=== PATIENT | male | born 1985 | race American Indian/Alaskan Native ===

== ENCOUNTER 2019-12-26 14:40 | Inpatient (IN) | payer BC ==
[~2019-12-26 14:40] MED LIST: EPINEPHrine 1 MG/10 ML SYRINGE ONE; EPINEPHrine/PF 1 MG/1 ML INJ IV ONE; SODIUM BICARB 8.4% 50 MEQ/50 ML SYRINGE IV ONE
[2019-12-26] MEDS ORDERED: EPINEPHrine/PF 1 MG/1 ML INJ IV ONE (14:45)
[2019-12-26] MEDS ORDERED: SUCCINYLCHOLINE CHLORIDE 200 MG/10 ML INJ MDV IV ONE (14:55)
--- NOTE | 2019-12-26 15:19 | Emergency Department Report ---
ED CPR HPI - General Stated Complaint: CARDIC ARREST Time Seen by Provider: 12/26/19 15:19 Source: old records reviewed (no previous medical record) Mode of arrival: Stretcher Limitations: Altered Mental Status - History of Present Illness Initial Comments: 34-year male with a past medical history of morbid obesity presents to the hospital with initial respiratory distress followed by cardiopulmonary arrest. EMS reports history of previous intubations. Patient was found at the scene in his vehicle hunched over at the parking lot of a motel with complaints of shortness of breath. Initially he was alert and oriented x4. Patient initial room air saturation was 70% with reported wheezing by EMS. They initiated Solu- Medrol 125, albuterol 5 mg, and magnesium 2 g. Shortly after being placed in the ambulance patient's heart rate began to drop in the 60s with decrease in oxygen saturation into the 20s to 40s along with patient lethargy. A Idris airway was placed and O2 sat increased to the 60s with bagging the heart rate continued to decrease to 30s. They attempted to pace patient. 22 minutes out from the hospital patient became pulseless and chest compressions were initiated. No ACLS medications provided prior to arrival. Patient presents in cardiopulmonary arrest with a GCS 3 with CPR/chest compressions in progress There was a female at the scene of unknown relation Jeison Zaina [phone] I spoke to mother at 4:14 PM Meredith Balderrama [phone] who states that the previous contact is that his significant other or girlfriend but some when he was with at the scene mother states diabetes, maybe heart problems, sleep apnea, but is noncompliant with all his medications Patient drove back here from [place] today and has had a cough productive of sputum since arrival 1 month ago patient was admitted to the hospital and had surgical drainage of a "cyst near his private parts" and had a negative Covid test at that time. He has not been tested for Covid since. - Related Data Allergies Allergy/AdvReac Type Severity Reaction Status Date / Time No Known Allergies Allergy Unverified 12/26/19 15:29 ED Review of Systems ROS: Stated complaint: CARDIC ARREST Other details as noted in HPI Comment: All other systems reviewed and negative ED Physical Exam - Other Other exam information: General: Unresponsive Head: Atraumatic Eyes: Pupils fixed unresponsive ENT: Idris airway Neck: Normal appearance, no midline tenderness Chest: Clear with auscultation with bagging, CO2 detector color change with bagging, apneic CV: Pulseless Abdomen: Soft, nondistended Back: Normal inspection Extremity: Bilateral lower extremity edema, no spontaneous movement Neuro: GCS equals 3 Psych: Unresponsive Skin: No rash ED Course Vital Signs 12/26/19 12/26/19 12/26/19 15:07 15:15 15:30 Temperature Pulse Rate 136 H 140 H 141 H Pulse Rate [ Anterior Bilateral Throughout] Respiratory 16 9 L Rate Respiratory Rate [Anterior Bilateral Throughout] Blood Pressure 152/102 170/120 195/153 Blood Pressure [Left] O2 Sat by Pulse 98 100 94 Oximetry 12/26/19 12/26/19 12/26/19 15:45 16:00 16:03 Temperature 98.7 F Pulse Rate 129 H 124 H 120 H Pulse Rate [ Anterior Bilateral Throughout] Respiratory 11 L 20 18 Rate Respiratory Rate [Anterior Bilateral Throughout] Blood Pressure 178/128 175/122 Blood Pressure 172/100 [Left] O2 Sat by Pulse 100 96 98 Oximetry 12/26/19 12/26/19 12/26/19 16:30 16:45 17:01 Temperature Pulse Rate 118 H 119 H 119 H Pulse Rate [ Anterior Bilateral Throughout] Respiratory 15 24 28 H Rate Respiratory Rate [Anterior Bilateral Throughout] Blood Pressure 135/102 135/102 135/102 Blood Pressure [Left] O2 Sat by Pulse 83 L 82 L 84 Oximetry 12/26/19 12/26/19 12/26/19 17:15 17:31 17:45 Temperature Pulse Rate 121 H 126 H 124 H Pulse Rate [ Anterior Bilateral Throughout] Respiratory 32 H 30 H 29 H Rate Respiratory Rate [Anterior Bilateral Throughout] Blood Pressure 135/102 156/101 156/101 Blood Pressure [Left] O2 Sat by Pulse 82 L 83 L 92 Oximetry 12/26/19 12/26/19 12/26/19 18:01 18:15 18:31 Temperature Pulse Rate 125 H 126 H 132 H Pulse Rate [ Anterior Bilateral Throughout] Respiratory 27 H 22 26 H Rate Respiratory Rate [Anterior Bilateral Throughout] Blood Pressure 134/83 154/97 164/117 Blood Pressure [Left] O2 Sat by Pulse 86 85 75 L Oximetry 12/26/19 12/26/19 12/26/19 19:17 19:45 20:00 Temperature 99.1 F Pulse Rate 142 H 140 H 125 H Pulse Rate [ Anterior Bilateral Throughout] Respiratory 29 H Rate Respiratory Rate [Anterior Bilateral Throughout] Blood Pressure 172/110 172/110 156/100 Blood Pressure 159/100 [Left] O2 Sat by Pulse 85 86 90 Oximetry 12/26/19 12/26/19 12/26/19 20:30 21:00 21:31 Temperature Pulse Rate 122 H 115 H 111 H Pulse Rate [ Anterior Bilateral Throughout] Respiratory 31 H 27 H 41 H Rate Respiratory Rate [Anterior Bilateral Throughout] Blood Pressure 159/99 153/101 144/93 Blood Pressure [Left] O2 Sat by Pulse 91 93 95 Oximetry 12/26/19 12/26/19 12/26/19 22:01 22:05 22:30 Temperature Pulse Rate 99 H 91 H Pulse Rate [ 91 H Anterior Bilateral Throughout] Respiratory 21 30 H Rate Respiratory 30 H Rate [Anterior Bilateral Throughout] Blood Pressure 118/67 100/49 Blood Pressure [Left] O2 Sat by Pulse 94 95 Oximetry 12/26/19 12/26/19 12/26/19 23:00 23:13 23:30 Temperature Pulse Rate 84 83 81 Pulse Rate [ Anterior Bilateral Throughout] Respiratory 30 H 30 H Rate Respiratory Rate [Anterior Bilateral Throughout] Blood Pressure 99/55 99/55 105/59 Blood Pressure [Left] O2 Sat by Pulse 96 95 96 Oximetry 12/26/19 12/27/19 12/27/19 23:41 00:00 00:30 Temperature Pulse Rate 82 81 81 Pulse Rate [ Anterior Bilateral Throughout] Respiratory 31 H 21 30 H Rate Respiratory Rate [Anterior Bilateral Throughout] Blood Pressure 105/59 101/63 111/65 Blood Pressure [Left] O2 Sat by Pulse 95 96 96 Oximetry 12/27/19 12/27/19 12/27/19 01:00 01:30 02:00 Temperature Pulse Rate 81 83 84 Pulse Rate [ Anterior Bilateral Throughout] Respiratory 18 23 12 Rate Respiratory Rate [Anterior Bilateral Throughout] Blood Pressure 106/68 114/70 110/70 Blood Pressure [Left] O2 Sat by Pulse 96 96 97 Oximetry 12/27/19 12/27/19 12/27/19 02:19 02:30 03:00 Temperature Pulse Rate 85 89 Pulse Rate [ 86 Anterior Bilateral Throughout] Respiratory 27 H 22 Rate Respiratory 30 H Rate [Anterior Bilateral Throughout] Blood Pressure 111/71 112/76 Blood Pressure [Left] O2 Sat by Pulse 96 96 Oximetry 12/27/19 12/27/19 12/27/19 03:30 04:00 04:01 Temperature Pulse Rate 88 88 88 Pulse Rate [ Anterior Bilateral Throughout] Respiratory 20 32 H Rate Respiratory Rate [Anterior Bilateral Throughout] Blood Pressure 117/74 118/73 117/74 Blood Pressure [Left] O2 Sat by Pulse 96 96 96 Oximetry 12/27/19 12/27/19 12/27/19 04:30 05:00 05:30 Temperature Pulse Rate 88 91 H 94 H Pulse Rate [ Anterior Bilateral Throughout] Respiratory 26 H 18 20 Rate Respiratory Rate [Anterior Bilateral Throughout] Blood Pressure 119/71 119/73 119/76 Blood Pressure [Left] O2 Sat by Pulse 97 96 96 Oximetry 12/27/19 12/27/19 12/27/19 06:00 06:30 06:45 Temperature Pulse Rate 97 H 94 H 96 H Pulse Rate [ Anterior Bilateral Throughout] Respiratory 22 24 30 H Rate Respiratory Rate [Anterior Bilateral Throughout] Blood Pressure 119/78 123/76 121/70 Blood Pressure [Left] O2 Sat by Pulse 95 96 95 Oximetry 12/27/19 12/27/19 12/27/19 07:00 07:15 07:30 Temperature Pulse Rate 98 H 99 H 99 H Pulse Rate [ Anterior Bilateral Throughout] Respiratory 20 24 20 Rate Respiratory Rate [Anterior Bilateral Throughout] Blood Pressure 123/68 124/78 125/78 Blood Pressure [Left] O2 Sat by Pulse 96 96 96 Oximetry 12/27/19 12/27/19 12/27/19 07:45 08:00 08:15 Temperature Pulse Rate 96 H 100 H 100 H Pulse Rate [ 98 H Anterior Bilateral Throughout] Respiratory 19 23 13 Rate Respiratory 23 Rate [Anterior Bilateral Throughout] Blood Pressure 119/74 126/75 126/84 Blood Pressure [Left] O2 Sat by Pulse 98 98 97 Oximetry 12/27/19 08:50 Temperature 102.2 F H Pulse Rate 99 H Pulse Rate [ Anterior Bilateral Throughout] Respiratory Rate Respiratory Rate [Anterior Bilateral Throughout] Blood Pressure Blood Pressure [Left] O2 Sat by Pulse Oximetry - Reevaluation(s) Reevaluation #1: 12/26/19 15:36 Upon arrival patient received ACLS resuscitation. Initial rhythm PEA. Epinephrine x2 and bicarb x1 provided with return of spontaneous circulation. Patient was then bagged with Idris airway however prepped for intubation. After intubation patient has clear bilateral breath sounds without wheezing and good air movement and chest rise noted. Reevaluation #2: 12/26/19 16:16 I spoke to mother and gave her patient update obtain additional history of present illness. Since patient is in respiratory isolation pending Covid test visit does not about this time but she is provided ED number to call back to follow-up on patient 12/26/19 17:39 After patient rotation and cleaning patient was noted to be hypoxic at the bedside despite 100% FiO2. Saturation on monitor 80% correlates with repeat ABG saturation. PEEP increased to 10 as per respiratory therapist. Repeat chest x-ray ordered in case discussed with CCU MD Dr villalba Patient is noted to have elevated D-dimer however, he is not stable enough for transfer to CT at this time. CT head also initially ordered given the fact that his patient is exhibiting involuntary muscle movements/spasms suggestive of anoxic brain injury and does not have pupillary response to light. Both cts are put on hold at this time until pt stable. Patient was loaded with Keppra IV and is currently on a propofol drip. Dr Villalba will likely initiate anticoagulation 12/26/19 19:02 Repeat chest x-ray shows no change in the tube. No change in x-ray as well. Patient is biting down on the tube with unable to open his mouth is still exhibiting intermittent myoclonus jerks. Rocuronium 130 mg requested for paralyzation so that block bite can be placed in the airway to prevent patient from biting through tube 12/26/19 19:15 Patient did receive rocuronium 100 mg IV. Bite block was placed successfully. Heart rate increased to 140s. O2 saturation increased to 84 to 85% while paralyzed. Sedation changed to Versed drip by critical care attending. Patient also has a PEEP of 12 and FiO2 of 100% as ordered by critical care attending. 12/27/19 11:06 - Consultations Consultation #1: 12/26/19 17:[address] Morgan Cuellar who is at the bedside to evaluate patient. Will hold imaging at this time until patient is more stable since he is currently hypoxic despite FiO2 of 100% - Intubation Time Out Performed: Yes Paralytic: Succinylcholine Mg Given: 100 Laryngoscope: other (glidescope) Size: 4 ET Tube Size: 7.5 Tube Secured Depth (cm): 24 Tube Secured Location: lips Tube Placement Confirmation: visualized tube passing t, equal breath sounds b ilat, no breath sounds over epi, confirmation by capnometr Patient Tolerated Procedure: well Intubation Complications: difficult intubation Additional Comments: Able to visualize cords with the glidesope number difficulty directed tube anteriorly with traditional stylette. Patient was successfully intubated on second attempt with use of a rigid stylette however, ET cuff was blown and we were unable to inflate cuff balloon. I then exchange tube exchanged the 7.5 ET tube with another 7.5 ET tube using a bougie with repeat CO2 detector color change and sustain oxygenation of 100% ED Medical Decision Making - Lab Data Result diagrams: 12/26/19 18:31 12/26/19 16:50 Lab Results 12/26/19 12/26/19 12/26/19 Range/Units 15:57 16:13 16:13 WBC 23.7 H (4.5-11.0) K/mm3 RBC 4.49 (3.65-5.03) M/mm3 Hgb 15.1 (11.8-15.2) gm/dl Hct 45.7 H (35.5-45.6) % MCV 102 H (84-94) fl MCH 34 H (28-32) pg MCHC 33 (32-34) % RDW 14.5 (13.2-15.2) % Plt Count 268 (140-440) K/mm3 PT 14.6 (12.2-14.9) Sec. INR 1.13 (0.87-1.13) APTT 28.1 (24.2-36.6) Sec. D-Dimer 5221.01 H (0-234) ng/mlDDU ABG pH 7.109 L* (7.350-7.450) pH Units ABG pCO2 52.7 mm Hg ABG pO2 101.4 H (80.0-90.0) mm Hg ABG HCO3 16.3 L (20.0-26.0) mmol/L ABG O2 Saturation 95.7 (95.0-99.0) % ABG O2 Content 19.5 (0.0-44) ABG Base Excess -13.4 L (-2.0-3.0) mmol/L ABG Hemoglobin 14.8 (14.0-18.0) gm/dl ABG Carboxyhemoglobin 1.8 (0.0-5.0) % ABG Methemoglobin 0.6 (0.0-1.5) % Oxyhemoglobin 93.3 L (95.0-99.0) % FiO2 100 % Sodium (137-145) mmol/L Potassium (3.6-5.0) mmol/L Chloride (98-107) mmol/L Carbon Dioxide (22-30) mmol/L Anion Gap mmol/L BUN (9-20) mg/dL Creatinine (0.8-1.3) mg/dL Estimated GFR ml/min BUN/Creatinine Ratio % Glucose (75-100) mg/dL Lactic Acid (0.7-2.0) mmol/L Calcium (8.4-10.2) mg/dL Magnesium (1.7-2.3) mg/dL Ferritin (30.0-300.0) ng/mL Total Bilirubin (0.1-1.2) mg/dL AST (5-40) units/L ALT (7-56) units/L Alkaline Phosphatase (35-129) units/L Lactate Dehydrogenase (91-180) units/L Total Creatine Kinase (55-170) units/L Troponin T (0.00-0.029) ng/mL C-Reactive Protein (0.00-1.30) mg/dL NT-Pro-B Natriuret Pep (0-450) pg/mL Total Protein (6.3-8.2) g/dL Albumin (3.9-5) g/dL Albumin/Globulin Ratio % Urine Color (Yellow) Urine Turbidity (Clear) Urine pH (5.0-7.0) Ur Specific [place] (1.003-1.030) Urine Protein (Negative) mg/dL Urine Glucose (UA) (Negative) mg/dL Urine Ketones (Negative) mg/dL Urine Blood (Negative) Urine Nitrite (Negative) Urine Bilirubin (Negative) Urine Urobilinogen (<2.0) mg/dL Ur Leukocyte Esterase (Negative) Urine WBC (Auto) (0.0-6.0) /HPF Urine RBC (Auto) (0.0-6.0) /HPF U Epithel Cells (Auto) (0-13.0) /HPF Urine Bacteria (Auto) (Negative) /HPF Urine WBC Clumps /HPF Urine Mucus /HPF Urine Opiates Screen Urine Methadone Screen Ur Barbiturates Screen Ur Phencyclidine Scrn Ur Amphetamines Screen U Benzodiazepines Scrn Urine Cocaine Screen U Marijuana (THC) Screen Drugs of Abuse Note 12/26/19 12/26/19 12/26/19 Range/Units 16:13 16:13 16:13 WBC (4.5-11.0) K/mm3 RBC (3.65-5.03) M/mm3 Hgb (11.8-15.2) gm/dl Hct (35.5-45.6) % MCV (84-94) fl MCH (28-32) pg MCHC (32-34) % RDW (13.2-15.2) % Plt Count (140-440) K/mm3 PT (12.2-14.9) Sec. INR (0.87-1.13) APTT (24.2-36.6) Sec. D-Dimer (0-234) ng/mlDDU ABG pH (7.350-7.450) pH Units ABG pCO2 mm Hg ABG pO2 (80.0-90.0) mm Hg ABG HCO3 (20.0-26.0) mmol/L ABG O2 Saturation (95.0-99.0) % ABG O2 Content (0.0-44) ABG Base Excess (-2.0-3.0) mmol/L ABG Hemoglobin (14.0-18.0) gm/dl ABG Carboxyhemoglobin (0.0-5.0) % ABG Methemoglobin (0.0-1.5) % Oxyhemoglobin (95.0-99.0) % FiO2 % Sodium 140 (137-145) mmol/L Potassium 4.1 (3.6-5.0) mmol/L Chloride 103.5 (98-107) mmol/L Carbon Dioxide 15 L (22-30) mmol/L Anion Gap 26 mmol/L BUN 19 (9-20) mg/dL Creatinine 1.3 (0.8-1.3) mg/dL Estimated GFR > 60 ml/min BUN/Creatinine Ratio 15 % Glucose 268 H (75-100) mg/dL Lactic Acid (0.7-2.0) mmol/L Calcium 8.9 (8.4-10.2) mg/dL Magnesium 2.60 H (1.7-2.3) mg/dL Ferritin (30.0-300.0) ng/mL Total Bilirubin 0.40 (0.1-1.2) mg/dL AST 177 H (5-40) units/L ALT 108 H (7-56) units/L Alkaline Phosphatase 125 (35-129) units/L Lactate Dehydrogenase (91-180) units/L Total Creatine Kinase 191 H (55-170) units/L Troponin T < 0.010 (0.00-0.029) ng/mL C-Reactive Protein (0.00-1.30) mg/dL NT-Pro-B Natriuret Pep 1766 H (0-450) pg/mL Total Protein 7.1 (6.3-8.2) g/dL Albumin 4.1 (3.9-5) g/dL Albumin/Globulin Ratio 1.4 % Urine Color (Yellow) Urine Turbidity (Clear) Urine pH (5.0-7.0) Ur Specific [place] (1.003-1.030) Urine Protein (Negative) mg/dL Urine Glucose (UA) (Negative) mg/dL Urine Ketones (Negative) mg/dL Urine Blood (Negative) Urine Nitrite (Negative) Urine Bilirubin (Negative) Urine Urobilinogen (<2.0) mg/dL Ur Leukocyte Esterase (Negative) Urine WBC (Auto) (0.0-6.0) /HPF Urine RBC (Auto) (0.0-6.0) /HPF U Epithel Cells (Auto) (0-13.0) /HPF Urine Bacteria (Auto) (Negative) /HPF Urine WBC Clumps /HPF Urine Mucus /HPF Urine Opiates Screen Urine Methadone Screen Ur Barbiturates Screen Ur Phencyclidine Scrn Ur Amphetamines Screen U Benzodiazepines Scrn Urine Cocaine Screen U Marijuana (THC) Screen Drugs of Abuse Note 12/26/19 12/26/19 12/26/19 Range/Units 16:13 16:50 16:50 WBC (4.5-11.0) K/mm3 RBC (3.65-5.03) M/mm3 Hgb (11.8-15.2) gm/dl Hct (35.5-45.6) % MCV (84-94) fl MCH (28-32) pg MCHC (32-34) % RDW (13.2-15.2) % Plt Count (140-440) K/mm3 PT (12.2-14.9) Sec. INR (0.87-1.13) APTT (24.2-36.6) Sec. D-Dimer (0-234) ng/mlDDU ABG pH (7.350-7.450) pH Units ABG pCO2 mm Hg ABG pO2 (80.0-90.0) mm Hg ABG HCO3 (20.0-26.0) mmol/L ABG O2 Saturation (95.0-99.0) % ABG O2 Content (0.0-44) ABG Base Excess (-2.0-3.0) mmol/L ABG Hemoglobin (14.0-18.0) gm/dl ABG Carboxyhemoglobin (0.0-5.0) % ABG Methemoglobin (0.0-1.5) % Oxyhemoglobin (95.0-99.0) % FiO2 % Sodium (137-145) mmol/L Potassium (3.6-5.0) mmol/L Chloride (98-107) mmol/L Carbon Dioxide (22-30) mmol/L Anion Gap mmol/L BUN (9-20) mg/dL Creatinine (0.8-1.3) mg/dL Estimated GFR ml/min BUN/Creatinine Ratio % Glucose 273 H (75-100) mg/dL Lactic Acid 7.70 H* (0.7-2.0) mmol/L Calcium (8.4-10.2) mg/dL Magnesium (1.7-2.3) mg/dL Ferritin 1248.0 H (30.0-300.0) ng/mL Total Bilirubin (0.1-1.2) mg/dL AST (5-40) units/L ALT (7-56) units/L Alkaline Phosphatase (35-129) units/L Lactate Dehydrogenase 443 H (91-180) units/L Total Creatine Kinase (55-170) units/L Troponin T (0.00-0.029) ng/mL C-Reactive Protein 1.10 (0.00-1.30) mg/dL NT-Pro-B Natriuret Pep (0-450) pg/mL Total Protein (6.3-8.2) g/dL Albumin (3.9-5) g/dL Albumin/Globulin Ratio % Urine Color (Yellow) Urine Turbidity (Clear) Urine pH (5.0-7.0) Ur Specific [place] (1.003-1.030) Urine Protein (Negative) mg/dL Urine Glucose (UA) (Negative) mg/dL Urine Ketones (Negative) mg/dL Urine Blood (Negative) Urine Nitrite (Negative) Urine Bilirubin (Negative) Urine Urobilinogen (<2.0) mg/dL Ur Leukocyte Esterase (Negative) Urine WBC (Auto) (0.0-6.0) /HPF Urine RBC (Auto) (0.0-6.0) /HPF U Epithel Cells (Auto) (0-13.0) /HPF Urine Bacteria (Auto) (Negative) /HPF Urine WBC Clumps /HPF Urine Mucus /HPF Urine Opiates Screen Urine Methadone Screen Ur Barbiturates Screen Ur Phencyclidine Scrn Ur Amphetamines Screen U Benzodiazepines Scrn Urine Cocaine Screen U Marijuana (THC) Screen Drugs of Abuse Note 12/26/19 12/26/19 12/26/19 Range/Units 16:50 17:02 Unknown WBC (4.5-11.0) K/mm3 RBC (3.65-5.03) M/mm3 Hgb (11.8-15.2) gm/dl Hct (35.5-45.6) % MCV (84-94) fl MCH (28-32) pg MCHC (32-34) % RDW (13.2-15.2) % Plt Count (140-440) K/mm3 PT (12.2-14.9) Sec. INR (0.87-1.13) APTT (24.2-36.6) Sec. D-Dimer 6498.49 H (0-234) ng/mlDDU ABG pH 7.136 L* (7.350-7.450) pH Units ABG pCO2 61.4 mm Hg ABG pO2 63.9 L (80.0-90.0) mm Hg ABG HCO3 20.3 (20.0-26.0) mmol/L ABG O2 Saturation 81.8 L (95.0-99.0) % ABG O2 Content 16.4 (0.0-44) ABG Base Excess -9.6 L (-2.0-3.0) mmol/L ABG Hemoglobin 14.6 (14.0-18.0) gm/dl ABG Carboxyhemoglobin 1.7 (0.0-5.0) % ABG Methemoglobin 0.7 (0.0-1.5) % Oxyhemoglobin 79.8 L (95.0-99.0) % FiO2 100 % Sodium (137-145) mmol/L Potassium (3.6-5.0) mmol/L Chloride (98-107) mmol/L Carbon Dioxide (22-30) mmol/L Anion Gap mmol/L BUN (9-20) mg/dL Creatinine (0.8-1.3) mg/dL Estimated GFR ml/min BUN/Creatinine Ratio % Glucose (75-100) mg/dL Lactic Acid (0.7-2.0) mmol/L Calcium (8.4-10.2) mg/dL Magnesium (1.7-2.3) mg/dL Ferritin (30.0-300.0) ng/mL Total Bilirubin (0.1-1.2) mg/dL AST (5-40) units/L ALT (7-56) units/L Alkaline Phosphatase (35-129) units/L Lactate Dehydrogenase (91-180) units/L Total Creatine Kinase (55-170) units/L Troponin T (0.00-0.029) ng/mL C-Reactive Protein (0.00-1.30) mg/dL NT-Pro-B Natriuret Pep (0-450) pg/mL Total Protein (6.3-8.2) g/dL Albumin (3.9-5) g/dL Albumin/Globulin Ratio % Urine Color (Yellow) Urine Turbidity (Clear) Urine pH (5.0-7.0) Ur Specific [place] (1.003-1.030) Urine Protein (Negative) mg/dL Urine Glucose (UA) (Negative) mg/dL Urine Ketones (Negative) mg/dL Urine Blood (Negative) Urine Nitrite (Negative) Urine Bilirubin (Negative) Urine Urobilinogen (<2.0) mg/dL Ur Leukocyte Esterase (Negative) Urine WBC (Auto) (0.0-6.0) /HPF Urine RBC (Auto) (0.0-6.0) /HPF U Epithel Cells (Auto) (0-13.0) /HPF Urine Bacteria (Auto) (Negative) /HPF Urine WBC Clumps /HPF Urine Mucus /HPF Urine Opiates Screen Negative Urine Methadone Screen Negative Ur Barbiturates Screen Negative Ur Phencyclidine Scrn Negative Ur Amphetamines Screen Negative U Benzodiazepines Scrn Negative Urine Cocaine Screen Negative U Marijuana (THC) Screen Negative Drugs of Abuse Note Disclamer 12/26/19 Range/Units Unknown WBC (4.5-11.0) K/mm3 RBC (3.65-5.03) M/mm3 Hgb (11.8-15.2) gm/dl Hct (35.5-45.6) % MCV (84-94) fl MCH (28-32) pg MCHC (32-34) % RDW (13.2-15.2) % Plt Count (140-440) K/mm3 PT (12.2-14.9) Sec. INR (0.87-1.13) APTT (24.2-36.6) Sec. D-Dimer (0-234) ng/mlDDU ABG pH (7.350-7.450) pH Units ABG pCO2 mm Hg ABG pO2 (80.0-90.0) mm Hg ABG HCO3 (20.0-26.0) mmol/L ABG O2 Saturation (95.0-99.0) % ABG O2 Content (0.0-44) ABG Base Excess (-2.0-3.0) mmol/L ABG Hemoglobin (14.0-18.0) gm/dl ABG Carboxyhemoglobin (0.0-5.0) % ABG Methemoglobin (0.0-1.5) % Oxyhemoglobin (95.0-99.0) % FiO2 % Sodium (137-145) mmol/L Potassium (3.6-5.0) mmol/L Chloride (98-107) mmol/L Carbon Dioxide (22-30) mmol/L Anion Gap mmol/L BUN (9-20) mg/dL Creatinine (0.8-1.3) mg/dL Estimated GFR ml/min BUN/Creatinine Ratio % Glucose (75-100) mg/dL Lactic Acid (0.7-2.0) mmol/L Calcium (8.4-10.2) mg/dL Magnesium (1.7-2.3) mg/dL Ferritin (30.0-300.0) ng/mL Total Bilirubin (0.1-1.2) mg/dL AST (5-40) units/L ALT (7-56) units/L Alkaline Phosphatase (35-129) units/L Lactate Dehydrogenase (91-180) units/L Total Creatine Kinase (55-170) units/L Troponin T (0.00-0.029) ng/mL C-Reactive Protein (0.00-1.30) mg/dL NT-Pro-B Natriuret Pep (0-450) pg/mL Total Protein (6.3-8.2) g/dL Albumin (3.9-5) g/dL Albumin/Globulin Ratio % Urine Color [place] (Yellow) Urine Turbidity Cloudy (Clear) Urine pH 6.0 (5.0-7.0) Ur Specific [place] 1.025 (1.003-1.030) Urine Protein >500 (Negative) mg/dL Urine Glucose (UA) >=500 (Negative) mg/dL Urine Ketones Neg (Negative) mg/dL Urine Blood Neg (Negative) Urine Nitrite Neg (Negative) Urine Bilirubin Neg (Negative) Urine Urobilinogen < 2.0 (<2.0) mg/dL Ur Leukocyte Esterase Neg (Negative) Urine WBC (Auto) 146.0 H (0.0-6.0) /HPF Urine RBC (Auto) 92.0 (0.0-6.0) /HPF U Epithel Cells (Auto) 4.0 (0-13.0) /HPF Urine Bacteria (Auto) 1+ (Negative) /HPF Urine WBC Clumps 1+ /HPF Urine Mucus 1+ /HPF Urine Opiates Screen Urine Methadone Screen Ur Barbiturates Screen Ur Phencyclidine Scrn Ur Amphetamines Screen U Benzodiazepines Scrn Urine Cocaine Screen U Marijuana (THC) Screen Drugs of Abuse Note - EKG Data -: EKG Interpreted by Me EKG shows normal: sinus rhythm, ST-T waves (lat t wave inv) Rate: tachycardia (103) - EKG Data When compared to previous EKG there are: previous EKG unavailable - Radiology Data Radiology results: report reviewed XR chest 1V ap INDICATION / CLINICAL INFORMATION: ETT placement. COMPARISON: 09/20/2007 FINDINGS: Endotracheal tube terminates in the midtrachea. Enteric catheter extends below the diaphragm, out of the [id number]. The heart is enlarged with prominence of the pulmonary vasculature. Perihilar airspace disease, greater on the right noted. No pleural effusion or pneumothorax identified. Po rtions of the left costophrenic sulcus are excluded from view. IMPRESSION: Asymmetric perihilar airspace opacities, more pronounced on the right. Findings may reflect pneumonia or pulmonary edema. Satisfactory position of ETT. - Medical Decision Making 34-year-old male with unclear past medical history presents to the hospital in cardiopulmonary arrest after initial respiratory distress and hypoxia with subsequent bradycardia. Per mother patient has a history of medication noncompliance and is currently not compliant medications. Recent travel from [place] via car and body habitus puts patient at risk for pulmonary embolism. Elevated D-dimer noted. Patient also has bilateral infiltrates versus edema therefore was placed in respiratory isolation until Covid can be ruled out. Critical care and ID consult ordered. After successful cardiopulmonary r esuscitation aspirator epinephrine x2 and sodium bicarb x1 patient was noted to have intermittent involuntary myclonus jerks suggestive of possible anoxic brain injury. Pupils also are not reactive to light. Patient loaded with IV Keppra. Patient currently on propofol drip for sedation. Initial ABG after intubation shows both a metabolic respiratory acidosis with adequate oxygenation 100% FiO2 . Patient subsequently had a repeat ABG that confirmed worsening hypoxia, worsening increasing CO2 level with improved bicarb. Given that patient remained hypoxic despite 100% FiO2 and increasing PEEP patient is not stable to go to CT scan at this time. [facility] critical care consult ordered and Dr. Dann Josue ordered empiric anticoagulation. Patient received antibiotics for healthcare associated pneumonia given recent hospitalization. At time of disposition patient is not requiring pressors. Patient was also temporarily paralyzed to rocuronium for bite block placement in the ED. Improved oxygen saturation 84%. Critical Care Time: Yes Critical care time in (mins) excluding proc time.: 35 Critical care attestation.: If time is entered above; I have spent that time in minutes in the direct care of this critically ill patient, excluding procedure time. ED Disposition Clinical Impression: Cardiopulmonary arrest with successful resuscitation, Respiratory failure, Bilateral pulmonary infiltrates on chest x-ray, Lactic acidosis, Respiratory acidosis, UTI (urinary tract infection) Disposition: OP ADMIT IP TO THIS HOSP Is pt being admited?: Yes Condition: Stable Time of Disposition: 18:05 (Dr Carlton/hospitalist)
[2019-12-26] MEDS ORDERED: MINERAL OIL/PETROLATUM, WHITE OPHTH OINT 3.5 GM OU PRN (15:26)
[2019-12-26] MEDS ORDERED: LIP THERAPY VASELINE TP PRN (15:26)
--- NOTE | 2019-12-26 15:50 | XRay Report ---
XR chest 1V ap INDICATION / CLINICAL INFORMATION: ETT placement. COMPARISON: 09/20/2007 FINDINGS: Endotracheal tube terminates in the midtrachea. Enteric catheter extends below the diaphragm, out of the [id number]. The heart is enlarged with prominence of the pulmonary vasculature. Perihilar airspace disease, great er on the right noted. No pleural effusion or pneumothorax identified. Portions of the left costophre queta sulcus are excluded from view. IMPRESSION: Asymmetric perihilar airspace opacities, more pronounced on the right. Findings may reflect pneumonia or pulmonary edema. Satisfactory position of ETT. Signer Name: Ezra Weller MD Signed: 12/26/2019 3:46 PM Workstation Name: [id number]
[2019-12-26 16:04] LABS: ABG Base Excess -13.4 mmol/L (-2.0-3.0); ABG HCO3 16.3 mmol/L (20.0-26.0); ABG Methemoglobin 0.6 % (0.0-1.5); ABG Oxygen Saturation 95.7 % (95.0-99.0); ABG PCO2 52.7 mm Hg; ABG PO2 101.4 mm Hg (80.0-90.0)
[2019-12-26 16:08] LABS: ABG PH 7.109 pH Units (7.350-7.450)
[2019-12-26] MEDS: SODIUM CHLORIDE 0.9% 1000 ML 1,000 ML IV ONE ×2 (16:27→18:21)
[2019-12-26] MEDS ORDERED: levETIRAcetam 1000 MG/NS 0.75% 1,000 MG/100 ML BAG IV ONE (16:38)
[2019-12-26 16:39] LABS: Hematocrit 45.7 % (35.5-45.6); Hemoglobin 15.1 gm/dl (11.8-15.2); Mean Corpuscular HGB Conc 33 % (32-34); Mean Corpuscular Volume 102 fl (84-94); Platelet Count 268 K/mm3 (140-440); Red Blood Count 4.49 M/mm3 (3.65-5.03); Red Cell Distribution Width 14.5 % (13.2-15.2)
[2019-12-26 16:50] LABS: Amphetamine Screen,Urine Negative; Benzodiazepines Screen,Urine Negative; Cannabinoid Screen,Urine Negative; Cocaine Screen,Urine Negative; Methadone Screen,Urine Negative; Opiate Screen,Urine Negative
[2019-12-26 16:57] LABS: Alanine Aminotransferase 108 units/L (7-56); Albumin 4.1 g/dL (3.9-5); BUN/Creatinine Ratio 15; Blood Urea Nitrogen 19 mg/dL (9-20); Calcium 8.9 mg/dL (8.4-10.2); Hemolysis Index 24
[2019-12-26 17:01] LABS: INR 1.13 (0.87-1.13)
[2019-12-26 17:02] LABS: Partial Thromboplastin Time 28.1 Sec. (24.2-36.6)
[2019-12-26] MEDS ORDERED: dexAMETHasone 4 MG/ML VIAL IV ONE (17:04)
[2019-12-26 17:17] LABS: ABG Base Excess -9.6 mmol/L (-2.0-3.0); ABG HCO3 20.3 mmol/L (20.0-26.0); ABG Methemoglobin 0.7 % (0.0-1.5); ABG Oxygen Saturation 81.8 % (95.0-99.0); ABG PCO2 61.4 mm Hg; ABG PO2 63.9 mm Hg (80.0-90.0)
[2019-12-26 17:21] LABS: C-Reactive Protein 1.1 mg/dL (0.00-1.30)
[2019-12-26 17:22] LABS: ABG PH 7.136 pH Units (7.350-7.450)
[2019-12-26 17:28] LABS: Bacteria,Urine 1+ /HPF (Negative); Bilirubin,Urine NEG (Negative); Blood,Urine NEG (Negative); Color,Urine Amber (Yellow); Mucus,Urine 1+ /HPF; Urobilinogen,Urine < 2.0 mg/dL (<2.0)
[2019-12-26 17:29] LABS: Protein,Urine >500 mg/dL (Negative)
[2019-12-26] MEDS ORDERED: fentaNYL 100 MCG/2 ML INJ IV PRN (17:48)
[2019-12-26] MEDS ORDERED: MIDAZOLAM 2 MG/2 ML INJ IV PRN (17:48)
--- NOTE | 2019-12-26 17:50 | Consultation ---
History of Present Illness Consult date: 12/26/19 Requesting physician: JUANY TESFAYE Reason for consult: other (Acute Hypoxemic Respiratory Failure on MVS) History of present illness: PCCM CONSULT NOTE (Full dictation # [id number]) Please see dictated notes for full details Medications and Allergies Allergies Allergy/AdvReac Type Severity Reaction Status Date / Time No Known Allergies Allergy Unverified 12/26/19 15:29 Active Meds: Active Medications Hydrophilic Ointment (Vaseline Lip Therapy) 1 applic TP Q2HR PRN PRN Reason: Dry Lips Propofol (Diprivan 10 Mg/Ml) 1,000 mg in 100 mls @ 3.945 mls/hr IV TITR ANGELA; Protocol Last Admin: 12/26/19 15:43 Dose: 5 mcg/kg/min, 3.945 mls/hr Documented by: Ceftriaxone Sodium (Rocephin/Ns 2 Gm/100 Ml) 2 gm in 100 mls @ 200 mls/hr IV Q24HR ANGELA; Protocol Azithromycin 500 mg/ Sodium (Chloride) 250 mls @ 250 mls/hr IV Q24H ANGELA; Protocol Multi-Ingred Cream/Lotion/Oil/Oint (Artificial Tears Ophth Oint) 1 applic OU Q 4HR PRN PRN Reason: Dry Eye(s) Physical Examination Vital signs: Vital Signs Pulse BP Pulse Ox 136 H 152/102 98 12/26/19 15:07 12/26/19 15:07 12/26/19 15:07 Results - Laboratory Findings CBC and BMP: 12/26/19 16:13 12/26/19 16:50 ABG ABG pH 7.136 pH Units (7.350-7.450) L* 12/26/19 17:02 ABG pCO2 61.4 mm Hg 12/26/19 17:02 ABG pO2 63.9 mm Hg (80.0-90.0) L 12/26/19 17:02 ABG O2 Saturation 81.8 % (95.0-99.0) L 12/26/19 17:02 PT/INR, D-dimer PT 14.6 Sec. (12.2-14.9) 12/26/19 16:13 INR 1.13 (0.87-1.13) 12/26/19 16:13 D-Dimer 6498.49 ng/mlDDU (0-234) H 12/26/19 16:50 Abnormal lab findings: Abnormal Labs 12/26/19 12/26/19 12/26/19 15:57 16:13 16:13 WBC 23.7 H Hct 45.7 H MCV 102 H MCH 34 H D-Dimer 5221.01 H ABG pH 7.109 L* ABG pO2 101.4 H ABG HCO3 16.3 L ABG O2 Saturation ABG Base Excess -13.4 L Oxyhemoglobin 93.3 L Carbon Dioxide Glucose Lactic Acid Magnesium Ferritin AST ALT Lactate Dehydrogenase Total Creatine Kinase NT-Pro-B Natriuret Pep Urine WBC (Auto) 12/26/19 12/26/19 12/26/19 16:13 16:13 16:13 WBC Hct MCV MCH D-Dimer ABG pH ABG pO2 ABG HCO3 ABG O2 Saturation ABG Base Excess Oxyhemoglobin Carbon Dioxide 15 L Glucose 268 H Lactic Acid Magnesium 2.60 H Ferritin AST 177 H ALT 108 H Lactate Dehydrogenase Total Creatine Kinase 191 H NT-Pro-B Natriuret Pep 1766 H Urine WBC (Auto) 12/26/19 12/26/19 12/26/19 16:13 16:50 16:50 WBC Hct MCV MCH D-Dimer ABG pH ABG pO2 ABG HCO3 ABG O2 Saturation ABG Base Excess Oxyhemoglobin Carbon Dioxide Glucose 273 H Lactic Acid 7.70 H* Magnesium Ferritin 1248.0 H AST ALT Lactate Dehydrogenase 443 H Total Creatine Kinase NT-Pro-B Natriuret Pep Urine WBC (Auto) 12/26/19 12/26/19 12/26/19 16:50 17:02 Unknown WBC Hct MCV MCH D-Dimer 6498.49 H ABG pH 7.136 L* ABG pO2 63.9 L ABG HCO3 ABG O2 Saturation 81.8 L ABG Base Excess -9.6 L Oxyhemoglobin 79.8 L Carbon Dioxide Glucose Lactic Acid Magnesium Ferritin AST ALT Lactate Dehydrogenase Total Creatine Kinase NT-Pro-B Natriuret Pep Urine WBC (Auto) 146.0 H
[2019-12-26] MEDS ORDERED: AZITHROMYCIN 500 MG in SODIUM CHLORIDE 0.9% 250ML 250 ML IV SCH (18:00)
[2019-12-26] MEDS ORDERED: cefTRIAXone/NS 2 GM/100 ML 2 GM/100 ML BAG IV SCH (18:00)
--- NOTE | 2019-12-26 18:07 | XRay Report ---
CHEST 1 VIEW 12/26/2019 5:00 PM INDICATION / CLINICAL INFORMATION: hypoxia, post intubation. COMPARISON: Radiograph from the same day. FINDINGS: SUPPORT DEVICES: Stable, satisfactory device positioning. HEART / MEDIASTINUM: Stable. LUNGS / PLEURA: Bilateral perihilar airspace opacities are unchanged. No pneumothorax. ADDITIONAL FINDINGS: No significant additional findings. IMPRESSION: 1. No significant change from earlier today. Signer Name: Talon Eisenberg MD Signed: 12/26/2019 6:03 PM Workstation Name: [id number]
[2019-12-26] MEDS: MIDAZOLAM 100 MG in SODIUM CHLORIDE 0.9% 80 ML IV SCH (18:13)
--- NOTE | 2019-12-26 18:25 | History and Physical Report ---
History of Present Illness Chief complaint: Cardiac arrest History of present illness: 34 YO Male with Obesity Hypoventilation Syndrome, DM presents to ED for evaluation. Patient is intubated and on ventilatory support at the time of my evaluation and is unable to provide history. Patient history taken from EMS staff, ED staff, as well as the patient's family who is available by phone to discuss patient history. EMS was notified after the patient was found unresponsive in his vehicle in the parking lot of a local motel. EMS was notified and upon arrival the patient was found to be in respiratory distress with a pulse oximetry of 70%. Patient was treated with IV steroid therapy nebulizer therapy and transported to [facility] for further care and evaluation. Shortly after being placed in the EMS transport vehicle the patient became bradycardic and experienced cardiopulmonary arrest. The patient was treated w [facility] ACLS protocol with return of perfusing cardiac rhythm and was subsequently intubated in the field. Patient subsequently transported to [facility] for further care and evaluation of the aforementioned symptoms. Patient seen and evaluated in the emergency department. All lab and imaging studies reviewed. Patient found to have sepsis, acute hypoxemic respiratory failure, metabolic acidosis, toxic metabolic encephalopathy, bilateral pneumonia, as well as symptoms suggestive of coronavirus infection. Patient initiated on sepsis protocol and admitted to ICU. Coronavirus protocol initiated in the emergency department prior to my evaluation. No further history is obtainable. No prior admission for review. No medication listed at time of admission for reconciliation. Past History Past Medical History: other (See HPI) Past Surgical History: Other (Testicular surgery) Social history: single. denies: smoking, alcohol abuse, prescription drug abuse Family history: diabetes, hypertension Medications and Allergies Allergies Allergy/AdvReac Type Severity Reaction Status Date / Time No Known Allergies Allergy Unverified 12/26/19 15:29 Active Meds: Active Medications Fentanyl (Sublimaze) 50 mcg IV Q10MIN PRN PRN Reason: ANALGESIA Hydrophilic Ointment (Vaseline Lip Therapy) 1 applic TP Q2HR PRN PRN Reason: Dry Lips Propofol (Diprivan 10 Mg/Ml) 1,000 mg in 100 mls @ 3.945 mls/hr IV TITR ANGELA; Protocol Last Admin: 12/26/19 15:43 Dose: 5 mcg/kg/min, 3.945 mls/hr Documented by: Fentanyl Citrate (Fentanyl Drip Premix) 2,000 mcg in 100 mls @ 6.575 mls/hr IV TITR ANGELA; Protocol Midazolam HCl 100 mg/ Sodium (Chloride) 100 mls @ 2 mls/hr IV TITR ANGELA; Protocol Last Admin: 12/26/19 18:13 Dose: 2 mg/hr, 2 mls/hr Documented by: Vancomycin HCl 2,000 mg/ (Sodium Chloride) 540 mls @ 333 mls/hr IV ONCE ONE; Protocol Stop: 12/26/19 21:07 Cefepime HCl (Cefepime/Ns 2 Gm/100 Ml) 2 gm in 100 mls @ 200 mls/hr IV Q8HR ANGELA; Protocol Heparin Sodium/Sodium Chloride (Heparin/ 0.45% Nacl-25,000 Unit/500 Ml) 25,000 unit in 500 mls @ 30 mls/hr IV TITR ANGELA; Protocol Midazolam HCl (Versed) 2 mg IV Q10MIN PRN PRN Reason: Sedation Multi-Ingred Cream/Lotion/Oil/Oint (Artificial Tears Ophth Oint) 1 applic OU Q4HR PRN PRN Reason: Dry Eye(s) Pantoprazole Sodium (Protonix) 40 mg IV Q12H ANGELA Review of Systems ROS unobtainable: due to endotracheal tube, due to mental status Exam - Constitutional Vitals: Temp Pulse Resp BP Pulse Ox 98.7 F 119 H 28 H 135/102 84 12/26/19 16:03 12/26/19 17:01 12/26/19 17:01 12/26/19 17:01 12/26/19 17:01 General appearance: Present: severe distress - EENT Eyes: Present: miosis ENT: hearing decreased - Neck Neck: Present: supple, normal ROM - Respiratory Respiratory effort: labored, accessory muscle use Respiratory: bilateral: diminished, rhonchi - Cardiovascular Rhythm: other (Tachycardia) Heart Sounds: Present: S1 & S2. Absent: rub, click - Extremities Extremities: pulses symmetrical, No edema Peripheral Pulses: abnormal (Capillary refill greater than 3.5 seconds) - Abdominal Male genitourinary: Present: normal - Integumentary Integumentary: Present: clear, dry, clammy, decreased turgor - Musculoskeletal Musculoskeletal: generalized weakness - Psychiatric Psychiatric: no appropriate mood/affect, no intact judgment & insight, no memory intact - Neurologic Neurologic: no focal deficits, moves all extremities, no gait normal HEART Score - HEART Score Troponin: Troponin T < 0.010 ng/mL (0.00-0.029) 12/26/19 16:13 Results - Labs CBC & Chem 7: 12/26/19 18:31 12/26/19 16:50 Labs: Abnormal lab results 12/26/19 12/26/19 12/26/19 Range/Units 15:57 16:13 16:13 WBC 23.7 H (4.5-11.0) K/mm3 Hct 45.7 H (35.5-45.6) % MCV 102 H (84-94) fl MCH 34 H (28-32) pg D-Dimer 5221.01 H (0-234) ng/mlDDU ABG pH 7.109 L* (7.350-7.450) pH Units ABG pO2 101.4 H (80.0-90.0) mm Hg ABG HCO3 16.3 L (20.0-26.0) mmol/L ABG O2 Saturation (95.0-99.0) % ABG Base Excess -13.4 L (-2.0-3.0) mmol/L Oxyhemoglobin 93.3 L (95.0-99.0) % Carbon Dioxide (22-30) mmol/L Glucose (75-100) mg/dL Lactic Acid (0.7-2.0) mmol/L Magnesium (1.7-2.3) mg/dL Ferritin (30.0-300.0) ng/mL AST (5-40) units/L ALT (7-56) units/L Lactate Dehydrogenase (91-180) units/L Total Creatine Kinase (55-170) units/L NT-Pro-B Natriuret Pep (0-450) pg/mL Urine WBC (Auto) (0.0-6.0) /HPF 12/26/19 12/26/19 12/26/19 Range/Units 16:13 16:13 16:13 WBC (4.5-11.0) K/mm3 Hct (35.5-45.6) % MCV (84-94) fl MCH (28-32) pg D-Dimer (0-234) ng/mlDDU ABG pH (7.350-7.450) pH Units ABG pO2 (80.0-90.0) mm Hg ABG HCO3 (20.0-26.0) mmol/L ABG O2 Saturation (95.0-99.0) % ABG Base Excess (-2.0-3.0) mmol/L Oxyhemoglobin (95.0-99.0) % Carbon Dioxide 15 L (22-30) mmol/L Glucose 268 H (75-100) mg/dL Lactic Acid (0.7-2.0) mmol/L Magnesium 2.60 H (1.7-2.3) mg/dL Ferritin (30.0-300.0) ng/mL AST 177 H (5-40) units/L ALT 108 H (7-56) units/L Lactate Dehydrogenase (91-180) units/L Total Creatine Kinase 191 H (55-170) units/L NT-Pro-B Natriuret Pep 1766 H (0-450) pg/mL Urine WBC (Auto) (0.0-6.0) /HPF 12/26/19 12/26/19 12/26/19 Range/Units 16:13 16:50 16:50 WBC (4.5-11.0) K/mm3 Hct (35.5-45.6) % MCV (84-94) fl MCH (28-32) pg D-Dimer (0-234) ng/mlDDU ABG pH (7.350-7.450) pH Units ABG pO2 (80.0-90.0) mm Hg ABG HCO3 (20.0-26.0) mmol/L ABG O2 Saturation (95.0-99.0) % ABG Base Excess (-2.0-3.0) mmol/L Oxyhemoglobin (95.0-99.0) % Carbon Dioxide (22-30) mmol/L Glucose 273 H (75-100) mg/dL Lactic Acid 7.70 H* (0.7-2.0) mmol/L Magnesium (1.7-2.3) mg/dL Ferritin 1248.0 H (30.0-300.0) ng/mL AST (5-40) units/L ALT (7-56) units/L Lactate Dehydrogenase 443 H (91-180) units/L Total Creatine Kinase (55-170) units/L NT-Pro-B Natriuret Pep (0-450) pg/mL Urine WBC (Auto) (0.0-6.0) /HPF 12/26/19 12/26/19 12/26/19 Range/Units 16:50 17:02 Unknown WBC (4.5-11.0) K/mm3 Hct (35.5-45.6) % MCV (84-94) fl MCH (28-32) pg D-Dimer 6498.49 H (0-234) ng/mlDDU ABG pH 7.136 L* (7.350-7.450) pH Units ABG pO2 63.9 L (80.0-90.0) mm Hg ABG HCO3 (20.0-26.0) mmol/L ABG O2 Saturation 81.8 L (95.0-99.0) % ABG Base Excess -9.6 L (-2.0-3.0) mmol/L Oxyhemoglobin 79.8 L (95.0-99.0) % Carbon Dioxide (22-30) mmol/L Glucose (75-100) mg/dL Lactic Acid (0.7-2.0) mmol/L Magnesium (1.7-2.3) mg/dL Ferritin (30.0-300.0) ng/mL AST (5-40) units/L ALT (7-56) units/L Lactate Dehydrogenase (91-180) units/L Total Creatine Kinase (55-170) units/L NT-Pro-B Natriuret Pep (0-450) pg/mL Urine WBC (Auto) 146.0 H (0.0-6.0) /HPF Assessment and Plan - Patient Problems (1) Sepsis Current Visit: Yes Status: Acute Qualifiers: Severe sepsis acute organ dysfunction type: acute respiratory failure Plan to address problem: Sepsis protocol: Admit to ICU, CBC, CMP, chest x-ray, urinalysis, blood cultures, IV antibiotic therapy, IV fluid resuscitation therapy, serial lactic acid levels, monitor urine output every shift, monitor fluid balance, maintain mean arterial pressure greater than or equal to 65. The high probability of a clinically significant, sudden or life threatening deterioration of the [neuro, cardiac, pulmonary, renal, infectious disease] system(s) required my full and direct attention, intervention and personal management. The aggregate critical care time was [95] minutes. This time is in addition to time spent performing reported procedures but includes the following: [x] Data Review and interpretation [x] Patient assessment and monitoring of vital signs [x] Documentation [x] Medication orders and management (2) Acute hypoxemic respiratory failure Current Visit: Yes Status: Acute Plan to address problem: Patient intubated and on ventilatory support at time of my evaluation. Wean vent as tolerated, daily spontaneous breathing trial, sedation holiday, arterial blood gas, (3) Pneumonia Current Visit: Yes Status: Acute Plan to address problem: Pneumonia protocol: Chest x-ray, CBC, CMP, IV antibiotic therapy, pulse oximetry, blood cultures. (4) Suspected 2019 novel coronavirus infection Current Visit: Yes Status: Acute Plan to address problem: Coronavirus protocol: Contact precautions, isolation precautions, IV antibiotic therapy, IV steroid therapy, prone positioning while in bed as per nursing staff. (5) Toxic metabolic encephalopathy Current Visit: Yes Status: Acute Plan to address problem: CBC, CMP, treat sepsis, serial lactic acid level. (6) Cardiopulmonary arrest with successful resuscitation Current Visit: Yes Status: Acute Plan to address problem: Patient treated in accordance with ACLS protocol with eventual return of perfusing cardiac rhythm. Therapeutic anticoagulation as per critical care team. (7) Metabolic acidosis Current Visit: Yes Status: Acute Plan to address problem: IV bicarbonate therapy, BMP, repeat BMP in a.m., serial lactic acid levels. (8) Cardiomyopathy Current Visit: Yes Status: Acute Qualifiers: Cardiomyopathy type: unspecified Qualified Code(s): I42.9 - Cardiomyopathy, unspecified Plan to address problem: BNP, D-dimer, echocardiogram ordered and is pending at time of admission. (9) DVT prophylaxis Current Visit: Yes Status: Acute Plan to address problem: SCD to bilateral lower extremities evaluate bed, continue therapeutic anticoagulation
[2019-12-26] MEDS ORDERED: SODIUM CHLORIDE 0.9% 1000 ML IV SOLN IV ONE (18:28)
[2019-12-26] MEDS ORDERED: ALBUTEROL 2.5 MG/3 ML NEBU IH PRN (18:28)
[2019-12-26] MEDS ORDERED: ACETAMINOPHEN 325 MG TAB PO PRN (18:28)
[2019-12-26] MEDS ORDERED: ALBUTEROL 8.5 GM MDI INHALATION IH SCH (18:30)
[2019-12-26 18:55] LABS: Hematocrit 45.4 % (35.5-45.6); Hemoglobin 14.7 gm/dl (11.8-15.2)
[2019-12-26] MEDS ORDERED: ROCURONIUM 50 MG/5 ML INJ IV ONE ×3 (19:02→19:07)
[2019-12-26 19:05] LABS: Total Cells Counted 100
[2019-12-26 19:07] LABS: Basophils % (Manual) 0 % (0.0-1.8)
[2019-12-26 19:07] LABS: INR 1.08 (0.87-1.13)
[2019-12-26 19:08] LABS: Burr Cells Rare; Platelet Estimate Consistent w Auto
[2019-12-26] MEDS ORDERED: SODIUM CHLORIDE 0.9% 1000 ML 4,000 ML ONE (19:28)
[2019-12-26] MEDS ORDERED: PANTOPRAZOLE 40 MG INJ IV ONE (19:28)
[2019-12-26] MEDS ORDERED: CEFEPIME/NS 2 GM/100 ML 2 GM/100 ML BAG IV ONE (19:28)
[2019-12-26] MEDS ORDERED: VANCOMYCIN 2,000 MG in SODIUM CHLORIDE 0.9% 500 ML 500 ML IV ONE (19:30)
[2019-12-26] MEDS: PANTOPRAZOLE 40 MG INJ IV SCH (19:41)
[2019-12-26] MEDS: CEFEPIME/NS 2 GM/100 ML 2 GM/100 ML BAG IV SCH ×2 (19:57→22:59)
[2019-12-26] MEDS ORDERED: SODIUM BICARB 8.4% 50 MEQ/50 ML SYRINGE IV ONE ×2 (19:58→20:25)
[2019-12-26 20:54] LABS: ABG Base Excess -6.7 mmol/L (-2.0-3.0); ABG HCO3 20.4 mmol/L (20.0-26.0); ABG Methemoglobin 0.6 % (0.0-1.5); ABG Oxygen Saturation 92.3 % (95.0-99.0); ABG PCO2 46.7 mm Hg; ABG PH 7.259 pH Units (7.350-7.450); ABG PO2 70.4 mm Hg (80.0-90.0)
[2019-12-26] MEDS ORDERED: fentaNYL DRIP Premix 2,000 MCG/100 ML BAG IV ONE (21:35)
[2019-12-26] MEDS ORDERED: HEPARIN/ 0.45% NACL DRIP 25,000 UNIT/500 ML BAG ONE (21:53)
[2019-12-26] MEDS ORDERED: ALBUTEROL 2.5 MG/3 ML NEBU IH ONE (21:59)
[2019-12-26] MEDS: ALBUTEROL 2.5 MG/3 ML NEBU IH SCH (22:05)
[2019-12-26] MEDS: fentaNYL DRIP Premix 2,000 MCG/100 ML BAG IV SCH (22:14)
[2019-12-26] MEDS: HEPARIN/ 0.45% NACL DRIP 25,000 UNIT/500 ML BAG IV SCH (22:48)
[2019-12-26] MEDS ORDERED: methylPREDNISolone Sod Succinate 40 MG/1 ML INJ ONE (23:02)
[2019-12-26] MEDS: methylPREDNISolone Sod Succinate 40 MG/1 ML INJ IV SCH (23:10)
[2019-12-27] MEDS ORDERED: ALBUTEROL 2.5 MG/3 ML NEBU IH ONE ×3 (02:08→19:06)
[2019-12-27] MEDS: ALBUTEROL 2.5 MG/3 ML NEBU IH SCH ×4 (02:19→19:23)
[2019-12-27] MEDS: fentaNYL DRIP Premix 2,000 MCG/100 ML BAG IV SCH ×3 (03:41→15:40)
[2019-12-27] MEDS ORDERED: SODIUM CHLORIDE 0.9% 500 ML 500 ML IV ONE ×2 (03:42→23:54)
[2019-12-27] MEDS ORDERED: SODIUM CHLORIDE 0.9% 500 ML 500 ML ONE ×2 (03:45→23:54)
[2019-12-27 03:54] LABS: ABG Base Excess -5.8 mmol/L (-2.0-3.0); ABG HCO3 18.7 mmol/L (20.0-26.0); ABG Methemoglobin 0.6 % (0.0-1.5); ABG PH 7.359 pH Units (7.350-7.450); ABG PO2 89.7 mm Hg (80.0-90.0)
[2019-12-27] MEDS ORDERED: methylPREDNISolone Sod Succinate 40 MG/1 ML INJ ONE ×2 (05:57→23:44)
[2019-12-27] MEDS ORDERED: CEFEPIME/NS 2 GM/100 ML 2 GM/100 ML BAG IV ONE ×3 (05:57→23:44)
[2019-12-27] MEDS ORDERED: PANTOPRAZOLE 40 MG INJ IV ONE ×2 (05:57→20:09)
[2019-12-27] MEDS: CEFEPIME/NS 2 GM/100 ML 2 GM/100 ML BAG IV SCH ×2 (06:02→14:36)
[2019-12-27] MEDS: methylPREDNISolone Sod Succinate 40 MG/1 ML INJ IV SCH ×3 (06:04→23:50)
[2019-12-27] MEDS: PANTOPRAZOLE 40 MG INJ IV SCH ×2 (06:36→20:11)
[2019-12-27] MEDS: MIDAZOLAM 100 MG in SODIUM CHLORIDE 0.9% 80 ML IV SCH (08:25)
[2019-12-27] MEDS ORDERED: fentaNYL DRIP Premix 2,000 MCG/100 ML BAG IV ONE ×3 (08:32→20:39)
[2019-12-27] MEDS ORDERED: ACETAMINOPHEN 650 MG RECT SUPP PR ONE ×4 (08:54→23:55)
--- NOTE | 2019-12-27 10:23 | XRay Report ---
XR chest 1V ap INDICATION / CLINICAL INFORMATION: follow up respiratory failure. COMPARISON: Radiograph from yesterday. FINDINGS: SUPPORT DEVICES: Unchanged. HEART / MEDIASTINUM: Unchanged. LUNGS / PLEURA: Lung parenchyma is not significantly changed. The bilateral costophrenic sulci are b lunted consistent with persistent effusions. No pneumothorax. ADDITIONAL FINDINGS: No significant additional findings. IMPRESSION: 1. Persistent airspace disease and effusions which are not significantly changed. Signer Name: Alek Sosa MD Signed: 12/27/2019 10:18 AM Workstation Name: [id number]
[2019-12-27] MEDS ORDERED: SODIUM BICARBONATE 325 MG TAB FEEDTUBE PRN (13:24)
[2019-12-27] MEDS ORDERED: SIMPLE SYRUP 15 ML FEEDTUBE PRN ×2 (13:24)
[2019-12-27] MEDS ORDERED: LIPASE 10,500/PROTEASE 25,000/AMYLASE 43,750 (UNITS) DR CAP FEEDTUBE PRN (13:24)
[2019-12-27] MEDS ORDERED: fentaNYL 100 MCG/2 ML INJ ONE (14:13)
[2019-12-27] MEDS ORDERED: methylPREDNISolone Sod Succinate 125 MG/2 ML INJ ONE (14:30)
--- NOTE | 2019-12-27 14:55 | Consultation ---
PULMONARY CRITICAL CARE CONSULTATION NOTE CONSULTING PHYSICIAN: Dr. Ivette Monson. REASON FOR CONSULTATION: Acute hypoxemic respiratory failure, on mechanical ventilatory support; cardiac arrest with return of spontaneous circulation. CHIEF COMPLAINT AND HISTORY OF PRESENT ILLNESS: As follows: The patient is a 34-year-old morbidly obese male, other past medical history unknown, who was brought into the Emergency Room after being found initially in respiratory distress and then going into a cardiac arrest en route. According to EMS, he has been intubated in the past. He was found initially hunched over his vehicle in a parking a motel, complaining of shortness of breath. O2 sats were found to be 70%. He was wheezing. On the way en route, he suffered a cardiac arrest. A Idris airway was placed. When he got into the Emergency Room, he required emergent rapid sequence intubation. Post-intubation, he was found with a GCS of 3 and I should mention he did receive CPR and ACLS protocol. Post-intubation, the ET tube had to be exchanged due to the cough being blown. He has had intermittent type myoclonic type jerks since he has been in the hospital. His mother did give a history of the patient with diabetes and may be some heart problems, but also a history of sleep apnea. Reportedly, he just got back from [place] today and had been complaining of a cough productive of sputum prior to presenting in the hospital. He also had a recent surgical drainage of a cyst near his private part and that he had gotten a negative COVID-19 test at that time, but has not been tested since. When I stopped by to see him, he remained on mechanical ventilator, was on 100% FiO2, PEEP of 8, set rate of 30, tidal volumes of 500 and was still hypoxemic with O2 sats of about 85-86%. I do not have any history of vomiting or overt aspiration, I certainly cannot rule that out. With regard to tobacco use/abuse history, that history is unknown. The above is as much of the history of presentation as I have. PAST MEDICAL HISTORY: Diabetes, morbid obesity, obstructive sleep apnea. PAST SURGICAL HISTORY: He had a recent incision and drainage of what appears to be a groin abscess. MEDICATIONS: He was on at the time I stopped by to see him were reviewed, pertinent medications include the following: Zithromax 500 mg IV daily, Rocephin 2 g IV daily, propofol drip was going at 50 mcg per kilogram per minute. He had received 6 mg of IV Decadron and he had received a loading dose of Keppra. ALLERGIES: No known drug allergies. DIET: Morbidly obese, acute weight loss; again history is unknown. FAMILY AND SOCIAL HISTORY: Apparently lives in the community. His mother gave some history. Alcohol, tobacco, or illicit drug abuse history unfortunately are unknown. Family and social history is otherwise unobtainable. REVIEW OF SYSTEMS: Unobtainable secondary the patient's medical and mental condition. Since he has been here, no gross hematochezia or melena, no gross hematuria, no bloody tracheal secretions, no hematemesis. He has had spontaneous jerking movements. No full grand mal seizures have been seen. Review of systems otherwise unobtainable or as in body of history above. PHYSICAL EXAMINATION: VITAL SIGNS: On examination at presentation over here afebrile, temperature 98.7 degrees Fahrenheit, pulse was 136. Respiratory rate now set at 30, was 9 earlier. Blood pressure 152/102, O2 sats right now 86% on 100% FiO2 and the above-mentioned ventilator settings. GENERAL: He is a young, morbidly obese male, normocephalic, on the mechanical ventilator with mildly increased respiratory effort at rest. HEAD, EYES, EARS, NOSE AND THROAT: Anicteric. No conjunctival erythema. Oropharynx was moist. ET tube was taped at the lips around 24-25 cm. He has a large neck circumference. No gross jugular venous distention, no thyromegaly. NECK: Grossly, there were no palpable lymph nodes in the supraclavicular or submandibular lymph node chains. LUNGS: Auscultation of both lung ghosh reveal scant bilateral rhonchi and referred upper airway sounds. No active wheezing. He does have diminished bilateral breath sounds. HEART: Heart sounds 1 and 2 are heard, regular tachycardia at the time of my examination without overt rubs or murmurs. ABDOMEN: Soft, full, protuberant. Bowel sounds are positive, nontender, no palpable hepatosplenomegaly. EXTREMITIES: Without overt digital clubbing or cyanosis. He has no significant pedal edema. Pedal pulses are 2+ bilaterally. NEUROLOGIC: Pupils are equal, round, about 3 mm, reactive to light. Extraocular muscle movements could not be assessed. He does have some spontaneous movements to his extremities. He is having myoclonic type jerks to the upper body, in particular. SKIN: Normal turgor in the areas evaluated without overt cellulitis. He does have a rash to the lower extremities, chronic stasis dermatitis type rash. Please see the wound care nurse's notes for full description of his skin. PSYCHIATRIC: Mood and affect could not be assessed. LABORATORY DATA: From my review are as follows: Admission white cell count 23,700, hemoglobin 15.1, hematocrit 45.7, platelet count 268. No manual differential yet. INR within normal limits. D-dimer was elevated at 6500. Arterial blood gas at presentation showed a pH of 7.11, pCO2 of 53, pO2 of 1100 on 100%. Most recent ABG shows a pH of 7.14, pCO2 of 61, pO2 of 64. I believe that was on the above-mentioned vent settings with the rate. Serum sodium 140, potassium 4.1, chloride 104, bicarbonate 15, BUN 19, creatinine 1.3, glucose was 273. Lactic acid level was 7.7 at that time. Ferritin 1248, AST 177, ALT 108, LDH 441. CRP within normal limits. Liver function tests otherwise within normal limits. Urinalysis is negative for nitrites and leukocyte esterase. He does have 146 white cells per high-power field, 1+ bacteremia. Urine drug screen is negative presumptively. No microbiology studies yet. Chest x-ray was done. Post-intubation chest x-ray essentially shows perihilar infiltrates in particular, right lung more involved than the left lung. He does have a widened looking mediastinum, but this is a lordotic film. ET tube tip is below the clavicular heads at the level of the aortic knob. No gross pneumothorax, no gross bony fracture. A repeat chest x-ray is pending. ASSESSMENT: 1. Acute hypoxemic respiratory failure, on mechanical ventilatory support. 2. Acute respiratory distress syndrome. 3. Person under investigation for COVID-19 infection. 4. Bilateral pneumonia. 5. Acute encephalopathy, possibly anoxic. 6. History of diabetes. 7. History of obstructive sleep apnea. 8. Morbid obesity. 9. Leukocytosis. 10. Acute hypercapnic respiratory failure. 11. Lactic acidosis. 12. Elevated inflammatory markers to include ferritin and D-dimer levels. 13. Elevated serum transaminases. 14. Oropharyngeal dysphagia. 15. History of a groin abscess recently. PLAN: I will keep him on full mechanical ventilatory support acutely. I am going to increase the PEEP to 12 and continue the above settings. I will repeat an arterial blood gas in about a couple of hours. Oxygen will be weaned to keep sats greater than or equal to about 90%. Ventilator-associated pneumonia has been introduced. Bronchodilators will be scheduled in the short term with pulmonary hygiene per the respiratory therapist. I do agree with empiric antibiotic therapy. I think it should be covered initially for hospital-acquired pneumonia, empirically, but also covered with vancomycin for possible MRSA in regard to this groin infection that is part of the history. Infectious Disease consultation should be placed. I will defer ancillary care including remdesivir therapy to the ID physicians. I do agree with empiric IV systemic steroids. We will continue with dexamethasone 6 mg IV daily for greater than or equal to about 10 days. Glycemic control will be via sliding scale insulin for a target blood glucose of 140-180 mg/dL while critically ill. EKG was reviewed, it showed essentially prolonged QT. I will keep an eye on that. Repeat QT interval tomorrow in light of the fact that he is also going to be on the propofol. I will actually try and stop the propofol, begin fentanyl and Versed and a target RASS scale of about -2 to -3 acutely. I will also continue empiric Keppra therapy. Neurology evaluation will be of benefit. At this point, he is too unstable to go for a CT angiogram. I will begin empiric full anticoagulation based on weight-based anticoagulation based on his elevated D-dimers and the possibility of this also being a venous thromboembolic event. Enteral nutrition will be the feeding modality of choice. He is going to be placed on GI prophylaxis. Flu and pneumonia vaccination will be addressed per protocol. Electrolytes will be monitored and corrected as necessary. Thank you very much for the consult. We will follow along and make further recommendations as picture progresses/becomes clearer. He is critically ill, on life-sustaining interventions including mechanical ventilatory support, at high risk of from neurological system decompensation. At this time, I spent about 40 minutes of critical care time without overlap and excluding any procedural time that may be necessary. JOB# [id number] MEME/RONALD DAVIS
[2019-12-27] MEDS ORDERED: HEPARIN/ 0.45% NACL DRIP 25,000 UNIT/500 ML BAG ONE (15:15)
[2019-12-27] MEDS: HEPARIN/ 0.45% NACL DRIP 25,000 UNIT/500 ML BAG IV SCH (15:20)
[2019-12-27] MEDS ORDERED: HYDROmorphone 1 MG/1 ML INJ ONE ×2 (15:42→20:16)
[2019-12-27] MEDS: HYDROmorphone 1 MG/1 ML INJ IV PRN ×2 (15:50→20:18)
--- NOTE | 2019-12-27 16:01 | Consultation ---
History of Present Illness - Reason for Consult Consult date: 12/27/19 Rule out Covid, cardiac arrest Requesting physician: JUANY TESFAYE - History of Present Illness 34 years old male with history of morbid obesity, diabetes mellitus, admitted on 12/26/2019 after found unresponsive in his vehicle in the parking lot at a local motel. Upon EMS arrival, patient was found to be in respiratory distress with an O2 sat of 70%. Patient received IV steroids, nebulizer therapy. In route, patient became bradycardic and experienced cardiopulmonary arrest. Patient received ACLS protocol, intubated in the field. On arrival, temperature 98, went to 102.2, HR 136, RR 16, O2 sat 98%, BP 152/102. Initial WBC 23. D-dimer 5221. Ferritin 1248. Lactate 7.7. Creatinine 1.3. BNP 1766. AST 177. ALT 108. Blood cultures so far negative. Chest x-ray bilateral infiltrates right worse than left. Review of Systems: reviewed ED and H&P notes. Limited due to PPE conservation strategy Past History Past Medical History: other (See HPI) Past Surgical History: Other (Testicular surgery) Social history: single. denies: smoking, alcohol abuse, prescription drug abuse Family history: diabetes, hypertension Medications and Allergies Allergies Allergy/AdvReac Type Severity Reaction Status Date / Time No Known Allergies Allergy Unverified 12/26/19 15:29 Active Meds: Active Medications Acetaminophen (Tylenol) 650 mg PO Q6H PRN PRN Reason: Pain, Mild (1-3) Albuterol (Proventil) 2.5 mg IH Q3HRT PRN PRN Reason: Shortness Of Breath Albuterol (Proventil) 2.5 mg IH Q6HRT [facility] Last Admin: 12/27/19 08:28 Dose: 2.5 mg Documented by: Lipase/Protease/Amylase ([place] Quinteros 10,500 Unit) 1 each FEEDTUBE PRN PRN PRN Reason: For Clogged Feeding Tube Fentanyl (Sublimaze) 50 mcg IV Q10MIN PRN PRN Reason: ANALGESIA Hydromorphone HCl (Dilaudid) 0.25 mg IV Q4H PRN PRN Reason: Pain, Moderate (4-6) Hydrophilic Ointment (Vaseline Lip Therapy) 1 applic TP Q2HR PRN PRN Reason: Dry Lips Propofol (Diprivan 10 Mg/Ml) 1,000 mg in 100 mls @ 3.945 mls/hr IV TITR ANGELA; Protocol Last Titration: 12/26/19 17:30 Dose: Infused Documented by: Fentanyl Citrate (Fentanyl Drip Premix) 2,000 mcg in 100 mls @ 6.575 mls/hr IV TITR ANGELA; Protocol Last Admin: 12/27/19 08:35 Dose: 3 mcg/kg/hr, 19.725 mls/hr Documented by: Midazolam HCl 100 mg/ Sodium (Chloride) 100 mls @ 2 mls/hr IV TITR ANGELA; Protocol Last Admin: 12/27/19 08:25 Dose: 2 mg/hr, 2 mls/hr Documented by: Cefepime HCl (Cefepime/Ns 2 Gm/100 Ml) 2 gm in 100 mls @ 200 mls/hr IV Q8HR ANGELA; Protocol Last Admin: 12/27/19 06:02 Dose: 200 mls/hr Documented by: Heparin Sodium/Sodium Chloride (Heparin/ 0.45% Nacl-25,000 Unit/500 Ml) 25,000 unit in 500 mls @ 30 mls/hr IV TITR ANGELA; Protocol Last Titration: 12/27/19 07:07 Dose: 1,631 units/hr, 32.62 mls/hr Documented by: Levofloxacin/Dextrose (Levaquin 750mg/150ml) 750 mg in 150 mls @ 100 mls/hr IV Q24HR ANGELA; Protocol Last Admin: 12/27/19 12:01 Dose: 100 mls/hr Documented by: Methylprednisolone Sodium Succinate (Solu-Medrol) 40 mg IV Q8HR ANGELA Last Admin: 12/27/19 06:04 Dose: 40 mg Documented by: Midazolam HCl (Versed) 2 mg IV Q10MIN PRN PRN Reason: Sedation Multi-Ingred Cream/Lotion/Oil/Oint (Artificial Tears Ophth Oint) 1 applic OU Q4HR PRN PRN Reason: Dry Eye(s) Pantoprazole Sodium (Protonix) 40 mg IV Q12H ANGELA Last Admin: 12/27/19 06:36 Dose: 40 mg Documented by: Simple Syrup (Simple Syrup) 15 ml FEEDTUBE PRN PRN PRN Reason: Hypoglycemia Simple Syrup (Simple Syrup) 30 ml FEEDTUBE PRN PRN PRN Reason: Hypoglycemia Sodium Bicarbonate (Sodium Bicarbonate) 325 mg FEEDTUBE PRN PRN PRN Reason: For Clogged Feeding Tube Sodium Chloride (Sodium Chloride Flush Syringe 10 Ml) 10 ml IV BID ANGELA Last Admin: 12/27/19 12:01 Dose: 10 ml Documented by: Sodium Chloride (Sodium Chloride Flush Syringe 10 Ml) 10 ml IV PRN PRN PRN Reason: LINE FLUSH Physical Examination - Physical Exam Narrative exam: Physical Exam: reviewed ED and hospitalist notes, limited due to conservation of PPE and decrease risk of transmission. General appearance: limited due to conservation of PPE Eyes: limited due to conservation of PPE HENT: Atraumatic; limited due to conservation of PPE Lungs: limited due to conservation of PPE CV: limited due to conservation of PPE Abdomen: limited due to conservation of PPE Extremities: limited due to conservation of PPE Skin: limited due to conservation of PPE Psych: limited due to conservation of PPE Neuro: limited due to conservation of PPE - Constitutional Vitals: Vital Signs Temp Pulse Resp BP Pulse Ox 100.6 F H 90 30 H 117/67 94 12/27/19 12:35 12/27/19 12:30 12/27/19 12:30 12/27/19 12:30 12/27/19 12:30 Temperature -Last 24 Hours Temperature 100.6 F Temperature 102.2 F Temperature 99.1 F Temperature 98.7 F Results - Labs CBC & Chem 7: 12/26/19 18:31 12/26/19 16:50 Labs: Abnormal lab results 12/26/19 12/26/19 12/26/19 Range/Units 15:57 16:13 16:13 WBC 23.7 H (4.5-11.0) K/mm3 Hct 45.7 H (35.5-45.6) % MCV 102 H (84-94) fl MCH 34 H (28-32) pg Seg Neuts % (Manual) 80.0 H (40.0-70.0) % Seg Neutrophils # Man 19.0 H (1.8-7.7) K/mm3 Eosinophils # (Manual) 0.5 H (0.0-0.4) K/mm3 D-Dimer 5221.01 H (0-234) ng/mlDDU Heparin Anti-Xa Level (0.3-0.7) U.I./ml ABG pH 7.109 L* (7.350-7.450) pH Units ABG pO2 101.4 H (80.0-90.0) mm Hg ABG HCO3 16.3 L (20.0-26.0) mmol/L ABG O2 Saturation (95.0-99.0) % ABG Base Excess -13.4 L (-2.0-3.0) mmol/L Oxyhemoglobin 93.3 L (95.0-99.0) % Carbon Dioxide (22-30) mmol/L Glucose (75-100) mg/dL Lactic Acid (0.7-2.0) mmol/L Magnesium (1.7-2.3) mg/dL Ferritin (30.0-300.0) ng/mL AST (5-40) units/L ALT (7-56) units/L Lactate Dehydrogenase (91-180) units/L Total Creatine Kinase (55-170) units/L NT-Pro-B Natriuret Pep (0-450) pg/mL Urine WBC (Auto) (0.0-6.0) /HPF 12/26/19 12/26/19 12/26/19 Range/Units 16:13 16:13 16:13 WBC (4.5-11.0) K/mm3 Hct (35.5-45.6) % MCV (84-94) fl MCH (28-32) pg Seg Neuts % (Manual) (40.0-70.0) % Seg Neutrophils # Man (1.8-7.7) K/mm3 Eosinophils # (Manual) (0.0-0.4) K/mm3 D-Dimer (0-234) ng/mlDDU Heparin Anti-Xa Level (0.3-0.7) U.I./ml ABG pH (7.350-7.450) pH Units ABG pO2 (80.0-90.0) mm Hg ABG HCO3 (20.0-26.0) mmol/L ABG O2 Saturation (95.0-99.0) % ABG Base Excess (-2.0-3.0) mmol/L Oxyhemoglobin (95.0-99.0) % Carbon Dioxide 15 L (22-30) mmol/L Glucose 268 H (75-100) mg/dL Lactic Acid (0.7-2.0) mmol/L Magnesium 2.60 H (1.7-2.3) mg/dL Ferritin (30.0-300.0) ng/mL AST 177 H (5-40) units/L ALT 108 H (7-56) units/L Lactate Dehydrogenase (91-180) units/L Total Creatine Kinase 191 H (55-170) units/L NT-Pro-B Natriuret Pep 1766 H (0-450) pg/mL Urine WBC (Auto) (0.0-6.0) /HPF 12/26/19 12/26/19 12/26/19 Range/Units 16:13 16:50 16:50 WBC (4.5-11.0) K/mm3 Hct (35.5-45.6) % MCV (84-94) fl MCH (28-32) pg Seg Neuts % (Manual) (40.0-70.0) % Seg Neutrophils # Man (1.8-7.7) K/mm3 Eosinophils # (Manual) (0.0-0.4) K/mm3 D-Dimer (0-234) ng/mlDDU Heparin Anti-Xa Level (0.3-0.7) U.I./ml ABG pH (7.350-7.450) pH Units ABG pO2 (80.0-90.0) mm Hg ABG HCO3 (20.0-26.0) mmol/L ABG O2 Saturation (95.0-99.0) % ABG Base Excess (-2.0-3.0) mmol/L Oxyhemoglobin (95.0-99.0) % Carbon Dioxide (22-30) mmol/L Glucose 273 H (75-100) mg/dL Lactic Acid 7.70 H* (0.7-2.0) mmol/L Magnesium (1.7-2.3) mg/dL Ferritin 1248.0 H (30.0-300.0) ng/mL AST (5-40) units/L ALT (7-56) units/L Lactate Dehydrogenase 443 H (91-180) units/L Total Creatine Kinase (55-170) units/L NT-Pro-B Natriuret Pep (0-450) pg/mL Urine WBC (Auto) (0.0-6.0) /HPF 12/26/19 12/26/19 12/26/19 Range/Units 16:50 17:02 18:42 WBC (4.5-11.0) K/mm3 Hct (35.5-45.6) % MCV (84-94) fl MCH (28-32) pg Seg Neuts % (Manual) (40.0-70.0) % Seg Neutrophils # Man (1.8-7.7) K/mm3 Eosinophils # (Manual) (0.0-0.4) K/mm3 D-Dimer 6498.49 H (0-234) ng/mlDDU Heparin Anti-Xa Level (0.3-0.7) U.I./ml ABG pH 7.136 L* (7.350-7.450) pH Units ABG pO2 63.9 L (80.0-90.0) mm Hg ABG HCO3 (20.0-26.0) mmol/L ABG O2 Saturation 81.8 L (95.0-99.0) % ABG Base Excess -9.6 L (-2.0-3.0) mmol/L Oxyhemoglobin 79.8 L (95.0-99.0) % Carbon Dioxide (22-30) mmol/L Glucose (75-100) mg/dL Lactic Acid 3.20 H* (0.7-2.0) mmol/L Magnesium (1.7-2.3) mg/dL Ferritin (30.0-300.0) ng/mL AST (5-40) units/L ALT (7-56) units/L Lactate Dehydrogenase (91-180) units/L Total Creatine Kinase (55-170) units/L NT-Pro-B Natriuret Pep (0-450) pg/mL Urine WBC (Auto) (0.0-6.0) /HPF 12/26/19 12/26/19 12/26/19 Range/Units 19:56 20:40 21:29 WBC (4.5-11.0) K/mm3 Hct (35.5-45.6) % MCV (84-94) fl MCH (28-32) pg Seg Neuts % (Manual) (40.0-70.0) % Seg Neutrophils # Man (1.8-7.7) K/mm3 Eosinophils # (Manual) (0.0-0.4) K/mm3 D-Dimer (0-234) ng/mlDDU Heparin Anti-Xa Level (0.3-0.7) U.I./ml ABG pH 7.259 L (7.350-7.450) pH Units ABG pO2 70.4 L (80.0-90.0) mm Hg ABG HCO3 (20.0-26.0) mmol/L ABG O2 Saturation 92.3 L (95.0-99.0) % ABG Base Excess -6.7 L (-2.0-3.0) mmol/L Oxyhemoglobin 90.2 L (95.0-99.0) % Carbon Dioxide (22-30) mmol/L Glucose (75-100) mg/dL Lactic Acid 3.40 H* 4.40 H* (0.7-2.0) mmol/L Magnesium (1.7-2.3) mg/dL Ferritin (30.0-300.0) ng/mL AST (5-40) units/L ALT (7-56) units/L Lactate Dehydrogenase (91-180) units/L Total Creatine Kinase (55-170) units/L NT-Pro-B Natriuret Pep (0-450) pg/mL Urine WBC (Auto) (0.0-6.0) /HPF 12/26/19 12/26/19 12/27/19 Range/Units 23:00 Unknown 01:52 WBC (4.5-11.0) K/mm3 Hct (35.5-45.6) % MCV (84-94) fl MCH (28-32) pg Seg Neuts % (Manual) (40.0-70.0) % Seg Neutrophils # Man (1.8-7.7) K/mm3 Eosinophils # (Manual) (0.0-0.4) K/mm3 D-Dimer (0-234) ng/mlDDU Heparin Anti-Xa Level (0.3-0.7) U.I./ml ABG pH (7.350-7.450) pH Units ABG pO2 (80.0-90.0) mm Hg ABG HCO3 (20.0-26.0) mmol/L ABG O2 Saturation (95.0-99.0) % ABG Base Excess (-2.0-3.0) mmol/L Oxyhemoglobin (95.0-99.0) % Carbon Dioxide (22-30) mmol/L Glucose (75-100) mg/dL Lactic Acid 3.60 H* 4.20 H* (0.7-2.0) mmol/L Magnesium (1.7-2.3) mg/dL Ferritin (30.0-300.0) ng/mL AST (5-40) units/L ALT (7-56) units/L Lactate Dehydrogenase (91-180) units/L Total Creatine Kinase (55-170) units/L NT-Pro-B Natriuret Pep (0-450) pg/mL Urine WBC (Auto) 146.0 H (0.0-6.0) /HPF 12/27/19 12/27/19 12/27/19 Range/Units 03:45 04:49 04:49 WBC (4.5-11.0) K/mm3 Hct (35.5-45.6) % MCV (84-94) fl MCH (28-32) pg Seg Neuts % (Manual) (40.0-70.0) % Seg Neutrophils # Man (1.8-7.7) K/mm3 Eosinophils # (Manual) (0.0-0.4) K/mm3 D-Dimer (0-234) ng/mlDDU Heparin Anti-Xa Level 0.23 L (0.3-0.7) U.I./ml ABG pH (7.350-7.450) pH Units ABG pO2 (80.0-90.0) mm Hg ABG HCO3 18.7 L (20.0-26.0) mmol/L ABG O2 Saturation (95.0-99.0) % ABG Base Excess -5.8 L (-2.0-3.0) mmol/L Oxyhemoglobin (95.0-99.0) % Carbon Dioxide (22-30) mmol/L Glucose (75-100) mg/dL Lactic Acid 2.20 H* (0.7-2.0) mmol/L Magnesium (1.7-2.3) mg/dL Ferritin (30.0-300.0) ng/mL AST (5-40) units/L ALT (7-56) units/L Lactate Dehydrogenase (91-180) units/L Total Creatine Kinase (55-170) units/L NT-Pro-B Natriuret Pep (0-450) pg/mL Urine WBC (Auto) (0.0-6.0) /HPF Assessment and Plan Cultures: Blood culture no growth today SARS CoV2 PCR pending Assessment: 34 years old male with history of morbid obesity, diabetes mellitus, admitted on 12/26/2019 after found unresponsive in his vehicle in the parking lot at a local motel, cardiac arrest in route to the hospital: #Status post cardiac arrest in route #Severe sepsis: Present on admission with fever 102, tachycardia, elevated leukocytosis. Unclear etiology, likely pneumonia and UTI. #Bilateral pneumonia: Rule out COVID-19 pneumonia versus bacterial pneumonia. Procalcitonin 0.2. #Acute hypoxemic respiratory failure: Initial O2 sats down to 70% on room air. Patient intubated in the field by EMS. #Elevated LFTs: From sepsis versus COVID-19. #KAVITHA: From sepsis versus COVID-19. #Acute encephalopathy: Unclear etiology Recommendations: -Follow-up blood cultures, urine culture and a sputum culture -Follow-up SARS-CoV-2 PCR -Consider evaluation for VTE -high D-dimer -Start Dexamethasone 6 mg IV/PO daily for 10 days -Start Remdesivir if SARS-CoV-2 PCR positive -Check MRSA PCR -Monitor inflammatory markers - ferritin, Ddimer, CRP, LDH -Continue cefepime IV renally adjusted -Continue vancomycin with PK consult -Continue anticoagulation per System Protocol -Neurology evaluation All laboratory, cultures and imaging were reviewed. Will follow Taylor Schneider MD Infectious Diseases [facility] M [phone] O [phone]
--- NOTE | 2019-12-27 16:26 | Progress Note ---
Assessment and Plan The high probability of a clinically significant, sudden or life threatening deterioration of the [neuro, cardiac, pulmonary, renal, infectious disease] system(s) required my full and direct attention, intervention and personal management. The aggregate critical care time was [40] minutes. This time is in addition to time spent performing reported procedures but includes the following: [x] Data Review and interpretation [x] Patient assessment and monitoring of vital signs [x] Documentation [x] Medication orders and management (1) Sepsis Current Visit: Yes Status: Acute Qualifiers: Severe sepsis acute organ dysfunction type: acute respiratory failure Plan to address problem: Severe sepsis. On broad-spectrum antibiotics Also of infection possibly urinary tract infection (2) Acute hypoxemic respiratory failure Current Visit: Yes Status: Acute Plan to address problem: Patient intubated and on ventilatory support at time of my evaluation. Wean vent as tolerated, daily spontaneous breathing trial, sedation holiday, arterial blood gas, Patient is morbidly obese Patient may have anoxic encephalopathy (3) Pneumonia Current Visit: Yes Status: Acute Plan to address problem: Pneumonia protocol: Chest x-ray, CBC, CMP, IV antibiotic therapy, pulse oximetry, blood cultures. (4) Suspected 2019 novel coronavirus infection Current Visit: Yes Status: Acute Plan to address problem: Coronavirus negative (5) Toxic metabolic encephalopathy Current Visit: Yes Status: Acute Plan to address problem: Multifactorial Sepsis Hypoxia Possible anoxic encephalopathy (6) Cardiopulmonary arrest with successful resuscitation Current Visit: Yes Status: Acute Plan to address problem: Patient treated in accordance with ACLS protocol with eventual return of perfusing cardiac rhythm. Therapeutic anticoagulation as per critical care te am. Possible anoxic encephalopathy (7) Metabolic acidosis Current Visit: Yes Status: Acute Plan to address problem: IV bicarbonate therapy, BMP, repeat BMP in a.m., serial lactic acid levels. (8) Cardiomyopathy Current Visit: Yes Status: Acute Qualifiers: Cardiomyopathy type: unspecified Qualified Code(s): I42.9 - Cardiomyopathy, unspecified Plan to address problem: BNP, D-dimer, echocardiogram ordered and is pending (9) DVT prophylaxis Current Visit: Yes Status: Acute Plan to address problem: SCD to bilateral lower extremities evaluate bed, continue therapeutic anticoagulation Subjective Date of service: 12/27/19 Principal diagnosis: Sepsis, anoxic encephalopathy, urinary tract infection, Interval history: 34 YO Male with Obesity Hypoventilation Syndrome, DM presents to ED for evaluation. Patient is intubated and on ventilatory support at the time of my evaluation and is unable to provide history. Patient history taken from EMS staff, ED staff, as well as the patient's family who is available by phone to discuss patient history. EMS was notified after the patient was found unresponsive in his vehicle in the parking lot of a local motel. EMS was notified and upon arrival the patient was found to be in respiratory distress with a pulse oximetry of 70%. Patient was treated with IV steroid therapy nebulizer therapy and transported to [facility] for further care and evaluation. Shortly after being placed in the EMS transport vehicle the patient became bradycardic and experienced cardiopulmonary arrest. The patient was treated with ACLS protocol with return of perfusing cardiac rhythm and was subsequently intubated in the field. Patient subsequently transported to [facility] for further care and evaluation of the aforementioned symptoms. Patient seen and evaluated in the emergency department. All lab and imaging studies reviewed. Patient found to have sepsis, acute hypoxemic respiratory failure, metabolic acidosis, toxic metabolic encephalopathy, bilateral pneumonia, as well as symptoms suggestive of coronavirus infection. Patient initiated on sepsis protocol and admitted to ICU. Coronavirus protocol initiated in the emergency department prior to my evaluation. No further history is obtainable. No prior admission for review. No medication listed at time of admission for reconciliation. 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 [place] and return back to [place] Was apparently doing well until he was found unresponsive in his own vehicle As per mother there is no significant past medical history except for obesity hypoventilation syndrome Objective - Exam Narrative Exam: Patient is intubated and unresponsive - Constitutional Vitals: Vital Signs - 12hr 12/27/19 12/27/19 12/27/19 04:30 05:00 05:30 Temperature Pulse Rate 88 91 H 94 H Pulse Rate [ Anterior Bilateral Throughout] Respiratory 26 H 18 20 Rate Respiratory Rate [Anterior Bilateral Throughout] Blood Pressure 119/71 119/73 119/76 O2 Sat by Pulse 97 96 96 Oximetry 12/27/19 12/27/19 12/27/19 06:00 06:30 06:45 Temperature Pulse Rate 97 H 94 H 96 H Pulse Rate [ Anterior Bilateral Throughout] Respiratory 22 24 30 H Rate Respiratory Rate [Anterior Bilateral Throughout] Blood Pressure 119/78 123/76 121/70 O2 Sat by Pulse 95 96 95 Oximetry 12/27/19 12/27/19 12/27/19 07:00 07:15 07:30 Temperature Pulse Rate 98 H 99 H 99 H Pulse Rate [ Anterior Bilateral Throughout] Respiratory 20 24 20 Rate Respiratory Rate [Anterior Bilateral Throughout] Blood Pressure 123/68 124/78 125/78 O2 Sat by Pulse 96 96 96 Oximetry 12/27/19 12/27/19 12/27/19 07:45 08:00 08:15 Temperature Pulse Rate 96 H 100 H 100 H Pulse Rate [ 98 H Anterior Bilateral Throughout] Respiratory 19 23 13 Rate Respiratory 23 Rate [Anterior Bilateral Throughout] Blood Pressure 119/74 126/75 126/84 O2 Sat by Pulse 98 98 97 Oximetry 12/27/19 12/27/19 12/27/19 08:30 08:45 08:50 Temperature 102.2 F H Pulse Rate 99 H 98 H 99 H Pulse Rate [ Anterior Bilateral Throughout] Respiratory 27 H 27 H Rate Respiratory Rate [Anterior Bilateral Throughout] Blood Pressure 128/81 132/70 O2 Sat by Pulse 97 93 Oximetry 12/27/19 12/27/19 12/27/19 09:00 09:15 09:30 Temperature Pulse Rate 99 H 98 H 99 H Pulse Rate [ Anterior Bilateral Throughout] Respiratory 29 H 26 H 30 H Rate Respiratory Rate [Anterior Bilateral Throughout] Blood Pressure 121/73 122/76 129/71 O2 Sat by Pulse 91 91 91 Oximetry 12/27/19 12/27/19 12/27/19 09:45 10:00 10:15 Temperature Pulse Rate 98 H 98 H 95 H Pulse Rate [ Anterior Bilateral Throughout] Respiratory 30 H 30 H 30 H Rate Respiratory Rate [Anterior Bilateral Throughout] Blood Pressure 116/69 120/74 121/70 O2 Sat by Pulse 100 95 Oximetry 12/27/19 12/27/19 12/27/19 10:30 10:45 11:00 Temperature Pulse Rate 95 H 93 H 91 H Pulse Rate [ Anterior Bilateral Throughout] Respiratory 30 H 30 H 30 H Rate Respiratory Rate [Anterior Bilateral Throughout] Blood Pressure 120/67 117/67 119/71 O2 Sat by Pulse 94 93 98 Oximetry 12/27/19 12/27/19 12/27/19 11:15 11:30 11:45 Temperature Pulse Rate 91 H 90 90 Pulse Rate [ Anterior Bilateral Throughout] Respiratory 30 H 30 H 30 H Rate Respiratory Rate [Anterior Bilateral Throughout] Blood Pressure 116/68 114/66 112/73 O2 Sat by Pulse 97 95 92 Oximetry 12/27/19 12/27/19 12/27/19 12:00 12:15 12:30 Temperature Pulse Rate 90 90 90 Pulse Rate [ Anterior Bilateral Throughout] Respiratory 30 H 30 H 30 H Rate Respiratory Rate [Anterior Bilateral Throughout] Blood Pressure 120/63 117/70 117/67 O2 Sat by Pulse 90 92 94 Oximetry 12/27/19 12:35 Temperature 100.6 F H Pulse Rate Pulse Rate [ Anterior Bilateral Throughout] Respiratory Rate Respiratory Rate [Anterior Bilateral Throughout] Blood Pressure O2 Sat by Pulse Oximetry General appearance: Present: mild distress, well-nourished - EENT Eyes: miosis ENT: hearing intact, clear oral mucosa Ears: bilateral: normal - Neck Neck: supple, normal ROM - Respiratory Respiratory effort: normal Respiratory: bilateral: CTA - Breasts Breasts: normal - Cardiovascular Heart rate: 78 Rhythm: regular Heart Sounds: Present: S1 & S2. Absent: gallop, rub Extremities: pulses intact, No edema, normal color, Full ROM - Gastrointestinal General gastrointestinal: Present: soft, non-tender, non-distended, normal bowel sounds - Genitourinary Male genitourinary: normal - Integumentary Integumentary: clear, warm, dry - Musculoskeletal Musculoskeletal: generalized weakness - Neurologic Neurologic: other (Does not move extremities) - Psychiatric Psychiatric: other (Intubated and unresponsive) - Labs CBC & Chem 7: 12/31/19 08:50 12/31/19 08:50 Labs: Abnormal lab results 12/26/19 12/26/19 12/26/19 Range/Units 16:13 16:13 16:13 WBC 23.7 H (4.5-11.0) K/mm3 Hct 45.7 H (35.5-45.6) % MCV 102 H (84-94) fl MCH 34 H (28-32) pg Seg Neuts % (Manual) 80.0 H (40.0-70.0) % Seg Neutrophils # Man 19.0 H (1.8-7.7) K/mm3 Eosinophils # (Manual) 0.5 H (0.0-0.4) K/mm3 D-Dimer 5221.01 H (0-234) ng/mlDDU Heparin Anti-Xa Level (0.3-0.7) U.I./ml ABG pH (7.350-7.450) pH Units ABG pO2 (80.0-90.0) mm Hg ABG HCO3 (20.0-26.0) mmol/L ABG O2 Saturation (95.0-99.0) % ABG Base Excess (-2.0-3.0) mmol/L Oxyhemoglobin (95.0-99.0) % Carbon Dioxide 15 L (22-30) mmol/L Glucose 268 H (75-100) mg/dL Lactic Acid (0.7-2.0) mmol/L Magnesium (1.7-2.3) mg/dL Ferritin (30.0-300.0) ng/mL AST 177 H (5-40) units/L ALT 108 H (7-56) units/L Lactate Dehydrogenase (91-180) units/L Total Creatine Kinase (55-170) units/L NT-Pro-B Natriuret Pep (0-450) pg/mL Urine WBC (Auto) (0.0-6.0) /HPF 12/26/19 12/26/19 12/26/19 Range/Units 16:13 16:13 16:13 WBC (4.5-11.0) K/mm3 Hct (35.5-45.6) % MCV (84-94) fl MCH (28-32) pg Seg Neuts % (Manual) (40.0-70.0) % Seg Neutrophils # Man (1.8-7.7) K/mm3 Eosinophils # (Manual) (0.0-0.4) K/mm3 D-Dimer (0-234) ng/mlDDU Heparin Anti-Xa Level (0.3-0.7) U.I./ml ABG pH (7.350-7.450) pH Units ABG pO2 (80.0-90.0) mm Hg ABG HCO3 (20.0-26.0) mmol/L ABG O2 Saturation (95.0-99.0) % ABG Base Excess (-2.0-3.0) mmol/L Oxyhemoglobin (95.0-99.0) % Carbon Dioxide (22-30) mmol/L Glucose (75-100) mg/dL Lactic Acid 7.70 H* (0.7-2.0) mmol/L Magnesium 2.60 H (1.7-2.3) mg/dL Ferritin (30.0-300.0) ng/mL AST (5-40) units/L ALT (7-56) units/L Lactate Dehydrogenase (91-180) units/L Total Creatine Kinase 191 H (55-170) units/L NT-Pro-B Natriuret Pep 1766 H (0-450) pg/mL Urine WBC (Auto) (0.0-6.0) /HPF 12/26/19 12/26/19 12/26/19 Range/Units 16:50 16:50 16:50 WBC (4.5-11.0) K/mm3 Hct (35.5-45.6) % MCV (84-94) fl MCH (28-32) pg Seg Neuts % (Manual) (40.0-70.0) % Seg Neutrophils # Man (1.8-7.7) K/mm3 Eosinophils # (Manual) (0.0-0.4) K/mm3 D-Dimer 6498.49 H (0-234) ng/mlDDU Heparin Anti-Xa Level (0.3-0.7) U.I./ml ABG pH (7.350-7.450) pH Units ABG pO2 (80.0-90.0) mm Hg ABG HCO3 (20.0-26.0) mmol/L ABG O2 Saturation (95.0-99.0) % ABG Base Excess (-2.0-3.0) mmol/L Oxyhemoglobin (95.0-99.0) % Carbon Dioxide (22-30) mmol/L Glucose 273 H (75-100) mg/dL Lactic Acid (0.7-2.0) mmol/L Magnesium (1.7-2.3) mg/dL Ferritin 1248.0 H (30.0-300.0) ng/mL AST (5-40) units/L ALT (7-56) units/L Lactate Dehydrogenase 443 H (91-180) units/L Total Creatine Kinase (55-170) units/L NT-Pro-B Natriuret Pep (0-450) pg/mL Urine WBC (Auto) (0.0-6.0) /HPF 12/26/19 12/26/19 12/26/19 Range/Units 17:02 18:42 19:56 WBC (4.5-11.0) K/mm3 Hct (35.5-45.6) % MCV (84-94) fl MCH (28-32) pg Seg Neuts % (Manual) (40.0-70.0) % Seg Neutrophils # Man (1.8-7.7) K/mm3 Eosinophils # (Manual) (0.0-0.4) K/mm3 D-Dimer (0-234) ng/mlDDU Heparin Anti-Xa Level (0.3-0.7) U.I./ml ABG pH 7.136 L* (7.350-7.450) pH Units ABG pO2 63.9 L (80.0-90.0) mm Hg ABG HCO3 (20.0-26.0) mmol/L ABG O2 Saturation 81.8 L (95.0-99.0) % ABG Base Excess -9.6 L (-2.0-3.0) mmol/L Oxyhemoglobin 79.8 L (95.0-99.0) % Carbon Dioxide (22-30) mmol/L Glucose (75-100) mg/dL Lactic Acid 3.20 H* 3.40 H* (0.7-2.0) mmol/L Magnesium (1.7-2.3) mg/dL Ferritin (30.0-300.0) ng/mL AST (5-40) units/L ALT (7-56) units/L Lactate Dehydrogenase (91-180) units/L Total Creatine Kinase (55-170) units/L NT-Pro-B Natriuret Pep (0-450) pg/mL Urine WBC (Auto) (0.0-6.0) /HPF 12/26/19 12/26/19 12/26/19 Range/Units 20:40 21:29 23:00 WBC (4.5-11.0) K/mm3 Hct (35.5-45.6) % MCV (84-94) fl MCH (28-32) pg Seg Neuts % (Manual) (40.0-70.0) % Seg Neutrophils # Man (1.8-7.7) K/mm3 Eosinophils # (Manual) (0.0-0.4) K/mm3 D-Dimer (0-234) ng/mlDDU Heparin Anti-Xa Level (0.3-0.7) U.I./ml ABG pH 7.259 L (7.350-7.450) pH Units ABG pO2 70.4 L (80.0-90.0) mm Hg ABG HCO3 (20.0-26.0) mmol/L ABG O2 Saturation 92.3 L (95.0-99.0) % ABG Base Excess -6.7 L (-2.0-3.0) mmol/L Oxyhemoglobin 90.2 L (95.0-99.0) % Carbon Dioxide (22-30) mmol/L Glucose (75-100) mg/dL Lactic Acid 4.40 H* 3.60 H* (0.7-2.0) mmol/L Magnesium (1.7-2.3) mg/dL Ferritin (30.0-300.0) ng/mL AST (5-40) units/L ALT (7-56) units/L Lactate Dehydrogenase (91-180) units/L Total Creatine Kinase (55-170) units/L NT-Pro-B Natriuret Pep (0-450) pg/mL Urine WBC (Auto) (0.0-6.0) /HPF 12/26/19 12/27/19 12/27/19 Range/Units Unknown 01:52 03:45 WBC (4.5-11.0) K/mm3 Hct (35.5-45.6) % MCV (84-94) fl MCH (28-32) pg Seg Neuts % (Manual) (40.0-70.0) % Seg Neutrophils # Man (1.8-7.7) K/mm3 Eosinophils # (Manual) (0.0-0.4) K/mm3 D-Dimer (0-234) ng/mlDDU Heparin Anti-Xa Level (0.3-0.7) U.I./ml ABG pH (7.350-7.450) pH Units ABG pO2 (80.0-90.0) mm Hg ABG HCO3 18.7 L (20.0-26.0) mmol/L ABG O2 Saturation (95.0-99.0) % ABG Base Excess -5.8 L (-2.0-3.0) mmol/L Oxyhemoglobin (95.0-99.0) % Carbon Dioxide (22-30) mmol/L Glucose (75-100) mg/dL Lactic Acid 4.20 H* (0.7-2.0) mmol/L Magnesium (1.7-2.3) mg/dL Ferritin (30.0-300.0) ng/mL AST (5-40) units/L ALT (7-56) units/L Lactate Dehydrogenase (91-180) units/L Total Creatine Kinase (55-170) units/L NT-Pro-B Natriuret Pep (0-450) pg/mL Urine WBC (Auto) 146.0 H (0.0-6.0) /HPF 12/27/19 12/27/19 Range/Units 04:49 04:49 WBC (4.5-11.0) K/mm3 Hct (35.5-45.6) % MCV (84-94) fl MCH (28-32) pg Seg Neuts % (Manual) (40.0-70.0) % Seg Neutrophils # Man (1.8-7.7) K/mm3 Eosinophils # (Manual) (0.0-0.4) K/mm3 D-Dimer (0-234) ng/mlDDU Heparin Anti-Xa Level 0.23 L (0.3-0.7) U.I./ml ABG pH (7.350-7.450) pH Units ABG pO2 (80.0-90.0) mm Hg ABG HCO3 (20.0-26.0) mmol/L ABG O2 Saturation (95.0-99.0) % ABG Base Excess (-2.0-3.0) mmol/L Oxyhemoglobin (95.0-99.0) % Carbon Dioxide (22-30) mmol/L Glucose (75-100) mg/dL Lactic Acid 2.20 H* (0.7-2.0) mmol/L Magnesium (1.7-2.3) mg/dL Ferritin (30.0-300.0) ng/mL AST (5-40) units/L ALT (7-56) units/L Lactate Dehydrogenase (91-180) units/L Total Creatine Kinase (55-170) units/L NT-Pro-B Natriuret Pep (0-450) pg/mL Urine WBC (Auto) (0.0-6.0) /HPF Short CBC 12/31/19 Range/Units 08:50 WBC 21.7 H (4.5-11.0) K/mm3 Hgb 9.7 L (11.8-15.2) gm/dl Hct 28.9 L D (35.5-45.6) % Plt Count 41 L D (140-440) K/mm3 BMP 12/31/19 08:50 Sodium 139 Potassium 3.7 D Chloride 103.8 Carbon Dioxide 20 L BUN 82 H Creatinine 5.6 H Glucose 260 H Calcium 6.8 L Liver Function 12/31/19 Range/Units 08:50 Total Bilirubin 0.60 (0.1-1.2) mg/dL AST 226 H (5-40) units/L ALT 191 H (7-56) units/L Alkaline Phosphatase 50 (35-129) units/L Albumin 2.6 L (3.9-5) g/dL HEART Score - HEART Score Troponin: Troponin T 0.021 ng/mL (0.00-0.029) 12/26/19 21:29
[2019-12-27] MEDS ORDERED: LIDOCAINE PF 100 MG/5 ML (CARDIAC SYRINGE) IV ONE (16:31)
[2019-12-27] MEDS ORDERED: SODIUM BICARB 8.4% 50 MEQ/50 ML SYRINGE IV ONE (16:31)
[2019-12-27] MEDS ORDERED: EPINEPHrine 1 MG/10 ML SYRINGE ONE (16:31)
[2019-12-27] MEDS ORDERED: VANCOMYCIN PHARMACY TO DOSE IV SCH (17:00)
--- NOTE | 2019-12-27 17:02 | Progress Note ---
Assessment and Plan Acute hypoxemic & hypercapnic respiratory failure on MVS ARDS PUI COVID-19 infection. Bilateral pneumonia. Acute encephalopathy, possibly anoxic. DM II IVAN Morbid obesity. Leukocytosis. Lactic acidosis. Elevated inflammatory markers to include ferritin and D-dimer levels. Elevated serum transaminases. Oropharyngeal dysphagia. History of a groin abscess recently. - begin empiric Keppra - neurology consultation - continue to wean supplemental oxygen for target O2 sat's > 92% acutely (FiO2 down to 80%) - keep set rate at 30 for now - repeat ABG in am and address MV - Daily SAT's and SBT assessment as tolerated - VAP bundle addressed - continue lung protective strategies - continue bronchodilators with pulmonary hygiene per RT - wean per pulmonary driven protocols otherwise - continue accuchecks with glycemic control per SSI (While critically ill target blood glucose of 140-180 mg/dL; avoid hypoglycemia) - sedation prn for target RASS 0 to -1 - avoid nephrotoxins, renally dose all medications - continue to avoid benzodiazepine's, reduce the possibility of delirium - continue COVID-19 isolation - follow repeat COVID-19 test result - continue antiinfective's per ID rec's - prn analgesia per CPOT score - Maintenance of sleep-wake cycle, avoid delirium - enteral nutritional support at goal rate as tolerated - G.I. & VTE prophylaxis - PT/OT/ROM exercises - continue mobility protocols for pressure ulcer prophylaxis - Monitor hemodynamics closely - continue other care per attending / other consultants - discharge planning ongoing concurrently .... Re-evaluate in am & prn CONDITION: CRITICAL PROGNOSIS: GUARDED CODE STATUS: FULL CODE The high probability of a clinically significant, sudden or life-threatening deterioration of the [respiratory, cardiovascular & neurologic] system(s) required my full and direct attention, intervention and personal management. The aggregate critical care time was [33] minutes without overlap. Time includes spent on; [x] Data Review and interpretation [x] Patient assessment and monitoring of vital signs [x] Documentation [x] Medication orders and management Subjective Date of service: 12/27/19 Principal diagnosis: Acute hypoxemic & hypercapnic resp failure; ARDS; PUI COVID-19; PNA Interval history: Patient is seen today for: Acute hypoxemic & hypercapnic respiratory failure; ARDS; PUI COVID-19 infection; Bilateral pneumonia; Acute encephalopathy, possibly anoxic; DM II; IVAN; Morbid obesity; Lactic acidosis. Seen and examined at bedside; 24hour events reviewed; nursing and respiratory care staff consulted; no adverse overnight events reported to me; resting peacefully in bed; remains on MVS; + intermittent ? seizure-type activity per RN; no emesis or overt aspiration and no high grade fevers Objective Vital Signs - 12hr 12/27/19 12/27/19 12/27/19 05:00 05:30 06:00 Temperature Pulse Rate 91 H 94 H 97 H Pulse Rate [ Anterior Bilateral Throughout] Respiratory 18 20 22 Rate Respiratory Rate [Anterior Bilateral Throughout] Blood Pressure 119/73 119/76 119/78 O2 Sat by Pulse 96 96 95 Oximetry 12/27/19 12/27/19 12/27/19 06:30 06:45 07:00 Temperature Pulse Rate 94 H 96 H 98 H Pulse Rate [ Anterior Bilateral Throughout] Respiratory 24 30 H 20 Rate Respiratory Rate [Anterior Bilateral Throughout] Blood Pressure 123/76 121/70 123/68 O2 Sat by Pulse 96 95 96 Oximetry 12/27/19 12/27/19 12/27/19 07:15 07:30 07:45 Temperature Pulse Rate 99 H 99 H 96 H Pulse Rate [ Anterior Bilateral Throughout] Respiratory 24 20 19 Rate Respiratory Rate [Anterior Bilateral Throughout] Blood Pressure 124/78 125/78 119/74 O2 Sat by Pulse 96 96 98 Oximetry 12/27/19 12/27/19 12/27/19 08:00 08:15 08:30 Temperature Pulse Rate 100 H 100 H 99 H Pulse Rate [ 98 H Anterior Bilateral Throughout] Respiratory 23 13 27 H Rate Respiratory 23 Rate [Anterior Bilateral Throughout] Blood Pressure 126/75 126/84 128/81 O2 Sat by Pulse 98 97 97 Oximetry 12/27/19 12/27/19 12/27/19 08:45 08:50 09:00 Temperature 102.2 F H Pulse Rate 98 H 99 H 99 H Pulse Rate [ Anterior Bilateral Throughout] Respiratory 27 H 29 H Rate Respiratory Rate [Anterior Bilateral Throughout] Blood Pressure 132/70 121/73 O2 Sat by Pulse 93 91 Oximetry 12/27/19 12/27/19 12/27/19 09:15 09:30 09:45 Temperature Pulse Rate 98 H 99 H 98 H Pulse Rate [ Anterior Bilateral Throughout] Respiratory 26 H 30 H 30 H Rate Respiratory Rate [Anterior Bilateral Throughout] Blood Pressure 122/76 129/71 116/69 O2 Sat by Pulse 91 91 100 Oximetry 12/27/19 12/27/19 12/27/19 10:00 10:15 10:30 Temperature Pulse Rate 98 H 95 H 95 H Pulse Rate [ Anterior Bilateral Throughout] Respiratory 30 H 30 H 30 H Rate Respiratory Rate [Anterior Bilateral Throughout] Blood Pressure 120/74 121/70 120/67 O2 Sat by Pulse 95 94 Oximetry 12/27/19 12/27/19 12/27/19 10:45 11:00 11:15 Temperature Pulse Rate 93 H 91 H 91 H Pulse Rate [ Anterior Bilateral Throughout] Respiratory 30 H 30 H 30 H Rate Respiratory Rate [Anterior Bilateral Throughout] Blood Pressure 117/67 119/71 116/68 O2 Sat by Pulse 93 98 97 Oximetry 12/27/19 12/27/19 12/27/19 11:30 11:45 12:00 Temperature Pulse Rate 90 90 90 Pulse Rate [ Anterior Bilateral Throughout] Respiratory 30 H 30 H 30 H Rate Respiratory Rate [Anterior Bilateral Throughout] Blood Pressure 114/66 112/73 120/63 O2 Sat by Pulse 95 92 90 Oximetry 12/27/19 12/27/19 12/27/19 12:15 12:30 12:35 Temperature 100.6 F H Pulse Rate 90 90 Pulse Rate [ Anterior Bilateral Throughout] Respiratory 30 H 30 H Rate Respiratory Rate [Anterior Bilateral Throughout] Blood Pressure 117/70 117/67 O2 Sat by Pulse 92 94 Oximetry Constitutional: no acute distress, other (young obese male without ventilator dyssynchrony) Eyes: non-icteric ENT: oropharynx moist, other (ETT 24 cm JOHAN) Neck: supple, no lymphadenopathy, no JVD, other (large neck circumference) Effort: normal Ascultation: Bilateral: clear Percussion: Bilateral: not dull Cardiovascular: regular rate and rhythm Gastrointestinal: normoactive bowel sounds, soft, non-tender, non-distended (protuberant) Integumentary: rash (stasis dermatitis) Extremities: no cyanosis, no edema, no ischemia or petechiae Neurologic: pupils equal and round, unable to assess, other (sedated) Psychiatric: other (sedated) CBC and BMP: 12/26/19 18:31 12/26/19 16:50 ABG, PT/INR, D-dimer: ABG ABG pH 7.359 pH Units (7.350-7.450) 12/27/19 03:45 ABG pCO2 34.0 mm Hg 12/27/19 03:45 ABG pO2 89.7 mm Hg (80.0-90.0) 12/27/19 03:45 ABG O2 Saturation 97.0 % (95.0-99.0) 12/27/19 03:45 PT/INR, D-dimer PT 14.1 Sec. (12.2-14.9) 12/26/19 18:31 INR 1.08 (0.87-1.13) 12/26/19 18:31 D-Dimer 6498.49 ng/mlDDU (0-234) H 12/26/19 16:50 Abnormal lab findings: Abnormal Labs 12/26/19 12/26/19 12/26/19 15:57 16:13 16:13 WBC 23.7 H Hct 45.7 H MCV 102 H MCH 34 H Seg Neuts % (Manual) 80.0 H Seg Neutrophils # Man 19.0 H Eosinophils # (Manual) 0.5 H D-Dimer 5221.01 H Heparin Anti-Xa Level ABG pH 7.109 L* ABG pO2 101.4 H ABG HCO3 16.3 L ABG O2 Saturation ABG Base Excess -13.4 L Oxyhemoglobin 93.3 L Carbon Dioxide Glucose Lactic Acid Magnesium Ferritin AST ALT Lactate Dehydrogenase Total Creatine Kinase NT-Pro-B Natriuret Pep Urine WBC (Auto) 12/26/19 12/26/19 12/26/19 16:13 16:13 16:13 WBC Hct MCV MCH Seg Neuts % (Manual) Seg Neutrophils # Man Eosinophils # (Manual) D-Dimer Heparin Anti-Xa Level ABG pH ABG pO2 ABG HCO3 ABG O2 Saturation ABG Base Excess Oxyhemoglobin Carbon Dioxide 15 L Glucose 268 H Lactic Acid Magnesium 2.60 H Ferritin AST 177 H ALT 108 H Lactate Dehydrogenase Total Creatine Kinase 191 H NT-Pro-B Natriuret Pep 1766 H Urine WBC (Auto) 12/26/19 12/26/19 12/26/19 16:13 16:50 16:50 WBC Hct MCV MCH Seg Neuts % (Manual) Seg Neutrophils # Man Eosinophils # (Manual) D-Dimer Heparin Anti-Xa Level ABG pH ABG pO2 ABG HCO3 ABG O2 Saturation ABG Base Excess Oxyhemoglobin Carbon Dioxide Glucose 273 H Lactic Acid 7.70 H* Magnesium Ferritin 1248.0 H AST ALT Lactate Dehydrogenase 443 H Total Creatine Kinase NT-Pro-B Natriuret Pep Urine WBC (Auto) 12/26/19 12/26/19 12/26/19 16:50 17:02 18:42 WBC Hct MCV MCH Seg Neuts % (Manual) Seg Neutrophils # Man Eosinophils # (Manual) D-Dimer 6498.49 H Heparin Anti-Xa Level ABG pH 7.136 L* ABG pO2 63.9 L ABG HCO3 ABG O2 Saturation 81.8 L ABG Base Excess -9.6 L Oxyhemoglobin 79.8 L Carbon Dioxide Glucose Lactic Acid 3.20 H* Magnesium Ferritin AST ALT Lactate Dehydrogenase Total Creatine Kinase NT-Pro-B Natriuret Pep Urine WBC (Auto) 12/26/19 12/26/19 12/26/19 19:56 20:40 21:29 WBC Hct MCV MCH Seg Neuts % (Manual) Seg Neutrophils # Man Eosinophils # (Manual) D-Dimer Heparin Anti-Xa Level ABG pH 7.259 L ABG pO2 70.4 L ABG HCO3 ABG O2 Saturation 92.3 L ABG Base Excess -6.7 L Oxyhemoglobin 90.2 L Carbon Dioxide Glucose Lactic Acid 3.40 H* 4.40 H* Magnesium Ferritin AST ALT Lactate Dehydrogenase Total Creatine Kinase NT-Pro-B Natriuret Pep Urine WBC (Auto) 12/26/19 12/26/19 12/27/19 23:00 Unknown 01:52 WBC Hct MCV MCH Seg Neuts % (Manual) Seg Neutrophils # Man Eosinophils # (Manual) D-Dimer Heparin Anti-Xa Level ABG pH ABG pO2 ABG HCO3 ABG O2 Saturation ABG Base Excess Oxyhemoglobin Carbon Dioxide Glucose Lactic Acid 3.60 H* 4.20 H* Magnesium Ferritin AST ALT Lactate Dehydrogenase Total Creatine Kinase NT-Pro-B Natriuret Pep Urine WBC (Auto) 146.0 H 12/27/19 12/27/19 12/27/19 03:45 04:49 04:49 WBC Hct MCV MCH Seg Neuts % (Manual) Seg Neutrophils # Man Eosinophils # (Manual) D-Dimer Heparin Anti-Xa Level 0.23 L ABG pH ABG pO2 ABG HCO3 18.7 L ABG O2 Saturation ABG Base Excess -5.8 L Oxyhemoglobin Carbon Dioxide Glucose Lactic Acid 2.20 H* Magnesium Ferritin AST ALT Lactate Dehydrogenase Total Creatine Kinase NT-Pro-B Natriuret Pep Urine WBC (Auto) Chest x-ray: image reviewed (no focal infiltrate; ETT in good position) Allied health notes reviewed: nursing
[2019-12-27] MEDS: VANCOMYCIN 1,500 MG in SODIUM CHLORIDE 0.9% 500 ML 500 ML IV SCH (18:50)
[2019-12-27] MEDS: levETIRAcetam 500 MG in DEXTROSE 5% IN WATER 100 ML IV SCH (22:20)
[2019-12-28] MEDS: CEFEPIME/NS 2 GM/100 ML 2 GM/100 ML BAG IV SCH ×4 (00:02→22:03)
[2019-12-28] MEDS ORDERED: HYDROmorphone 1 MG/1 ML INJ ONE (00:13)
[2019-12-28] MEDS ORDERED: fentaNYL 100 MCG/2 ML INJ ONE (01:30)
--- NOTE | 2019-12-28 03:16 | XRay Report ---
CHEST 1 VIEW 12/28/2019 3:04 AM INDICATION / CLINICAL INFORMATION: follow up respiratory failure. COMPARISON: 12/27/2019 FINDINGS: SUPPORT DEVICES: Stable, satisfactory device positioning. HEART / MEDIASTINUM: Stable. LUNGS / PLEURA: Stable small bilateral pleural effusions. No pneumothorax. ADDITIONAL FINDINGS: No significant additional findings. IMPRESSION: 1. No significant change. Signer Name: Cornelio Mcintyre MD Signed: 12/28/2019 3:12 AM Workstation Name: [id number]
[2019-12-28] MEDS: ALBUTEROL 2.5 MG/3 ML NEBU IH SCH ×6 (04:06→19:46)
[2019-12-28 05:27] LABS: ABG Base Excess -5.6 mmol/L (-2.0-3.0); ABG HCO3 18.6 mmol/L (20.0-26.0); ABG Methemoglobin 0.7 % (0.0-1.5); ABG Oxygen Saturation 98.1 % (95.0-99.0); ABG PCO2 32.7 mm Hg; ABG PH 7.374 pH Units (7.350-7.450); ABG PO2 113.7 mm Hg (80.0-90.0)
[2019-12-28 06:08] LABS: Hematocrit 41.6 % (35.5-45.6); Hemoglobin 13.3 gm/dl (11.8-15.2)
[2019-12-28] MEDS ORDERED: ALBUTEROL 2.5 MG/3 ML NEBU IH ONE ×3 (08:03→19:04)
[2019-12-28] MEDS ORDERED: ACETAMINOPHEN 650 MG RECT SUPP PR ONE ×2 (09:16→17:51)
[2019-12-28] MEDS ORDERED: PANTOPRAZOLE 40 MG INJ IV ONE ×2 (09:16→19:35)
[2019-12-28] MEDS ORDERED: methylPREDNISolone Sod Succinate 40 MG/1 ML INJ ONE ×3 (09:16→22:01)
[2019-12-28] MEDS ORDERED: CEFEPIME/NS 2 GM/100 ML 2 GM/100 ML BAG IV ONE ×3 (09:17→22:00)
[2019-12-28] MEDS ORDERED: HEPARIN/ 0.45% NACL DRIP 25,000 UNIT/500 ML BAG ONE (09:19)
[2019-12-28] MEDS: HEPARIN/ 0.45% NACL DRIP 25,000 UNIT/500 ML BAG IV SCH (09:38)
[2019-12-28] MEDS: methylPREDNISolone Sod Succinate 40 MG/1 ML INJ IV SCH ×3 (09:43→22:04)
[2019-12-28] MEDS: PANTOPRAZOLE 40 MG INJ IV SCH ×2 (09:44→19:38)
[2019-12-28] MEDS ORDERED: fentaNYL DRIP Premix 2,000 MCG/100 ML BAG IV ONE ×2 (10:28→15:58)
[2019-12-28] MEDS: ACETAMINOPHEN 650 MG RECT SUPP PR PRN ×2 (10:31→18:00)
[2019-12-28] MEDS: fentaNYL DRIP Premix 2,000 MCG/100 ML BAG IV SCH ×2 (10:34→16:08)
[2019-12-28] MEDS: levETIRAcetam 500 MG in DEXTROSE 5% IN WATER 100 ML IV SCH ×2 (10:38→22:46)
[2019-12-28] MEDS ORDERED: METOPROLOL TARTRATE 5 MG/5 ML INJ IV PRN (13:12)
[2019-12-28] MEDS ORDERED: METOPROLOL TARTRATE 5 MG/5 ML INJ IV ONE (13:15)
[2019-12-28] MEDS: VANCOMYCIN 1,500 MG in SODIUM CHLORIDE 0.9% 500 ML 500 ML IV SCH ×2 (13:31→22:27)
[2019-12-28 15:14] LABS: Calcium 8.6 mg/dL (8.4-10.2)
--- NOTE | 2019-12-28 16:46 | Progress Note ---
Assessment and Plan Acute hypoxemic & hypercapnic respiratory failure on MVS ARDS PUI COVID-19 infection. Bilateral pneumonia. Acute encephalopathy, possibly anoxic. DM II IVAN Morbid obesity. Leukocytosis. Lactic acidosis. Elevated inflammatory markers to include ferritin and D-dimer levels. Elevated serum transaminases. Oropharyngeal dysphagia. History of a groin abscess recently. - 12 lead EKG - begin metoprolol 5mg IV q6h prn pulse > 130/min - cardiology consultation for HFrEF & Tachyarrythmia - get serum Mg & K+ levels and address - nephrology consulted re: KAVITHA - will get urine lytes to calculate FENA meanwhile - gentle hydration - 2D ECHO shows HFrEF of 20-25% - continue care as below otherwise; - continue empiric Keppra - neurology consultation - continue to wean supplemental oxygen for target O2 sat's > 92% acutely (FiO2 down to 80%) - keep set rate at 30 for now - repeat ABG in am and address MV - Daily SAT's and SBT assessment as tolerated - VAP bundle addressed - continue lung protective strategies - continue bronchodilators with pulmonary hygiene per RT - wean per pulmonary driven protocols otherwise - continue accuchecks with glycemic control per SSI (While critically ill target blood glucose of 140-180 mg/dL; avoid hypoglycemia) - sedation prn for target RASS 0 to -1 - avoid nephrotoxins, renally dose all medications - continue to avoid benzodiazepine's, reduce the possibility of delirium - continue COVID-19 isolation - follow repeat COVID-19 test result - continue antiinfective's per ID rec's - prn analgesia per CPOT score - Maintenance of sleep-wake cycle, avoid delirium - enteral nutritional support at goal rate as tolerated - G.I. & VTE prophylaxis - PT/OT/ROM exercises - continue mobility protocols for pressure ulcer prophylaxis - Monitor hemodynamics closely - continue other care per attending / other consultants - discharge planning ongoing concurrently .... Re-evaluate in am & prn CONDITION: CRITICAL PROGNOSIS: GUARDED CODE STATUS: FULL CODE The high probability of a clinically significant, sudden or life-threatening deterioration of the [respiratory, cardiovascular & neurologic] system(s) required my full and direct attention, intervention and personal management. The aggregate critical care time was [37] minutes without overlap. Time includes spent on; [x] Data Review and interpretation [x] Patient assessment and monitoring of vital signs [x] Documentation [x] Medication orders and management Subjective Date of service: 12/28/19 Principal diagnosis: Acute hypoxemic & hypercapnic resp failure; ARDS; PUI COVID-19; PNA Interval history: Patient is seen today for: Acute hypoxemic & hypercapnic respiratory failure; ARDS; PUI COVID-19 infection; Bilateral pneumonia; Acute encephalopathy, possibly anoxic; DM II; IVAN; Morbid obesity; Lactic acidosis. Seen and examined at bedside; 24hour events reviewed; nursing and respiratory care staff consulted; no adverse overnight events reported to me; resting peacefully in bed; remains on MVS; per RN with tachycardia to 150's earlier; no emesis or overt aspiration; AMS is persistent; no high grade fevers Objective Vital Signs - 12hr 12/28/19 12/28/19 12/28/19 04:45 04:54 05:00 Temperature Pulse Rate 112 H 111 H 113 H Pulse Rate [ Anterior Bilateral Throughout] Respiratory 30 H 30 H Rate Respiratory Rate [Anterior Bilateral Throughout] Blood Pressure 115/65 111/63 120/65 O2 Sat by Pulse 100 100 100 Oximetry 12/28/19 12/28/19 12/28/19 05:15 05:30 05:45 Temperature Pulse Rate 113 H 113 H 115 H Pulse Rate [ Anterior Bilateral Throughout] Respiratory 30 H 30 H 27 H Rate Respiratory Rate [Anterior Bilateral Throughout] Blood Pressure 115/66 118/67 119/69 O2 Sat by Pulse 99 100 100 Oximetry 12/28/19 12/28/19 12/28/19 06:00 06:15 06:30 Temperature Pulse Rate 116 H 116 H 117 H Pulse Rate [ Anterior Bilateral Throughout] Respiratory 30 H 30 H 30 H Rate Respiratory Rate [Anterior Bilateral Throughout] Blood Pressure 117/70 119/71 124/68 O2 Sat by Pulse 100 100 100 Oximetry 12/28/19 12/28/19 12/28/19 06:45 07:00 07:15 Temperature Pulse Rate 118 H 117 H 117 H Pulse Rate [ Anterior Bilateral Throughout] Respiratory 30 H 30 H 30 H Rate Respiratory Rate [Anterior Bilateral Throughout] Blood Pressure 122/70 124/69 122/74 O2 Sat by Pulse 100 100 100 Oximetry 12/28/19 12/28/19 12/28/19 07:30 07:45 07:48 Temperature 102.6 F H Pulse Rate 117 H 118 H 118 H Pulse Rate [ Anterior Bilateral Throughout] Respiratory 30 H 22 Rate Respiratory Rate [Anterior Bilateral Throughout] Blood Pressure 125/70 122/73 122/73 O2 Sat by Pulse 100 100 100 Oximetry 12/28/19 12/28/19 12/28/19 08:00 08:15 08:30 Temperature Pulse Rate 119 H 121 H 124 H Pulse Rate [ 120 H Anterior Bilateral Throughout] Respiratory 30 H 30 H 30 H Rate Respiratory 19 Rate [Anterior Bilateral Throughout] Blood Pressure 128/75 132/78 135/80 O2 Sat by Pulse 98 98 98 Oximetry 12/28/19 12/28/19 12/28/19 08:45 09:00 09:15 Temperature Pulse Rate 126 H 129 H 132 H Pulse Rate [ Anterior Bilateral Throughout] Respiratory 30 H 30 H 30 H Rate Respiratory Rate [Anterior Bilateral Throughout] Blood Pressure 137/80 142/85 144/89 O2 Sat by Pulse 97 98 97 Oximetry 12/28/19 12/28/19 12/28/19 09:30 09:45 10:00 Temperature Pulse Rate 137 H 140 H 143 H Pulse Rate [ Anterior Bilateral Throughout] Respiratory 30 H 29 H 30 H Rate Respiratory Rate [Anterior Bilateral Throughout] Blood Pressure 154/90 155/98 164/99 O2 Sat by Pulse 97 97 96 Oximetry 12/28/19 12/28/19 12/28/19 10:15 10:30 10:45 Temperature Pulse Rate 149 H 155 H 157 H Pulse Rate [ Anterior Bilateral Throughout] Respiratory 30 H 30 H 29 H Rate Respiratory Rate [Anterior Bilateral Throughout] Blood Pressure 171/104 159/106 178/106 O2 Sat by Pulse 95 92 90 Oximetry 12/28/19 12/28/19 12/28/19 11:00 11:15 11:25 Temperature 101.9 F H Pulse Rate 160 H 165 H Pulse Rate [ Anterior Bilateral Throughout] Respiratory 31 H 31 H Rate Respiratory Rate [Anterior Bilateral Throughout] Blood Pressure 182/102 179/106 O2 Sat by Pulse 89 89 Oximetry 12/28/19 12/28/19 12/28/19 11:31 11:45 12:00 Temperature Pulse Rate 168 H 168 H 144 H Pulse Rate [ Anterior Bilateral Throughout] Respiratory 30 H 30 H Rate Respiratory Rate [Anterior Bilateral Throughout] Blood Pressure 178/100 178/100 129/59 O2 Sat by Pulse 88 92 91 Oximetry 12/28/19 12/28/19 12/28/19 12:01 12:15 12:31 Temperature Pulse Rate 167 H 169 H 168 H Pulse Rate [ Anterior Bilateral Throughout] Respiratory 30 H 30 H 30 H Rate Respiratory Rate [Anterior Bilateral Throughout] Blood Pressure 175/91 175/91 158/80 O2 Sat by Pulse 91 90 88 Oximetry 12/28/19 12/28/19 12/28/19 12:45 13:00 13:15 Temperature Pulse Rate 168 H 167 H 165 H Pulse Rate [ Anterior Bilateral Throughout] Respiratory 31 H 30 H 30 H Rate Respiratory Rate [Anterior Bilateral Throughout] Blood Pressure 158/74 152/70 152/65 O2 Sat by Pulse 90 88 89 Oximetry 12/28/19 12/28/19 12/28/19 13:23 13:30 14:00 Temperature Pulse Rate 165 H 143 H Pulse Rate [ 125 H Anterior Bilateral Throughout] Respiratory 30 H Rate Respiratory 20 Rate [Anterior Bilateral Throughout] Blood Pressure 152/65 129/59 O2 Sat by Pulse 87 Oximetry Constitutional: no acute distress, other (young obese male without significant ventilator dyssynchrony) Eyes: non-icteric ENT: oropharynx moist, other (ETT 24 cm JOHAN) Neck: supple, no lymphadenopathy, no JVD, other (large neck circumference) Effort: normal Ascultation: Bilateral: clear Percussion: Bilateral: not dull Cardiovascular: regular rate and rhythm Gastrointestinal: normoactive bowel sounds, soft, non-tender, non-distended (protuberant) Integumentary: rash (stasis dermatitis) Extremities: no cyanosis, no edema, no ischemia or petechiae Neurologic: pupils equal and round (very sluggishly reactive), unable to assess, other (sedated) Psychiatric: other (sedated) CBC and BMP: 12/28/19 05:49 12/28/19 14:30 ABG, PT/INR, D-dimer: ABG ABG pH 7.374 pH Units (7.350-7.450) 12/28/19 05:05 ABG pCO2 32.7 mm Hg 12/28/19 05:05 ABG pO2 113.7 mm Hg (80.0-90.0) H 12/28/19 05:05 ABG O2 Saturation 98.1 % (95.0-99.0) 12/28/19 05:05 PT/INR, D-dimer PT 14.1 Sec. (12.2-14.9) 12/26/19 18:31 INR 1.08 (0.87-1.13) 12/26/19 18:31 D-Dimer 6498.49 ng/mlDDU (0-234) H 12/26/19 16:50 Abnormal lab findings: Abnormal Labs 12/26/19 12/26/19 12/26/19 15:57 16:13 16:13 WBC 23.7 H Hct 45.7 H MCV 102 H MCH 34 H Seg Neuts % (Manual) 80.0 H Seg Neutrophils # Man 19.0 H Eosinophils # (Manual) 0.5 H D-Dimer 5221.01 H Heparin Anti-Xa Level ABG pH 7.109 L* ABG pO2 101.4 H ABG HCO3 16.3 L ABG O2 Saturation ABG Base Excess -13.4 L Oxyhemoglobin 93.3 L Chloride Carbon Dioxide BUN Creatinine Glucose POC Glucose Lactic Acid Magnesium Ferritin AST ALT Lactate Dehydrogenase Total Creatine Kinase NT-Pro-B Natriuret Pep Urine WBC (Auto) 12/26/19 12/26/19 12/26/19 16:13 16:13 16:13 WBC Hct MCV MCH Seg Neuts % (Manual) Seg Neutrophils # Man Eosinophils # (Manual) D-Dimer Heparin Anti-Xa Level ABG pH ABG pO2 ABG HCO3 ABG O2 Saturation ABG Base Excess Oxyhemoglobin Chloride Carbon Dioxide 15 L BUN Creatinine Glucose 268 H POC Glucose Lactic Acid Magnesium 2.60 H Ferritin AST 177 H ALT 108 H Lactate Dehydrogenase Total Creatine Kinase 191 H NT-Pro-B Natriuret Pep 1766 H Urine WBC (Auto) 12/26/19 12/26/19 12/26/19 16:13 16:50 16:50 WBC Hct MCV MCH Seg Neuts % (Manual) Seg Neutrophils # Man Eosinophils # (Manual) D-Dimer Heparin Anti-Xa Level ABG pH ABG pO2 ABG HCO3 ABG O2 Saturation ABG Base Excess Oxyhemoglobin Chloride Carbon Dioxide BUN Creatinine Glucose 273 H POC Glucose Lactic Acid 7.70 H* Magnesium Ferritin 1248.0 H AST ALT Lactate Dehydrogenase 443 H Total Creatine Kinase NT-Pro-B Natriuret Pep Urine WBC (Auto) 12/26/19 12/26/19 12/26/19 16:50 17:02 18:42 WBC Hct MCV MCH Seg Neuts % (Manual) Seg Neutrophils # Man Eosinophils # (Manual) D-Dimer 6498.49 H Heparin Anti-Xa Level ABG pH 7.136 L* ABG pO2 63.9 L ABG HCO3 ABG O2 Saturation 81.8 L ABG Base Excess -9.6 L Oxyhemoglobin 79.8 L Chloride Carbon Dioxide BUN Creatinine Glucose POC Glucose Lactic Acid 3.20 H* Magnesium Ferritin AST ALT Lactate Dehydrogenase Total Creatine Kinase NT-Pro-B Natriuret Pep Urine WBC (Auto) 12/26/19 12/26/19 12/26/19 19:56 20:40 21:29 WBC Hct MCV MCH Seg Neuts % (Manual) Seg Neutrophils # Man Eosinophils # (Manual) D-Dimer Heparin Anti-Xa Level ABG pH 7.259 L ABG pO2 70.4 L ABG HCO3 ABG O2 Saturation 92.3 L ABG Base Excess -6.7 L Oxyhemoglobin 90.2 L Chloride Carbon Dioxide BUN Creatinine Glucose POC Glucose Lactic Acid 3.40 H* 4.40 H* Magnesium Ferritin AST ALT Lactate Dehydrogenase Total Creatine Kinase NT-Pro-B Natriuret Pep Urine WBC (Auto) 12/26/19 12/26/19 12/27/19 23:00 Unknown 01:52 WBC Hct MCV MCH Seg Neuts % (Manual) Seg Neutrophils # Man Eosinophils # (Manual) D-Dimer Heparin Anti-Xa Level ABG pH ABG pO2 ABG HCO3 ABG O2 Saturation ABG Base Excess Oxyhemoglobin Chloride Carbon Dioxide BUN Creatinine Glucose POC Glucose Lactic Acid 3.60 H* 4.20 H* Magnesium Ferritin AST ALT Lactate Dehydrogenase Total Creatine Kinase NT-Pro-B Natriuret Pep Urine WBC (Auto) 146.0 H 12/27/19 12/27/19 12/27/19 03:45 04:49 04:49 WBC Hct MCV MCH Seg Neuts % (Manual) Seg Neutrophils # Man Eosinophils # (Manual) D-Dimer Heparin Anti-Xa Level 0.23 L ABG pH ABG pO2 ABG HCO3 18.7 L ABG O2 Saturation ABG Base Excess -5.8 L Oxyhemoglobin Chloride Carbon Dioxide BUN Creatinine Glucose POC Glucose Lactic Acid 2.20 H* Magnesium Ferritin AST ALT Lactate Dehydrogenase Total Creatine Kinase NT-Pro-B Natriuret Pep Urine WBC (Auto) 12/28/19 12/28/19 12/28/19 05:05 09:58 14:30 WBC Hct MCV MCH Seg Neuts % (Manual) Seg Neutrophils # Man Eosinophils # (Manual) D-Dimer Heparin Anti-Xa Level ABG pH ABG pO2 113.7 H ABG HCO3 18.6 L ABG O2 Saturation ABG Base Excess -5.6 L Oxyhemoglobin Chloride 108.4 H Carbon Dioxide 16 L BUN 39 H Creatinine 2.3 H D Glucose 380 H POC Glucose 268 H Lactic Acid Magnesium Ferritin AST ALT Lactate Dehydrogenase Total Creatine Kinase NT-Pro-B Natriuret Pep Urine WBC (Auto) Chest x-ray: pending Allied health notes reviewed: nursing
[2019-12-28] MEDS ORDERED: SODIUM CHLORIDE 0.9% 1000 ML 1,000 ML ONE (17:33)
[2019-12-28] MEDS ORDERED: SODIUM CHLORIDE 0.9% 1000 ML 1,000 ML IV ONE (17:42)
--- NOTE | 2019-12-28 19:05 | Event Note ---
Procedure: Intraosseous device, right tibia Indication: Hypotension Complication: None Due to patient's cardiovascular instability, intraosseous device was placed emergently in order to expedite volume resuscitation and pressor support. I used alcohol swab to clean the medial superior portion of the tibia. I used rapid EZ IO drill device to insert interosseous catheter. I was able to aspirate serous material. I was able to easily flush the catheter with 10 mL of normal saline.
[2019-12-28] MEDS ORDERED: NORepinephrine/NS 4 MG-250 ML 4 MG/250 ML BAG IV ONE (19:55)
[2019-12-28] MEDS: NORepinephrine/NS 4 MG-250 ML 4 MG/250 ML BAG IV SCH (19:58)
[2019-12-28] MEDS: VASOPRESSIN 20 UNIT in SODIUM CHLORIDE 0.9% 100 ML IV SCH (22:11)
[2019-12-29] MEDS ORDERED: ACETAMINOPHEN 325 MG TAB ONE (00:18)
[2019-12-29] MEDS ORDERED: NORepinephrine/NS 4 MG-250 ML 4 MG/250 ML BAG IV ONE (00:29)
[2019-12-29] MEDS: NORepinephrine/NS 4 MG-250 ML 4 MG/250 ML BAG IV SCH (00:38)
[2019-12-29] MEDS ORDERED: HEPARIN/ 0.45% NACL DRIP 25,000 UNIT/500 ML BAG ONE (01:24)
[2019-12-29] MEDS: HEPARIN/ 0.45% NACL DRIP 25,000 UNIT/500 ML BAG IV SCH ×2 (01:27→16:38)
--- NOTE | 2019-12-29 01:28 | XRay Report ---
CHEST 1 VIEW 12/29/2019 1:16 AM INDICATION / CLINICAL INFORMATION: follow up respiratory failure. COMPARISON: 12/28/2019 FINDINGS: SUPPORT DEVICES: Stable, satisfactory device positioning. HEART / MEDIASTINUM: Stable. LUNGS / PLEURA: Stable tiny bilateral pleural effusions. Slightly increased pulmonary vascular conges tion. No pneumothorax. ADDITIONAL FINDINGS: No significant additional findings. IMPRESSION: 1. Slightly increased pulmonary vascular congestion. Signer Name: Cornelio Mcintyre MD Signed: 12/29/2019 1:23 AM Workstation Name: [id number]
[2019-12-29 04:02] LABS: ABG Base Excess -13.6 mmol/L (-2.0-3.0); ABG HCO3 13.4 mmol/L (20.0-26.0); ABG Methemoglobin 0.8 % (0.0-1.5); ABG Oxygen Saturation 89.7 % (95.0-99.0); ABG PCO2 35.3 mm Hg; ABG PO2 64.4 mm Hg (80.0-90.0)
[2019-12-29 04:09] LABS: ABG PH 7.198 pH Units (7.350-7.450)
[2019-12-29] MEDS: DOBUTamine/D5W 500 MG/250 ML 500 MG/250 ML BAG IV SCH ×2 (05:12→22:52)
[2019-12-29] MEDS: NORepinephrine 8 MG in SODIUM CHLORIDE 0.9% 250ML 242 ML IV SCH ×4 (05:12→18:09)
[2019-12-29] MEDS: SODIUM BICARBONATE 150 MEQ in DEXTROSE 5% IN WATER 1,000 ML IV SCH ×2 (05:26→14:28)
[2019-12-29] MEDS: ALBUTEROL 2.5 MG/3 ML NEBU IH SCH ×4 (05:54→23:05)
[2019-12-29] MEDS: methylPREDNISolone Sod Succinate 40 MG/1 ML INJ IV SCH ×3 (06:49→21:02)
[2019-12-29] MEDS ORDERED: SODIUM CHLORIDE 0.9% 250 ML IVPB IV SCH (07:00)
[2019-12-29] MEDS: CEFEPIME/NS 2 GM/100 ML 2 GM/100 ML BAG IV SCH (07:11)
[2019-12-29] MEDS: VASOPRESSIN 20 UNIT in SODIUM CHLORIDE 0.9% 100 ML IV SCH ×2 (08:19→18:10)
[2019-12-29] MEDS: PANTOPRAZOLE 40 MG INJ IV SCH ×2 (08:25→20:53)
[2019-12-29] MEDS: levETIRAcetam 500 MG in DEXTROSE 5% IN WATER 100 ML IV SCH ×2 (09:27→21:02)
--- NOTE | 2019-12-29 09:59 | Progress Note ---
Assessment and Plan The high probability of a clinically significant, sudden or life threatening deterioration of the [neuro, cardiac, pulmonary, renal, infectious disease] system(s) required my full and direct attention, intervention and personal management. The aggregate critical care time was [40] minutes. This time is in addition to time spent performing reported procedures but includes the following: [x] Data Review and interpretation [x] Patient assessment and monitoring of vital signs [x] Documentation [x] Medication orders and management (1) Sepsis Current Visit: Yes Status: Acute Qualifiers: Severe sepsis acute organ dysfunction type: acute respiratory failure Plan to address problem: Sepsis secondary to urinary tract infection Pneumonia (2) Acute hypoxemic respiratory failure Current Visit: Yes Status: Acute Plan to address problem: Patient intubated and on ventilatory support Pmp consult and follow-up appreciated Unable to wean Discussed with his mother about poor prognosis (3) Pneumonia Current Visit: Yes Status: Acute Plan to address problem: Pneumonia protocol: Chest x-ray, CBC, CMP, IV antibiotic therapy, pulse oximetry, blood cultures. (4) Suspected 2019 novel coronavirus infection Current Visit: Yes Status: Acute Plan to address problem: Coronavirus negative (5) Toxic metabolic encephalopathy Current Visit: Yes Status: Acute Plan to address problem: Multifactorial secondary to sepsis and anoxia and hypoxic respiratory failure (6) Cardiopulmonary arrest with successful resuscitation Current Visit: Yes Status: Acute Plan to address problem: Patient treated in accordance with ACLS protocol with eventual return of perfusing cardiac rhythm. Therapeutic anticoagulation as per critical care team. (7) Metabolic acidosis Current Visit: Yes Status: Acute Plan to address problem: IV bicarbonate therapy, BMP, repeat BMP in a.m., serial lactic acid levels. (8) Cardiomyopathy Current Visit: Yes Status: Acute Qualifiers: Cardiomyopathy type: unspecified Qualified Code(s): I42.9 - Cardiomyopathy, unspecified Plan to address problem: BNP, D-dimer, echocardiogram ordered and is pending at time of admission. (9) DVT prophylaxis Current Visit: Yes Status: Acute Plan to address problem: SCD to bilateral lower extremities evaluate bed, continue therapeutic anticoagulation Subjective Date of service: 12/28/19 Principal diagnosis: Acute hypoxemic & hypercapnic resp failure; ARDS; PUirrig ati p Interval history: 34 YO Male with Obesity Hypoventilation Syndrome, DM presents to ED for evaluation. Patient is intubated and on ventilatory support at the time of my evaluation and is unable to provide history. Patient history taken from EMS staff, ED staff, as well as the patient's family who is available by phone to discuss patient history. EMS was notified after the patient was found unresponsive in his vehicle in the parking lot of a local motel. EMS was notified and upon arrival the patient was found to be in respiratory distress with a pulse oximetry of 70%. Patient was treated with IV steroid therapy nebulizer therapy and transported to [facility] for further care and evaluation. Shortly after being placed in the EMS transport vehicle the patient became bradycardic and experienced cardiopulmonary arrest. The patient was treated with ACLS protocol with return of perfusing cardiac rhythm and was subsequently intubated in the field. Patient subsequently transported to [facility] for further care and evaluation of the aforementioned symptoms. Patient seen and evaluated in the emergency department. All lab and imaging studies reviewed. Patient found to have sepsis, acute hypoxemic respiratory failure, metabolic acidosis, toxic metabolic encephalopathy, bilateral pneumonia, as well as symptoms suggestive of coronavirus infection. Patient initiated on sepsis protocol and admitted to ICU. Coronavirus protocol initiated in the emergency department prior to my evaluation. No further history is obtainable. No prior admission for review. No medication listed at time of admission for reconciliation. Objective - Exam Narrative Exam: Patient is intubated and unresponsive - Constitutional Vitals: Vital Signs - 12hr 12/28/19 12/28/19 12/28/19 22:00 22:16 22:30 Temperature Pulse Rate 113 H 110 H 108 H Pulse Rate [ Anterior Bilateral Throughout] Respiratory 30 H 30 H 30 H Rate Respiratory Rate [Anterior Bilateral Throughout] Blood Pressure 72/28 72/34 68/34 O2 Sat by Pulse 90 92 94 Oximetry 12/28/19 12/28/19 12/28/19 22:46 22:59 23:00 Temperature Pulse Rate 111 H 112 H 112 H Pulse Rate [ Anterior Bilateral Throughout] Respiratory 30 H 30 H 30 H Rate Respiratory Rate [Anterior Bilateral Throughout] Blood Pressure 74/34 68/38 75/39 O2 Sat by Pulse 91 96 93 Oximetry 12/28/19 12/28/19 12/28/19 23:16 23:30 23:46 Temperature 103.4 F H Pulse Rate 114 H 117 H 121 H Pulse Rate [ Anterior Bilateral Throughout] Respiratory 29 H 30 H 30 H Rate Respiratory Rate [Anterior Bilateral Throughout] Blood Pressure 83/43 87/53 101/54 O2 Sat by Pulse 94 95 95 Oximetry 12/29/19 12/29/19 12/29/19 00:00 00:16 00:30 Temperature Pulse Rate 124 H 126 H 126 H Pulse Rate [ Anterior Bilateral Throughout] Respiratory 30 H 13 31 H Rate Respiratory Rate [Anterior Bilateral Throughout] Blood Pressure 112/71 122/79 112/69 O2 Sat by Pulse 97 90 88 Oximetry 12/29/19 12/29/19 12/29/19 00:38 00:46 01:00 Temperature 107.1 F H Pulse Rate 124 H 124 H Pulse Rate [ Anterior Bilateral Throughout] Respiratory 30 H 30 H Rate Respiratory Rate [Anterior Bilateral Throughout] Blood Pressure 96/59 116/73 O2 Sat by Pulse 89 89 Oximetry 12/29/19 12/29/19 12/29/19 01:16 01:30 01:46 Temperature Pulse Rate 122 H 122 H 121 H Pulse Rate [ Anterior Bilateral Throughout] Respiratory 25 H 30 H 29 H Rate Respiratory Rate [Anterior Bilateral Throughout] Blood Pressure 114/73 112/74 114/74 O2 Sat by Pulse 89 95 92 Oximetry 12/29/19 12/29/19 12/29/19 02:00 02:41 02:46 Temperature Pulse Rate 120 H 117 H 124 H Pulse Rate [ Anterior Bilateral Throughout] Respiratory 30 H 14 23 Rate Respiratory Rate [Anterior Bilateral Throughout] Blood Pressure 111/75 90/66 O2 Sat by Pulse 93 Oximetry 12/29/19 12/29/19 12/29/19 02:52 02:58 03:00 Temperature Pulse Rate 117 H 114 H 115 H Pulse Rate [ Anterior Bilateral Throughout] Respiratory 17 Rate Respiratory Rate [Anterior Bilateral Throughout] Blood Pressure 86/60 O2 Sat by Pulse 92 85 Oximetry 12/29/19 12/29/19 12/29/19 03:15 03:30 03:45 Temperature Pulse Rate 113 H 113 H 111 H Pulse Rate [ Anterior Bilateral Throughout] Respiratory 30 H 30 H 28 H Rate Respiratory Rate [Anterior Bilateral Throughout] Blood Pressure 88/59 92/61 84/55 O2 Sat by Pulse 84 85 Oximetry 12/29/19 12/29/19 12/29/19 03:51 04:00 04:15 Temperature 104.2 F H Pulse Rate 110 H 108 H Pulse Rate [ Anterior Bilateral Throughout] Respiratory 25 H 27 H Rate Respiratory Rate [Anterior Bilateral Throughout] Blood Pressure 86/53 91/55 O2 Sat by Pulse 84 85 Oximetry 12/29/19 12/29/19 12/29/19 04:30 04:45 05:00 Temperature Pulse Rate 107 H 105 H 101 H Pulse Rate [ Anterior Bilateral Throughout] Respiratory 31 H 23 24 Rate Respiratory Rate [Anterior Bilateral Throughout] Blood Pressure 97/59 101/62 92/47 O2 Sat by Pulse 84 87 88 Oximetry 12/29/19 12/29/19 12/29/19 05:15 05:30 05:45 Temperature Pulse Rate 93 H 105 H 101 H Pulse Rate [ Anterior Bilateral Throughout] Respiratory 22 26 H 27 H Rate Respiratory Rate [Anterior Bilateral Throughout] Blood Pressure 88/51 106/69 111/78 O2 Sat by Pulse 82 L 84 88 Oximetry 12/29/19 12/29/19 12/29/19 05:48 06:00 06:10 Temperature 100.8 F H Pulse Rate 102 H 102 H Pulse Rate [ Anterior Bilateral Throughout] Respiratory 22 Rate Respiratory Rate [Anterior Bilateral Throughout] Blood Pressure 118/78 O2 Sat by Pulse 90 Oximetry 12/29/19 12/29/19 12/29/19 06:15 06:30 06:45 Temperature Pulse Rate 102 H 101 H 100 H Pulse Rate [ Anterior Bilateral Throughout] Respiratory 18 30 H 20 Rate Respiratory Rate [Anterior Bilateral Throughout] Blood Pressure 120/76 116/85 125/89 O2 Sat by Pulse 89 91 91 Oximetry 12/29/19 12/29/19 12/29/19 07:00 07:15 07:30 Temperature Pulse Rate 99 H 100 H 100 H Pulse Rate [ Anterior Bilateral Throughout] Respiratory 21 27 H 22 Rate Respiratory Rate [Anterior Bilateral Throughout] Blood Pressure 126/90 127/92 126/92 O2 Sat by Pulse 91 89 90 Oximetry 12/29/19 12/29/19 12/29/19 07:40 07:45 07:56 Temperature Pulse Rate 102 H 101 H Pulse Rate [ 124 H Anterior Bilateral Throughout] Respiratory 23 Rate Respiratory 30 H Rate [Anterior Bilateral Throughout] Blood Pressure 111/78 118/87 O2 Sat by Pulse 88 Oximetry 12/29/19 12/29/19 12/29/19 08:00 08:15 08:30 Temperature Pulse Rate 101 H 103 H 100 H Pulse Rate [ Anterior Bilateral Throughout] Respiratory 21 30 H 14 Rate Respiratory Rate [Anterior Bilateral Throughout] Blood Pressure 114/82 117/78 107/86 O2 Sat by Pulse 86 87 91 Oximetry 12/29/19 12/29/19 08:45 09:00 Temperature Pulse Rate 105 H 105 H Pulse Rate [ Anterior Bilateral Throughout] Respiratory 15 21 Rate Respiratory Rate [Anterior Bilateral Throughout] Blood Pressure 115/76 114/77 O2 Sat by Pulse 86 97 Oximetry General appearance: Present: severe distress, well-nourished - EENT Eyes: miosis Ears: bilateral: normal - Neck Neck: supple, normal ROM - Respiratory Respiratory effort: normal Respiratory: bilateral: CTA - Breasts Breasts: normal - Cardiovascular Heart rate: 98 Rhythm: regular Heart Sounds: Present: S1 & S2. Absent: gallop, rub Extremities: pulses intact, No edema, normal color, Full ROM - Gastrointestinal General gastrointestinal: Present: soft, non-tender, non-distended, normal bowel sounds - Genitourinary Male genitourinary: normal - Integumentary Integumentary: clear, warm, dry - Musculoskeletal Musculoskeletal: generalized weakness - Psychiatric Psychiatric: other (Patient unresponsive and intubated) - Allied health notes Allied health notes reviewed: nursing, case management - Labs CBC & Chem 7: 12/31/19 08:50 12/31/19 08:50 Labs: Abnormal lab results 12/28/19 12/29/19 Range/Units 14:30 03:41 ABG pH 7.198 L* (7.350-7.450) pH Units ABG pO2 64.4 L (80.0-90.0) mm Hg ABG HCO3 13.4 L (20.0-26.0) mmol/L ABG O2 Saturation 89.7 L (95.0-99.0) % ABG Base Excess -13.6 L (-2.0-3.0) mmol/L ABG Hemoglobin 13.8 L (14.0-18.0) gm/dl Oxyhemoglobin 87.5 L (95.0-99.0) % Chloride 108.4 H (98-107) mmol/L Carbon Dioxide 16 L (22-30) mmol/L BUN 39 H (9-20) mg/dL Creatinine 2.3 H D (0.8-1.3) mg/dL Glucose 380 H (75-100) mg/dL HEART Score - HEART Score Troponin: Troponin T 0.021 ng/mL (0.00-0.029) 12/26/19 21:29
--- NOTE | 2019-12-29 10:33 | Consultation ---
History of Present Illness Consult date: 12/29/19 Requesting physician: TORI RIVERA Reason for Consult: s/p Cardiac Arrest Chief complaint: Acute Encephalopathy s/p cardiac arrest History of present illness: 34 yo male w/ obesity hypoventilation syndrome, dm who presents s/p cardiac arrest. No history can be obtained from the patient. Per H&P - "EMS was notified after the patient was found unresponsive in his vehicle in the parking lot of a local motel. EMS was notified and upon arrival the patient was found to be in respiratory distress with a pulse oximetry of 70%. Patient was treated with IV steroid therapy nebulizer therapy and transported to [facility] for further care and evaluation. Shortly after being placed in the EMS transport vehicle the patient became bradycardic and experienced cardiopulmonary arrest. The patient was treated with ACLS protocol with return of perfusing cardiac rhythm and was subsequently intubated in the field. Patient subsequently transported to [facility] for further care and evaluation of the aforementioned symptoms. Patient seen and evaluated in the emergency department. All lab and imaging studies reviewed. Patient found to have sepsis, acute hypoxemic respiratory failure, metabolic acidosis, toxic metabolic encephalopathy, bilateral pneumonia, as well as symptoms suggestive of coronavirus infection. Patient initiated on sepsis protocol and admitted to ICU. Coronavirus protocol initiated in the emergency department prior to my evaluation. No further history is obtainable. No prior admission for review. No medication listed at time of admission for reconciliation." Past History Past Medical History: diabetes, other (See HPI) Past Surgical History: Other (Testicular surgery) Social history: single. denies: smoking, alcohol abuse, prescription drug abuse Family history: diabetes, hypertension Medications and Allergies Allergies Allergy/AdvReac Type Severity Reaction Status Date / Time No Known Allergies Allergy Unverified 12/26/19 15:29 Active Meds: Active Medications Acetaminophen (Tylenol) 650 mg PO Q6H PRN PRN Reason: Pain, Mild (1-3) Last Admin: 12/29/19 00:21 Dose: 650 mg Documented by: Acetaminophen (Tylenol) 650 mg NE Q6H PRN PRN Reason: Pain, Mild (1-3) Last Admin: 12/28/19 18:00 Dose: 650 mg Documented by: Albuterol (Proventil) 2.5 mg IH Q3HRT PRN PRN Reason: Shortness Of Breath Albuterol (Proventil) 2.5 mg IH Q6HRT ANGELA Last Admin: 12/29/19 07:56 Dose: 2.5 mg Documented by: Lipase/Protease/Amylase ([place] Quinteros 10,500 Unit) 1 each FEEDTUBE PRN PRN PRN Reason: For Clogged Feeding Tube Fentanyl (Sublimaze) 50 mcg IV Q10MIN PRN PRN Reason: ANALGESIA Last Admin: 12/27/19 14:20 Dose: 50 mcg Documented by: Hydromorphone HCl (Dilaudid) 0.25 mg IV Q4H PRN PRN Reason: Pain, Moderate (4-6) Last Admin: 12/27/19 20:18 Dose: 0.25 mg Documented by: Hydrophilic Ointment (Vaseline Lip Therapy) 1 applic TP Q2HR PRN PRN Reason: Dry Lips Propofol (Diprivan 10 Mg/Ml) 1,000 mg in 100 mls @ 3.945 mls/hr IV TITR ANGELA; Protocol Last Titration: 12/26/19 17:30 Dose: Infused Documented by: Fentanyl Citrate (Fentanyl Drip Premix) 2,000 mcg in 100 mls @ 6.575 mls/hr IV TITR ANGELA; Protocol Last Titration: 12/29/19 05:52 Dose: 0 mcg/kg/hr, 0 mls/hr Documented by: Midazolam HCl 100 mg/ Sodium (Chloride) 100 mls @ 2 mls/hr IV TITR ANGELA; Protocol Last Titration: 12/28/19 21:17 Dose: 0 mg/hr, 0 mls/hr Documented by: Cefepime HCl (Cefepime/Ns 2 Gm/100 Ml) 2 gm in 100 mls @ 200 mls/hr IV Q8HR ANGELA; Protocol Last Admin: 12/29/19 07:11 Dose: 200 mls/hr Documented by: Heparin Sodium/Sodium Chloride (Heparin/ 0.45% Nacl-25,000 Unit/500 Ml) 25,000 unit in 500 mls @ 30 mls/hr IV TITR ANGELA; Protocol Last Admin: 12/29/19 01:27 Dose: 1,631 units/hr, 32.62 mls/hr Documented by: Levetiracetam 500 mg/ Dextrose 105 mls @ 400 mls/hr IV Q12H ANGELA Last Admin: 12/29/19 09:27 Dose: 400 mls/hr Documented by: Vasopressin 20 unit/ Sodium (Chloride) 101 mls @ 9.09 mls/hr IV TITR ANGELA; Protocol Last Admin: 12/29/19 08:19 Dose: 0.03 units/min, 9.09 mls/hr Documented by: Norepinephrine 8 mg/ Sodium (Chloride) 250 mls @ 3.75 mls/hr IV TITR ANGELA; Protocol Last Titration: 12/29/19 08:46 Dose: 26 mcg/min, 48.75 mls/hr Documented by: Sodium Bicarbonate 150 meq/ (Dextrose) 1,150 mls @ 100 mls/hr IV DIRECT ANGELA Last Infusion: 12/29/19 05:41 Dose: 100 mls/hr Documented by: Dobutamine HCl/Dextrose (Dobutrex Drip 500mg/D5w 250ml) 500 mg in 250 mls @ 9.863 mls/hr IV DIRECT ANGELA; Protocol Last Admin: 12/29/19 05:12 Dose: 2.5 mcg/kg/min, 9.863 mls/hr Documented by: Insulin Human Lispro (Humalog) 0 unit SUB-Q Q6HR ANGELA; Protocol Methylprednisolone Sodium Succinate (Solu-Medrol) 40 mg IV Q8HR ANGELA Last Admin: 12/29/19 06:49 Dose: 40 mg Documented by: Metoprolol Tartrate (Metoprolol) 5 mg IV Q6HR PRN PRN Reason: tachycardia Last Admin: 12/28/19 13:23 Dose: 5 mg Documented by: Midazolam HCl (Versed) 2 mg IV Q10MIN PRN PRN Reason: Sedation Multi-Ingred Cream/Lotion/Oil/Oint (Artificial Tears Ophth Oint) 1 applic OU Q4HR PRN PRN Reason: Dry Eye(s) Pantoprazole Sodium (Protonix) 40 mg IV Q12H ANGELA Last Admin: 12/29/19 08:25 Dose: 40 mg Documented by: Simple Syrup (Simple Syrup) 15 ml FEEDTUBE PRN PRN PRN Reason: Hypoglycemia Simple Syrup (Simple Syrup) 30 ml FEEDTUBE PRN PRN PRN Reason: Hypoglycemia Sodium Bicarbonate (Sodium Bicarbonate) 325 mg FEEDTUBE PRN PRN PRN Reason: For Clogged Feeding Tube Sodium Chloride (Sodium Chloride Flush Syringe 10 Ml) 10 ml IV BID ANGELA Last Admin: 12/29/19 09:29 Dose: 10 ml Documented by: Sodium Chloride (Sodium Chloride Flush Syringe 10 Ml) 10 ml IV PRN PRN PRN Reason: LINE FLUSH Sodium Chloride (Nacl 0.9% 250ml) 250 ml IV DIRECT [facility] Last Admin: 12/29/19 07:13 Dose: 250 ml Documented by: Review of Systems ROS unobtainable: due to endotracheal tube Physical Examination - Vital Signs Vital Signs: Vital Signs Pulse BP Pulse Ox 136 H 152/102 98 12/26/19 15:07 12/26/19 15:07 12/26/19 15:07 - Additional Exam Additional Exam: Gen: nad, well-nourished, intubated; Head: normocephalic; Eyes: no gaze deviation; no ptosis appreciated; ENT: +ETT; CVS: warm and well-perfused; Pulm: no respiratory distress; GI: non-distended, protuberant; Ext: no cyanosis or edema at distal extremities; Skin: no acute rash or hives at distal extremities; Heme: no bruising or ecchymosis at distal extremities; Neuro: comatose, intubated, CN 2 - fixed 6 mm non-reactive pupils, CN 3, 4, 6 - oculocephalic absent, CN 5/7 - corneal reflex absent, CN 9/10 -absent cough, CN 11/12 - pt cannot cooperate secondary to LOC; Motor/Sensory - 0/5 at all exts to tactile stimuli; Cerebellar/Gait - pt cannot cooperate secondary to LOC; NIHSS >30; Results - Laboratory Findings CBC and BMP: 12/28/19 05:49 12/28/19 14:30 Abnormal Lab Findings: Abnormal Labs 12/26/19 12/26/19 12/26/19 15:57 16:13 16:13 WBC 23.7 H Hct 45.7 H MCV 102 H MCH 34 H Seg Neuts % (Manual) 80.0 H Seg Neutrophils # Man 19.0 H Eosinophils # (Manual) 0.5 H D-Dimer 5221.01 H Heparin Anti-Xa Level ABG pH 7.109 L* ABG pO2 101.4 H ABG HCO3 16.3 L ABG O2 Saturation ABG Base Excess -13.4 L ABG Hemoglobin Oxyhemoglobin 93.3 L Chloride Carbon Dioxide BUN Creatinine Glucose POC Glucose Lactic Acid Magnesium Ferritin AST ALT Lactate Dehydrogenase Total Creatine Kinase NT-Pro-B Natriuret Pep Urine WBC (Auto) 12/26/19 12/26/19 12/26/19 16:13 16:13 16:13 WBC Hct MCV MCH Seg Neuts % (Manual) Seg Neutrophils # Man Eosinophils # (Manual) D-Dimer Heparin Anti-Xa Level ABG pH ABG pO2 ABG HCO3 ABG O2 Saturation ABG Base Excess ABG Hemoglobin Oxyhemoglobin Chloride Carbon Dioxide 15 L BUN Creatinine Glucose 268 H POC Glucose Lactic Acid Magnesium 2.60 H Ferritin AST 177 H ALT 108 H Lactate Dehydrogenase Total Creatine Kinase 191 H NT-Pro-B Natriuret Pep 1766 H Urine WBC (Auto) 12/26/19 12/26/19 12/26/19 16:13 16:50 16:50 WBC Hct MCV MCH Seg Neuts % (Manual) Seg Neutrophils # Man Eosinophils # (Manual) D-Dimer Heparin Anti-Xa Level ABG pH ABG pO2 ABG HCO3 ABG O2 Saturation ABG Base Excess ABG Hemoglobin Oxyhemoglobin Chloride Carbon Dioxide BUN Creatinine Glucose 273 H POC Glucose Lactic Acid 7.70 H* Magnesium Ferritin 1248.0 H AST ALT Lactate Dehydrogenase 443 H Total Creatine Kinase NT-Pro-B Natriuret Pep Urine WBC (Auto) 12/26/19 12/26/19 12/26/19 16:50 17:02 18:42 WBC Hct MCV MCH Seg Neuts % (Manual) Seg Neutrophils # Man Eosinophils # (Manual) D-Dimer 6498.49 H Heparin Anti-Xa Level ABG pH 7.136 L* ABG pO2 63.9 L ABG HCO3 ABG O2 Saturation 81.8 L ABG Base Excess -9.6 L ABG Hemoglobin Oxyhemoglobin 79.8 L Chloride Carbon Dioxide BUN Creatinine Glucose POC Glucose Lactic Acid 3.20 H* Magnesium Ferritin AST ALT Lactate Dehydrogenase Total Creatine Kinase NT-Pro-B Natriuret Pep Urine WBC (Auto) 12/26/19 12/26/19 12/26/19 19:56 20:40 21:29 WBC Hct MCV MCH Seg Neuts % (Manual) Seg Neutrophils # Man Eosinophils # (Manual) D-Dimer Heparin Anti-Xa Level ABG pH 7.259 L ABG pO2 70.4 L ABG HCO3 ABG O2 Saturation 92.3 L ABG Base Excess -6.7 L ABG Hemoglobin Oxyhemoglobin 90.2 L Chloride Carbon Dioxide BUN Creatinine Glucose POC Glucose Lactic Acid 3.40 H* 4.40 H* Magnesium Ferritin AST ALT Lactate Dehydrogenase Total Creatine Kinase NT-Pro-B Natriuret Pep Urine WBC (Auto) 12/26/19 12/26/19 12/27/19 23:00 Unknown 01:52 WBC Hct MCV MCH Seg Neuts % (Manual) Seg Neutrophils # Man Eosinophils # (Manual) D-Dimer Heparin Anti-Xa Level ABG pH ABG pO2 ABG HCO3 ABG O2 Saturation ABG Base Excess ABG Hemoglobin Oxyhemoglobin Chloride Carbon Dioxide BUN Creatinine Glucose POC Glucose Lactic Acid 3.60 H* 4.20 H* Magnesium Ferritin AST ALT Lactate Dehydrogenase Total Creatine Kinase NT-Pro-B Natriuret Pep Urine WBC (Auto) 146.0 H 12/27/19 12/27/19 12/27/19 03:45 04:49 04:49 WBC Hct MCV MCH Seg Neuts % (Manual) Seg Neutrophils # Man Eosinophils # (Manual) D-Dimer Heparin Anti-Xa Level 0.23 L ABG pH ABG pO2 ABG HCO3 18.7 L ABG O2 Saturation ABG Base Excess -5.8 L ABG Hemoglobin Oxyhemoglobin Chloride Carbon Dioxide BUN Creatinine Glucose POC Glucose Lactic Acid 2.20 H* Magnesium Ferritin AST ALT Lactate Dehydrogenase Total Creatine Kinase NT-Pro-B Natriuret Pep Urine WBC (Auto) 12/28/19 12/28/19 12/28/19 05:05 09:58 14:30 WBC Hct MCV MCH Seg Neuts % (Manual) Seg Neutrophils # Man Eosinophils # (Manual) D-Dimer Heparin Anti-Xa Level ABG pH ABG pO2 113.7 H ABG HCO3 18.6 L ABG O2 Saturation ABG Base Excess -5.6 L ABG Hemoglobin Oxyhemoglobin Chloride 108.4 H Carbon Dioxide 16 L BUN 39 H Creatinine 2.3 H D Glucose 380 H POC Glucose 268 H Lactic Acid Magnesium Ferritin AST ALT Lactate Dehydrogenase Total Creatine Kinase NT-Pro-B Natriuret Pep Urine WBC (Auto) 12/29/19 03:41 WBC Hct MCV MCH Seg Neuts % (Manual) Seg Neutrophils # Man Eosinophils # (Manual) D-Dimer Heparin Anti-Xa Level ABG pH 7.198 L* ABG pO2 64.4 L ABG HCO3 13.4 L ABG O2 Saturation 89.7 L ABG Base Excess -13.6 L ABG Hemoglobin 13.8 L Oxyhemoglobin 87.5 L Chloride Carbon Dioxide BUN Creatinine Glucose POC Glucose Lactic Acid Magnesium Ferritin AST ALT Lactate Dehydrogenase Total Creatine Kinase NT-Pro-B Natriuret Pep Urine WBC (Auto) Assessment and Plan 34 yo male w/ obesity hypoventilation syndrome, dm who presents s/p cardiac arrest, in the setting of underlying pneumonia / sepsis. 1. Hypoxic/Anoxic Encephalopathy - recommend CT Head w/o contrast when clinically stable and if unremarkable, recommend a MR Brain w/o contrast. 2. Seizure - EEG pending. 3. Metabolic Encephalopathy - in the setting of underlying infection 4. Acute Ischemic Stroke - high NIHSS>30 currently; recommmend CT Head w/o contrast and MR Brain w/o contrast when clinically stable (see #1); Aspirin 325 mg PO/NGT qday or ASA 300 mg NE qday if no contraindication. 5. Pneumonia / Sepsis - lowers seizure threshold; aggressive treatment per primary team. Kobe Burch MD Neurology
[2019-12-29] MEDS: INSULIN LISPRO 100 UNIT/ML VIAL 3 mL SUB-Q SCH ×4 (10:47→20:53)
--- NOTE | 2019-12-29 11:01 | Consultation ---
History of Present Illness - Reason for Consult Consult date: 12/29/19 acute renal failure, metabolic acidosis Requesting physician: BULMARO FUNG - History of Present Illness Per H&P - "EMS was notified after the patient was found unresponsive in his vehicle in the parking lot of a local motel. EMS was notified and upon arrival the patient was found to be in respiratory distress with a pulse oximetry of 70%. Patient was treated with IV steroid therapy nebulizer therapy and transported to [facility] for further care and evaluation. Shortly after being placed in the EMS transport vehicle the patient became bradycardic and experienced cardiopulmonary arrest. The patient was treated with ACLS protocol with return of perfusing cardiac rhythm and was subsequently intubated in the field. Patient subsequently transported to [facility] for further care and evaluation of the aforementioned symptoms. Patient seen and evaluated in the emergency department. All lab and imaging studies reviewed. Patient found to have sepsis, acute hypoxemic respiratory failure, metabolic acidosis, toxic metabolic encephalopathy, bilateral pneumonia, as well as symptoms suggestive of coronavirus infection. Patient initiated on sepsis protocol and admitted to ICU. Coronavirus protocol initiated in the emergency department prior to my evaluation. No further history is obtainable. No prior admission for review. No medication listed at time of admission for reconciliation." Past History Past Medical History: diabetes, other (See HPI) Past Surgical History: Other (Testicular surgery) Social history: single. denies: smoking, alcohol abuse, prescription drug abuse Family history: diabetes, hypertension Review of Systems ROS unobtainable: due to endotracheal tube \\ Past History Past Medical History: diabetes, other (See HPI) Past Surgical History: Other (Testicular surgery) Social history: single. denies: smoking, alcohol abuse, prescription drug abuse Family history: diabetes, hypertension Medications and Allergies Allergies Allergy/AdvReac Type Severity Reaction Status Date / Time No Known Allergies Allergy Unverified 12/26/19 15:29 Active Meds: Active Medications Acetaminophen (Tylenol) 650 mg PO Q6H PRN PRN Reason: Pain, Mild (1-3) Last Admin: 12/29/19 00:21 Dose: 650 mg Documented by: Acetaminophen (Tylenol) 650 mg VA Q6H PRN PRN Reason: Pain, Mild (1-3) Last Admin: 12/28/19 18:00 Dose: 650 mg Documented by: Albuterol (Proventil) 2.5 mg IH Q3HRT PRN PRN Reason: Shortness Of Breath Albuterol (Proventil) 2.5 mg IH Q6HRT ANGELA Last Admin: 12/29/19 07:56 Dose: 2.5 mg Documented by: Lipase/Protease/Amylase (Pancreaze Dr 10,500 Unit) 1 each FEEDTUBE PRN PRN PRN Reason: For Clogged Feeding Tube Fentanyl (Sublimaze) 50 mcg IV Q10MIN PRN PRN Reason: ANALGESIA Last Admin: 12/27/19 14:20 Dose: 50 mcg Documented by: Hydromorphone HCl (Dilaudid) 0.25 mg IV Q4H PRN PRN Reason: Pain, Moderate (4-6) Last Admin: 12/27/19 20:18 Dose: 0.25 mg Documented by: Hydrophilic Ointment (Vaseline Lip Therapy) 1 applic TP Q2HR PRN PRN Reason: Dry Lips Propofol (Diprivan 10 Mg/Ml) 1,000 mg in 100 mls @ 3.945 mls/hr IV TITR ANGELA; Protocol Last Titration: 12/26/19 17:30 Dose: Infused Documented by: Fentanyl Citrate (Fentanyl Drip Premix) 2,000 mcg in 100 mls @ 6.575 mls/hr IV TITR ANGELA; Protocol Last Titration: 12/29/19 05:52 Dose: 0 mcg/kg/hr, 0 mls/hr Documented by: Midazolam HCl 100 mg/ Sodium (Chloride) 100 mls @ 2 mls/hr IV TITR ANGELA; Protocol Last Titration: 12/28/19 21:17 Dose: 0 mg/hr, 0 mls/hr Documented by: Cefepime HCl (Cefepime/Ns 2 Gm/100 Ml) 2 gm in 100 mls @ 200 mls/hr IV Q8HR ANGELA; Protocol Last Admin: 12/29/19 07:11 Dose: 200 mls/hr Documented by: Heparin Sodium/Sodium Chloride (Heparin/ 0.45% Nacl-25,000 Unit/500 Ml) 25,000 unit in 500 mls @ 30 mls/hr IV TITR ANGELA; Protocol Last Admin: 12/29/19 01:27 Dose: 1,631 units/hr, 32.62 mls/hr Documented by: Levetiracetam 500 mg/ Dextrose 105 mls @ 400 mls/hr IV Q12H ANGELA Last Admin: 12/29/19 09:27 Dose: 400 mls/hr Documented by: Vasopressin 20 unit/ Sodium (Chloride) 101 mls @ 9.09 mls/hr IV TITR ANGELA; Protocol Last Admin: 12/29/19 08:19 Dose: 0.03 units/min, 9.09 mls/hr Documented by: Norepinephrine 8 mg/ Sodium (Chloride) 250 mls @ 3.75 mls/hr IV TITR ANGELA; Protocol Last Titration: 12/29/19 08:46 Dose: 26 mcg/min, 48.75 mls/hr Documented by: Sodium Bicarbonate 150 meq/ (Dextrose) 1,150 mls @ 100 mls/hr IV DIRECT ANGELA Last Infusion: 12/29/19 05:41 Dose: 100 mls/hr Documented by: Dobutamine HCl/Dextrose (Dobutrex Drip 500mg/D5w 250ml) 500 mg in 250 mls @ 9.863 mls/hr IV DIRECT ANGELA; Protocol Last Admin: 12/29/19 05:12 Dose: 2.5 mcg/kg/min, 9.863 mls/hr Documented by: Insulin Human Lispro (Humalog) 0 unit SUB-Q Q6HR ANGELA; Protocol Last Admin: 12/29/19 10:47 Dose: 10 unit Documented by: Methylprednisolone Sodium Succinate (Solu-Medrol) 40 mg IV Q8HR ANGELA Last Admin: 12/29/19 06:49 Dose: 40 mg Documented by: Metoprolol Tartrate (Metoprolol) 5 mg IV Q6HR PRN PRN Reason: tachycardia Last Admin: 12/28/19 13:23 Dose: 5 mg Documented by: Midazolam HCl (Versed) 2 mg IV Q10MIN PRN PRN Reason: Sedation Multi-Ingred Cream/Lotion/Oil/Oint (Artificial Tears Ophth Oint) 1 applic OU Q4HR PRN PRN Reason: Dry Eye(s) Pantoprazole Sodium (Protonix) 40 mg IV Q12H ANGELA Last Admin: 12/29/19 08:25 Dose: 40 mg Documented by: Simple Syrup (Simple Syrup) 15 ml FEEDTUBE PRN PRN PRN Reason: Hypoglycemia Simple Syrup (Simple Syrup) 30 ml FEEDTUBE PRN PRN PRN Reason: Hypoglycemia Sodium Bicarbonate (Sodium Bicarbonate) 325 mg FEEDTUBE PRN PRN PRN Reason: For Clogged Feeding Tube Sodium Chloride (Sodium Chloride Flush Syringe 10 Ml) 10 ml IV BID [facility] Last Admin: 12/29/19 09:29 Dose: 10 ml Documented by: Sodium Chloride (Sodium Chloride Flush Syringe 10 Ml) 10 ml IV PRN PRN PRN Reason: LINE FLUSH Sodium Chloride (Nacl 0.9% 250ml) 250 ml IV DIRECT [facility] Last Admin: 12/29/19 07:13 Dose: 250 ml Documented by: Exam - Vital Signs Vital signs: Vital Signs Pulse BP Pulse Ox 136 H 152/102 98 12/26/19 15:07 12/26/19 15:07 12/26/19 15:07 Gen: nad, well-nourished, intubated; Head: normocephalic; Eyes: no gaze deviation; no ptosis appreciated; ENT: +ETT; CVS: warm and well-perfused; Pulm: no respiratory distress; GI: non-distended, protuberant; Ext: no cyanosis or edema at distal extremities; Skin: no acute rash or hives at distal extremities; Heme: no bruising or ecchymosis at distal extremities; Neuro: comatose, intubated, Results - Lab Results 12/28/19 05:49 12/28/19 14:30 Most recent lab results ABG pH 7.198 pH Units (7.350-7.450) L* 12/29/19 03:41 ABG pCO2 35.3 mm Hg 12/29/19 03:41 ABG pO2 64.4 mm Hg (80.0-90.0) L 12/29/19 03:41 ABG HCO3 13.4 mmol/L (20.0-26.0) L 12/29/19 03:41 ABG O2 Saturation 89.7 % (95.0-99.0) L 12/29/19 03:41 Calcium 8.6 mg/dL (8.4-10.2) 12/28/19 14:30 Magnesium 1.90 mg/dL (1.7-2.3) 12/28/19 14:30 Assessment and Plan Impression: * KAVITHA on ATN due to hypoperfusion * s/p CPR * Acute hypoxemic & hypercapnic respiratory failure on MVS * ARDS * PUI COVID-19 infection. * Bilateral pneumonia. * Acute encephalopathy, possibly anoxic. * DM II * IVAN * Cardiomypoathy--EF 20% * Morbid obesity. * Sepsis Plan: * iv fluids resuscitation * vasopressor prn, keep MAP >65 * daily lytes and cbc * follow up urine lytes * likely ATN due to hypoperfusion * strict i/os, avoid nephrotoxins * will need [employer]TER if no improvement next 36 to 46 hrs
--- NOTE | 2019-12-29 12:07 | Consultation ---
History of Present Illness Consult date: 12/29/19 Consult reason: other (SVT) History of present illness: This is a 34-year old male who was admitted 3 days ago with sepsis, acute hypoxic respiratory failure, metabolic acidosis, acute encephalopathy and bilateral pneumonia. COVID 19 test was negative. Currently he is intubated and unresponsive without sedation and on pressors for support. Yesterday, there was transient SVT, rate 166, which was treated with intravenous metoprolol. His initial ECG is sinus tachycardia with repolarization abnormalities. Further workup with an echocardiogram revealed dilated cardiomyopathy, ejection fraction 20-25%. Right heart chambers were normal. Cardiology consultation has been requested. Past History Past Medical History: diabetes Social history: single. denies: smoking, alcohol abuse, prescription drug abuse Family history: diabetes, hypertension Medications and Allergies Allergies Allergy/AdvReac Type Severity Reaction Status Date / Time No Known Allergies Allergy Unverified 12/26/19 15:29 Active Meds: Active Medications Acetaminophen (Tylenol) 650 mg PO Q6H PRN PRN Reason: Pain, Mild (1-3) Last Admin: 12/29/19 00:21 Dose: 650 mg Documented by: Acetaminophen (Tylenol) [address] Q6H PRN PRN Reason: Pain, Mild (1-3) Last Admin: 12/28/19 18:00 Dose: 650 mg Documented by: Albuterol (Proventil) 2.5 mg IH Q3HRT PRN PRN Reason: Shortness Of Breath Albuterol (Proventil) 2.5 mg IH Q6HRT ANGELA Last Admin: 12/29/19 07:56 Dose: 2.5 mg Documented by: Lipase/Protease/Amylase (Pancrema[address]dra Dr 10,500 Unit) 1 each FEEDTUBE PRN PRN PRN Reason: For Clogged Feeding Tube Fentanyl (Sublimaze) 50 mcg IV Q10MIN PRN PRN Reason: ANALGESIA Last Admin: 12/27/19 14:20 Dose: 50 mcg Documented by: Hydromorphone HCl (Dilaudid) 0.25 mg IV Q4H PRN PRN Reason: Pain, Moderate (4-6) Last Admin: 12/27/19 20:18 Dose: 0.25 mg Documented by: Hydrophilic Ointment (Vaseline Lip Therapy) 1 applic TP Q2HR PRN PRN Reason: Dry Lips Propofol (Diprivan 10 Mg/Ml) 1,000 mg in 100 mls @ 3.945 mls/hr IV TITR ANGELA; Protocol Last Titration: 12/26/19 17:30 Dose: Infused Documented by: Fentanyl Citrate (Fentanyl Drip Premix) 2,000 mcg in 100 mls @ 6.575 mls/hr IV TITR ANGELA; Protocol Last Titration: 12/29/19 05:52 Dose: 0 mcg/kg/hr, 0 mls/hr Documented by: Midazolam HCl 100 mg/ Sodium (Chloride) 100 mls @ 2 mls/hr IV TITR ANGELA; Protocol Last Titration: 12/28/19 21:17 Dose: 0 mg/hr, 0 mls/hr Documented by: Cefepime HCl (Cefepime/Ns 2 Gm/100 Ml) 2 gm in 100 mls @ 200 mls/hr IV Q8HR ANGELA; Protocol Last Admin: 12/29/19 07:11 Dose: 200 mls/hr Documented by: Heparin Sodium/Sodium Chloride (Heparin/ 0.45% Nacl-25,000 Unit/500 Ml) 25,000 unit in 500 mls @ 30 mls/hr IV TITR ANGELA; Protocol Last Admin: 12/29/19 01:27 Dose: 1,631 units/hr, 32.62 mls/hr Documented by: Levetiracetam 500 mg/ Dextrose 105 mls @ 400 mls/hr IV Q12H ANGELA Last Admin: 12/29/19 09:27 Dose: 400 mls/hr Documented by: Vasopressin 20 unit/ Sodium (Chloride) 101 mls @ 9.09 mls/hr IV TITR ANGELA; Protocol Last Admin: 12/29/19 08:19 Dose: 0.03 units/min, 9.09 mls/hr Documented by: Norepinephrine 8 mg/ Sodium (Chloride) 250 mls @ 3.75 mls/hr IV TITR ANGELA; Protocol Last Titration: 12/29/19 11:13 Dose: 24 mcg/min, 45 mls/hr Documented by: Sodium Bicarbonate 150 meq/ (Dextrose) 1,150 mls @ 100 mls/hr IV DIRECT ANGELA Last Infusion: 12/29/19 05:41 Dose: 100 mls/hr Documented by: Dobutamine HCl/Dextrose (Dobutrex Drip 500mg/D5w 250ml) 500 mg in 250 mls @ 9.863 mls/hr IV DIRECT ANGELA; Protocol Last Admin: 12/29/19 05:12 Dose: 2.5 mcg/kg/min, 9.863 mls/hr Documented by: Insulin Human Lispro (Humalog) 0 unit SUB-Q Q6HR ANGELA; Protocol Last Admin: 12/29/19 10:47 Dose: 10 unit Documented by: Methylprednisolone Sodium Succinate (Solu-Medrol) 40 mg IV Q8HR ANGELA Last Admin: 12/29/19 06:49 Dose: 40 mg Documented by: Metoprolol Tartrate (Metoprolol) 5 mg IV Q6HR PRN PRN Reason: tachycardia Last Admin: 12/28/19 13:23 Dose: 5 mg Documented by: Midazolam HCl (Versed) 2 mg IV Q10MIN PRN PRN Reason: Sedation Multi-Ingred Cream/Lotion/Oil/Oint (Artificial Tears Ophth Oint) 1 applic OU Q4HR PRN PRN Reason: Dry Eye(s) Pantoprazole Sodium (Protonix) 40 mg IV Q12H ANGELA Last Admin: 12/29/19 08:25 Dose: 40 mg Documented by: Simple Syrup (Simple Syrup) 15 ml FEEDTUBE PRN PRN PRN Reason: Hypoglycemia Simple Syrup (Simple Syrup) 30 ml FEEDTUBE PRN PRN PRN Reason: Hypoglycemia Sodium Bicarbonate (Sodium Bicarbonate) 325 mg FEEDTUBE PRN PRN PRN Reason: For Clogged Feeding Tube Sodium Chloride (Sodium Chloride Flush Syringe 10 Ml) 10 ml IV BID [facility] Last Admin: 12/29/19 09:29 Dose: 10 ml Documented by: Sodium Chloride (Sodium Chloride Flush Syringe 10 Ml) 10 ml IV PRN PRN PRN Reason: LINE FLUSH Sodium Chloride (Nacl 0.9% 250ml) 250 ml IV DIRECT ANGELA Last Admin: 12/29/19 07:13 Dose: 250 ml Documented by: Physical Examination Vital Signs Pulse BP Pulse Ox 136 H 152/102 98 12/26/19 15:07 12/26/19 15:07 12/26/19 15:07 General appearance: other (intubated, unresponsive on the vent) Cardiac: Positive: Reg Rate and Rhythm Results 12/28/19 05:49 12/28/19 14:30 Comprehensive Metabolic Panel 11/15/20 Range/Units 14:30 Sodium 137 (137-145) mmol/L Potassium 4.7 (3.6-5.0) mmol/L Chloride 108.4 H (98-107) mmol/L Carbon Dioxide 16 L (22-30) mmol/L BUN 39 H (9-20) mg/dL Creatinine 2.3 H D (0.8-1.3) mg/dL Glucose 380 H (75-100) mg/dL Calcium 8.6 (8.4-10.2) mg/dL Assessment and Plan Dilated Cardiomyopathy LVEF 20-25% Transient SVT Sepsis Acute hypoxic respiratory failure Metabolic acidosis Acute encephalopathy Bilateral pneumonia COVID 19 test was negative
[2019-12-29 12:16] LABS: Bilirubin,Urine NEG (Negative); Blood,Urine LG (Negative); Color,Urine Amber (Yellow); Mucus,Urine FEW /HPF; Urobilinogen,Urine < 2.0 mg/dL (<2.0)
[2019-12-29 12:27] LABS: Protein,Urine >500 mg/dL (Negative)
--- NOTE | 2019-12-29 12:39 | Progress Note ---
Assessment and Plan Cultures: Blood culture no growth today SARS CoV2 PCR negative Sputum culture: Usual respiratory noe Assessment: 34 years old male with history of morbid obesity, diabetes mellitus, admitted on 12/26/2019 after found unresponsive in his vehicle in the parking lot at a local motel, cardiac arrest in route to the hospital: #Status post cardiac arrest in route #Septic shock: Present on admission with fever 102, tachycardia, elevated leukocytosis. Unclear etiology, ?pneumonia v/s UTI v/s PLANT [employer]AT[employer]IST infection #Bilateral pneumonia: ?bacterial pneumonia. COVID-19 negative procalcitonin 0.2. #Acute hypoxemic respiratory failure: On mechanical ventilation. #Elevated LFTs: ?From sepsis #KAVITHA: Renally dose antibiotics. Urology following. #Acute encephalopathy: Unclear etiology #Diabetes mellitus, uncontrolled Recommendations: Switched cefepime to ceftriaxone When stable, consider CT chest, abdomen and pelvis without contrast Continue renally dosed vancomycin Will add renally adjusted acyclovir Recheck CBC, CMP When stable, also consider lumbar puncture to evaluate for PLANT ANATOMIST infection Mary Goss MD, FACP [facility] ([facility] O: [phone] F: [phone] Subjective Date of service: 12/29/19 Principal diagnosis: Acute hypoxemic & hypercapnic resp failure; ARDS; PUI COVID-19; PNA Interval history: Persistently febrile. Remains intubated, on mechanical ventilation. On multiple pressors. High FiO2 requirements. Objective - Exam Narrative Exam: Physical Exam: Constitutional: sedated, intubated, on the vent. Morbidly obese. Head, Ears, Nose: Normocephalic, atraumatic. External ears, nose normal Eyes: Conjunctivae/corneas clear. No icterus. No ptosis. Neck: intubated Oral: intubated Cardiovascular: S1, S2 + Respiratory: AE fair bilaterally and equal GI: Soft, bowel sounds + Musculoskeletal: No pedal edema, no cyanosis. Skin: No rash or abscess Hem/Lymphatic: No palpable cervical or supraclavicular nodes. No lymphangitis Psych: no agitation Neurological: sedated, intubated, on the vent, exam limited - Constitutional Vitals: Vital Signs Temp Pulse Resp BP Pulse Ox 100.8 F H 114 H 30 H 106/66 91 12/29/19 05:48 12/29/19 12:00 12/29/19 12:00 12/29/19 12:00 12/29/19 12:00 Temperature -Last 24 Hours Temperature 100.8 F Temperature 104.2 F Temperature 107.1 F Temperature 103.4 F Temperature 103.3 F - Labs CBC & Chem 7: 12/28/19 05:49 12/28/19 14:30 Labs: Abnormal lab results 12/28/19 12/29/19 12/29/19 Range/Units 14:30 03:41 11:31 ABG pH 7.198 L* 7.147 L (7.350-7.450) pH Units POC ABG pO2 48.9 L (83-108) mmHg ABG pO2 64.4 L (80.0-90.0) mm Hg ABG HCO3 13.4 L (20.0-26.0) mmol/L ABG O2 Saturation 89.7 L (95.0-99.0) % ABG Base Excess -13.6 L (-2.0-3.0) mmol/L ABG Hemoglobin 13.8 L (14.0-18.0) gm/dl ABG Oxyhemoglobin 78.4 L (94-98) ABG Chloride 108.0 H (98-107) mmol/L ABG Glucose 544 H (65-95) mg/dL Oxyhemoglobin 87.5 L (95.0-99.0) % Chloride 108.4 H (98-107) mmol/L Carbon Dioxide 16 L (22-30) mmol/L BUN 39 H (9-20) mg/dL Creatinine 2.3 H D (0.8-1.3) mg/dL Glucose 380 H (75-100) mg/dL POC Glucose (70-105) mg/dL Arterial Blood Glucose 544 H (65-95) mg/dL Urine WBC (Auto) (0.0-6.0) /HPF 12/29/19 12/29/19 Range/Units 12:25 Unknown ABG pH (7.350-7.450) pH Units POC ABG pO2 (83-108) mmHg ABG pO2 (80.0-90.0) mm Hg ABG HCO3 (20.0-26.0) mmol/L ABG O2 Saturation (95.0-99.0) % ABG Base Excess (-2.0-3.0) mmol/L ABG Hemoglobin (14.0-18.0) gm/dl ABG Oxyhemoglobin (94-98) ABG Chloride (98-107) mmol/L ABG Glucose (65-95) mg/dL Oxyhemoglobin (95.0-99.0) % Chloride (98-107) mmol/L Carbon Dioxide (22-30) mmol/L BUN (9-20) mg/dL Creatinine (0.8-1.3) mg/dL Glucose (75-100) mg/dL POC Glucose 426 H (70-105) mg/dL Arterial Blood Glucose (65-95) mg/dL Urine WBC (Auto) 16.0 H (0.0-6.0) /HPF
[2019-12-29] MEDS: cefTRIAXone/NS 2 GM/100 ML 2 GM/100 ML BAG IV SCH ×2 (13:45→21:02)
[2019-12-29] MEDS: ACYCLOVIR 660 MG in SODIUM CHLORIDE 0.9% 100 ML IV SCH (13:47)
[2019-12-29] MEDS ORDERED: SODIUM BICARB 8.4% 50 MEQ/50 ML SYRINGE IV ONE (14:23)
[2019-12-29 14:30] LABS: Protein/Creatinine Ratio,Urine 1.41
--- NOTE | 2019-12-29 14:44 | Progress Note ---
Assessment and Plan Acute hypoxemic & hypercapnic respiratory failure on MVS ARDS PUI COVID-19 infection. Bilateral pneumonia. Acute encephalopathy, possibly anoxic. DM II IVAN Morbid obesity. Leukocytosis. Lactic acidosis. Elevated inflammatory markers to include ferritin and D-dimer levels. Elevated serum transaminases. Oropharyngeal dysphagia. History of a groin abscess recently. - inotropic support started with low dose Dobutamine - volume resuscitation with alkalanized fluids re: metabolic acidosis - increased minute ventilation for acute compensation - neurology evaluation ongoing - add Neosynephrine for BP support - prognosis guarded in particular for neurologic recovery - continue care as below otherwise; - cardiology consultation for HFrEF & Tachyarrythmia - Azotemia per nephrology - 2D ECHO shows HFrEF of 20-25% - continue empiric Keppra - neurology consultation - continue to wean supplemental oxygen for target O2 sat's > 92% acutely (FiO2 down to 80%) - keep set rate at 30 for now - repeat ABG in am and address MV - Daily SAT's and SBT assessment as tolerated - VAP bundle addressed - continue lung protective strategies - continue bronchodilators with pulmonary hygiene per RT - wean per pulmonary driven protocols otherwise - continue accuchecks with glycemic control per SSI (While critically ill target blood glucose of 140-180 mg/dL; avoid hypoglycemia) - sedation prn for target RASS 0 to -1 - avoid nephrotoxins, renally dose all medications - continue to avoid benzodiazepine's, reduce the possibility of delirium - continue COVID-19 isolation - follow repeat COVID-19 test result - continue antiinfective's per ID rec's - prn analgesia per CPOT score - Maintenance of sleep-wake cycle, avoid delirium - enteral nutritional support at goal rate as tolerated - G.I. & VTE prophylaxis - PT/OT/ROM exercises - continue mobility protocols for pressure ulcer prophylaxis - Monitor hemodynamics closely - continue other care per attending / other consultants - discharge planning ongoing concurrently .... Re-evaluate in am & prn CONDITION: CRITICAL PROGNOSIS: GUARDED CODE STATUS: FULL CODE The high probability of a clinically significant, sudden or life-threatening deterioration of the [respiratory, cardiovascular & neurologic] system(s) required my full and direct attention, intervention and personal management. The aggregate critical care time was [33] minutes without overlap. Time includes spent on; [x] Data Review and interpretation [x] Patient assessment and monitoring of vital signs [x] Documentation [x] Medication orders and management Subjective Date of service: 12/29/19 Principal diagnosis: Acute hypoxemic & hypercapnic resp failure; ARDS; PUI COVID-19; PNA Interval history: Patient is seen today for: Acute hypoxemic & hypercapnic respiratory failure; ARDS; PUI COVID-19 infection; Bilateral pneumonia; Acute encephalopathy, possibly anoxic; DM II; IVAN; Morbid obesity; Lactic acidosis. Seen and examined at bedside; 24hour events reviewed; nursing and respiratory care staff consulted; no adverse overnight events reported to me; resting peacefully in bed; remains on MVS; has been hemodynamically labile overnight; also with worsening metabolic acidosis; AMS is persistent; no emesis or overt aspiration; no fevers; seen by neurologist Objective Vital Signs - 12hr 12/29/19 12/29/19 12/29/19 02:41 02:46 02:52 Temperature Pulse Rate 117 H 124 H 117 H Pulse Rate [ Anterior Bilateral Throughout] Respiratory 14 23 Rate Respiratory Rate [Anterior Bilateral Throughout] Blood Pressure 90/66 O2 Sat by Pulse 92 Oximetry 12/29/19 12/29/19 12/29/19 02:58 03:00 03:15 Temperature Pulse Rate 114 H 115 H 113 H Pulse Rate [ Anterior Bilateral Throughout] Respiratory 17 30 H Rate Respiratory Rate [Anterior Bilateral Throughout] Blood Pressure 86/60 88/59 O2 Sat by Pulse 85 Oximetry 12/29/19 12/29/19 12/29/19 03:30 03:45 03:51 Temperature 104.2 F H Pulse Rate 113 H 111 H Pulse Rate [ Anterior Bilateral Throughout] Respiratory 30 H 28 H Rate Respiratory Rate [Anterior Bilateral Throughout] Blood Pressure 92/61 84/55 O2 Sat by Pulse 84 85 Oximetry 12/29/19 12/29/19 12/29/19 04:00 04:15 04:30 Temperature Pulse Rate 110 H 108 H 107 H Pulse Rate [ Anterior Bilateral Throughout] Respiratory 25 H 27 H 31 H Rate Respiratory Rate [Anterior Bilateral Throughout] Blood Pressure 86/53 91/55 97/59 O2 Sat by Pulse 84 85 84 Oximetry 12/29/19 12/29/19 12/29/19 04:45 05:00 05:15 Temperature Pulse Rate 105 H 101 H 93 H Pulse Rate [ Anterior Bilateral Throughout] Respiratory 23 24 22 Rate Respiratory Rate [Anterior Bilateral Throughout] Blood Pressure 101/62 92/47 88/51 O2 Sat by Pulse 87 88 82 L Oximetry 12/29/19 12/29/19 12/29/19 05:30 05:45 05:48 Temperature 100.8 F H Pulse Rate 105 H 101 H Pulse Rate [ Anterior Bilateral Throughout] Respiratory 26 H 27 H Rate Respiratory Rate [Anterior Bilateral Throughout] Blood Pressure 106/69 111/78 O2 Sat by Pulse 84 88 Oximetry 12/29/19 12/29/19 12/29/19 06:00 06:10 06:15 Temperature Pulse Rate 102 H 102 H 102 H Pulse Rate [ Anterior Bilateral Throughout] Respiratory 22 18 Rate Respiratory Rate [Anterior Bilateral Throughout] Blood Pressure 118/78 120/76 O2 Sat by Pulse 90 89 Oximetry 12/29/19 12/29/19 12/29/19 06:30 06:45 07:00 Temperature Pulse Rate 101 H 100 H 99 H Pulse Rate [ Anterior Bilateral Throughout] Respiratory 30 H 20 21 Rate Respiratory Rate [Anterior Bilateral Throughout] Blood Pressure 116/85 125/89 126/90 O2 Sat by Pulse 91 91 91 Oximetry 12/29/19 12/29/19 12/29/19 07:15 07:30 07:40 Temperature Pulse Rate 100 H 100 H 102 H Pulse Rate [ Anterior Bilateral Throughout] Respiratory 27 H 22 Rate Respiratory Rate [Anterior Bilateral Throughout] Blood Pressure 127/92 126/92 111/78 O2 Sat by Pulse 89 90 88 Oximetry 12/29/19 12/29/19 12/29/19 07:45 07:56 08:00 Temperature Pulse Rate 101 H 101 H Pulse Rate [ 124 H Anterior Bilateral Throughout] Respiratory 23 21 Rate Respiratory 30 H Rate [Anterior Bilateral Throughout] Blood Pressure 118/87 114/82 O2 Sat by Pulse 90 Oximetry 12/29/19 12/29/19 12/29/19 08:15 08:30 08:45 Temperature Pulse Rate 103 H 100 H 105 H Pulse Rate [ Anterior Bilateral Throughout] Respiratory 30 H 14 15 Rate Respiratory Rate [Anterior Bilateral Throughout] Blood Pressure 117/78 107/86 115/76 O2 Sat by Pulse 87 91 86 Oximetry 12/29/19 12/29/19 12/29/19 09:00 09:15 09:30 Temperature Pulse Rate 105 H 106 H 107 H Pulse Rate [ Anterior Bilateral Throughout] Respiratory 21 22 26 H Rate Respiratory Rate [Anterior Bilateral Throughout] Blood Pressure 114/77 113/75 106/72 O2 Sat by Pulse 97 85 86 Oximetry 12/29/19 12/29/19 12/29/19 09:45 10:00 10:15 Temperature Pulse Rate 108 H 109 H 109 H Pulse Rate [ Anterior Bilateral Throughout] Respiratory 19 30 H 30 H Rate Respiratory Rate [Anterior Bilateral Throughout] Blood Pressure 110/74 112/76 115/70 O2 Sat by Pulse 86 89 91 Oximetry 12/29/19 12/29/19 12/29/19 10:30 10:45 11:00 Temperature Pulse Rate 110 H 110 H 112 H Pulse Rate [ Anterior Bilateral Throughout] Respiratory 30 H 30 H 30 H Rate Respiratory Rate [Anterior Bilateral Throughout] Blood Pressure 116/73 103/63 104/64 O2 Sat by Pulse 89 86 89 Oximetry 12/29/19 12/29/19 12/29/19 11:15 11:30 11:33 Temperature Pulse Rate 112 H 113 H 113 H Pulse Rate [ Anterior Bilateral Throughout] Respiratory 30 H 30 H Rate Respiratory Rate [Anterior Bilateral Throughout] Blood Pressure 106/65 103/65 103/65 O2 Sat by Pulse 87 87 Oximetry 12/29/19 12/29/19 12/29/19 11:45 12:00 12:15 Temperature Pulse Rate 112 H 114 H 113 H Pulse Rate [ Anterior Bilateral Throughout] Respiratory 29 H 34 H 30 H Rate Respiratory Rate [Anterior Bilateral Throughout] Blood Pressure 105/66 106/66 116/68 O2 Sat by Pulse 87 89 91 Oximetry 12/29/19 12/29/19 12/29/19 12:30 12:45 12:50 Temperature Pulse Rate 113 H 113 H 114 H Pulse Rate [ Anterior Bilateral Throughout] Respiratory 30 H 30 H Rate Respiratory Rate [Anterior Bilateral Throughout] Blood Pressure 114/60 106/63 108/57 O2 Sat by Pulse 88 93 91 Oximetry 12/29/19 12/29/19 13:00 13:27 Temperature Pulse Rate 114 H Pulse Rate [ 118 H Anterior Bilateral Throughout] Respiratory 30 H Rate Respiratory 30 H Rate [Anterior Bilateral Throughout] Blood Pressure 108/57 O2 Sat by Pulse 91 Oximetry Constitutional: no acute distress, other (young obese male with mildly increased respiratory effort at rest on MVS ) Eyes: non-icteric ENT: oropharynx moist, other (ETT 24 cm JOHAN) Neck: supple, no lymphadenopathy, no JVD, other (large neck circumference) Effort: normal Ascultation: Bilateral: diminished breath sounds, rhonchi Percussion: Bilateral: not dull Cardiovascular: regular rate and rhythm Gastrointestinal: normoactive bowel sounds, soft, non-tender, non-distended (protuberant) Integumentary: rash (stasis dermatitis) Extremities: no cyanosis, no edema, no ischemia or petechiae Neurologic: pupils equal and round (5-6 mm and non reactive), unable to assess, other (sedated) Psychiatric: other (sedated) CBC and BMP: 12/28/19 05:49 12/28/19 14:30 ABG, PT/INR, D-dimer: ABG ABG pH 7.147 (7.320-7.450) L 12/29/19 11:31 POC ABG pCO2 41.7 mmHg (32.0-48.0) 12/29/19 11:31 ABG pCO2 35.3 mm Hg 12/29/19 03:41 POC ABG pO2 48.9 mmHg (83-108) L 12/29/19 11:31 ABG pO2 64.4 mm Hg (80.0-90.0) L 12/29/19 03:41 POC ABG HCO3 14.1 12/29/19 11:31 ABG O2 Saturation 89.7 % (95.0-99.0) L 12/29/19 03:41 PT/INR, D-dimer PT 14.1 Sec. (12.2-14.9) 12/26/19 18:31 INR 1.08 (0.87-1.13) 12/26/19 18:31 D-Dimer 6498.49 ng/mlDDU (0-234) H 12/26/19 16:50 Abnormal lab findings: Abnormal Labs 12/26/19 12/26/19 12/26/19 15:57 16:13 16:13 WBC 23.7 H Hct 45.7 H MCV 102 H MCH 34 H Seg Neuts % (Manual) 80.0 H Seg Neutrophils # Man 19.0 H Eosinophils # (Manual) 0.5 H D-Dimer 5221.01 H Heparin Anti-Xa Level ABG pH 7.109 L* POC ABG pO2 ABG pO2 101.4 H ABG HCO3 16.3 L ABG O2 Saturation ABG Base Excess -13.4 L ABG Hemoglobin ABG Oxyhemoglobin ABG Chloride ABG Glucose Oxyhemoglobin 93.3 L Chloride Carbon Dioxide BUN Creatinine Glucose POC Glucose Lactic Acid Magnesium Ferritin AST ALT Lactate Dehydrogenase Total Creatine Kinase NT-Pro-B Natriuret Pep Arterial Blood Glucose Urine WBC (Auto) Urine Creatinine Urine Total Protein 12/26/19 12/26/19 12/26/19 16:13 16:13 16:13 WBC Hct MCV MCH Seg Neuts % (Manual) Seg Neutrophils # Man Eosinophils # (Manual) D-Dimer Heparin Anti-Xa Level ABG pH POC ABG pO2 ABG pO2 ABG HCO3 ABG O2 Saturation ABG Base Excess ABG Hemoglobin ABG Oxyhemoglobin ABG Chloride ABG Glucose Oxyhemoglobin Chloride Carbon Dioxide 15 L BUN Creatinine Glucose 268 H POC Glucose Lactic Acid Magnesium 2.60 H Ferritin AST 177 H ALT 108 H Lactate Dehydrogenase Total Creatine Kinase 191 H NT-Pro-B Natriuret Pep 1766 H Arterial Blood Glucose Urine WBC (Auto) Urine Creatinine Urine Total Protein 12/26/19 12/26/19 12/26/19 16:13 16:50 16:50 WBC Hct MCV MCH Seg Neuts % (Manual) Seg Neutrophils # Man Eosinophils # (Manual) D-Dimer Heparin Anti-Xa Level ABG pH POC ABG pO2 ABG pO2 ABG HCO3 ABG O2 Saturation ABG Base Excess ABG Hemoglobin ABG Oxyhemoglobin ABG Chloride ABG Glucose Oxyhemoglobin Chloride Carbon Dioxide BUN Creatinine Glucose 273 H POC Glucose Lactic Acid 7.70 H* Magnesium Ferritin 1248.0 H AST ALT Lactate Dehydrogenase 443 H Total Creatine Kinase NT-Pro-B Natriuret Pep Arterial Blood Glucose Urine WBC (Auto) Urine Creatinine Urine Total Protein 12/26/19 12/26/19 12/26/19 16:50 17:02 18:42 WBC Hct MCV MCH Seg Neuts % (Manual) Seg Neutrophils # Man Eosinophils # (Manual) D-Dimer 6498.49 H Heparin Anti-Xa Level ABG pH 7.136 L* POC ABG pO2 ABG pO2 63.9 L ABG HCO3 ABG O2 Saturation 81.8 L ABG Base Excess -9.6 L ABG Hemoglobin ABG Oxyhemoglobin ABG Chloride ABG Glucose Oxyhemoglobin 79.8 L Chloride Carbon Dioxide BUN Creatinine Glucose POC Glucose Lactic Acid 3.20 H* Magnesium Ferritin AST ALT Lactate Dehydrogenase Total Creatine Kinase NT-Pro-B Natriuret Pep Arterial Blood Glucose Urine WBC (Auto) Urine Creatinine Urine Total Protein 12/26/19 12/26/19 12/26/19 19:56 20:40 21:29 WBC Hct MCV MCH Seg Neuts % (Manual) Seg Neutrophils # Man Eosinophils # (Manual) D-Dimer Heparin Anti-Xa Level ABG pH 7.259 L POC ABG pO2 ABG pO2 70.4 L ABG HCO3 ABG O2 Saturation 92.3 L ABG Base Excess -6.7 L ABG Hemoglobin ABG Oxyhemoglobin ABG Chloride ABG Glucose Oxyhemoglobin 90.2 L Chloride Carbon Dioxide BUN Creatinine Glucose POC Glucose Lactic Acid 3.40 H* 4.40 H* Magnesium Ferritin AST ALT Lactate Dehydrogenase Total Creatine Kinase NT-Pro-B Natriuret Pep Arterial Blood Glucose Urine WBC (Auto) Urine Creatinine Urine Total Protein 12/26/19 12/26/19 12/27/19 23:00 Unknown 01:52 WBC Hct MCV MCH Seg Neuts % (Manual) Seg Neutrophils # Man Eosinophils # (Manual) D-Dimer Heparin Anti-Xa Level ABG pH POC ABG pO2 ABG pO2 ABG HCO3 ABG O2 Saturation ABG Base Excess ABG Hemoglobin ABG Oxyhemoglobin ABG Chloride ABG Glucose Oxyhemoglobin Chloride Carbon Dioxide BUN Creatinine Glucose POC Glucose Lactic Acid 3.60 H* 4.20 H* Magnesium Ferritin AST ALT Lactate Dehydrogenase Total Creatine Kinase NT-Pro-B Natriuret Pep Arterial Blood Glucose Urine WBC (Auto) 146.0 H Urine Creatinine Urine Total Protein 12/27/19 12/27/19 12/27/19 03:45 04:49 04:49 WBC Hct MCV MCH Seg Neuts % (Manual) Seg Neutrophils # Man Eosinophils # (Manual) D-Dimer Heparin Anti-Xa Level 0.23 L ABG pH POC ABG pO2 ABG pO2 ABG HCO3 18.7 L ABG O2 Saturation ABG Base Excess -5.8 L ABG Hemoglobin ABG Oxyhemoglobin ABG Chloride ABG Glucose Oxyhemoglobin Chloride Carbon Dioxide BUN Creatinine Glucose POC Glucose Lactic Acid 2.20 H* Magnesium Ferritin AST ALT Lactate Dehydrogenase Total Creatine Kinase NT-Pro-B Natriuret Pep Arterial Blood Glucose Urine WBC (Auto) Urine Creatinine Urine Total Protein 12/28/19 12/28/19 12/28/19 05:05 09:58 14:30 WBC Hct MCV MCH Seg Neuts % (Manual) Seg Neutrophils # Man Eosinophils # (Manual) D-Dimer Heparin Anti-Xa Level ABG pH POC ABG pO2 ABG pO2 113.7 H ABG HCO3 18.6 L ABG O2 Saturation ABG Base Excess -5.6 L ABG Hemoglobin ABG Oxyhemoglobin ABG Chloride ABG Glucose Oxyhemoglobin Chloride 108.4 H Carbon Dioxide 16 L BUN 39 H Creatinine 2.3 H D Glucose 380 H POC Glucose 268 H Lactic Acid Magnesium Ferritin AST ALT Lactate Dehydrogenase Total Creatine Kinase NT-Pro-B Natriuret Pep Arterial Blood Glucose Urine WBC (Auto) Urine Creatinine Urine Total Protein 12/29/19 12/29/19 12/29/19 03:41 11:31 12:25 WBC Hct MCV MCH Seg Neuts % (Manual) Seg Neutrophils # Man Eosinophils # (Manual) D-Dimer Heparin Anti-Xa Level ABG pH 7.198 L* 7.147 L POC ABG pO2 48.9 L ABG pO2 64.4 L ABG HCO3 13.4 L ABG O2 Saturation 89.7 L ABG Base Excess -13.6 L ABG Hemoglobin 13.8 L ABG Oxyhemoglobin 78.4 L ABG Chloride 108.0 H ABG Glucose 544 H Oxyhemoglobin 87.5 L Chloride Carbon Dioxide BUN Creatinine Glucose POC Glucose 426 H Lactic Acid Magnesium Ferritin AST ALT Lactate Dehydrogenase Total Creatine Kinase NT-Pro-B Natriuret Pep Arterial Blood Glucose 544 H Urine WBC (Auto) Urine Creatinine Urine Total Protein 12/29/19 12/29/19 Unknown Unknown WBC Hct MCV MCH Seg Neuts % (Manual) Seg Neutrophils # Man Eosinophils # (Manual) D-Dimer Heparin Anti-Xa Level ABG pH POC ABG pO2 ABG pO2 ABG HCO3 ABG O2 Saturation ABG Base Excess ABG Hemoglobin ABG Oxyhemoglobin ABG Chloride ABG Glucose Oxyhemoglobin Chloride Carbon Dioxide BUN Creatinine Glucose POC Glucose Lactic Acid Magnesium Ferritin AST ALT Lactate Dehydrogenase Total Creatine Kinase NT-Pro-B Natriuret Pep Arterial Blood Glucose Urine WBC (Auto) 16.0 H Urine Creatinine 164.0 H Urine Total Protein 232 H Chest x-ray: image reviewed (ETT riding high; scant bilateral infiltrates) Allied health notes reviewed: nursing
[2019-12-29] MEDS ORDERED: PHENYLEPHRINE 100 MG in SODIUM CHLORIDE 0.9% 90 ML IV SCH (16:15)
[2019-12-29 16:45] LABS: Calcium 7.7 mg/dL (8.4-10.2)
[2019-12-29] MEDS ORDERED: INSULIN GLARGINE 100 UNITS/ML SUB-Q SCH (22:00)
[2019-12-30] MEDS: NORepinephrine 8 MG in SODIUM CHLORIDE 0.9% 250ML 242 ML IV SCH ×5 (00:02→20:14)
[2019-12-30] MEDS: INSULIN LISPRO 100 UNIT/ML VIAL 3 mL SUB-Q SCH ×3 (00:02→08:11)
[2019-12-30] MEDS: SODIUM BICARBONATE 150 MEQ in DEXTROSE 5% IN WATER 1,000 ML IV SCH (00:02)
[2019-12-30] MEDS: ACYCLOVIR 660 MG in SODIUM CHLORIDE 0.9% 100 ML IV SCH ×2 (02:08→13:16)
--- NOTE | 2019-12-30 02:57 | XRay Report ---
CHEST 1 VIEW 12/30/2019 1:48 AM INDICATION / CLINICAL INFORMATION: follow up respiratory failure. COMPARISON: 12/29/2019 FINDINGS: SUPPORT DEVICES: Right upper extremity PICC is been placed with tip projecting over the mid SVC. Othe r lines and tubes appear stable. HEART / MEDIASTINUM: Stable. LUNGS / PLEURA: Stable tiny bilateral pleural effusions and pulmonary vascular congestion. No pneumot horax. ADDITIONAL FINDINGS: No significant additional findings. IMPRESSION: 1. No adverse change from the prior exam. Signer Name: Cornelio Mcintyre MD Signed: 12/30/2019 2:53 AM Workstation Name: [id number]
[2019-12-30 03:40] LABS: Hematocrit 36.6 % (35.5-45.6); Hemoglobin 11.8 gm/dl (11.8-15.2); Mean Corpuscular HGB Conc 32 % (32-34); Mean Corpuscular Volume 101 fl (84-94); Red Blood Count 3.61 M/mm3 (3.65-5.03); Red Cell Distribution Width 16.1 % (13.2-15.2)
[2019-12-30 03:45] LABS: Albumin 2.4 g/dL (3.9-5); Basophils % (Auto) 0.2 % (0.0-1.8); Calcium 6.9 mg/dL (8.4-10.2); Lymphocytes # (Auto) 0.4 K/mm3 (1.2-5.4); Monocytes # (Auto) 0.7 K/mm3 (0.0-0.8); Monocytes % (Auto) 3.2 % (0.0-7.3)
[2019-12-30 03:47] LABS: Platelet Count 8 K/mm3 (140-440)
[2019-12-30] MEDS: VASOPRESSIN 20 UNIT in SODIUM CHLORIDE 0.9% 100 ML IV SCH ×2 (05:30→15:36)
--- NOTE | 2019-12-30 07:37 | Progress Note ---
Assessment and Plan The high probability of a clinically significant, sudden or life threatening deterioration of the [neuro, cardiac, pulmonary, renal, infectious disease] system(s) required my full and direct attention, intervention and personal management. The aggregate critical care time was [35] minutes. This time is in addition to time spent performing reported procedures but includes the following: [x] Data Review and interpretation [x] Patient assessment and monitoring of vital signs [x] Documentation [x] Medication orders and management (1) Sepsis Current Visit: Yes Status: Acute Qualifiers: Severe sepsis acute organ dysfunction type: acute respiratory failure Plan to address problem: Continue sepsis protocol and IV antibiotics (2) Acute hypoxemic respiratory failure Current Visit: Yes Status: Acute Plan to address problem: Continue vent support Poor prognosis Unable to wean (3) Pneumonia Current Visit: Yes Status: Acute Plan to address problem: Pneumonia protocol: Chest x-ray, CBC, CMP, IV antibiotic therapy, pulse oximetry, blood cultures. (4) Suspected 2019 novel coronavirus infection Current Visit: Yes Status: Acute Plan to address problem: Coronavirus negative (5) Toxic metabolic encephalopathy Current Visit: Yes Status: Acute Plan to address problem: IV antibiotics IV fluids and supportive care Poor prognosis (6) Cardiopulmonary arrest with successful resuscitation Current Visit: Yes Status: Acute Plan to address problem: Patient treated in accordance with ACLS protocol with eventual return of perfusing cardiac rhythm. Therapeutic anticoagulation as per critical care team. Patient may have anoxic encephalopathy (7) Metabolic acidosis Current Visit: Yes Status: Acute Plan to address problem: IV bicarbonate therapy, BMP, repeat BMP in a.m., serial lactic acid levels. (8) Cardiomyopathy Current Visit: Yes Status: Acute Qualifiers: Cardiomyopathy type: unspecified Qualified Code(s): I42.9 - Cardiomyopathy, unspecified Plan to address problem: BNP, D-dimer, echocardiogram showing ejection fraction of 20 to 25% along with cardiomyopathy and diastolic dysfunction Diuretics as necessary (9) DVT prophylaxis Current Visit: Yes Status: Acute Plan to address problem: SCD to bilateral lower extremities evaluate bed, continue therapeutic anticoagulation Subjective Date of service: 12/29/19 Principal diagnosis: Acute hypoxemic & hypercapnic resp failure; ARDS; anoxic encephalopathy Interval history: 34 YO Male with Obesity Hypoventilation Syndrome, DM presents to ED for evaluation. Patient is intubated and on ventilatory support at the time of my evaluation and is unable to provide history. Patient history taken from EMS staff, ED staff, as well as the patient's family who is available by phone to discuss patient history. EMS was notified after the patient was found unresponsive in his vehicle in the parking lot of a local motel. EMS was notified and upon arrival the patient was found to be in respiratory distress with a pulse oximetry of 70%. Patient was treated with IV steroid therapy nebulizer therapy and transported to [facility] for further care and evaluation. Shortly after being placed in the EMS transport vehicle the patient became bradycardic and experienced cardiopulmonary arrest. The patient was treated with ACLS protocol with return of perfusing cardiac rhythm and was subsequently intubated in the field. Patient subsequently transported to [facility] for further care and evaluation of the aforementioned symptoms. Patient seen and evaluated in the emergency department. All lab and imaging studies reviewed. Patient found to have sepsis, acute hypoxemic respiratory failure, metabolic acidosis, toxic metabolic encephalopathy, bilateral pneumonia, as well as symptoms suggestive of coronavirus infection. Patient initiated on sepsis protocol and admitted to ICU. Coronavirus protocol initiated in the emergency department prior to my evaluation. No further history is obtainable. No prior admission for review. No medication listed at time of admission for reconciliation. 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 [place] and return back to [place] Was apparently doing well until he was found unresponsive in his own vehicle As per mother there is no significant past medical history except for obesity hypoventilation syndrome 12/28/2019 Same condition No improvement Vent dependent Anoxic encephalopathy 12/29/2019 Same condition No improvement Vent dependent Decerebrate posturing Objective - Exam Narrative Exam: Patient is intubated and unresponsive - Constitutional Vitals: Vital Signs - 12hr 12/29/19 12/29/19 12/29/19 19:45 19:56 20:00 Temperature 96.5 F L Pulse Rate 116 H 117 H Pulse Rate [ Anterior Bilateral Throughout] Respiratory 21 20 Rate Respiratory Rate [Anterior Bilateral Throughout] Blood Pressure 131/79 119/78 O2 Sat by Pulse 92 94 Oximetry 12/29/19 12/29/19 12/29/19 20:15 20:30 20:45 Temperature Pulse Rate 116 H 117 H 118 H Pulse Rate [ Anterior Bilateral Throughout] Respiratory 18 23 27 H Rate Respiratory Rate [Anterior Bilateral Throughout] Blood Pressure 130/83 124/80 119/74 O2 Sat by Pulse 92 92 92 Oximetry 12/29/19 12/29/19 12/29/19 21:00 21:15 21:30 Temperature Pulse Rate 118 H 118 H 118 H Pulse Rate [ Anterior Bilateral Throughout] Respiratory 19 16 16 Rate Respiratory Rate [Anterior Bilateral Throughout] Blood Pressure 118/67 110/66 115/68 O2 Sat by Pulse 92 91 92 Oximetry 12/29/19 12/29/19 12/29/19 21:45 22:00 22:15 Temperature Pulse Rate 118 H 119 H 119 H Pulse Rate [ Anterior Bilateral Throughout] Respiratory 22 14 17 Rate Respiratory Rate [Anterior Bilateral Throughout] Blood Pressure 111/62 110/68 102/55 O2 Sat by Pulse 92 92 90 Oximetry 12/29/19 12/29/19 12/29/19 22:17 22:26 22:30 Temperature Pulse Rate 119 H 120 H Pulse Rate [ 117 H Anterior Bilateral Throughout] Respiratory 19 Rate Respiratory 30 H Rate [Anterior Bilateral Throughout] Blood Pressure 104/59 98/63 O2 Sat by Pulse 92 91 Oximetry 12/29/19 12/29/19 12/29/19 22:45 23:00 23:06 Temperature Pulse Rate 112 H 120 H 120 H Pulse Rate [ Anterior Bilateral Throughout] Respiratory 15 23 19 Rate Respiratory Rate [Anterior Bilateral Throughout] Blood Pressure 91/55 109/67 102/59 O2 Sat by Pulse 88 88 87 Oximetry 12/29/19 12/29/19 12/29/19 23:15 23:30 23:32 Temperature 98.6 F Pulse Rate 121 H 122 H Pulse Rate [ Anterior Bilateral Throughout] Respiratory 20 16 Rate Respiratory Rate [Anterior Bilateral Throughout] Blood Pressure 114/57 97/56 O2 Sat by Pulse 86 85 Oximetry 12/29/19 12/30/19 12/30/19 23:45 00:00 00:15 Temperature Pulse Rate 122 H 122 H 120 H Pulse Rate [ Anterior Bilateral Throughout] Respiratory 13 16 13 Rate Respiratory Rate [Anterior Bilateral Throughout] Blood Pressure 102/61 106/59 102/57 O2 Sat by Pulse 87 88 86 Oximetry 12/30/19 12/30/19 12/30/19 00:30 00:45 00:52 Temperature Pulse Rate 121 H 121 H 121 H Pulse Rate [ Anterior Bilateral Throughout] Respiratory 22 24 21 Rate Respiratory Rate [Anterior Bilateral Throughout] Blood Pressure 100/58 100/57 O2 Sat by Pulse 89 90 92 Oximetry 12/30/19 12/30/19 12/30/19 01:00 01:15 01:30 Temperature Pulse Rate 120 H 120 H 119 H Pulse Rate [ Anterior Bilateral Throughout] Respiratory 23 23 19 Rate Respiratory Rate [Anterior Bilateral Throughout] Blood Pressure 106/64 106/64 106/58 O2 Sat by Pulse 92 92 91 Oximetry 12/30/19 12/30/19 12/30/19 01:45 02:00 02:15 Temperature Pulse Rate 119 H 118 H 118 H Pulse Rate [ Anterior Bilateral Throughout] Respiratory 18 15 20 Rate Respiratory Rate [Anterior Bilateral Throughout] Blood Pressure 105/63 109/72 107/68 O2 Sat by Pulse 92 93 92 Oximetry 12/30/19 12/30/19 12/30/19 02:30 02:45 03:00 Temperature Pulse Rate 117 H 117 H 115 H Pulse Rate [ Anterior Bilateral Throughout] Respiratory 21 16 28 H Rate Respiratory Rate [Anterior Bilateral Throughout] Blood Pressure 110/91 117/80 119/70 O2 Sat by Pulse 90 92 92 Oximetry 12/30/19 12/30/19 12/30/19 03:15 03:30 03:36 Temperature 97.4 F L Pulse Rate 116 H 116 H Pulse Rate [ Anterior Bilateral Throughout] Respiratory 14 20 Rate Respiratory Rate [Anterior Bilateral Throughout] Blood Pressure 108/74 113/72 O2 Sat by Pulse 91 90 Oximetry 12/30/19 12/30/19 12/30/19 03:45 04:00 04:15 Temperature Pulse Rate 116 H 120 H 117 H Pulse Rate [ Anterior Bilateral Throughout] Respiratory 21 20 18 Rate Respiratory Rate [Anterior Bilateral Throughout] Blood Pressure 110/67 102/61 115/69 O2 Sat by Pulse 89 89 91 Oximetry 12/30/19 12/30/19 12/30/19 04:30 04:45 05:00 Temperature Pulse Rate 117 H 118 H 119 H Pulse Rate [ Anterior Bilateral Throughout] Respiratory 21 24 20 Rate Respiratory Rate [Anterior Bilateral Throughout] Blood Pressure 104/67 106/61 102/61 O2 Sat by Pulse 89 88 88 Oximetry 12/30/19 12/30/19 12/30/19 05:15 05:30 05:45 Temperature Pulse Rate 119 H 117 H 121 H Pulse Rate [ Anterior Bilateral Throughout] Respiratory 18 30 H 30 H Rate Respiratory Rate [Anterior Bilateral Throughout] Blood Pressure 103/58 89/55 109/64 O2 Sat by Pulse 88 85 91 Oximetry 12/30/19 12/30/19 12/30/19 06:00 06:15 06:30 Temperature Pulse Rate 118 H 118 H 114 H Pulse Rate [ Anterior Bilateral Throughout] Respiratory 30 H 30 H 30 H Rate Respiratory Rate [Anterior Bilateral Throughout] Blood Pressure 99/52 97/49 85/47 O2 Sat by Pulse 94 90 88 Oximetry 12/30/19 12/30/19 12/30/19 06:45 07:00 07:15 Temperature Pulse Rate 109 H 116 H 120 H Pulse Rate [ Anterior Bilateral Throughout] Respiratory 30 H 30 H 30 H Rate Respiratory Rate [Anterior Bilateral Throughout] Blood Pressure 93/44 89/49 96/62 O2 Sat by Pulse 82 L 87 86 Oximetry General appearance: Present: severe distress, well-nourished - EENT Eyes: miosis ENT: hearing intact, clear oral mucosa Ears: bilateral: normal - Neck Neck: supple, normal ROM - Respiratory Details: Intubated Respiratory effort: normal Respiratory: bilateral: CTA - Breasts Breasts: normal - Cardiovascular Heart rate: 98 Rhythm: regular Heart Sounds: Present: S1 & S2. Absent: gallop, rub Extremities: pulses intact, No edema, normal color, Full ROM - Gastrointestinal General gastrointestinal: Present: soft, non-tender, non-distended, normal bowel sounds - Genitourinary Male genitourinary: normal - Integumentary Integumentary: clear, warm, dry - Musculoskeletal Musculoskeletal: generalized weakness - Neurologic Neurologic: other (Unresponsive) - Psychiatric Psychiatric: other (Unresponsive and intubated) - Labs CBC & Chem 7: 12/31/19 08:50 12/31/19 08:50 Labs: Abnormal lab results 12/29/19 12/29/19 12/29/19 Range/Units 11:01 11:31 12:25 WBC (4.5-11.0) K/mm3 RBC (3.65-5.03) M/mm3 MCV (84-94) fl MCH (28-32) pg RDW (13.2-15.2) % Plt Count (140-440) K/mm3 Lymph % (Auto) (13.4-35.0) % Lymph # (Auto) (1.2-5.4) K/mm3 Seg Neutrophils # (1.8-7.7) K/mm3 Heparin Anti-Xa Level (0.3-0.7) U.I./ml ABG pH 7.147 L (7.320-7.450) POC ABG pCO2 (32.0-48.0) mmHg POC ABG pO2 48.9 L (83-108) mmHg ABG Oxyhemoglobin 78.4 L (94-98) ABG Sodium (136.0-145.0) mmol/L ABG Chloride 108.0 H (98-107) mmol/L ABG Glucose 544 H (65-95) mg/dL Sodium (137-145) mmol/L Potassium (3.6-5.0) mmol/L Carbon Dioxide (22-30) mmol/L BUN (9-20) mg/dL Creatinine (0.8-1.3) mg/dL Glucose (75-100) mg/dL POC Glucose 433 H 426 H (70-105) mg/dL Calcium (8.4-10.2) mg/dL AST (5-40) units/L ALT (7-56) units/L Total Protein (6.3-8.2) g/dL Albumin (3.9-5) g/dL Arterial Blood Glucose 544 H (65-95) mg/dL Arterial Blood Ionized Calcium (4.6-5.3) mg/dL Urine WBC (Auto) (0.0-6.0) /HPF Urine Creatinine (0.1-20.0) mg/dL Urine Total Protein (5-11.8) mg/dL 12/29/19 12/29/19 12/29/19 Range/Units 16:14 16:14 18:41 WBC (4.5-11.0) K/mm3 RBC (3.65-5.03) M/mm3 MCV (84-94) fl MCH (28-32) pg RDW (13.2-15.2) % Plt Count (140-440) K/mm3 Lymph % (Auto) (13.4-35.0) % Lymph # (Auto) (1.2-5.4) K/mm3 Seg Neutrophils # (1.8-7.7) K/mm3 Heparin Anti-Xa Level 1.37 H (0.3-0.7) U.I./ml ABG pH (7.320-7.450) POC ABG pCO2 (32.0-48.0) mmHg POC ABG pO2 (83-108) mmHg ABG Oxyhemoglobin (94-98) ABG Sodium (136.0-145.0) mmol/L ABG Chloride (98-107) mmol/L ABG Glucose (65-95) mg/dL Sodium (137-145) mmol/L Potassium 3.3 L D (3.6-5.0) mmol/L Carbon Dioxide 17 L (22-30) mmol/L BUN 69 H (9-20) mg/dL Creatinine 4.2 H D (0.8-1.3) mg/dL Glucose 527 H* (75-100) mg/dL POC Glucose 449 H (70-105) mg/dL Calcium 7.7 L (8.4-10.2) mg/dL AST (5-40) units/L ALT (7-56) units/L Total Protein (6.3-8.2) g/dL Albumin (3.9-5) g/dL Arterial Blood Glucose (65-95) mg/dL Arterial Blood Ionized Calcium (4.6-5.3) mg/dL Urine WBC (Auto) (0.0-6.0) /HPF Urine Creatinine (0.1-20.0) mg/dL Urine Total Protein (5-11.8) mg/dL 12/29/19 12/29/19 12/29/19 Range/Units 20:17 22:15 23:40 WBC (4.5-11.0) K/mm3 RBC (3.65-5.03) M/mm3 MCV (84-94) fl MCH (28-32) pg RDW (13.2-15.2) % Plt Count (140-440) K/mm3 Lymph % (Auto) (13.4-35.0) % Lymph # (Auto) (1.2-5.4) K/mm3 Seg Neutrophils # (1.8-7.7) K/mm3 Heparin Anti-Xa Level (0.3-0.7) U.I./ml ABG pH 7.246 L (7.320-7.450) POC ABG pCO2 30.5 L (32.0-48.0) mmHg POC ABG pO2 73.6 L (83-108) mmHg ABG Oxyhemoglobin 93.0 L (94-98) ABG Sodium 135.8 L (136.0-145.0) mmol/L ABG Chloride (98-107) mmol/L ABG Glucose 534 H (65-95) mg/dL Sodium (137-145) mmol/L Potassium (3.6-5.0) mmol/L Carbon Dioxide (22-30) mmol/L BUN (9-20) mg/dL Creatinine (0.8-1.3) mg/dL Glucose (75-100) mg/dL POC Glucose 422 H 486 H (70-105) mg/dL Calcium (8.4-10.2) mg/dL AST (5-40) units/L ALT (7-56) units/L Total Protein (6.3-8.2) g/dL Albumin (3.9-5) g/dL Arterial Blood Glucose 534 H (65-95) mg/dL Arterial Blood Ionized Calcium (4.6-5.3) mg/dL Urine WBC (Auto) (0.0-6.0) /HPF Urine Creatinine (0.1-20.0) mg/dL Urine Total Protein (5-11.8) mg/dL 12/29/19 12/29/19 12/30/19 Range/Units Unknown Unknown 03:45 WBC (4.5-11.0) K/mm3 RBC (3.65-5.03) M/mm3 MCV (84-94) fl MCH (28-32) pg RDW (13.2-15.2) % Plt Count (140-440) K/mm3 Lymph % (Auto) (13.4-35.0) % Lymph # (Auto) (1.2-5.4) K/mm3 Seg Neutrophils # (1.8-7.7) K/mm3 Heparin Anti-Xa Level (0.3-0.7) U.I./ml ABG pH (7.320-7.450) POC ABG pCO2 (32.0-48.0) mmHg POC ABG pO2 (83-108) mmHg ABG Oxyhemoglobin (94-98) ABG Sodium (136.0-145.0) mmol/L ABG Chloride (98-107) mmol/L ABG Glucose (65-95) mg/dL Sodium (137-145) mmol/L Potassium (3.6-5.0) mmol/L Carbon Dioxide (22-30) mmol/L BUN (9-20) mg/dL Creatinine (0.8-1.3) mg/dL Glucose (75-100) mg/dL POC Glucose 443 H (70-105) mg/dL Calcium (8.4-10.2) mg/dL AST (5-40) units/L ALT (7-56) units/L Total Protein (6.3-8.2) g/dL Albumin (3.9-5) g/dL Arterial Blood Glucose (65-95) mg/dL Arterial Blood Ionized Calcium (4.6-5.3) mg/dL Urine WBC (Auto) 16.0 H (0.0-6.0) /HPF Urine Creatinine 164.0 H (0.1-20.0) mg/dL Urine Total Protein 232 H (5-11.8) mg/dL 12/30/19 12/30/19 12/30/19 Range/Units 04:15 Unknown Unknown WBC 20.6 H (4.5-11.0) K/mm3 RBC 3.61 L (3.65-5.03) M/mm3 MCV 101 H (84-94) fl MCH 33 H (28-32) pg RDW 16.1 H (13.2-15.2) % Plt Count 8 L* (140-440) K/mm3 Lymph % (Auto) 2.0 L (13.4-35.0) % Lymph # (Auto) 0.4 L (1.2-5.4) K/mm3 Seg Neutrophils # 19.5 H (1.8-7.7) K/mm3 Heparin Anti-Xa Level (0.3-0.7) U.I./ml ABG pH 7.249 L (7.320-7.450) POC ABG pCO2 31.8 L (32.0-48.0) mmHg POC ABG pO2 69.2 L (83-108) mmHg ABG Oxyhemoglobin (94-98) ABG Sodium 134.7 L (136.0-145.0) mmol/L ABG Chloride (98-107) mmol/L ABG Glucose 603 H (65-95) mg/dL Sodium 136 L (137-145) mmol/L Potassium 3.2 L (3.6-5.0) mmol/L Carbon Dioxide 14 L (22-30) mmol/L BUN 75 H (9-20) mg/dL Creatinine 4.3 H (0.8-1.3) mg/dL Glucose 625 H* (75-100) mg/dL POC Glucose (70-105) mg/dL Calcium 6.9 L (8.4-10.2) mg/dL AST 129 H (5-40) units/L ALT 150 H (7-56) units/L Total Protein 4.5 L D (6.3-8.2) g/dL Albumin 2.4 L (3.9-5) g/dL Arterial Blood Glucose 603 H (65-95) mg/dL Arterial Blood Ionized Calcium 4.4 L (4.6-5.3) mg/dL Urine WBC (Auto) (0.0-6.0) /HPF Urine Creatinine (0.1-20.0) mg/dL Urine Total Protein (5-11.8) mg/dL echocardiogram Enlarged left ventricle with severe global LV dysfunction Ejection fraction 20 to 25% Mild LVH Myocardial changes suggestive of cardiomyopathy Primary grade 2 diastolic dysfunction Trivial pericardial effusion Dilated IVC suggesting elevated RA pressure HEART Score - HEART Score Troponin: Troponin T 0.021 ng/mL (0.00-0.029) 12/26/19 21:29
[2019-12-30 07:52] LABS: Hemoglobin 11.2 gm/dl (11.8-15.2); Mean Corpuscular HGB Conc 32 % (32-34); Mean Corpuscular Volume 102 fl (84-94); Red Blood Count 3.43 M/mm3 (3.65-5.03); Red Cell Distribution Width 16.1 % (13.2-15.2)
[2019-12-30] MEDS ORDERED: INSULIN GLARGINE 100 UNITS/ML SUB-Q ONE (08:00)
[2019-12-30] MEDS ORDERED: VANCOMYCIN 1,500 MG in SODIUM CHLORIDE 0.9% 500 ML 500 ML IV ONE (08:00)
[2019-12-30] MEDS ORDERED: SODIUM BICARBONATE 150 MEQ in WATER FOR INJECTION (PF) 1,000 ML IV SCH (08:00)
[2019-12-30] MEDS: ALBUTEROL 2.5 MG/3 ML NEBU IH SCH ×4 (08:05→20:26)
[2019-12-30 08:11] LABS: Albumin 1.9 g/dL (3.9-5)
[2019-12-30] MEDS: PANTOPRAZOLE 40 MG INJ IV SCH ×2 (08:12→20:05)
[2019-12-30] MEDS: VANCOMYCIN 1,500 MG in SODIUM CHLORIDE 0.9% 500 ML 500 ML IV SCH (08:20)
[2019-12-30 08:38] LABS: Calcium 5.2 mg/dL (8.4-10.2)
[2019-12-30 08:45] LABS: Platelet Count 5 K/mm3 (140-440)
[2019-12-30] MEDS ORDERED: SODIUM CHLORIDE 0.9% 1000 ML 1,000 ML with POTASSIUM CHLORIDE 20 MEQ IV SCH (09:00)
--- NOTE | 2019-12-30 09:03 | Progress Note ---
Assessment and Plan Impression: * KAVITHA on ATN due to hypoperfusion * s/p CPR * Acute hypoxemic & hypercapnic respiratory failure on MVS * ARDS * PUI COVID-19 infection. * Bilateral pneumonia. * Acute encephalopathy, possibly anoxic. * DM II * IVAN * Cardiomypoathy--EF 20% * Morbid obesity. * Sepsis Plan: * iv fluids resuscitation * vasopressor prn, keep MAP >65 * daily lytes and cbc * follow up urine lytes * likely ATN due to hypoperfusion * strict i/os, avoid nephrotoxins * will need RABBIT BREEDER if no improvement next 36 to 46 hrs Subjective Date of service: 12/30/19 Principal diagnosis: Acute hypoxemic & hypercapnic resp failure; ARDS; PUI COVID-19; PNA Interval history: resting in bed today. events noted Objective - Exam Narrative Exam: Gen: nad, well-nourished, intubated; Head: normocephalic; Eyes: no gaze deviation; no ptosis appreciated; ENT: +ETT; CVS: warm and well-perfused; Pulm: no respiratory distress; GI: non-distended, protuberant; Ext: no cyanosis or edema at distal extremities; Skin: no acute rash or hives at distal extremities; Heme: no bruising or ecchymosis at distal extremities; Neuro: comatose, intubated, - Vital Signs Vital signs: Vital Signs - 12hr 12/29/19 12/29/19 12/29/19 21:15 21:30 21:45 Temperature Pulse Rate 118 H 118 H 118 H Pulse Rate [ Anterior Bilateral Throughout] Respiratory 16 16 22 Rate Respiratory Rate [Anterior Bilateral Throughout] Blood Pressure 110/66 115/68 111/62 O2 Sat by Pulse 91 92 92 Oximetry 12/29/19 12/29/19 12/29/19 22:00 22:15 22:17 Temperature Pulse Rate 119 H 119 H 119 H Pulse Rate [ Anterior Bilateral Throughout] Respiratory 14 17 Rate Respiratory Rate [Anterior Bilateral Throughout] Blood Pressure 110/68 102/55 104/59 O2 Sat by Pulse 92 90 92 Oximetry 12/29/19 12/29/19 12/29/19 22:26 22:30 22:45 Temperature Pulse Rate 120 H 112 H Pulse Rate [ 117 H Anterior Bilateral Throughout] Respiratory 19 15 Rate Respiratory 30 H Rate [Anterior Bilateral Throughout] Blood Pressure 98/63 91/55 O2 Sat by Pulse 91 88 Oximetry 12/29/19 12/29/19 12/29/19 23:00 23:06 23:15 Temperature Pulse Rate 120 H 120 H 121 H Pulse Rate [ Anterior Bilateral Throughout] Respiratory 23 19 20 Rate Respiratory Rate [Anterior Bilateral Throughout] Blood Pressure 109/67 102/59 114/57 O2 Sat by Pulse 88 87 86 Oximetry 12/29/19 12/29/19 12/29/19 23:30 23:32 23:45 Temperature 98.6 F Pulse Rate 122 H 122 H Pulse Rate [ Anterior Bilateral Throughout] Respiratory 16 13 Rate Respiratory Rate [Anterior Bilateral Throughout] Blood Pressure 97/56 102/61 O2 Sat by Pulse 85 87 Oximetry 12/30/19 12/30/19 12/30/19 00:00 00:15 00:30 Temperature Pulse Rate 122 H 120 H 121 H Pulse Rate [ Anterior Bilateral Throughout] Respiratory 16 13 22 Rate Respiratory Rate [Anterior Bilateral Throughout] Blood Pressure 106/59 102/57 100/58 O2 Sat by Pulse 88 86 89 Oximetry 12/30/19 12/30/19 12/30/19 00:45 00:52 01:00 Temperature Pulse Rate 121 H 121 H 120 H Pulse Rate [ Anterior Bilateral Throughout] Respiratory 24 21 23 Rate Respiratory Rate [Anterior Bilateral Throughout] Blood Pressure 100/57 106/64 O2 Sat by Pulse 90 92 92 Oximetry 12/30/19 12/30/19 12/30/19 01:15 01:30 01:45 Temperature Pulse Rate 120 H 119 H 119 H Pulse Rate [ Anterior Bilateral Throughout] Respiratory 23 19 18 Rate Respiratory Rate [Anterior Bilateral Throughout] Blood Pressure 106/64 106/58 105/63 O2 Sat by Pulse 92 91 92 Oximetry 12/30/19 12/30/19 12/30/19 02:00 02:15 02:30 Temperature Pulse Rate 118 H 118 H 117 H Pulse Rate [ Anterior Bilateral Throughout] Respiratory 15 20 21 Rate Respiratory Rate [Anterior Bilateral Throughout] Blood Pressure 109/72 107/68 110/91 O2 Sat by Pulse 93 92 90 Oximetry 12/30/19 12/30/19 12/30/19 02:45 03:00 03:15 Temperature Pulse Rate 117 H 115 H 116 H Pulse Rate [ Anterior Bilateral Throughout] Respiratory 16 28 H 14 Rate Respiratory Rate [Anterior Bilateral Throughout] Blood Pressure 117/80 119/70 108/74 O2 Sat by Pulse 92 92 91 Oximetry 12/30/19 12/30/19 12/30/19 03:30 03:36 03:45 Temperature 97.4 F L Pulse Rate 116 H 116 H Pulse Rate [ Anterior Bilateral Throughout] Respiratory 20 21 Rate Respiratory Rate [Anterior Bilateral Throughout] Blood Pressure 113/72 110/67 O2 Sat by Pulse 90 89 Oximetry 12/30/19 12/30/19 12/30/19 04:00 04:15 04:30 Temperature Pulse Rate 120 H 117 H 117 H Pulse Rate [ Anterior Bilateral Throughout] Respiratory 20 18 21 Rate Respiratory Rate [Anterior Bilateral Throughout] Blood Pressure 102/61 115/69 104/67 O2 Sat by Pulse 89 91 89 Oximetry 12/30/19 12/30/19 12/30/19 04:45 05:00 05:15 Temperature Pulse Rate 118 H 119 H 119 H Pulse Rate [ Anterior Bilateral Throughout] Respiratory 24 20 18 Rate Respiratory Rate [Anterior Bilateral Throughout] Blood Pressure 106/61 102/61 103/58 O2 Sat by Pulse 88 88 88 Oximetry 12/30/19 12/30/19 12/30/19 05:30 05:45 06:00 Temperature Pulse Rate 117 H 121 H 118 H Pulse Rate [ Anterior Bilateral Throughout] Respiratory 30 H 30 H 30 H Rate Respiratory Rate [Anterior Bilateral Throughout] Blood Pressure 89/55 109/64 99/52 O2 Sat by Pulse 85 91 94 Oximetry 12/30/19 12/30/19 12/30/19 06:15 06:30 06:45 Temperature Pulse Rate 118 H 114 H 109 H Pulse Rate [ Anterior Bilateral Throughout] Respiratory 30 H 30 H 30 H Rate Respiratory Rate [Anterior Bilateral Throughout] Blood Pressure 97/49 85/47 93/44 O2 Sat by Pulse 90 88 82 L Oximetry 12/30/19 12/30/19 12/30/19 07:00 07:15 07:56 Temperature Pulse Rate 116 H 120 H 120 H Pulse Rate [ Anterior Bilateral Throughout] Respiratory 30 H 30 H Rate Respiratory Rate [Anterior Bilateral Throughout] Blood Pressure 89/49 96/62 96/62 O2 Sat by Pulse 87 86 92 Oximetry 12/30/19 08:06 Temperature Pulse Rate Pulse Rate [ 116 H Anterior Bilateral Throughout] Respiratory Rate Respiratory 30 H Rate [Anterior Bilateral Throughout] Blood Pressure O2 Sat by Pulse Oximetry - Lab 12/30/19 Unknown 12/30/19 Unknown Most recent lab results ABG pH 7.249 (7.320-7.450) L 12/30/19 04:15 ABG pCO2 35.3 mm Hg 12/29/19 03:41 ABG pO2 64.4 mm Hg (80.0-90.0) L 12/29/19 03:41 ABG HCO3 13.4 mmol/L (20.0-26.0) L 12/29/19 03:41 ABG O2 Saturation 89.7 % (95.0-99.0) L 12/29/19 03:41 Calcium 6.9 mg/dL (8.4-10.2) L 12/30/19 Unknown Magnesium 1.90 mg/dL (1.7-2.3) 12/28/19 14:30 Urine Creatinine 164.0 mg/dL (0.1-20.0) H 12/29/19 Unknown Urine Sodium 62 mmol/L 12/29/19 Unknown Urine Total Protein 232 mg/dL (5-11.8) H 12/29/19 Unknown Medications & Allergies - Medications Allergies/Adverse Reactions: Allergies No Known Allergies Allergy (Unverified 12/26/19 15:29) Active Medications: Generic Name Dose Route Start Last Admin Trade Name Freq PRN Reason Stop Dose Admin Acetaminophen 650 mg 12/26/19 18:28 12/29/19 00:21 Tylenol PO 650 mg Q6H PRN Administration Pain, Mild (1-3) Acetaminophen 650 mg 12/28/19 09:53 12/28/19 18:00 Tylenol [place] 650 mg Q6H PRN Administration Pain, Mild (1-3) Albuterol 2.5 mg 12/26/19 18:28 Proventil IH Q3HRT PRN Shortness Of Breath Albuterol 2.5 mg 12/26/19 20:00 12/30/19 08:06 Proventil IH Not Given Q6HRT ANGELA Lipase/Protease/Amylase 1 each 12/27/19 13:24 Pancremahendra Quinteros 10,500 Unit FEEDTUBE PRN PRN For Clogged Feeding Tube Fentanyl 50 mcg 12/26/19 17:48 12/27/19 14:20 Sublimaze IV 50 mcg Q10MIN PRN Administration ANALGESIA Hydromorphone HCl 0.25 mg 12/26/19 18:28 12/27/19 20:18 Dilaudid IV 0.25 mg Q4H PRN Administration Pain, Moderate (4-6) Hydrophilic Ointment 1 applic 12/26/19 15:26 Vaseline Lip Therapy TP Q2HR PRN Dry Lips Propofol 1,000 mg in 100 mls @ 3.945 mls/hr 12/26/19 16:00 12/26/19 17:30 Diprivan 10 Mg/Ml IV Infused TITR ANGELA Titration Protocol 5 MCG/KG/MIN Fentanyl Citrate 2,000 mcg in 100 mls @ 6.575 mls/hr 12/26/19 18:00 12/29/19 05:52 Fentanyl Drip Premix IV 0 mcg/kg/hr TITR ANGELA 0 mls/hr Titration Protocol 1 MCG/KG/HR Midazolam HCl 100 mg/ Sodium 100 mls @ 2 mls/hr 12/26/19 18:00 12/28/19 21:17 Chloride IV 0 mg/hr TITR ANGELA 0 mls/hr Titration Protocol 2 MG/HR Heparin Sodium/Sodium Chloride 25,000 unit in 500 mls @ 30 mls/hr 12/26/19 19:00 12/30/19 05:00 Heparin/ 0.45% Nacl-25,000 Unit/500 Ml IV 0 units/hr TITR ANGELA 0 mls/hr Titration Protocol 1,500 UNITS/HR Levetiracetam 500 mg/ Dextrose 105 mls @ 400 mls/hr 12/27/19 22:00 12/29/19 21:02 IV 400 mls/hr Q12H ANGELA Administration Vasopressin 20 unit/ Sodium 101 mls @ 9.09 mls/hr 12/28/19 22:00 12/30/19 05:30 Chloride IV 0.03 units/min TITR ANGELA 9.09 mls/hr Administration Protocol 0.03 UNITS/MIN Norepinephrine 8 mg/ Sodium 250 mls @ 3.75 mls/hr 12/29/19 05:00 12/30/19 06:58 Chloride IV 24 mcg/min TITR ANGELA 45 mls/hr Titration Protocol 2 MCG/MIN Dobutamine HCl/Dextrose 500 mg in 250 mls @ 9.863 mls/hr 12/29/19 05:00 12/29/19 22:52 Dobutrex Drip 500mg/D5w 250ml IV 5 mcg/kg/min DIRECT ANGELA 19.725 mls/hr Administration Protocol 2.5 MCG/KG/MIN Ceftriaxone Sodium 2 gm in 100 mls @ 200 mls/hr 12/29/19 13:00 12/29/19 21:02 Rocephin/Ns 2 Gm/100 Ml IV 200 mls/hr Q12HR ANGELA Administration Protocol Acyclovir 660 mg/ Sodium 113.2 mls @ 100 mls/hr 12/29/19 14:00 12/30/19 02:08 Chloride IV 100 mls/hr Q12H ANGELA Administration Protocol Phenylephrine HCl 100 mg/ 100 mls @ 3 mls/hr 12/29/19 16:15 Sodium Chloride IV TITR ANGELA Protocol 50 MCG/MIN Vancomycin HCl 1,500 mg/ 530 mls @ 333.333 mls/hr 12/30/19 08:00 12/30/19 08:22 Sodium Chloride IV 12/30/19 09:35 Not Given ONCE ONE Sodium Bicarbonate 150 meq/ 1,150 mls @ 100 mls/hr 12/30/19 08:00 12/30/19 08:26 Sterile Water IV 100 mls/hr DIRECT ANGELA Administration Potassium Chloride 20 meq in 100 mls @ 100 mls/hr 12/30/19 09:00 Kcl 20meq/100ml IV 12/30/19 10:59 Q1H ANGELA Insulin Glargine 20 units 12/29/19 22:00 12/29/19 21:02 Lantus SUB-Q 20 units QHS ANGELA Administration Insulin Human Lispro 0 unit 12/29/19 20:00 12/30/19 08:11 Humalog SUB-Q 10 unit Q4H ANGELA Administration Protocol Methylprednisolone Sodium Succinate 40 mg 12/26/19 22:00 12/29/19 21:02 Solu-Medrol IV 40 mg Q8HR ANGELA Administration Metoprolol Tartrate 5 mg 12/28/19 13:12 12/28/19 13:23 Metoprolol IV 5 mg Q6HR PRN Administration tachycardia Midazolam HCl 2 mg 12/26/19 17:48 Versed IV Q10MIN PRN Sedation Multi-Ingred Cream/Lotion/Oil/Oint 1 applic 12/26/19 15:26 Artificial Tears Ophth Oint OU Q4HR PRN Dry Eye(s) Pantoprazole Sodium 40 mg 12/26/19 19:00 12/30/19 08:12 Protonix IV 40 mg Q12H ANGELA Administration Simple Syrup 15 ml 12/27/19 13:24 Simple Syrup FEEDTUBE PRN PRN Hypoglycemia Simple Syrup 30 ml 12/27/19 13:24 Simple Syrup FEEDTUBE PRN PRN Hypoglycemia Sodium Bicarbonate 325 mg 12/27/19 13:24 Sodium Bicarbonate FEEDTUBE PRN PRN For Clogged Feeding Tube Sodium Chloride 10 ml 12/26/19 22:00 12/29/19 21:03 Sodium Chloride Flush Syringe 10 Ml IV 10 ml BID ANGELA Administration Sodium Chloride 10 ml 12/26/19 18:28 Sodium Chloride Flush Syringe 10 Ml IV PRN PRN LINE FLUSH Sodium Chloride 250 ml 12/29/19 07:00 12/29/19 07:13 Nacl 0.9% 250ml IV 250 ml DIRECT ANGELA Administration
[2019-12-30] MEDS: levETIRAcetam 500 MG in DEXTROSE 5% IN WATER 100 ML IV SCH ×2 (09:04→21:34)
[2019-12-30] MEDS: cefTRIAXone/NS 2 GM/100 ML 2 GM/100 ML BAG IV SCH ×2 (09:05→21:35)
[2019-12-30] MEDS: methylPREDNISolone Sod Succinate 40 MG/1 ML INJ IV SCH ×2 (09:05→13:16)
[2019-12-30] MEDS: POTASSIUM CHLORIDE 20 MEQ 20 MEQ/100 ML BAG IV SCH ×2 (09:07→10:25)
--- NOTE | 2019-12-30 09:30 | Progress Note ---
Assessment and Plan Dilated Cardiomyopathy, uncertain duration LVEF 20-25% by echo this presentation Transient SVT Sepsis Acute hypoxic respiratory failure Acute encephalopathy Bilateral pneumonia COVID 19 test was negative Out of hospital cardiopulmonary arrest Acute kidney disease Thrombocytopenia Recommend: Continue supportive management, initiate guideline directed medical therapy when tolerated for left ventricular failure. Subjective Date of service: 12/30/19 Principal diagnosis: Acute hypoxemic & hypercapnic resp failure; ARDS; PUI COVID-19; PNA Interval history: Noted with multiple metabolic abnormalities on morning labs including a platelet count of 5,000, potassium of 2.9 and glucose of 1120. Remains intubated, unresponsive and on pressors for support. Objective Vital Signs Temp Pulse Pulse Resp Resp BP Pulse Ox 12/30/19 08:06 116 H 30 H 12/30/19 07:56 120 H 96/62 92 12/30/19 07:15 120 H 30 H 96/62 86 12/30/19 07:00 116 H 30 H 89/49 87 12/30/19 06:45 109 H 30 H 93/44 82 L 12/30/19 06:30 114 H 30 H 85/47 88 12/30/19 06:15 118 H 30 H 97/49 90 12/30/19 06:00 118 H 30 H 99/52 94 12/30/19 05:45 121 H 30 H 109/64 91 12/30/19 05:30 117 H 30 H 89/55 85 12/30/19 05:15 119 H 18 103/58 88 12/30/19 05:00 119 H 20 102/61 88 12/30/19 04:45 118 H 24 106/61 88 12/30/19 04:30 117 H 21 104/67 89 12/30/19 04:15 117 H 18 115/69 91 12/30/19 04:00 120 H 20 102/61 89 12/30/19 03:45 116 H 21 110/67 89 12/30/19 03:36 97.4 F L 12/30/19 03:30 116 H 20 113/72 90 12/30/19 03:15 116 H 14 108/74 91 12/30/19 03:00 115 H 28 H 119/70 92 12/30/19 02:45 117 H 16 117/80 92 12/30/19 02:30 117 H 21 110/91 90 12/30/19 02:15 118 H 20 107/68 92 12/30/19 02:00 118 H 15 109/72 93 12/30/19 01:45 119 H 18 105/63 92 12/30/19 01:30 119 H 19 106/58 91 12/30/19 01:15 120 H 23 106/64 92 12/30/19 01:00 120 H 23 106/64 92 12/30/19 00:52 121 H 21 92 12/30/19 00:45 121 H 24 100/57 90 12/30/19 00:30 121 H 22 100/58 89 12/30/19 00:15 120 H 13 102/57 86 12/30/19 00:00 122 H 16 106/59 88 12/29/19 23:45 122 H 13 102/61 87 12/29/19 23:32 98.6 F 12/29/19 23:30 122 H 16 97/56 85 12/29/19 23:15 121 H 20 114/57 86 12/29/19 23:06 120 H 19 102/59 87 12/29/19 23:00 120 H 23 109/67 88 12/29/19 22:45 112 H 15 91/55 88 12/29/19 22:30 120 H 19 98/63 91 12/29/19 22:26 117 H 30 H 12/29/19 22:17 119 H 104/59 92 12/29/19 22:15 119 H 17 102/55 90 12/29/19 22:00 119 H 14 110/68 92 12/29/19 21:45 118 H 22 111/62 92 12/29/19 21:30 118 H 16 115/68 92 12/29/19 21:15 118 H 16 110/66 91 12/29/19 21:00 118 H 19 118/67 92 12/29/19 20:45 118 H 27 H 119/74 92 12/29/19 20:30 117 H 23 124/80 92 12/29/19 20:15 116 H 18 130/83 92 12/29/19 20:00 117 H 20 119/78 94 12/29/19 19:56 96.5 F L 12/29/19 19:45 116 H 21 131/79 92 12/29/19 19:30 115 H 25 H 143/87 92 12/29/19 19:15 115 H 18 128/77 92 12/29/19 19:00 115 H 19 129/67 92 12/29/19 18:00 117 H 23 143/84 90 12/29/19 17:46 120 H 18 145/101 94 12/29/19 17:30 119 H 22 145/96 92 12/29/19 17:15 119 H 29 H 155/93 92 12/29/19 17:00 121 H 26 H 156/96 92 12/29/19 16:45 126 H 30 H 184/109 94 12/29/19 16:30 119 H 27 H 141/91 93 12/29/19 16:15 120 H 30 H 144/89 93 12/29/19 16:00 120 H 30 H 144/89 92 12/29/19 15:45 123 H 29 H 133/91 93 12/29/19 15:30 124 H 30 H 135/90 93 12/29/19 15:15 124 H 29 H 141/99 93 12/29/19 15:00 120 H 30 H 94/64 91 12/29/19 14:46 117 H 27 H 94/64 91 12/29/19 14:30 112 H 39 H 107/74 87 12/29/19 14:15 81 26 H 67/38 71 L 12/29/19 14:00 110 H 30 H 79/48 94 12/29/19 13:46 128 H 31 H 142/100 99 12/29/19 13:30 114 H 30 H 111/57 90 12/29/19 13:27 118 H 30 H 12/29/19 13:15 114 H 30 H 101/67 92 12/29/19 13:00 114 H 30 H 108/57 91 12/29/19 12:50 114 H 108/57 91 12/29/19 12:45 113 H 30 H 106/63 93 12/29/19 12:30 113 H 30 H 114/60 88 12/29/19 12:15 113 H 30 H 116/68 91 12/29/19 12:00 114 H 34 H 106/66 89 12/29/19 11:45 112 H 29 H 105/66 87 12/29/19 11:33 113 H 103/65 87 12/29/19 11:30 113 H 30 H 103/65 87 12/29/19 11:15 112 H 30 H 106/65 12/29/19 11:00 112 H 30 H 104/64 89 12/29/19 10:45 110 H 30 H 103/63 86 12/29/19 10:30 110 H 30 H 116/73 89 12/29/19 10:15 109 H 30 H 115/70 91 12/29/19 10:00 109 H 30 H 112/76 89 12/29/19 09:45 108 H 19 110/74 86 12/29/19 09:30 107 H 26 H 106/72 86 - Labs and Meds Cardiac Enzymes 12/30/19 12/30/19 Range/Units 07:28 Unknown AST 125 H 129 H (5-40) units/L CBC 12/30/19 12/30/19 Range/Units 07:28 Unknown WBC 20.2 H 20.6 H (4.5-11.0) K/mm3 RBC 3.43 L 3.61 L (3.65-5.03) M/mm3 Hgb 11.2 L 11.8 (11.8-15.2) gm/dl Hct 35.0 L 36.6 (35.5-45.6) % Plt Count 5 L* 8 L* (140-440) K/mm3 Lymph # (Auto) 0.4 L (1.2-5.4) K/mm3 Placer # (Auto) 0.7 (0.0-0.8) K/mm3 Eos # (Auto) 0.0 (0.0-0.4) K/mm3 Baso # (Auto) 0.0 (0.0-0.1) K/mm3 Comprehensive Metabolic Panel 12/29/19 12/30/19 12/30/19 Range/Units 16:14 07:28 Unknown Sodium 137 129 L D 136 L (137-145) mmol/L Potassium 3.3 L D 2.9 L* 3.2 L (3.6-5.0) mmol/L Chloride 105.9 90.9 L 105.2 (98-107) mmol/L Carbon Dioxide 17 L 31 H D 14 L (22-30) mmol/L BUN 69 H 66 H 75 H (9-20) mg/dL Creatinine 4.2 H D 3.8 H 4.3 H (0.8-1.3) mg/dL Glucose 527 H* 1120 H* 625 H* (75-100) mg/dL Calcium 7.7 L 5.2 L* D 6.9 L (8.4-10.2) mg/dL AST 125 H 129 H (5-40) units/L ALT 119 H 150 H (7-56) units/L Alkaline Phosphatase 37 51 (35-129) units/L Total Protein 3.4 L D 4.5 L D (6.3-8.2) g/dL Albumin 1.9 L 2.4 L (3.9-5) g/dL - Allied health notes Allied health notes reviewed: nursing
[2019-12-30] MEDS ORDERED: DEXTROSE 50% IN WATER (25GM) 50 ML SYRINGE IV PRN (09:39)
[2019-12-30] MEDS ORDERED: NACL 0.9%/KCL 20 MEQ 20 MEQ/1,000 ML BAG IV SCH (10:00)
[2019-12-30] MEDS ORDERED: SODIUM CHLORIDE 0.9% 100 ML IV PRN (10:10)
[2019-12-30] MEDS ORDERED: ALBUMIN HUMAN 25% (25 GM/100 ML) INJ IV PRN (10:10)
[2019-12-30] MEDS ORDERED: EPOETIN ALFA 10,000 UNIT/1 ML INJ IV PRN (10:10)
[2019-12-30] MEDS: INSULIN REGULAR, HUMAN 100 UNITS in SODIUM CHLORIDE 0.9% 99 ML IV SCH ×3 (10:31→20:05)
[2019-12-30] MEDS ORDERED: POTASSIUM CHLORIDE IV SCH (11:00)
[2019-12-30] MEDS ORDERED: DEXTROSE 5% IV SCH (11:00)
[2019-12-30] MEDS ORDERED: WATER IV SCH (11:00)
[2019-12-30] MEDS ORDERED: SODIUM BICARBONATE IV SCH (11:00)
[2019-12-30] MEDS: DOBUTamine/D5W 500 MG/250 ML 500 MG/250 ML BAG IV SCH ×2 (11:05→23:36)
[2019-12-30 11:19] LABS: Basophils % (Manual) 0 % (0.0-1.8); Eosinophils % (Manual) 0 % (0.0-4.3); Monocytes % (Manual) 0 % (0.0-7.3); Myelocytes # (Manual) 0.4 K/mm3; Total Cells Counted 100
[2019-12-30 11:26] LABS: Burr Cells Few
[2019-12-30 11:27] LABS: Platelet Estimate Consistent w Auto
[2019-12-30] MEDS ORDERED: SODIUM CHLORIDE 0.9% 500 ML 500 ML IV NR ×2 (12:25→12:39)
--- NOTE | 2019-12-30 13:21 | Progress Note ---
Assessment and Plan Cultures: Blood culture no growth today SARS CoV2 PCR negative Sputum culture: Usual respiratory noe Assessment: 34 years old male with history of morbid obesity, diabetes mellitus, admitted on 12/26/2019 after found unresponsive in his vehicle in the parking lot at a local motel, cardiac arrest in route to the hospital: #Status post cardiac arrest in route #Septic shock: Present on admission with fever 102, tachycardia, elevated leukocytosis. Unclear etiology, ?pneumonia v/s UTI v/s OCULAR CARE TECHNICIAN infection #Bilateral pneumonia: ?bacterial pneumonia. COVID-19 negative procalcitonin 0.2. #Acute hypoxemic respiratory failure: On mechanical ventilation. #Elevated LFTs: ?From sepsis #KAVITHA: Renally dose antibiotics. Nephrology following. #Acute encephalopathy: Unclear etiology #Diabetes mellitus, uncontrolled Recommendations: Continue empiric IV ceftriaxone, renally dosed vancomycin and acyclovir When stable, consider CT chest, abdomen and pelvis without contrast When stable, also consider lumbar puncture to evaluate for OCULAR CARE TECHNICIAN infection RUQ US ordered Mary Goss MD, FACP [facility] O: [phone] F: [phone] Subjective Date of service: 12/30/19 Principal diagnosis: Acute hypoxemic & hypercapnic resp failure; ARDS; PUI C OVID-19; PNA Interval history: No fever today but on cooling blanket. Remains on the vent. Remains on multiple pressors. Platelets have dropped significantly. Also with unc ontrolled hyperglycemia. Objective - Exam Narrative Exam: Physical Exam: Constitutional: sedated, intubated, on the vent. Morbidly obese. Head, Ears, Nose: Normocephalic, atraumatic. External ears, nose normal Eyes: Conjunctivae/corneas clear. No icterus. No ptosis. Neck: intubated Oral: intubated Cardiovascular: S1, S2 + Respiratory: AE fair bilaterally and equal GI: Soft, bowel sounds + Musculoskeletal: No pedal edema, no cyanosis. Skin: No rash or abscess Hem/Lymphatic: No palpable cervical or supraclavicular nodes. No lymphangitis Psych: no agitation Neurological: sedated, intubated, on the vent, exam limited - Constitutional Vitals: Vital Signs Temp Pulse Resp BP Pulse Ox 97.4 F L 119 H 30 H 101/59 87 12/30/19 03:36 12/30/19 13:08 12/30/19 13:08 12/30/19 12:00 12/30/19 12:00 Temperature -Last 24 Hours Temperature 97.4 F Temperature 98.6 F Temperature 96.5 F - Labs CBC & Chem 7: 12/30/19 Unknown 12/30/19 Unknown Labs: Abnormal lab results 12/29/19 12/29/19 12/29/19 Range/Units 11:01 16:14 16:14 WBC (4.5-11.0) K/mm3 RBC (3.65-5.03) M/mm3 Hgb (11.8-15.2) gm/dl Hct (35.5-45.6) % MCV (84-94) fl MCH (28-32) pg RDW (13.2-15.2) % Plt Count (140-440) K/mm3 Lymph % (Auto) (13.4-35.0) % Lymph # (Auto) (1.2-5.4) K/mm3 Seg Neuts % (Manual) (40.0-70.0) % Lymphocytes % (Manual) (13.4-35.0) % Nucleated RBC % (0.0-0.9) % Seg Neutrophils # (1.8-7.7) K/mm3 Seg Neutrophils # Man (1.8-7.7) K/mm3 Lymphocytes # (Manual) (1.2-5.4) K/mm3 Heparin Anti-Xa Level 1.37 H (0.3-0.7) U.I./ml ABG pH (7.320-7.450) POC ABG pCO2 (32.0-48.0) mmHg POC ABG pO2 (83-108) mmHg ABG Oxyhemoglobin (94-98) ABG Sodium (136.0-145.0) mmol/L ABG Glucose (65-95) mg/dL Sodium (137-145) mmol/L Potassium 3.3 L D (3.6-5.0) mmol/L Chloride (98-107) mmol/L Carbon Dioxide 17 L (22-30) mmol/L BUN 69 H (9-20) mg/dL Creatinine 4.2 H D (0.8-1.3) mg/dL Glucose 527 H* (75-100) mg/dL POC Glucose 433 H (70-105) mg/dL Calcium 7.7 L (8.4-10.2) mg/dL AST (5-40) units/L ALT (7-56) units/L Total Protein (6.3-8.2) g/dL Albumin (3.9-5) g/dL Arterial Blood Glucose (65-95) mg/dL Arterial Blood Ionized Calcium (4.6-5.3) mg/dL Urine Creatinine (0.1-20.0) mg/dL Urine Total Protein (5-11.8) mg/dL 12/29/19 12/29/19 12/29/19 Range/Units 18:41 20:17 22:15 WBC (4.5-11.0) K/mm3 RBC (3.65-5.03) M/mm3 Hgb (11.8-15.2) gm/dl Hct (35.5-45.6) % MCV (84-94) fl MCH (28-32) pg RDW (13.2-15.2) % Plt Count (140-440) K/mm3 Lymph % (Auto) (13.4-35.0) % Lymph # (Auto) (1.2-5.4) K/mm3 Seg Neuts % (Manual) (40.0-70.0) % Lymphocytes % (Manual) (13.4-35.0) % Nucleated RBC % (0.0-0.9) % Seg Neutrophils # (1.8-7.7) K/mm3 Seg Neutrophils # Man (1.8-7.7) K/mm3 Lymphocytes # (Manual) (1.2-5.4) K/mm3 Heparin Anti-Xa Level (0.3-0.7) U.I./ml ABG pH 7.246 L (7.320-7.450) POC ABG pCO2 30.5 L (32.0-48.0) mmHg POC ABG pO2 73.6 L (83-108) mmHg ABG Oxyhemoglobin 93.0 L (94-98) ABG Sodium 135.8 L (136.0-145.0) mmol/L ABG Glucose 534 H (65-95) mg/dL Sodium (137-145) mmol/L Potassium (3.6-5.0) mmol/L Chloride (98-107) mmol/L Carbon Dioxide (22-30) mmol/L BUN (9-20) mg/dL Creatinine (0.8-1.3) mg/dL Glucose (75-100) mg/dL POC Glucose 449 H 422 H (70-105) mg/dL Calcium (8.4-10.2) mg/dL AST (5-40) units/L ALT (7-56) units/L Total Protein (6.3-8.2) g/dL Albumin (3.9-5) g/dL Arterial Blood Glucose 534 H (65-95) mg/dL Arterial Blood Ionized Calcium (4.6-5.3) mg/dL Urine Creatinine (0.1-20.0) mg/dL Urine Total Protein (5-11.8) mg/dL 12/29/19 12/29/19 12/30/19 Range/Units 23:40 Unknown 03:45 WBC (4.5-11.0) K/mm3 RBC (3.65-5.03) M/mm3 Hgb (11.8-15.2) gm/dl Hct (35.5-45.6) % MCV (84-94) fl MCH (28-32) pg RDW (13.2-15.2) % Plt Count (140-440) K/mm3 Lymph % (Auto) (13.4-35.0) % Lymph # (Auto) (1.2-5.4) K/mm3 Seg Neuts % (Manual) (40.0-70.0) % Lymphocytes % (Manual) (13.4-35.0) % Nucleated RBC % (0.0-0.9) % Seg Neutrophils # (1.8-7.7) K/mm3 Seg Neutrophils # Man (1.8-7.7) K/mm3 Lymphocytes # (Manual) (1.2-5.4) K/mm3 Heparin Anti-Xa Level (0.3-0.7) U.I./ml ABG pH (7.320-7.450) POC ABG pCO2 (32.0-48.0) mmHg POC ABG pO2 (83-108) mmHg ABG Oxyhemoglobin (94-98) ABG Sodium (136.0-145.0) mmol/L ABG Glucose (65-95) mg/dL Sodium (137-145) mmol/L Potassium (3.6-5.0) mmol/L Chloride (98-107) mmol/L Carbon Dioxide (22-30) mmol/L BUN (9-20) mg/dL Creatinine (0.8-1.3) mg/dL Glucose (75-100) mg/dL POC Glucose 486 H 443 H (70-105) mg/dL Calcium (8.4-10.2) mg/dL AST (5-40) units/L ALT (7-56) units/L Total Protein (6.3-8.2) g/dL Albumin (3.9-5) g/dL Arterial Blood Glucose (65-95) mg/dL Arterial Blood Ionized Calcium (4.6-5.3) mg/dL Urine Creatinine 164.0 H (0.1-20.0) mg/dL Urine Total Protein 232 H (5-11.8) mg/dL 12/30/19 12/30/19 12/30/19 Range/Units 04:15 07:28 07:28 WBC 20.2 H (4.5-11.0) K/mm3 RBC 3.43 L (3.65-5.03) M/mm3 Hgb 11.2 L (11.8-15.2) gm/dl Hct 35.0 L (35.5-45.6) % MCV 102 H (84-94) fl MCH 33 H (28-32) pg RDW 16.1 H (13.2-15.2) % Plt Count 5 L* (140-440) K/mm3 Lymph % (Auto) (13.4-35.0) % Lymph # (Auto) (1.2-5.4) K/mm3 Seg Neuts % (Manual) 97.0 H (40.0-70.0) % Lymphocytes % (Manual) 1.0 L (13.4-35.0) % Nucleated RBC % 3.0 H (0.0-0.9) % Seg Neutrophils # (1.8-7.7) K/mm3 Seg Neutrophils # Man 19.6 H (1.8-7.7) K/mm3 Lymphocytes # (Manual) 0.2 L (1.2-5.4) K/mm3 Heparin Anti-Xa Level (0.3-0.7) U.I./ml ABG pH 7.249 L (7.320-7.450) POC ABG pCO2 31.8 L (32.0-48.0) mmHg POC ABG pO2 69.2 L (83-108) mmHg ABG Oxyhemoglobin (94-98) ABG Sodium 134.7 L (136.0-145.0) mmol/L ABG Glucose 603 H (65-95) mg/dL Sodium 129 L D (137-145) mmol/L Potassium 2.9 L* (3.6-5.0) mmol/L Chloride 90.9 L (98-107) mmol/L Carbon Dioxide 31 H D (22-30) mmol/L BUN 66 H (9-20) mg/dL Creatinine 3.8 H (0.8-1.3) mg/dL Glucose 1120 H* (75-100) mg/dL POC Glucose (70-105) mg/dL Calcium 5.2 L* D (8.4-10.2) mg/dL AST 125 H (5-40) units/L ALT 119 H (7-56) units/L Total Protein 3.4 L D (6.3-8.2) g/dL Albumin 1.9 L (3.9-5) g/dL Arterial Blood Glucose 603 H (65-95) mg/dL Arterial Blood Ionized Calcium 4.4 L (4.6-5.3) mg/dL Urine Creatinine (0.1-20.0) mg/dL Urine Total Protein (5-11.8) mg/dL 12/30/19 12/30/19 12/30/19 Range/Units 08:04 10:30 10:38 WBC (4.5-11.0) K/mm3 RBC (3.65-5.03) M/mm3 Hgb (11.8-15.2) gm/dl Hct (35.5-45.6) % MCV (84-94) fl MCH (28-32) pg RDW (13.2-15.2) % Plt Count (140-440) K/mm3 Lymph % (Auto) (13.4-35.0) % Lymph # (Auto) (1.2-5.4) K/mm3 Seg Neuts % (Manual) (40.0-70.0) % Lymphocytes % (Manual) (13.4-35.0) % Nucleated RBC % (0.0-0.9) % Seg Neutrophils # (1.8-7.7) K/mm3 Seg Neutrophils # Man (1.8-7.7) K/mm3 Lymphocytes # (Manual) (1.2-5.4) K/mm3 Heparin Anti-Xa Level (0.3-0.7) U.I./ml ABG pH (7.320-7.450) POC ABG pCO2 (32.0-48.0) mmHg POC ABG pO2 (83-108) mmHg ABG Oxyhemoglobin (94-98) ABG Sodium (136.0-145.0) mmol/L ABG Glucose (65-95) mg/dL Sodium (137-145) mmol/L Potassium (3.6-5.0) mmol/L Chloride (98-107) mmol/L Carbon Dioxide (22-30) mmol/L BUN (9-20) mg/dL Creatinine (0.8-1.3) mg/dL Glucose (75-100) mg/dL POC Glucose 418 H 462 H > 500 H (70-105) mg/dL Calcium (8.4-10.2) mg/dL AST (5-40) units/L ALT (7-56) units/L Total Protein (6.3-8.2) g/dL Albumin (3.9-5) g/dL Arterial Blood Glucose (65-95) mg/dL Arterial Blood Ionized Calcium (4.6-5.3) mg/dL Urine Creatinine (0.1-20.0) mg/dL Urine Total Protein (5-11.8) mg/dL 12/30/19 12/30/19 12/30/19 Range/Units 11:23 12:19 Unknown WBC 20.6 H (4.5-11.0) K/mm3 RBC 3.61 L (3.65-5.03) M/mm3 Hgb (11.8-15.2) gm/dl Hct (35.5-45.6) % MCV 101 H (84-94) fl MCH 33 H (28-32) pg RDW 16.1 H (13.2-15.2) % Plt Count 8 L* (140-440) K/mm3 Lymph % (Auto) 2.0 L (13.4-35.0) % Lymph # (Auto) 0.4 L (1.2-5.4) K/mm3 Seg Neuts % (Manual) (40.0-70.0) % Lymphocytes % (Manual) (13.4-35.0) % Nucleated RBC % (0.0-0.9) % Seg Neutrophils # 19.5 H (1.8-7.7) K/mm3 Seg Neutrophils # Man (1.8-7.7) K/mm3 Lymphocytes # (Manual) (1.2-5.4) K/mm3 Heparin Anti-Xa Level (0.3-0.7) U.I./ml ABG pH (7.320-7.450) POC ABG pCO2 (32.0-48.0) mmHg POC ABG pO2 (83-108) mmHg ABG Oxyhemoglobin (94-98) ABG Sodium (136.0-145.0) mmol/L ABG Glucose (65-95) mg/dL Sodium (137-145) mmol/L Potassium (3.6-5.0) mmol/L Chloride (98-107) mmol/L Carbon Dioxide (22-30) mmol/L BUN (9-20) mg/dL Creatinine (0.8-1.3) mg/dL Glucose (75-100) mg/dL POC Glucose 454 H 446 H (70-105) mg/dL Calcium (8.4-10.2) mg/dL AST (5-40) units/L ALT (7-56) units/L Total Protein (6.3-8.2) g/dL Albumin (3.9-5) g/dL Arterial Blood Glucose (65-95) mg/dL Arterial Blood Ionized Calcium (4.6-5.3) mg/dL Urine Creatinine (0.1-20.0) mg/dL Urine Total Protein (5-11.8) mg/dL 12/30/19 Range/Units Unknown WBC (4.5-11.0) K/mm3 RBC (3.65-5.03) M/mm3 Hgb (11.8-15.2) gm/dl Hct (35.5-45.6) % MCV (84-94) fl MCH (28-32) pg RDW (13.2-15.2) % Plt Count (140-440) K/mm3 Lymph % (Auto) (13.4-35.0) % Lymph # (Auto) (1.2-5.4) K/mm3 Seg Neuts % (Manual) (40.0-70.0) % Lymphocytes % (Manual) (13.4-35.0) % Nucleated RBC % (0.0-0.9) % Seg Neutrophils # (1.8-7.7) K/mm3 Seg Neutrophils # Man (1.8-7.7) K/mm3 Lymphocytes # (Manual) (1.2-5.4) K/mm3 Heparin Anti-Xa Level (0.3-0.7) U.I./ml ABG pH (7.320-7.450) POC ABG pCO2 (32.0-48.0) mmHg POC ABG pO2 (83-108) mmHg ABG Oxyhemoglobin (94-98) ABG Sodium (136.0-145.0) mmol/L ABG Glucose (65-95) mg/dL Sodium 136 L (137-145) mmol/L Potassium 3.2 L (3.6-5.0) mmol/L Chloride (98-107) mmol/L Carbon Dioxide 14 L (22-30) mmol/L BUN 75 H (9-20) mg/dL Creatinine 4.3 H (0.8-1.3) mg/dL Glucose 625 H* (75-100) mg/dL POC Glucose (70-105) mg/dL Calcium 6.9 L (8.4-10.2) mg/dL AST 129 H (5-40) units/L ALT 150 H (7-56) units/L Total Protein 4.5 L D (6.3-8.2) g/dL Albumin 2.4 L (3.9-5) g/dL Arterial Blood Glucose (65-95) mg/dL Arterial Blood Ionized Calcium (4.6-5.3) mg/dL Urine Creatinine (0.1-20.0) mg/dL Urine Total Protein (5-11.8) mg/dL
--- NOTE | 2019-12-30 14:24 | Progress Note ---
Assessment and Plan Acute hypoxemic & hypercapnic respiratory failure on MVS ARDS PUI COVID-19 infection. Bilateral pneumonia. Acute encephalopathy, possibly anoxic. DM II IVAN Morbid obesity. Leukocytosis. Lactic acidosis. Elevated inflammatory markers to include ferritin and D-dimer levels. Elevated serum transaminases. Oropharyngeal dysphagia. History of a groin abscess recently. - IV insulin drip started - tapered systemic steroids (COVID -ve and no wheezing) - transfuse 1 unit platelet pack - IV heparin stopped - send HIT assay - EEG with slowing - too unstable to transfer for CT brain or MRI - continue to hyperventilate acutely re: severe metabolic acidosis - continue inotropic support at 5 mics/kg/min fixed dose Dobutamine - volume resuscitation per ampoule inspector - neurology evaluation ongoing - wean vasopressors for target MAP > 65 mmHg - prognosis guarded in particular for neurologic recovery - continue care as below otherwise; - cardiology evaluation ongoing - Azotemia per nephrology - 2D ECHO shows HFrEF of 20-25% - continue empiric Keppra - neurology consultation - continue to wean supplemental oxygen for target O2 sat's > 92% acutely - keep set rate at 30 for now - repeat ABG in am and address MV - Daily SAT's and SBT assessment as tolerated - VAP bundle addressed - continue lung protective strategies - continue bronchodilators with pulmonary hygiene per RT - wean per pulmonary driven protocols otherwise - continue accuchecks with glycemic control per SSI (While critically ill target blood glucose of 140-180 mg/dL; avoid hypoglycemia) - sedation prn for target RASS 0 to -1 - avoid nephrotoxins, renally dose all medications - continue to avoid benzodiazepine's, reduce the possibility of delirium - continue COVID-19 isolation - follow repeat COVID-19 test result - continue antiinfective's per ID rec's - prn analgesia per CPOT score - Maintenance of sleep-wake cycle, avoid delirium - enteral nutritional support at goal rate as tolerated - G.I. & VTE prophylaxis - PT/OT/ROM exercises - continue mobility protocols for pressure ulcer prophylaxis - Monitor hemodynamics closely - continue other care per attending / other consultants - discharge planning ongoing concurrently .... Re-evaluate in am & prn CONDITION: CRITICAL PROGNOSIS: GUARDED CODE STATUS: FULL CODE The high probability of a clinically significant, sudden or life-threatening deterioration of the [respiratory, cardiovascular & neurologic] system(s) required my full and direct attention, intervention and personal management. The aggregate critical care time was [36] minutes without overlap. Time includes spent on; [x] Data Review and interpretation [x] Patient assessment and monitoring of vital signs [x] Documentation [x] Medication orders and management Subjective Date of service: 12/30/19 Principal diagnosis: Acute hypoxemic & hypercapnic resp failure; ARDS; PUI COVID-19; PNA Interval history: Patient is seen today for: Acute hypoxemic & hypercapnic respiratory failure; ARDS; PUI COVID-19 infection; Bilateral pneumonia; Acute encephalopathy, possibly anoxic; DM II; IVAN; Morbid obesity; Lactic acidosis. Seen and examined at bedside; 24hour events reviewed; nursing and respiratory care staff consulted; no adverse overnight events reported to me; resting peacefully in bed; remains on MVS; AMs is persistent; multipole metabolic abnormalities today; hyperglycemic, hypocalcemic, thrombocytopenic; remains on multiple vasopressors but MAP's > 65 mmHg; no gross bleeding Objective Vital Signs - 12hr 12/30/19 12/30/19 12/30/19 02:30 02:45 03:00 Temperature Pulse Rate 117 H 117 H 115 H Pulse Rate [ Anterior Bilateral Throughout] Respiratory 21 16 28 H Rate Respiratory Rate [Anterior Bilateral Throughout] Blood Pressure 110/91 117/80 119/70 O2 Sat by Pulse 90 92 92 Oximetry 12/30/19 12/30/19 12/30/19 03:15 03:30 03:36 Temperature 97.4 F L Pulse Rate 116 H 116 H Pulse Rate [ Anterior Bilateral Throughout] Respiratory 14 20 Rate Respiratory Rate [Anterior Bilateral Throughout] Blood Pressure 108/74 113/72 O2 Sat by Pulse 91 90 Oximetry 12/30/19 12/30/19 12/30/19 03:45 04:00 04:15 Temperature Pulse Rate 116 H 120 H 117 H Pulse Rate [ Anterior Bilateral Throughout] Respiratory 21 20 18 Rate Respiratory Rate [Anterior Bilateral Throughout] Blood Pressure 110/67 102/61 115/69 O2 Sat by Pulse 89 89 91 Oximetry 12/30/19 12/30/19 12/30/19 04:30 04:45 05:00 Temperature Pulse Rate 117 H 118 H 119 H Pulse Rate [ Anterior Bilateral Throughout] Respiratory 21 24 20 Rate Respiratory Rate [Anterior Bilateral Throughout] Blood Pressure 104/67 106/61 102/61 O2 Sat by Pulse 89 88 88 Oximetry 12/30/19 12/30/19 12/30/19 05:15 05:30 05:45 Temperature Pulse Rate 119 H 117 H 121 H Pulse Rate [ Anterior Bilateral Throughout] Respiratory 18 30 H 30 H Rate Respiratory Rate [Anterior Bilateral Throughout] Blood Pressure 103/58 89/55 109/64 O2 Sat by Pulse 88 85 91 Oximetry 12/30/19 12/30/19 12/30/19 06:00 06:15 06:30 Temperature Pulse Rate 118 H 118 H 114 H Pulse Rate [ Anterior Bilateral Throughout] Respiratory 30 H 30 H 30 H Rate Respiratory Rate [Anterior Bilateral Throughout] Blood Pressure 99/52 97/49 85/47 O2 Sat by Pulse 94 90 88 Oximetry 12/30/19 12/30/19 12/30/19 06:45 07:00 07:15 Temperature Pulse Rate 109 H 116 H 120 H Pulse Rate [ Anterior Bilateral Throughout] Respiratory 30 H 30 H 30 H Rate Respiratory Rate [Anterior Bilateral Throughout] Blood Pressure 93/44 89/49 96/62 O2 Sat by Pulse 82 L 87 86 Oximetry 12/30/19 12/30/19 12/30/19 07:30 07:45 07:56 Temperature Pulse Rate 119 H 122 H 120 H Pulse Rate [ Anterior Bilateral Throughout] Respiratory 30 H 35 H Rate Respiratory Rate [Anterior Bilateral Throughout] Blood Pressure 101/53 117/68 96/62 O2 Sat by Pulse 83 L 90 92 Oximetry 12/30/19 12/30/19 12/30/19 08:00 08:06 08:15 Temperature Pulse Rate 122 H 122 H Pulse Rate [ 116 H Anterior Bilateral Throughout] Respiratory 35 H 23 Rate Respiratory 30 H Rate [Anterior Bilateral Throughout] Blood Pressure 114/58 116/67 O2 Sat by Pulse 90 90 Oximetry 12/30/19 12/30/19 12/30/19 08:30 08:45 09:00 Temperature Pulse Rate 123 H 122 H 122 H Pulse Rate [ Anterior Bilateral Throughout] Respiratory 24 29 H 31 H Rate Respiratory Rate [Anterior Bilateral Throughout] Blood Pressure 120/67 127/72 132/76 O2 Sat by Pulse 91 92 93 Oximetry 12/30/19 12/30/19 12/30/19 09:15 09:30 09:45 Temperature Pulse Rate 121 H 121 H 121 H Pulse Rate [ Anterior Bilateral Throughout] Respiratory 30 H 23 26 H Rate Respiratory Rate [Anterior Bilateral Throughout] Blood Pressure 129/73 130/76 123/79 O2 Sat by Pulse 92 92 89 Oximetry 12/30/19 12/30/19 12/30/19 10:00 10:15 10:30 Temperature Pulse Rate 120 H 118 H 119 H Pulse Rate [ Anterior Bilateral Throughout] Respiratory 24 28 H 28 H Rate Respiratory Rate [Anterior Bilateral Throughout] Blood Pressure 118/77 114/77 114/77 O2 Sat by Pulse 90 92 93 Oximetry 12/30/19 12/30/19 12/30/19 10:45 11:00 11:15 Temperature Pulse Rate 119 H 119 H 117 H Pulse Rate [ Anterior Bilateral Throughout] Respiratory 16 22 24 Rate Respiratory Rate [Anterior Bilateral Throughout] Blood Pressure 113/74 109/64 101/62 O2 Sat by Pulse 92 90 87 Oximetry 12/30/19 12/30/19 12/30/19 11:30 11:40 11:45 Temperature Pulse Rate 119 H 126 H 119 H Pulse Rate [ Anterior Bilateral Throughout] Respiratory 16 14 Rate Respiratory Rate [Anterior Bilateral Throughout] Blood Pressure 108/63 96/62 110/70 O2 Sat by Pulse 87 91 89 Oximetry 12/30/19 12/30/19 12/30/19 12:00 12:15 12:30 Temperature Pulse Rate 119 H 119 H 119 H Pulse Rate [ Anterior Bilateral Throughout] Respiratory 25 H 22 20 Rate Respiratory Rate [Anterior Bilateral Throughout] Blood Pressure 101/59 111/62 102/56 O2 Sat by Pulse 87 89 87 Oximetry 12/30/19 12/30/19 12/30/19 12:45 13:00 13:08 Temperature Pulse Rate 111 H 120 H Pulse Rate [ 119 H Anterior Bilateral Throughout] Respiratory 25 H 25 H Rate Respiratory 30 H Rate [Anterior Bilateral Throughout] Blood Pressure 89/62 109/68 O2 Sat by Pulse 82 L 89 Oximetry 12/30/19 13:15 Temperature Pulse Rate 118 H Pulse Rate [ Anterior Bilateral Throughout] Respiratory 19 Rate Respiratory Rate [Anterior Bilateral Throughout] Blood Pressure 115/67 O2 Sat by Pulse 91 Oximetry Constitutional: no acute distress, other (young obese male with mildly increased respiratory effort at rest on MVS ) Eyes: non-icteric ENT: oropharynx moist, other (ETT 24 cm JOHAN) Neck: supple, no lymphadenopathy, no JVD, other (large neck circumference) Effort: normal Ascultation: Bilateral: diminished breath sounds, rhonchi (scant) Percussion: Bilateral: not dull Cardiovascular: regular rate and rhythm Gastrointestinal: normoactive bowel sounds, soft, non-tender, non-distended (protuberant) Integumentary: rash (stasis dermatitis) Extremities: no cyanosis, no edema, no ischemia or petechiae, anasarca (mild) Neurologic: pupils equal and round (5-6 mm and non reactive), unable to assess, other (sedated) Psychiatric: other (sedated) CBC and BMP: 12/30/19 Unknown 12/30/19 Unknown ABG, PT/INR, D-dimer: ABG ABG pH 7.249 (7.320-7.450) L 12/30/19 04:15 POC ABG pCO2 31.8 mmHg (32.0-48.0) L 12/30/19 04:15 ABG pCO2 35.3 mm Hg 12/29/19 03:41 POC ABG pO2 69.2 mmHg (83-108) L 12/30/19 04:15 ABG pO2 64.4 mm Hg (80.0-90.0) L 12/29/19 03:41 POC ABG HCO3 13.6 12/30/19 04:15 ABG O2 Saturation 89.7 % (95.0-99.0) L 12/29/19 03:41 PT/INR, D-dimer PT 14.1 Sec. (12.2-14.9) 12/26/19 18:31 INR 1.08 (0.87-1.13) 12/26/19 18:31 D-Dimer 6498.49 ng/mlDDU (0-234) H 12/26/19 16:50 Abnormal lab findings: Abnormal Labs 12/26/19 12/26/19 12/26/19 15:57 16:13 16:13 WBC 23.7 H RBC Hgb Hct 45.7 H MCV 102 H MCH 34 H RDW Plt Count Lymph % (Auto) Lymph # (Auto) Seg Neuts % (Manual) 80.0 H Lymphocytes % (Manual) Nucleated RBC % Seg Neutrophils # Seg Neutrophils # Man 19.0 H Lymphocytes # (Manual) Eosinophils # (Manual) 0.5 H D-Dimer 5221.01 H Heparin Anti-Xa Level ABG pH 7.109 L* POC ABG pCO2 POC ABG pO2 ABG pO2 101.4 H ABG HCO3 16.3 L ABG O2 Saturation ABG Base Excess -13.4 L ABG Hemoglobin ABG Oxyhemoglobin ABG Sodium ABG Chloride ABG Glucose Oxyhemoglobin 93.3 L Sodium Potassium Chloride Carbon Dioxide BUN Creatinine Glucose POC Glucose Lactic Acid Calcium Magnesium Ferritin AST ALT Lactate Dehydrogenase Total Creatine Kinase NT-Pro-B Natriuret Pep Total Protein Albumin Arterial Blood Glucose Arterial Blood Ionized Calcium Urine WBC (Auto) Urine Creatinine Urine Total Protein 12/26/19 12/26/19 12/26/19 16:13 16:13 16:13 WBC RBC Hgb Hct MCV MCH RDW Plt Count Lymph % (Auto) Lymph # (Auto) Seg Neuts % (Manual) Lymphocytes % (Manual) Nucleated RBC % Seg Neutrophils # Seg Neutrophils # Man Lymphocytes # (Manual) Eosinophils # (Manual) D-Dimer Heparin Anti-Xa Level ABG pH POC ABG pCO2 POC ABG pO2 ABG pO2 ABG HCO3 ABG O2 Saturation ABG Base Excess ABG Hemoglobin ABG Oxyhemoglobin ABG Sodium ABG Chloride ABG Glucose Oxyhemoglobin Sodium Potassium Chloride Carbon Dioxide 15 L BUN Creatinine Glucose 268 H POC Glucose Lactic Acid Calcium Magnesium 2.60 H Ferritin AST 177 H ALT 108 H Lactate Dehydrogenase Total Creatine Kinase 191 H NT-Pro-B Natriuret Pep 1766 H Total Protein Albumin Arterial Blood Glucose Arterial Blood Ionized Calcium Urine WBC (Auto) Urine Creatinine Urine Total Protein 12/26/19 12/26/19 12/26/19 16:13 16:50 16:50 WBC RBC Hgb Hct MCV MCH RDW Plt Count Lymph % (Auto) Lymph # (Auto) Seg Neuts % (Manual) Lymphocytes % (Manual) Nucleated RBC % Seg Neutrophils # Seg Neutrophils # Man Lymphocytes # (Manual) Eosinophils # (Manual) D-Dimer Heparin Anti-Xa Level ABG pH POC ABG pCO2 POC ABG pO2 ABG pO2 ABG HCO3 ABG O2 Saturation ABG Base Excess ABG Hemoglobin ABG Oxyhemoglobin ABG Sodium ABG Chloride ABG Glucose Oxyhemoglobin Sodium Potassium Chloride Carbon Dioxide BUN Creatinine Glucose 273 H POC Glucose Lactic Acid 7.70 H* Calcium Magnesium Ferritin 1248.0 H AST ALT Lactate Dehydrogenase 443 H Total Creatine Kinase NT-Pro-B Natriuret Pep Total Protein Albumin Arterial Blood Glucose Arterial Blood Ionized Calcium Urine WBC (Auto) Urine Creatinine Urine Total Protein 12/26/19 12/26/1920 16:50 17:02 18:42 WBC RBC Hgb Hct MCV MCH RDW Plt Count Lymph % (Auto) Lymph # (Auto) Seg Neuts % (Manual) Lymphocytes % (Manual) Nucleated RBC % Seg Neutrophils # Seg Neutrophils # Man Lymphocytes # (Manual) Eosinophils # (Manual) D-Dimer 6498.49 H Heparin Anti-Xa Level ABG pH 7.136 L* POC ABG pCO2 POC ABG pO2 ABG pO2 63.9 L ABG HCO3 ABG O2 Saturation 81.8 L ABG Base Excess -9.6 L ABG Hemoglobin ABG Oxyhemoglobin ABG Sodium ABG Chloride ABG Glucose Oxyhemoglobin 79.8 L Sodium Potassium Chloride Carbon Dioxide BUN Creatinine Glucose POC Glucose Lactic Acid 3.20 H* Calcium Magnesium Ferritin AST ALT Lactate Dehydrogenase Total Creatine Kinase NT-Pro-B Natriuret Pep Total Protein Albumin Arterial Blood Glucose Arterial Blood Ionized Calcium Urine WBC (Auto) Urine Creatinine Urine Total Protein 12/26/19 12/26/19 12/26/19 19:56 20:40 21:29 WBC RBC Hgb Hct MCV MCH RDW Plt Count Lymph % (Auto) Lymph # (Auto) Seg Neuts % (Manual) Lymphocytes % (Manual) Nucleated RBC % Seg Neutrophils # Seg Neutrophils # Man Lymphocytes # (Manual) Eosinophils # (Manual) D-Dimer Heparin Anti-Xa Level ABG pH 7.259 L POC ABG pCO2 POC ABG pO2 ABG pO2 70.4 L ABG HCO3 ABG O2 Saturation 92.3 L ABG Base Excess -6.7 L ABG Hemoglobin ABG Oxyhemoglobin ABG Sodium ABG Chloride ABG Glucose Oxyhemoglobin 90.2 L Sodium Potassium Chloride Carbon Dioxide BUN Creatinine Glucose POC Glucose Lactic Acid 3.40 H* 4.40 H* Calcium Magnesium Ferritin AST ALT Lactate Dehydrogenase Total Creatine Kinase NT-Pro-B Natriuret Pep Total Protein Albumin Arterial Blood Glucose Arterial Blood Ionized Calcium Urine WBC (Auto) Urine Creatinine Urine Total Protein 12/26/19 12/26/19 12/27/19 23:00 Unknown 01:52 WBC RBC Hgb Hct MCV MCH RDW Plt Count Lymph % (Auto) Lymph # (Auto) Seg Neuts % (Manual) Lymphocytes % (Manual) Nucleated RBC % Seg Neutrophils # Seg Neutrophils # Man Lymphocytes # (Manual) Eosinophils # (Manual) D-Dimer Heparin Anti-Xa Level ABG pH POC ABG pCO2 POC ABG pO2 ABG pO2 ABG HCO3 ABG O2 Saturation ABG Base Excess ABG Hemoglobin ABG Oxyhemoglobin ABG Sodium ABG Chloride ABG Glucose Oxyhemoglobin Sodium Potassium Chloride Carbon Dioxide BUN Creatinine Glucose POC Glucose Lactic Acid 3.60 H* 4.20 H* Calcium Magnesium Ferritin AST ALT Lactate Dehydrogenase Total Creatine Kinase NT-Pro-B Natriuret Pep Total Protein Albumin Arterial Blood Glucose Arterial Blood Ionized Calcium Urine WBC (Auto) 146.0 H Urine Creatinine Urine Total Protein 12/27/19 12/27/19 12/27/19 03:45 04:49 04:49 WBC RBC Hgb Hct MCV MCH RDW Plt Count Lymph % (Auto) Lymph # (Auto) Seg Neuts % (Manual) Lymphocytes % (Manual) Nucleated RBC % Seg Neutrophils # Seg Neutrophils # Man Lymphocytes # (Manual) Eosinophils # (Manual) D-Dimer Heparin Anti-Xa Level 0.23 L ABG pH POC ABG pCO2 POC ABG pO2 ABG pO2 ABG HCO3 18.7 L ABG O2 Saturation ABG Base Excess -5.8 L ABG Hemoglobin ABG Oxyhemoglobin ABG Sodium ABG Chloride ABG Glucose Oxyhemoglobin Sodium Potassium Chloride Carbon Dioxide BUN Creatinine Glucose POC Glucose Lactic Acid 2.20 H* Calcium Magnesium Ferritin AST ALT Lactate Dehydrogenase Total Creatine Kinase NT-Pro-B Natriuret Pep Total Protein Albumin Arterial Blood Glucose Arterial Blood Ionized Calcium Urine WBC (Auto) Urine Creatinine Urine Total Protein 12/28/19 12/28/19 12/28/19 05:05 09:58 14:30 WBC RBC Hgb Hct MCV MCH RDW Plt Count Lymph % (Auto) Lymph # (Auto) Seg Neuts % (Manual) Lymphocytes % (Manual) Nucleated RBC % Seg Neutrophils # Seg Neutrophils # Man Lymphocytes # (Manual) Eosinophils # (Manual) D-Dimer Heparin Anti-Xa Level ABG pH POC ABG pCO2 POC ABG pO2 ABG pO2 113.7 H ABG HCO3 18.6 L ABG O2 Saturation ABG Base Excess -5.6 L ABG Hemoglobin ABG Oxyhemoglobin ABG Sodium ABG Chloride ABG Glucose Oxyhemoglobin Sodium Potassium Chloride 108.4 H Carbon Dioxide 16 L BUN 39 H Creatinine 2.3 H D Glucose 380 H POC Glucose 268 H Lactic Acid Calcium Magnesium Ferritin AST ALT Lactate Dehydrogenase Total Creatine Kinase NT-Pro-B Natriuret Pep Total Protein Albumin Arterial Blood Glucose Arterial Blood Ionized Calcium Urine WBC (Auto) Urine Creatinine Urine Total Protein 12/29/19 12/29/19 12/29/19 03:41 11:01 11:31 WBC RBC Hgb Hct MCV MCH RDW Plt Count Lymph % (Auto) Lymph # (Auto) Seg Neuts % (Manual) Lymphocytes % (Manual) Nucleated RBC % Seg Neutrophils # Seg Neutrophils # Man Lymphocytes # (Manual) Eosinophils # (Manual) D-Dimer Heparin Anti-Xa Level ABG pH 7.198 L* 7.147 L POC ABG pCO2 POC ABG pO2 48.9 L ABG pO2 64.4 L ABG HCO3 13.4 L ABG O2 Saturation 89.7 L ABG Base Excess -13.6 L ABG Hemoglobin 13.8 L ABG Oxyhemoglobin 78.4 L ABG Sodium ABG Chloride 108.0 H ABG Glucose 544 H Oxyhemoglobin 87.5 L Sodium Potassium Chloride Carbon Dioxide BUN Creatinine Glucose POC Glucose 433 H Lactic Acid Calcium Magnesium Ferritin AST ALT Lactate Dehydrogenase Total Creatine Kinase NT-Pro-B Natriuret Pep Total Protein Albumin Arterial Blood Glucose 544 H Arterial Blood Ionized Calcium Urine WBC (Auto) Urine Creatinine Urine Total Protein 12/29/19 12/29/19 12/29/19 12:25 16:14 16:14 WBC RBC Hgb Hct MCV MCH RDW Plt Count Lymph % (Auto) Lymph # (Auto) Seg Neuts % (Manual) Lymphocytes % (Manual) Nucleated RBC % Seg Neutrophils # Seg Neutrophils # Man Lymphocytes # (Manual) Eosinophils # (Manual) D-Dimer Heparin Anti-Xa Level 1.37 H ABG pH POC ABG pCO2 POC ABG pO2 ABG pO2 ABG HCO3 ABG O2 Saturation ABG Base Excess ABG Hemoglobin ABG Oxyhemoglobin ABG Sodium ABG Chloride ABG Glucose Oxyhemoglobin Sodium Potassium 3.3 L D Chloride Carbon Dioxide 17 L BUN 69 H Creatinine 4.2 H D Glucose 527 H* POC Glucose 426 H Lactic Acid Calcium 7.7 L Magnesium Ferritin AST ALT Lactate Dehydrogenase Total Creatine Kinase NT-Pro-B Natriuret Pep Total Protein Albumin Arterial Blood Glucose Arterial Blood Ionized Calcium Urine WBC (Auto) Urine Creatinine Urine Total Protein 12/29/19 12/29/19 12/29/19 18:41 20:17 22:15 WBC RBC Hgb Hct MCV MCH RDW Plt Count Lymph % (Auto) Lymph # (Auto) Seg Neuts % (Manual) Lymphocytes % (Manual) Nucleated RBC % Seg Neutrophils # Seg Neutrophils # Man Lymphocytes # (Manual) Eosinophils # (Manual) D-Dimer Heparin Anti-Xa Level ABG pH 7.246 L POC ABG pCO2 30.5 L POC ABG pO2 73.6 L ABG pO2 ABG HCO3 ABG O2 Saturation ABG Base Excess ABG Hemoglobin ABG Oxyhemoglobin 93.0 L ABG Sodium 135.8 L ABG Chloride ABG Glucose 534 H Oxyhemoglobin Sodium Potassium Chloride Carbon Dioxide BUN Creatinine Glucose POC Glucose 449 H 422 H Lactic Acid Calcium Magnesium Ferritin AST ALT Lactate Dehydrogenase Total Creatine Kinase NT-Pro-B Natriuret Pep Total Protein Albumin Arterial Blood Glucose 534 H Arterial Blood Ionized Calcium Urine WBC (Auto) Urine Creatinine Urine Total Protein 12/29/19 12/29/19 12/29/19 23:40 Unknown Unknown WBC RBC Hgb Hct MCV MCH RDW Plt Count Lymph % (Auto) Lymph # (Auto) Seg Neuts % (Manual) Lymphocytes % (Manual) Nucleated RBC % Seg Neutrophils # Seg Neutrophils # Man Lymphocytes # (Manual) Eosinophils # (Manual) D-Dimer Heparin Anti-Xa Level ABG pH POC ABG pCO2 POC ABG pO2 ABG pO2 ABG HCO3 ABG O2 Saturation ABG Base Excess ABG Hemoglobin ABG Oxyhemoglobin ABG Sodium ABG Chloride ABG Glucose Oxyhemoglobin Sodium Potassium Chloride Carbon Dioxide BUN Creatinine Glucose POC Glucose 486 H Lactic Acid Calcium Magnesium Ferritin AST ALT Lactate Dehydrogenase Total Creatine Kinase NT-Pro-B Natriuret Pep Total Protein Albumin Arterial Blood Glucose Arterial Blood Ionized Calcium Urine WBC (Auto) 16.0 H Urine Creatinine 164.0 H Urine Total Protein 232 H 12/30/19 12/30/19 12/30/19 03:45 04:15 07:28 WBC RBC Hgb Hct MCV MCH RDW Plt Count Lymph % (Auto) Lymph # (Auto) Seg Neuts % (Manual) Lymphocytes % (Manual) Nucleated RBC % Seg Neutrophils # Seg Neutrophils # Man Lymphocytes # (Manual) Eosinophils # (Manual) D-Dimer Heparin Anti-Xa Level ABG pH 7.249 L POC ABG pCO2 31.8 L POC ABG pO2 69.2 L ABG pO2 ABG HCO3 ABG O2 Saturation ABG Base Excess ABG Hemoglobin ABG Oxyhemoglobin ABG Sodium 134.7 L ABG Chloride ABG Glucose 603 H Oxyhemoglobin Sodium 129 L D Potassium 2.9 L* Chloride 90.9 L Carbon Dioxide 31 H D BUN 66 H Creatinine 3.8 H Glucose 1120 H* POC Glucose 443 H Lactic Acid Calcium 5.2 L* D Magnesium Ferritin AST 125 H ALT 119 H Lactate Dehydrogenase Total Creatine Kinase NT-Pro-B Natriuret Pep Total Protein 3.4 L D Albumin 1.9 L Arterial Blood Glucose 603 H Arterial Blood Ionized Calcium 4.4 L Urine WBC (Auto) Urine Creatinine Urine Total Protein 12/30/19 12/30/19 12/30/19 07:28 08:04 10:30 WBC 20.2 H RBC 3.43 L Hgb 11.2 L Hct 35.0 L MCV 102 H MCH 33 H RDW 16.1 H Plt Count 5 L* Lymph % (Auto) Lymph # (Auto) Seg Neuts % (Manual) 97.0 H Lymphocytes % (Manual) 1.0 L Nucleated RBC % 3.0 H Seg Neutrophils # Seg Neutrophils # Man 19.6 H Lymphocytes # (Manual) 0.2 L Eosinophils # (Manual) D-Dimer Heparin Anti-Xa Level ABG pH POC ABG pCO2 POC ABG pO2 ABG pO2 ABG HCO3 ABG O2 Saturation ABG Base Excess ABG Hemoglobin ABG Oxyhemoglobin ABG Sodium ABG Chloride ABG Glucose Oxyhemoglobin Sodium Potassium Chloride Carbon Dioxide BUN Creatinine Glucose POC Glucose 418 H 462 H Lactic Acid Calcium Magnesium Ferritin AST ALT Lactate Dehydrogenase Total Creatine Kinase NT-Pro-B Natriuret Pep Total Protein Albumin Arterial Blood Glucose Arterial Blood Ionized Calcium Urine WBC (Auto) Urine Creatinine Urine Total Protein 12/30/19 12/30/19 12/30/19 10:38 11:23 12:19 WBC RBC Hgb Hct MCV MCH RDW Plt Count Lymph % (Auto) Lymph # (Auto) Seg Neuts % (Manual) Lymphocytes % (Manual) Nucleated RBC % Seg Neutrophils # Seg Neutrophils # Man Lymphocytes # (Manual) Eosinophils # (Manual) D-Dimer Heparin Anti-Xa Level ABG pH POC ABG pCO2 POC ABG pO2 ABG pO2 ABG HCO3 ABG O2 Saturation ABG Base Excess ABG Hemoglobin ABG Oxyhemoglobin ABG Sodium ABG Chloride ABG Glucose Oxyhemoglobin Sodium Potassium Chloride Carbon Dioxide BUN Creatinine Glucose POC Glucose > 500 H 454 H 446 H Lactic Acid Calcium Magnesium Ferritin AST ALT Lactate Dehydrogenase Total Creatine Kinase NT-Pro-B Natriuret Pep Total Protein Albumin Arterial Blood Glucose Arterial Blood Ionized Calcium Urine WBC (Auto) Urine Creatinine Urine Total Protein 12/30/19 12/30/19 12/30/19 12:40 Unknown Unknown WBC 20.6 H RBC 3.61 L Hgb Hct MCV 101 H MCH 33 H RDW 16.1 H Plt Count 8 L* Lymph % (Auto) 2.0 L Lymph # (Auto) 0.4 L Seg Neuts % (Manual) Lymphocytes % (Manual) Nucleated RBC % Seg Neutrophils # 19.5 H Seg Neutrophils # Man Lymphocytes # (Manual) Eosinophils # (Manual) D-Dimer Heparin Anti-Xa Level ABG pH POC ABG pCO2 POC ABG pO2 ABG pO2 ABG HCO3 ABG O2 Saturation ABG Base Excess ABG Hemoglobin ABG Oxyhemoglobin ABG Sodium ABG Chloride ABG Glucose Oxyhemoglobin Sodium 136 L Potassium > 9.0 H* D 3.2 L Chloride Carbon Dioxide 14 L BUN 75 H Creatinine 4.3 H Glucose 625 H* POC Glucose Lactic Acid Calcium 6.9 L Magnesium Ferritin AST 129 H ALT 150 H Lactate Dehydrogenase Total Creatine Kinase NT-Pro-B Natriuret Pep Total Protein 4.5 L D Albumin 2.4 L Arterial Blood Glucose Arterial Blood Ionized Calcium Urine WBC (Auto) Urine Creatinine Urine Total Protein Chest x-ray: image reviewed (mild interstitial edema) Allied health notes reviewed: nursing
--- NOTE | 2019-12-30 14:48 | Event Note ---
Date: 12/30/19 serum K+ of 9.0 reported by lab - RN asked to notify donor support technician - stat repeat - 2 amps NaHCO3 IVP - 1 amp calcium gluconate IVP - stat 12 lead EKG
[2019-12-30] MEDS ORDERED: SODIUM BICARB 8.4% 50 MEQ/50 ML SYRINGE IV ONE (15:00)
[2019-12-30] MEDS ORDERED: CALCIUM GLUCONATE 1,000 MG in SODIUM CHLORIDE 0.9% 100 ML IV ONE (15:00)
[2019-12-30 15:09] LABS: Calcium 6.6 mg/dL (8.4-10.2)
--- NOTE | 2019-12-30 15:47 | Event Note ---
Date: 12/30/19 34 year old male found down in cardiac arrest found to have ARF with hyperkalemia with platelet count of 5 with request for vascath. Discussed the situation with pulmonology. BMI is 48.8 making femoral vascath placement not possible. Platelet count of 5 makes jugular placement at moderate risk of developing neck hematoma which can cause serious morbidity/mortality. Also neurologic status is questionable at best. Overall, very bad prognosis.
--- NOTE | 2019-12-30 16:13 | Event Note ---
Date: 12/30/19 repeat serum K+ was 6.6 he remains on IV insulin drip and has received cardio-protective medications 12 lead EKG without evidence of significant hyperkalemia unfortunately also await [facility] [place] - will hold on Vascath placement today and manage medically - placement s/p platelet transfusion
[2019-12-30] MEDS ORDERED: SODIUM CHLORIDE 0.9% 500 ML 500 ML IV SCH (16:30)
[2019-12-30 17:23] LABS: Hepatitis B Surface Antigen Non-Reactive (Negative); Hepatitis C Virus Antibody Non-Reactive (NonReactive)
[2019-12-30] MEDS: dexAMETHasone 4 MG/ML VIAL IV SCH (21:35)
[2019-12-30 21:39] LABS: ABG HCO3 17.6 mmol/L (20.0-26.0); ABG Methemoglobin 0.5 % (0.0-1.5); ABG PCO2 35.9 mm Hg; ABG PH 7.308 pH Units (7.350-7.450); ABG PO2 61.8 mm Hg (80.0-90.0)
--- NOTE | 2019-12-30 22:15 | Progress Note ---
Assessment and Plan The high probability of a clinically significant, sudden or life threatening deterioration of the [neuro, cardiac, pulmonary, renal, infectious disease] system(s) required my full and direct attention, intervention and personal management. The aggregate critical care time was [40] minutes. This time is in addition to time spent performing reported procedures but includes the following: [x] Data Review and interpretation [x] Patient assessment and monitoring of vital signs [x] Documentation [x] Medication orders and management -- Sepsis Current Visit: Yes Status: Acute Qualifiers: Severe sepsis acute organ dysfunction type: acute respiratory failure Plan to address problem: IV antibiotics and IV fluids Poor prognosis --Acute hypoxemic respiratory failure Current Visit: Yes Status: Acute Plan to address problem: Continue vent support. Unable to wean Acute kidney injury secondary to ATN Needs emergent hemodialysis Patient has thrombocytopenia with platelet count of 5000 Transfuse platelets Hyperkalemia treated with sodium bicarbonate drip and calcium gluconate Hyperosmolar nonketotic state Patient on IV insulin Pneumonia Current Visit: Yes Status: Acute Plan to address problem: Pneumonia protocol: Chest x-ray, CBC, CMP, IV antibiotic therapy, pulse oximetry, blood cultures. -- Toxic metabolic encephalopathy Current Visit: Yes Status: Acute Plan to address problem: CBC, CMP, treat sepsis, serial lactic acid level. --Cardiopulmonary arrest with successful resuscitation Current Visit: Yes Status: Acute Plan to address problem: Patient treated in accordance with ACLS protocol with eventual return of perfusing cardiac rhythm. Therapeutic anticoagulation as per critical care team. (7) Metabolic acidosis Current Visit: Yes Status: Acute Plan to address problem: IV bicarbonate therapy, BMP, repeat BMP in a.m., serial lactic acid levels. --Cardiomyopathy Current Visit: Yes Status: Acute Qualifiers: Cardiomyopathy type: unspecified Qualified Code(s): I42.9 - Cardiomyopathy, unspecified Plan to address problem: Ejection fraction of 20 to 25%, cardiomyopathy with diastolic dysfunction (9) DVT prophylaxis Current Visit: Yes Status: Acute Plan to address problem: SCD to bilateral lower extremities evaluate bed, continue therapeutic anticoagulation Discussed with mother at [phone] and [phone] about the prognosis Explained to mother about anoxic encephalopathy renal failure sepsis, cardiomyopathy and cardiac arrest at the time of admission Subjective Date of service: 12/30/19 Principal diagnosis: Acute hypoxemic & hypercapnic resp failure; ARDS; PUI COVID-19; PNA Interval history: 34 YO Male with Obesity Hypoventilation Syndrome, DM presents to ED for evaluati on. Patient is intubated and on ventilatory support at the time of my evaluation and is unable to provide history. Patient history taken from EMS staff, ED staff, as well as the patient's family who is available by phone to discuss patient history. EMS was notified after the patient was found unr esponsive in his vehicle in the parking lot of a local motel. EMS was notified and upon arrival the patient was found to be in respiratory distress with a pulse oximetry of 70%. Patient was treated with IV steroid therapy nebulizer therapy and transported to [facility] for further care and evaluation. Shortly after being placed in the EMS transport vehicle the patient became bradycardic and experienced cardiopulmonary arrest. The patient was treated with ACLS protocol with return of perfusing cardiac rhythm and was subsequently intubated in the field. Patient subsequently transported to [facility] for further care and evaluation of the aforementioned symptoms. Patient seen and evaluated in the emergency department. All lab and imaging studies reviewed. Patient found to have sepsis, acute hypoxemic respiratory failure, metabolic acidosis, toxic metabolic encephalopathy, bilateral pneumonia, as well as symptoms suggestive of coronavirus infection. Patient initiated on sepsis protocol and admitted to ICU. Coronavirus protocol initiated in the emergency department prior to my evaluation. No further history is obtainable. No prior admission for review. No medication listed at time of admission for reconciliation. 12/27/2019 : Mother Jefferson Balderrama at [phone] Patient apparently works for setting up [employer] Patient apparently set up a [employer] in [place] and return back to [place] Was apparently doing well until he was found unresponsive in his own vehicle As per mother there is no significant past medical history except for obesity hypoventilation syndrome 12/28/2019 Same condition No improvement Vent dependent Anoxic encephalopathy 12/29/2019 Same condition No improvement Vent dependent Decerebrate posturing 12/30/2019 Worsening condition High blood glucose levels High potassium level Worsening kidney function which may need dialysis Low platelet count Objective - Exam Narrative Exam: Patient is intubated and unresponsive - Constitutional Vitals: Vital Signs - 12hr 12/30/19 12/30/19 12/30/19 10:15 10:30 10:45 Temperature Pulse Rate 118 H 119 H 119 H Pulse Rate [ Anterior Bilateral Throughout] Respiratory 28 H 28 H 16 Rate Respiratory Rate [Anterior Bilateral Throughout] Blood Pressure 114/77 114/77 113/74 O2 Sat by Pulse 92 93 92 Oximetry 12/30/19 12/30/19 12/30/19 11:00 11:15 11:30 Temperature Pulse Rate 119 H 117 H 119 H Pulse Rate [ Anterior Bilateral Throughout] Respiratory 22 24 16 Rate Respiratory Rate [Anterior Bilateral Throughout] Blood Pressure 109/64 101/62 108/63 O2 Sat by Pulse 90 87 87 Oximetry 12/30/19 12/30/19 12/30/19 11:40 11:45 12:00 Temperature Pulse Rate 126 H 119 H 119 H Pulse Rate [ Anterior Bilateral Throughout] Respiratory 14 25 H Rate Respiratory Rate [Anterior Bilateral Throughout] Blood Pressure 96/62 110/70 101/59 O2 Sat by Pulse 91 89 87 Oximetry 12/30/19 12/30/19 12/30/19 12:15 12:30 12:45 Temperature Pulse Rate 119 H 119 H 111 H Pulse Rate [ Anterior Bilateral Throughout] Respiratory 22 20 25 H Rate Respiratory Rate [Anterior Bilateral Throughout] Blood Pressure 111/62 102/56 89/62 O2 Sat by Pulse 89 87 82 L Oximetry 12/30/19 12/30/19 12/30/19 13:00 13:08 13:15 Temperature Pulse Rate 120 H 118 H Pulse Rate [ 119 H Anterior Bilateral Throughout] Respiratory 25 H 19 Rate Respiratory 30 H Rate [Anterior Bilateral Throughout] Blood Pressure 109/68 115/67 O2 Sat by Pulse 89 91 Oximetry 12/30/19 12/30/19 12/30/19 13:30 13:45 14:00 Temperature Pulse Rate 119 H 121 H 123 H Pulse Rate [ Anterior Bilateral Throughout] Respiratory 25 H 30 H 35 H Rate Respiratory Rate [Anterior Bilateral Throughout] Blood Pressure 110/73 102/63 119/69 O2 Sat by Pulse 89 89 92 Oximetry 12/30/19 12/30/19 12/30/19 14:15 14:30 14:45 Temperature Pulse Rate 123 H 122 H 120 H Pulse Rate [ Anterior Bilateral Throughout] Respiratory 34 H 31 H 21 Rate Respiratory Rate [Anterior Bilateral Throughout] Blood Pressure 116/64 121/67 124/55 O2 Sat by Pulse 91 93 90 Oximetry 12/30/19 12/30/19 12/30/19 15:00 15:15 15:30 Temperature Pulse Rate 122 H 122 H 122 H Pulse Rate [ Anterior Bilateral Throughout] Respiratory 25 H 35 H 21 Rate Respiratory Rate [Anterior Bilateral Throughout] Blood Pressure 121/62 122/64 123/68 O2 Sat by Pulse 91 90 88 Oximetry 12/30/19 12/30/19 12/30/19 15:45 15:52 16:00 Temperature Pulse Rate 124 H 118 H 123 H Pulse Rate [ Anterior Bilateral Throughout] Respiratory 23 44 H Rate Respiratory Rate [Anterior Bilateral Throughout] Blood Pressure 137/78 115/67 128/71 O2 Sat by Pulse 91 91 89 Oximetry 12/30/19 12/30/19 12/30/19 16:15 16:30 16:45 Temperature Pulse Rate 123 H 123 H 119 H Pulse Rate [ Anterior Bilateral Throughout] Respiratory 40 H 34 H 28 H Rate Respiratory Rate [Anterior Bilateral Throughout] Blood Pressure 129/73 126/69 120/54 O2 Sat by Pulse 89 88 85 Oximetry 12/30/19 12/30/19 12/30/19 17:00 17:15 17:30 Temperature Pulse Rate 123 H 122 H 122 H Pulse Rate [ Anterior Bilateral Throughout] Respiratory 36 H 41 H 28 H Rate Respiratory Rate [Anterior Bilateral Throughout] Blood Pressure 145/91 130/72 131/76 O2 Sat by Pulse 90 89 89 Oximetry 12/30/19 12/30/19 12/30/19 17:45 18:00 18:15 Temperature Pulse Rate 122 H 122 H 121 H Pulse Rate [ Anterior Bilateral Throughout] Respiratory 31 H 29 H 29 H Rate Respiratory Rate [Anterior Bilateral Throughout] Blood Pressure 130/73 126/72 122/68 O2 Sat by Pulse 89 89 89 Oximetry 12/30/19 12/30/19 12/30/19 18:30 18:45 19:00 Temperature Pulse Rate 121 H 120 H 118 H Pulse Rate [ Anterior Bilateral Throughout] Respiratory 14 30 H 26 H Rate Respiratory Rate [Anterior Bilateral Throughout] Blood Pressure 99/43 134/107 116/64 O2 Sat by Pulse 90 91 92 Oximetry 12/30/19 12/30/19 12/30/19 19:15 19:30 19:45 Temperature Pulse Rate 119 H 120 H 120 H Pulse Rate [ Anterior Bilateral Throughout] Respiratory 31 H 25 H 20 Rate Respiratory Rate [Anterior Bilateral Throughout] Blood Pressure 112/69 117/69 119/65 O2 Sat by Pulse 93 93 93 Oximetry 12/30/19 12/30/19 12/30/19 20:00 20:15 20:28 Temperature 98.8 F Pulse Rate 120 H 119 H 119 H Pulse Rate [ Anterior Bilateral Throughout] Respiratory 22 21 Rate Respiratory Rate [Anterior Bilateral Throughout] Blood Pressure 122/70 127/68 122/71 O2 Sat by Pulse 93 91 90 Oximetry 12/30/19 12/30/19 20:30 20:36 Temperature Pulse Rate 119 H Pulse Rate [ 120 H Anterior Bilateral Throughout] Respiratory 25 H Rate Respiratory 30 H Rate [Anterior Bilateral Throughout] Blood Pressure 122/71 O2 Sat by Pulse 91 Oximetry General appearance: Present: well-nourished, obese - EENT Eyes: miosis Ears: bilateral: normal - Neck Neck: supple, normal ROM - Respiratory Respiratory effort: normal Respiratory: bilateral: CTA - Breasts Breasts: normal - Cardiovascular Heart rate: 98 Rhythm: regular Heart Sounds: Present: S1 & S2. Absent: gallop, rub Extremities: pulses intact, No edema, normal color - Gastrointestinal General gastrointestinal: Present: soft, non-tender, non-distended, normal bowel sounds - Genitourinary Male genitourinary: normal - Integumentary Integumentary: clear, warm, dry - Musculoskeletal Musculoskeletal: generalized weakness - Neurologic Neurologic: other (Unresponsive and not moving any of the extremities) - Psychiatric Psychiatric: memory intact, appropriate mood/affect, intact judgment & insight - Labs CBC & Chem 7: 12/31/19 08:50 12/31/19 08:50 Labs: Abnormal lab results 12/29/19 12/29/19 12/30/19 Range/Units 22:15 23:40 03:45 WBC (4.5-11.0) K/mm3 RBC (3.65-5.03) M/mm3 Hgb (11.8-15.2) gm/dl Hct (35.5-45.6) % MCV (84-94) fl MCH (28-32) pg RDW (13.2-15.2) % Plt Count (140-440) K/mm3 Lymph % (Auto) (13.4-35.0) % Lymph # (Auto) (1.2-5.4) K/mm3 Seg Neuts % (Manual) (40.0-70.0) % Lymphocytes % (Manual) (13.4-35.0) % Nucleated RBC % (0.0-0.9) % Seg Neutrophils # (1.8-7.7) K/mm3 Seg Neutrophils # Man (1.8-7.7) K/mm3 Lymphocytes # (Manual) (1.2-5.4) K/mm3 ABG pH 7.246 L (7.320-7.450) POC ABG pCO2 30.5 L (32.0-48.0) mmHg POC ABG pO2 73.6 L (83-108) mmHg ABG pO2 (80.0-90.0) mm Hg ABG HCO3 (20.0-26.0) mmol/L ABG O2 Saturation (95.0-99.0) % ABG Base Excess (-2.0-3.0) mmol/L ABG Hemoglobin (14.0-18.0) gm/dl ABG Oxyhemoglobin 93.0 L (94-98) ABG Sodium 135.8 L (136.0-145.0) mmol/L ABG Glucose 534 H (65-95) mg/dL Oxyhemoglobin (95.0-99.0) % Sodium (137-145) mmol/L Potassium (3.6-5.0) mmol/L Chloride (98-107) mmol/L Carbon Dioxide (22-30) mmol/L BUN (9-20) mg/dL Creatinine (0.8-1.3) mg/dL Glucose (75-100) mg/dL POC Glucose 486 H 443 H (70-105) mg/dL Calcium (8.4-10.2) mg/dL AST (5-40) units/L ALT (7-56) units/L Total Protein (6.3-8.2) g/dL Albumin (3.9-5) g/dL Arterial Blood Glucose 534 H (65-95) mg/dL Arterial Blood Ionized Calcium (4.6-5.3) mg/dL 12/30/19 12/30/19 12/30/19 Range/Units 04:15 07:28 07:28 WBC 20.2 H (4.5-11.0) K/mm3 RBC 3.43 L (3.65-5.03) M/mm3 Hgb 11.2 L (11.8-15.2) gm/dl Hct 35.0 L (35.5-45.6) % MCV 102 H (84-94) fl MCH 33 H (28-32) pg RDW 16.1 H (13.2-15.2) % Plt Count 5 L* (140-440) K/mm3 Lymph % (Auto) (13.4-35.0) % Lymph # (Auto) (1.2-5.4) K/mm3 Seg Neuts % (Manual) 97.0 H (40.0-70.0) % Lymphocytes % (Manual) 1.0 L (13.4-35.0) % Nucleated RBC % 3.0 H (0.0-0.9) % Seg Neutrophils # (1.8-7.7) K/mm3 Seg Neutrophils # Man 19.6 H (1.8-7.7) K/mm3 Lymphocytes # (Manual) 0.2 L (1.2-5.4) K/mm3 ABG pH 7.249 L (7.320-7.450) POC ABG pCO2 31.8 L (32.0-48.0) mmHg POC ABG pO2 69.2 L (83-108) mmHg ABG pO2 (80.0-90.0) mm Hg ABG HCO3 (20.0-26.0) mmol/L ABG O2 Saturation (95.0-99.0) % ABG Base Excess (-2.0-3.0) mmol/L ABG Hemoglobin (14.0-18.0) gm/dl ABG Oxyhemoglobin (94-98) ABG Sodium 134.7 L (136.0-145.0) mmol/L ABG Glucose 603 H (65-95) mg/dL Oxyhemoglobin (95.0-99.0) % Sodium 129 L D (137-145) mmol/L Potassium 2.9 L* (3.6-5.0) mmol/L Chloride 90.9 L (98-107) mmol/L Carbon Dioxide 31 H D (22-30) mmol/L BUN 66 H (9-20) mg/dL Creatinine 3.8 H (0.8-1.3) mg/dL Glucose 1120 H* (75-100) mg/dL POC Glucose (70-105) mg/dL Calcium 5.2 L* D (8.4-10.2) mg/dL AST 125 H (5-40) units/L ALT 119 H (7-56) units/L Total Protein 3.4 L D (6.3-8.2) g/dL Albumin 1.9 L (3.9-5) g/dL Arterial Blood Glucose 603 H (65-95) mg/dL Arterial Blood Ionized Calcium 4.4 L (4.6-5.3) mg/dL 12/30/19 12/30/19 12/30/19 Range/Units 08:04 10:30 10:38 WBC (4.5-11.0) K/mm3 RBC (3.65-5.03) M/mm3 Hgb (11.8-15.2) gm/dl Hct (35.5-45.6) % MCV (84-94) fl MCH (28-32) pg RDW (13.2-15.2) % Plt Count (140-440) K/mm3 Lymph % (Auto) (13.4-35.0) % Lymph # (Auto) (1.2-5.4) K/mm3 Seg Neuts % (Manual) (40.0-70.0) % Lymphocytes % (Manual) (13.4-35.0) % Nucleated RBC % (0.0-0.9) % Seg Neutrophils # (1.8-7.7) K/mm3 Seg Neutrophils # Man (1.8-7.7) K/mm3 Lymphocytes # (Manual) (1.2-5.4) K/mm3 ABG pH (7.320-7.450) POC ABG pCO2 (32.0-48.0) mmHg POC ABG pO2 (83-108) mmHg ABG pO2 (80.0-90.0) mm Hg ABG HCO3 (20.0-26.0) mmol/L ABG O2 Saturation (95.0-99.0) % ABG Base Excess (-2.0-3.0) mmol/L ABG Hemoglobin (14.0-18.0) gm/dl ABG Oxyhemoglobin (94-98) ABG Sodium (136.0-145.0) mmol/L ABG Glucose (65-95) mg/dL Oxyhemoglobin (95.0-99.0) % Sodium (137-145) mmol/L Potassium (3.6-5.0) mmol/L Chloride (98-107) mmol/L Carbon Dioxide (22-30) mmol/L BUN (9-20) mg/dL Creatinine (0.8-1.3) mg/dL Glucose (75-100) mg/dL POC Glucose 418 H 462 H > 500 H (70-105) mg/dL Calcium (8.4-10.2) mg/dL AST (5-40) units/L ALT (7-56) units/L Total Protein (6.3-8.2) g/dL Albumin (3.9-5) g/dL Arterial Blood Glucose (65-95) mg/dL Arterial Blood Ionized Calcium (4.6-5.3) mg/dL 12/30/19 12/30/19 12/30/19 Range/Units 11:23 12:19 12:40 WBC (4.5-11.0) K/mm3 RBC (3.65-5.03) M/mm3 Hgb (11.8-15.2) gm/dl Hct (35.5-45.6) % MCV (84-94) fl MCH (28-32) pg RDW (13.2-15.2) % Plt Count (140-440) K/mm3 Lymph % (Auto) (13.4-35.0) % Lymph # (Auto) (1.2-5.4) K/mm3 Seg Neuts % (Manual) (40.0-70.0) % Lymphocytes % (Manual) (13.4-35.0) % Nucleated RBC % (0.0-0.9) % Seg Neutrophils # (1.8-7.7) K/mm3 Seg Neutrophils # Man (1.8-7.7) K/mm3 Lymphocytes # (Manual) (1.2-5.4) K/mm3 ABG pH (7.320-7.450) POC ABG pCO2 (32.0-48.0) mmHg POC ABG pO2 (83-108) mmHg ABG pO2 (80.0-90.0) mm Hg ABG HCO3 (20.0-26.0) mmol/L ABG O2 Saturation (95.0-99.0) % ABG Base Excess (-2.0-3.0) mmol/L ABG Hemoglobin (14.0-18.0) gm/dl ABG Oxyhemoglobin (94-98) ABG Sodium (136.0-145.0) mmol/L ABG Glucose (65-95) mg/dL Oxyhemoglobin (95.0-99.0) % Sodium (137-145) mmol/L Potassium > 9.0 H* D (3.6-5.0) mmol/L Chloride (98-107) mmol/L Carbon Dioxide (22-30) mmol/L BUN (9-20) mg/dL Creatinine (0.8-1.3) mg/dL Glucose (75-100) mg/dL POC Glucose 454 H 446 H (70-105) mg/dL Calcium (8.4-10.2) mg/dL AST (5-40) units/L ALT (7-56) units/L Total Protein (6.3-8.2) g/dL Albumin (3.9-5) g/dL Arterial Blood Glucose (65-95) mg/dL Arterial Blood Ionized Calcium (4.6-5.3) mg/dL 12/30/19 12/30/19 12/30/19 Range/Units 13:20 13:23 14:23 WBC (4.5-11.0) K/mm3 RBC (3.65-5.03) M/mm3 Hgb (11.8-15.2) gm/dl Hct (35.5-45.6) % MCV (84-94) fl MCH (28-32) pg RDW (13.2-15.2) % Plt Count (140-440) K/mm3 Lymph % (Auto) (13.4-35.0) % Lymph # (Auto) (1.2-5.4) K/mm3 Seg Neuts % (Manual) (40.0-70.0) % Lymphocytes % (Manual) (13.4-35.0) % Nucleated RBC % (0.0-0.9) % Seg Neutrophils # (1.8-7.7) K/mm3 Seg Neutrophils # Man (1.8-7.7) K/mm3 Lymphocytes # (Manual) (1.2-5.4) K/mm3 ABG pH (7.320-7.450) POC ABG pCO2 (32.0-48.0) mmHg POC ABG pO2 (83-108) mmHg ABG pO2 (80.0-90.0) mm Hg ABG HCO3 (20.0-26.0) mmol/L ABG O2 Saturation (95.0-99.0) % ABG Base Excess (-2.0-3.0) mmol/L ABG Hemoglobin (14.0-18.0) gm/dl ABG Oxyhemoglobin (94-98) ABG Sodium (136.0-145.0) mmol/L ABG Glucose (65-95) mg/dL Oxyhemoglobin (95.0-99.0) % Sodium (137-145) mmol/L Potassium (3.6-5.0) mmol/L Chloride (98-107) mmol/L Carbon Dioxide (22-30) mmol/L BUN (9-20) mg/dL Creatinine (0.8-1.3) mg/dL Glucose (75-100) mg/dL POC Glucose 480 H > 500 H > 500 H (70-105) mg/dL Calcium (8.4-10.2) mg/dL AST (5-40) units/L ALT (7-56) units/L Total Protein (6.3-8.2) g/dL Albumin (3.9-5) g/dL Arterial Blood Glucose (65-95) mg/dL Arterial Blood Ionized Calcium (4.6-5.3) mg/dL 12/30/19 12/30/19 12/30/19 Range/Units 14:35 15:09 16:29 WBC (4.5-11.0) K/mm3 RBC (3.65-5.03) M/mm3 Hgb (11.8-15.2) gm/dl Hct (35.5-45.6) % MCV (84-94) fl MCH (28-32) pg RDW (13.2-15.2) % Plt Count (140-440) K/mm3 Lymph % (Auto) (13.4-35.0) % Lymph # (Auto) (1.2-5.4) K/mm3 Seg Neuts % (Manual) (40.0-70.0) % Lymphocytes % (Manual) (13.4-35.0) % Nucleated RBC % (0.0-0.9) % Seg Neutrophils # (1.8-7.7) K/mm3 Seg Neutrophils # Man (1.8-7.7) K/mm3 Lymphocytes # (Manual) (1.2-5.4) K/mm3 ABG pH (7.320-7.450) POC ABG pCO2 (32.0-48.0) mmHg POC ABG pO2 (83-108) mmHg ABG pO2 (80.0-90.0) mm Hg ABG HCO3 (20.0-26.0) mmol/L ABG O2 Saturation (95.0-99.0) % ABG Base Excess (-2.0-3.0) mmol/L ABG Hemoglobin (14.0-18.0) gm/dl ABG Oxyhemoglobin (94-98) ABG Sodium (136.0-145.0) mmol/L ABG Glucose (65-95) mg/dL Oxyhemoglobin (95.0-99.0) % Sodium 133 L (137-145) mmol/L Potassium 6.6 H* D (3.6-5.0) mmol/L Chloride (98-107) mmol/L Carbon Dioxide (22-30) mmol/L BUN 79 H (9-20) mg/dL Creatinine 4.9 H (0.8-1.3) mg/dL Glucose 687 H* (75-100) mg/dL POC Glucose 473 H 448 H (70-105) mg/dL Calcium 6.6 L D (8.4-10.2) mg/dL AST (5-40) units/L ALT (7-56) units/L Total Protein (6.3-8.2) g/dL Albumin (3.9-5) g/dL Arterial Blood Glucose (65-95) mg/dL Arterial Blood Ionized Calcium (4.6-5.3) mg/dL 12/30/19 12/30/19 12/30/19 Range/Units 17:17 18:22 19:09 WBC (4.5-11.0) K/mm3 RBC (3.65-5.03) M/mm3 Hgb (11.8-15.2) gm/dl Hct (35.5-45.6) % MCV (84-94) fl MCH (28-32) pg RDW (13.2-15.2) % Plt Count (140-440) K/mm3 Lymph % (Auto) (13.4-35.0) % Lymph # (Auto) (1.2-5.4) K/mm3 Seg Neuts % (Manual) (40.0-70.0) % Lymphocytes % (Manual) (13.4-35.0) % Nucleated RBC % (0.0-0.9) % Seg Neutrophils # (1.8-7.7) K/mm3 Seg Neutrophils # Man (1.8-7.7) K/mm3 Lymphocytes # (Manual) (1.2-5.4) K/mm3 ABG pH (7.320-7.450) POC ABG pCO2 (32.0-48.0) mmHg POC ABG pO2 (83-108) mmHg ABG pO2 (80.0-90.0) mm Hg ABG HCO3 (20.0-26.0) mmol/L ABG O2 Saturation (95.0-99.0) % ABG Base Excess (-2.0-3.0) mmol/L ABG Hemoglobin (14.0-18.0) gm/dl ABG Oxyhemoglobin (94-98) ABG Sodium (136.0-145.0) mmol/L ABG Glucose (65-95) mg/dL Oxyhemoglobin (95.0-99.0) % Sodium (137-145) mmol/L Potassium (3.6-5.0) mmol/L Chloride (98-107) mmol/L Carbon Dioxide (22-30) mmol/L BUN (9-20) mg/dL Creatinine (0.8-1.3) mg/dL Glucose (75-100) mg/dL POC Glucose 416 H 380 H 337 H (70-105) mg/dL Calcium (8.4-10.2) mg/dL AST (5-40) units/L ALT (7-56) units/L Total Protein (6.3-8.2) g/dL Albumin (3.9-5) g/dL Arterial Blood Glucose (65-95) mg/dL Arterial Blood Ionized Calcium (4.6-5.3) mg/dL 12/30/19 12/30/19 12/30/19 Range/Units 20:21 21:23 21:55 WBC (4.5-11.0) K/mm3 RBC (3.65-5.03) M/mm3 Hgb (11.8-15.2) gm/dl Hct (35.5-45.6) % MCV (84-94) fl MCH (28-32) pg RDW (13.2-15.2) % Plt Count (140-440) K/mm3 Lymph % (Auto) (13.4-35.0) % Lymph # (Auto) (1.2-5.4) K/mm3 Seg Neuts % (Manual) (40.0-70.0) % Lymphocytes % (Manual) (13.4-35.0) % Nucleated RBC % (0.0-0.9) % Seg Neutrophils # (1.8-7.7) K/mm3 Seg Neutrophils # Man (1.8-7.7) K/mm3 Lymphocytes # (Manual) (1.2-5.4) K/mm3 ABG pH 7.308 L (7.320-7.450) POC ABG pCO2 (32.0-48.0) mmHg POC ABG pO2 (83-108) mmHg ABG pO2 61.8 L (80.0-90.0) mm Hg ABG HCO3 17.6 L (20.0-26.0) mmol/L ABG O2 Saturation 90.0 L (95.0-99.0) % ABG Base Excess -8.0 L (-2.0-3.0) mmol/L ABG Hemoglobin 11.4 L (14.0-18.0) gm/dl ABG Oxyhemoglobin (94-98) ABG Sodium (136.0-145.0) mmol/L ABG Glucose (65-95) mg/dL Oxyhemoglobin 88.0 L (95.0-99.0) % Sodium (137-145) mmol/L Potassium (3.6-5.0) mmol/L Chloride (98-107) mmol/L Carbon Dioxide (22-30) mmol/L BUN (9-20) mg/dL Creatinine (0.8-1.3) mg/dL Glucose (75-100) mg/dL POC Glucose 346 H 324 H (70-105) mg/dL Calcium (8.4-10.2) mg/dL AST (5-40) units/L ALT (7-56) units/L Total Protein (6.3-8.2) g/dL Albumin (3.9-5) g/dL Arterial Blood Glucose (65-95) mg/dL Arterial Blood Ionized Calcium (4.6-5.3) mg/dL 12/30/19 12/30/19 12/30/19 Range/Units 22:19 Unknown Unknown WBC 20.6 H (4.5-11.0) K/mm3 RBC 3.61 L (3.65-5.03) M/mm3 Hgb (11.8-15.2) gm/dl Hct (35.5-45.6) % MCV 101 H (84-94) fl MCH 33 H (28-32) pg RDW 16.1 H (13.2-15.2) % Plt Count 8 L* (140-440) K/mm3 Lymph % (Auto) 2.0 L (13.4-35.0) % Lymph # (Auto) 0.4 L (1.2-5.4) K/mm3 Seg Neuts % (Manual) (40.0-70.0) % Lymphocytes % (Manual) (13.4-35.0) % Nucleated RBC % (0.0-0.9) % Seg Neutrophils # 19.5 H (1.8-7.7) K/mm3 Seg Neutrophils # Man (1.8-7.7) K/mm3 Lymphocytes # (Manual) (1.2-5.4) K/mm3 ABG pH (7.320-7.450) POC ABG pCO2 (32.0-48.0) mmHg POC ABG pO2 (83-108) mmHg ABG pO2 (80.0-90.0) mm Hg ABG HCO3 (20.0-26.0) mmol/L ABG O2 Saturation (95.0-99.0) % ABG Base Excess (-2.0-3.0) mmol/L ABG Hemoglobin (14.0-18.0) gm/dl ABG Oxyhemoglobin (94-98) ABG Sodium (136.0-145.0) mmol/L ABG Glucose (65-95) mg/dL Oxyhemoglobin (95.0-99.0) % Sodium 136 L (137-145) mmol/L Potassium 3.2 L (3.6-5.0) mmol/L Chloride (98-107) mmol/L Carbon Dioxide 14 L (22-30) mmol/L BUN 75 H (9-20) mg/dL Creatinine 4.3 H (0.8-1.3) mg/dL Glucose 625 H* (75-100) mg/dL POC Glucose 360 H (70-105) mg/dL Calcium 6.9 L (8.4-10.2) mg/dL AST 129 H (5-40) units/L ALT 150 H (7-56) units/L Total Protein 4.5 L D (6.3-8.2) g/dL Albumin 2.4 L (3.9-5) g/dL Arterial Blood Glucose (65-95) mg/dL Arterial Blood Ionized Calcium (4.6-5.3) mg/dL HEART Score - HEART Score Troponin: Troponin T 0.021 ng/mL (0.00-0.029) 12/26/19 21:29
[2019-12-31] MEDS: NORepinephrine 8 MG in SODIUM CHLORIDE 0.9% 250ML 242 ML IV SCH ×3 (01:55→18:50)
[2019-12-31] MEDS: VASOPRESSIN 20 UNIT in SODIUM CHLORIDE 0.9% 100 ML IV SCH ×2 (01:55→12:43)
[2019-12-31] MEDS: ACYCLOVIR 660 MG in SODIUM CHLORIDE 0.9% 100 ML IV SCH ×2 (02:00→13:42)
[2019-12-31] MEDS: INSULIN REGULAR, HUMAN 100 UNITS in SODIUM CHLORIDE 0.9% 99 ML IV SCH ×3 (02:00→16:00)
[2019-12-31] MEDS: ALBUTEROL 2.5 MG/3 ML NEBU IH SCH ×4 (02:39→20:50)
[2019-12-31] MEDS: SODIUM BICARBONATE 150 MEQ in DEXTROSE 5% IN WATER 1,000 ML IV SCH ×2 (04:36→14:59)
[2019-12-31] MEDS: PANTOPRAZOLE 40 MG INJ IV SCH (08:00)
--- NOTE | 2019-12-31 08:28 | Ultrasound Report ---
LIMITED RUQ ABDOMINAL ULTRASOUND INDICATION: Elevated LFTs, sepsis. COMPARISON: No relevant prior imaging study available. FINDINGS: Pancreas: Visualized portions show no significant abnormality. Abdominal Aorta: No significant abnormality. IVC: No significant abnormality. Liver: The liver measures 21.1 cm in length. No significant abnormality. Normal hepatopedal blood fl ow in the main portal vein. Gallbladder: Gallbladder wall is slightly thickened; however, there is no internal stone disease and there is also trace ascites. Bile ducts: No significant abnormality. Common bile duct measures 4 mm. Right kidney: Nonobstructive calyceal stone in the lower pole measuring 5 mm. Free fluid: Trace ascites. Additional Findings: None. IMPRESSION: 1. Slight gallbladder wall thickening could be related to hepatic disease and trace ascites, especial ly since there is no internal stone disease. 2. Hepatomegaly. Signer Name: Jan Nolen MD Signed: 12/31/2019 8:27 AM Workstation Name: [id number]
--- NOTE | 2019-12-31 08:48 | XRay Report ---
CHEST 1 VIEW INDICATION / CLINICAL INFORMATION: follow up respiratory failure. FINDINGS: SUPPORT DEVICES: No significant change in position. HEART / MEDIASTINUM: The cardiomediastinal silhouette has not significantly changed in the interim. LUNGS / PLEURA: Slight improvement in bilateral airspace disease especially within the left lung when compared to yesterday's exam. Signer Name: Paul Elmore MD Signed: 12/31/2019 8:47 AM Workstation Name: [id number]
[2019-12-31 09:05] LABS: Hematocrit 28.9 % (35.5-45.6); Hemoglobin 9.7 gm/dl (11.8-15.2); Mean Corpuscular HGB Conc 34 % (32-34); Mean Corpuscular Volume 98 fl (84-94); Red Blood Count 2.96 M/mm3 (3.65-5.03); Red Cell Distribution Width 15.1 % (13.2-15.2)
--- NOTE | 2019-12-31 09:13 | Progress Note ---
Assessment and Plan Impression: * KAVITHA on ATN due to hypoperfusion * s/p CPR * Acute hypoxemic & hypercapnic respiratory failure on MVS * ARDS * PUI COVID-19 infection. * Bilateral pneumonia. * Acute encephalopathy, possibly anoxic. * DM II * IVAN * Cardiomypoathy--EF 20% * Morbid obesity. * Sepsis Plan: * iv fluids resuscitation, continue bicarb gtt * worsening renal function, vasc cath not placed due to plat[place] * will need group home supervisor as uremia worsens * management per critical care * really would benefit from CRRT, not available at this facility, rec considering transfer if access placement not available * vasopressor prn, keep MAP >65 * rec serious discussion with family due to poor prognosis, or if aggressive treatment not available the explain to family * daily lytes and cbc * follow up urine lytes * likely ATN due to hypoperfusion * strict i/os, avoid nephrotoxins Subjective Date of service: 12/31/19 Principal diagnosis: Acute hypoxemic & hypercapnic resp failure; ARDS; PUI COVID-19; PNA Interval history: resting in bed today. events noted Objective - Exam Narrative Exam: Gen: nad, well-nourished, intubated; Head: normocephalic; Eyes: no gaze deviation; no ptosis appreciated; ENT: +ETT; CVS: warm and well-perfused; Pulm: no respiratory distress; GI: non-distended, protuberant; Ext: no cyanosis or edema at distal extremities; Skin: no acute rash or hives at distal extremities; Heme: no bruising or ecchymosis at distal extremities; Neuro: comatose, intubated, - Vital Signs Vital signs: Vital Signs - 12hr 12/30/19 12/30/19 12/30/19 21:16 21:30 21:45 Temperature Pulse Rate 118 H 118 H 118 H Pulse Rate [ Anterior Bilateral Throughout] Respiratory 27 H 17 32 H Rate Respiratory Rate [Anterior Bilateral Throughout] Blood Pressure 120/73 120/73 109/69 O2 Sat by Pulse 89 90 90 Oximetry 12/30/19 12/30/19 12/30/19 22:00 22:15 22:30 Temperature Pulse Rate 118 H 118 H 118 H Pulse Rate [ Anterior Bilateral Throughout] Respiratory 25 H 22 34 H Rate Respiratory Rate [Anterior Bilateral Throughout] Blood Pressure 119/70 113/72 117/75 O2 Sat by Pulse 91 92 92 Oximetry 12/30/19 12/30/19 12/30/19 22:36 22:45 23:00 Temperature Pulse Rate 118 H 118 H 118 H Pulse Rate [ Anterior Bilateral Throughout] Respiratory 29 H 35 H 36 H Rate Respiratory Rate [Anterior Bilateral Throughout] Blood Pressure 116/74 120/79 119/76 O2 Sat by Pulse 91 92 93 Oximetry 12/30/19 12/30/19 12/30/19 23:15 23:30 23:45 Temperature Pulse Rate 117 H 117 H 118 H Pulse Rate [ Anterior Bilateral Throughout] Respiratory 23 27 H 28 H Rate Respiratory Rate [Anterior Bilateral Throughout] Blood Pressure 127/76 121/74 120/72 O2 Sat by Pulse 92 92 92 Oximetry 12/30/19 12/31/19 12/31/19 23:53 00:00 00:15 Temperature 98.8 F Pulse Rate 117 H 117 H 117 H Pulse Rate [ Anterior Bilateral Throughout] Respiratory 29 H 25 H Rate Respiratory Rate [Anterior Bilateral Throughout] Blood Pressure 122/74 125/72 131/72 O2 Sat by Pulse 92 93 93 Oximetry 12/31/19 12/31/19 12/31/19 00:30 00:45 01:00 Temperature Pulse Rate 117 H 116 H 117 H Pulse Rate [ Anterior Bilateral Throughout] Respiratory 33 H 26 H 23 Rate Respiratory Rate [Anterior Bilateral Throughout] Blood Pressure 120/74 119/76 120/77 O2 Sat by Pulse 93 92 92 Oximetry 12/31/19 12/31/19 12/31/19 01:15 01:30 01:45 Temperature Pulse Rate 116 H 117 H 118 H Pulse Rate [ Anterior Bilateral Throughout] Respiratory 33 H 41 H 31 H Rate Respiratory Rate [Anterior Bilateral Throughout] Blood Pressure 118/78 127/74 124/71 O2 Sat by Pulse 92 91 92 Oximetry 12/31/19 12/31/19 12/31/19 02:00 02:15 02:30 Temperature Pulse Rate 118 H 119 H 118 H Pulse Rate [ Anterior Bilateral Throughout] Respiratory 30 H 23 30 H Rate Respiratory Rate [Anterior Bilateral Throughout] Blood Pressure 126/66 123/73 131/72 O2 Sat by Pulse 93 93 93 Oximetry 12/31/19 12/31/19 12/31/19 02:39 02:45 03:00 Temperature Pulse Rate 119 H 119 H Pulse Rate [ 82 Anterior Bilateral Throughout] Respiratory 30 H 21 Rate Respiratory 30 H Rate [Anterior Bilateral Throughout] Blood Pressure 133/72 139/76 O2 Sat by Pulse 92 92 Oximetry 12/31/19 12/31/19 12/31/19 03:15 03:30 03:45 Temperature Pulse Rate 118 H 118 H 115 H Pulse Rate [ Anterior Bilateral Throughout] Respiratory 39 H 28 H 37 H Rate Respiratory Rate [Anterior Bilateral Throughout] Blood Pressure 132/82 130/83 129/67 O2 Sat by Pulse 92 92 90 Oximetry 12/31/19 12/31/19 12/31/19 04:00 04:15 04:30 Temperature 97.7 F Pulse Rate 113 H 116 H 113 H Pulse Rate [ Anterior Bilateral Throughout] Respiratory 28 H 18 29 H Rate Respiratory Rate [Anterior Bilateral Throughout] Blood Pressure 115/63 109/71 110/63 O2 Sat by Pulse 90 89 Oximetry 12/31/19 12/31/19 12/31/19 04:45 04:56 05:00 Temperature Pulse Rate 113 H 113 H 113 H Pulse Rate [ Anterior Bilateral Throughout] Respiratory 22 22 Rate Respiratory Rate [Anterior Bilateral Throughout] Blood Pressure 115/62 117/56 112/61 O2 Sat by Pulse 91 90 90 Oximetry 12/31/19 12/31/19 12/31/19 05:07 05:15 05:20 Temperature 98.8 F 98.8 F Pulse Rate 113 H 113 H 113 H Pulse Rate [ Anterior Bilateral Throughout] Respiratory 29 H 16 22 Rate Respiratory Rate [Anterior Bilateral Throughout] Blood Pressure 112/60 118/64 116/62 O2 Sat by Pulse 90 90 89 Oximetry 12/31/19 12/31/19 12/31/19 05:30 05:40 05:50 Temperature Pulse Rate 112 H 112 H 112 H Pulse Rate [ Anterior Bilateral Throughout] Respiratory 21 22 27 H Rate Respiratory Rate [Anterior Bilateral Throughout] Blood Pressure 117/69 123/67 128/70 O2 Sat by Pulse 90 91 91 Oximetry 12/31/19 12/31/19 12/31/19 06:00 06:10 06:15 Temperature Pulse Rate 112 H 112 H 111 H Pulse Rate [ Anterior Bilateral Throughout] Respiratory 26 H 21 25 H Rate Respiratory Rate [Anterior Bilateral Throughout] Blood Pressure 127/72 131/67 123/69 O2 Sat by Pulse 92 92 92 Oximetry 12/31/19 12/31/19 12/31/19 06:30 06:45 07:00 Temperature Pulse Rate 112 H 112 H 112 H Pulse Rate [ Anterior Bilateral Throughout] Respiratory 18 20 29 H Rate Respiratory Rate [Anterior Bilateral Throughout] Blood Pressure 128/72 129/74 123/73 O2 Sat by Pulse 92 92 92 Oximetry 12/31/19 12/31/19 12/31/19 07:15 07:30 07:45 Temperature Pulse Rate 111 H 112 H 113 H Pulse Rate [ Anterior Bilateral Throughout] Respiratory 21 35 H 26 H Rate Respiratory Rate [Anterior Bilateral Throughout] Blood Pressure 132/75 128/77 134/79 O2 Sat by Pulse 92 92 92 Oximetry 12/31/19 12/31/19 12/31/19 07:55 08:00 08:15 Temperature 97.9 F Pulse Rate 111 H 111 H Pulse Rate [ 114 H Anterior Bilateral Throughout] Respiratory 30 H 21 Rate Respiratory 30 H Rate [Anterior Bilateral Throughout] Blood Pressure 134/78 141/78 O2 Sat by Pulse 91 91 Oximetry 12/31/19 12/31/19 08:30 08:45 Temperature Pulse Rate 107 H 112 H Pulse Rate [ Anterior Bilateral Throughout] Respiratory 29 H 30 H Rate Respiratory Rate [Anterior Bilateral Throughout] Blood Pressure 109/69 131/84 O2 Sat by Pulse 91 92 Oximetry - Lab 12/31/19 08:50 12/31/19 08:50 Most recent lab results ABG pH 7.308 pH Units (7.350-7.450) L 12/30/19 21:23 ABG pCO2 35.9 mm Hg 12/30/19 21:23 ABG pO2 61.8 mm Hg (80.0-90.0) L 12/30/19 21:23 ABG HCO3 17.6 mmol/L (20.0-26.0) L 12/30/19 21:23 ABG O2 Saturation 90.0 % (95.0-99.0) L 12/30/19 21:23 Calcium 6.9 mg/dL (8.4-10.2) L 12/30/19 Unknown Magnesium 1.70 mg/dL (1.7-2.3) 12/30/19 07:28 Urine Creatinine 164.0 mg/dL (0.1-20.0) H 12/29/19 Unknown Urine Sodium 62 mmol/L 12/29/19 Unknown Urine Total Protein 232 mg/dL (5-11.8) H 12/29/19 Unknown Medications & Allergies - Medications Allergies/Adverse Reactions: Allergies No Known Allergies Allergy (Unverified 12/26/19 15:29) Active Medications: Generic Name Dose Route Start Last Admin Trade Name Freq PRN Reason Stop Dose Admin Acetaminophen 650 mg 12/26/19 18:28 12/29/19 00:21 Tylenol PO 650 mg Q6H PRN Administration Pain, Mild (1-3) Acetaminophen 650 mg 12/28/19 09:53 12/28/19 18:00 Tylenol [place] 650 mg Q6H PRN Administration Pain, Mild (1-3) Albumin Human 25 gm 12/30/19 10:10 Alburx 25% (Albumin) IV LYNN PRN Hypotension Albuterol 2.5 mg 12/26/19 18:28 Proventil IH Q3HRT PRN Shortness Of Breath Albuterol 2.5 mg 12/26/19 20:00 12/31/19 07:55 Proventil IH 2.5 mg Q6HRT ANGELA Administration Lipase/Protease/Amylase 1 each 12/27/19 13:[address] 10,500 Unit FEEDTUBE PRN PRN For Clogged Feeding Tube Dexamethasone 4 mg 12/30/19 22:00 12/30/19 21:35 Decadron IV 4 mg Q12HR ANGELA Administration Dextrose 50 ml 12/30/19 09:39 D50w (25gm) Syringe IV Q30MIN PRN Hypoglycemia Protocol Epoetin Malick 10,000 unit 12/30/19 10:10 Procrit IV LYNN PRN hemodialysis Fentanyl 50 mcg 12/26/19 17:48 12/27/19 14:20 Sublimaze IV 50 mcg Q10MIN PRN Administration ANALGESIA Hydrophilic Ointment 1 applic 12/26/19 15:26 Vaseline Lip Therapy TP Q2HR PRN Dry Lips Propofol 1,000 mg in 100 mls @ 3.945 mls/hr 12/26/19 16:00 12/26/19 17:30 Diprivan 10 Mg/Ml IV Infused TITR ANGELA Titration Protocol 5 MCG/KG/MIN Fentanyl Citrate 2,000 mcg in 100 mls @ 6.575 mls/hr 12/26/19 18:00 12/29/19 05:52 Fentanyl Drip Premix IV 0 mcg/kg/hr TITR ANGELA 0 mls/hr Titration Protocol 1 MCG/KG/HR Midazolam HCl 100 mg/ Sodium 100 mls @ 2 mls/hr 12/26/19 18:00 12/28/19 21:17 Chloride IV 0 mg/hr TITR ANGELA 0 mls/hr Titration Protocol 2 MG/HR Heparin Sodium/Sodium Chloride 25,000 unit in 500 mls @ 30 mls/hr 12/26/19 19:00 12/30/19 05:00 Heparin/ 0.45% Nacl-25,000 Unit/500 Ml IV 0 units/hr TITR ANGELA 0 mls/hr Titration Protocol 1,500 UNITS/HR Levetiracetam 500 mg/ Dextrose 105 mls @ 400 mls/hr 12/27/19 22:00 12/30/19 21:34 IV 400 mls/hr Q12H ANGELA Administration Vasopressin 20 unit/ Sodium 101 mls @ 9.09 mls/hr 12/28/19 22:00 12/31/19 01:55 Chloride IV 0.03 units/min TITR ANGELA 9.09 mls/hr Administration Protocol 0.03 UNITS/MIN Norepinephrine 8 mg/ Sodium 250 mls @ 3.75 mls/hr 12/29/19 05:00 12/31/19 08:47 Chloride IV 12 mcg/min TITR ANGELA 22.5 mls/hr Administration Protocol 2 MCG/MIN Dobutamine HCl/Dextrose 500 mg in 250 mls @ 9.863 mls/hr 12/29/19 05:00 12/30/19 23:36 Dobutrex Drip 500mg/D5w 250ml IV 5 mcg/kg/min DIRECT ANGEAL 19.725 mls/hr Administration Protocol 2.5 MCG/KG/MIN Ceftriaxone Sodium 2 gm in 100 mls @ 200 mls/hr 12/29/19 13:00 12/30/19 21:35 Rocephin/Ns 2 Gm/100 Ml IV 200 mls/hr Q12HR ANGELA Administration Protocol Acyclovir 660 mg/ Sodium 113.2 mls @ 100 mls/hr 12/29/19 14:00 12/31/19 02:00 Chloride IV 100 mls/hr Q12H ANGELA Administration Protocol Phenylephrine HCl 100 mg/ 100 mls @ 3 mls/hr 12/29/19 16:15 Sodium Chloride IV TITR ANGELA Protocol 50 MCG/MIN Insulin Human Regular 100 100 mls @ 1 mls/hr 12/30/19 10:00 12/31/19 08:00 units/ Sodium Chloride IV 9.5 units/hr TITR ANGELA 9.5 mls/hr Administration Protocol 1 UNITS/HR Sodium Chloride 100 mls @ 999 mls/hr 12/30/19 10:10 Nacl 0.9% IV LYNN PRN Hypotension Sodium Bicarbonate 150 meq/ 1,150 mls @ 100 mls/hr 12/30/19 17:36 12/31/19 04:36 Dextrose IV 100 mls/hr DIRECT ANGELA Administration Metoprolol Tartrate 5 mg 12/28/19 13:12 12/28/19 13:23 Metoprolol IV 5 mg Q6HR PRN Administration tachycardia Midazolam HCl 2 mg 12/26/19 17:48 Versed IV Q10MIN PRN Sedation Multi-Ingred Cream/Lotion/Oil/Oint 1 applic 12/26/19 15:26 Artificial Tears Ophth Oint OU Q4HR PRN Dry Eye(s) Pantoprazole Sodium 40 mg 12/26/19 19:00 12/31/19 08:00 Protonix IV 40 mg Q12H ANGELA Administration Simple Syrup 15 ml 12/27/19 13:24 Simple Syrup FEEDTUBE PRN PRN Hypoglycemia Simple Syrup 30 ml 12/27/19 13:24 Simple Syrup FEEDTUBE PRN PRN Hypoglycemia Sodium Bicarbonate 325 mg 12/27/19 13:24 Sodium Bicarbonate FEEDTUBE PRN PRN For Clogged Feeding Tube Sodium Chloride 10 ml 12/26/19 22:00 12/30/19 21:35 Sodium Chloride Flush Syringe 10 Ml IV 10 ml BID ANGELA Administration Sodium Chloride 10 ml 12/26/19 18:28 Sodium Chloride Flush Syringe 10 Ml IV PRN PRN LINE FLUSH Sodium Chloride 250 ml 12/29/19 07:00 12/29/19 07:13 Nacl 0.9% 250ml IV 250 ml DIRECT ANGELA Administration
[2019-12-31] MEDS: levETIRAcetam 500 MG in DEXTROSE 5% IN WATER 100 ML IV SCH (09:18)
[2019-12-31] MEDS: cefTRIAXone/NS 2 GM/100 ML 2 GM/100 ML BAG IV SCH (09:18)
[2019-12-31] MEDS: dexAMETHasone 4 MG/ML VIAL IV SCH (09:19)
[2019-12-31 09:27] LABS: Albumin 2.6 g/dL (3.9-5); Calcium 6.8 mg/dL (8.4-10.2)
[2019-12-31 09:29] LABS: Platelet Count 41 K/mm3 (140-440)
--- NOTE | 2019-12-31 11:16 | Progress Note ---
Assessment and Plan Cultures: Blood culture no growth today SARS CoV2 PCR negative Sputum culture: Usual respiratory noe Assessment: 34 years old male with history of morbid obesity, diabetes mellitus, admitted on 12/26/2019 after found unresponsive in his vehicle in the parking lot at a local motel, cardiac arrest in route to the hospital: #Status post cardiac arrest in route #Septic shock: Present on admission with fever 102, tachycardia, elevated leukocytosis. Unclear etiology, ?pneumonia v/s UTI v/s [employer]ATOR infection #Bilateral pneumonia: ?bacterial pneumonia. COVID-19 negative procalcitonin 0.2. #Acute hypoxemic respiratory failure: On mechanical ventilation. #Elevated LFTs: ?From sepsis. RUQ US with mild GB thickening, no stones or biliary ductal dilatation. #KAVITHA: Renally dose antibiotics. Nephrology following. #Acute encephalopathy: Unclear etiology, ?anoxic v/s [employer]ATOR infection #Diabetes mellitus, uncontrolled #Acute thrombocytopenia Recommendations: Continue empiric IV ceftriaxone, renally dosed vancomycin and acyclovir When stable, consider CT head, CT chest, abdomen and pelvis without contrast When stable, also consider lumbar puncture to evaluate for [employer]ATOR infection Mary Goss MD, FACP [facility] ([facility]) O: [phone] F: [phone] Subjective Date of service: 12/31/19 Principal diagnosis: Acute hypoxemic & hypercapnic resp failure; ARDS; PUI COVID-19; PNA Interval history: No fever. Remains on the vent. Remains on multiple pressors. Objective - Exam Narrative Exam: Physical Exam: Constitutional: unresponsive, intubated, on the vent. Morbidly obese. Head, Ears, Nose: Normocephalic, atraumatic. External ears, nose normal Eyes: Conjunctivae/corneas clear. No icterus. No ptosis. Neck: intubated Oral: intubated Cardiovascular: S1, S2 + Respiratory: AE fair bilaterally and equal GI: Soft, bowel sounds + Musculoskeletal: No pedal edema, no cyanosis. Skin: No rash or abscess Hem/Lymphatic: No palpable cervical or supraclavicular nodes. No lymphangitis Psych: no agitation Neurological: unresponsive, intubated, on the vent, exam limited - Constitutional Vitals: Vital Signs Temp Pulse Resp BP Pulse Ox 97.9 F 109 H 30 H 113/61 91 12/31/19 08:00 12/31/19 10:00 12/31/19 10:00 12/31/19 10:00 12/31/19 10:00 Temperature -Last 24 Hours Temperature 97.9 F Temperature 98.8 F Temperature 98.8 F Temperature 97.7 F Temperature 98.8 F Temperature 98.8 F - Labs CBC & Chem 7: 12/31/19 08:50 12/31/19 08:50 Labs: Abnormal lab results 12/30/19 12/30/19 12/30/19 Range/Units 07:28 10:38 11:23 WBC (4.5-11.0) K/mm3 RBC (3.65-5.03) M/mm3 Hgb (11.8-15.2) gm/dl Hct (35.5-45.6) % MCV (84-94) fl MCH (28-32) pg Plt Count (140-440) K/mm3 Seg Neuts % (Manual) 97.0 H (40.0-70.0) % Lymphocytes % (Manual) 1.0 L (13.4-35.0) % Nucleated RBC % 3.0 H (0.0-0.9) % Seg Neutrophils # Man 19.6 H (1.8-7.7) K/mm3 Lymphocytes # (Manual) 0.2 L (1.2-5.4) K/mm3 Heparin Anti-Xa Level (0.3-0.7) U.I./ml ABG pH (7.350-7.450) pH Units ABG pO2 (80.0-90.0) mm Hg ABG HCO3 (20.0-26.0) mmol/L ABG O2 Saturation (95.0-99.0) % ABG Base Excess (-2.0-3.0) mmol/L ABG Hemoglobin (14.0-18.0) gm/dl Oxyhemoglobin (95.0-99.0) % Sodium (137-145) mmol/L Potassium (3.6-5.0) mmol/L Carbon Dioxide (22-30) mmol/L BUN (9-20) mg/dL Creatinine (0.8-1.3) mg/dL Glucose (75-100) mg/dL POC Glucose > 500 H 454 H (70-105) mg/dL Calcium (8.4-10.2) mg/dL AST (5-40) units/L ALT (7-56) units/L Total Protein (6.3-8.2) g/dL Albumin (3.9-5) g/dL 12/30/19 12/30/19 12/30/19 Range/Units 12:19 12:40 13:20 WBC (4.5-11.0) K/mm3 RBC (3.65-5.03) M/mm3 Hgb (11.8-15.2) gm/dl Hct (35.5-45.6) % MCV (84-94) fl MCH (28-32) pg Plt Count (140-440) K/mm3 Seg Neuts % (Manual) (40.0-70.0) % Lymphocytes % (Manual) (13.4-35.0) % Nucleated RBC % (0.0-0.9) % Seg Neutrophils # Man (1.8-7.7) K/mm3 Lymphocytes # (Manual) (1.2-5.4) K/mm3 Heparin Anti-Xa Level (0.3-0.7) U.I./ml ABG pH (7.350-7.450) pH Units ABG pO2 (80.0-90.0) mm Hg ABG HCO3 (20.0-26.0) mmol/L ABG O2 Saturation (95.0-99.0) % ABG Base Excess (-2.0-3.0) mmol/L ABG Hemoglobin (14.0-18.0) gm/dl Oxyhemoglobin (95.0-99.0) % Sodium (137-145) mmol/L Potassium > 9.0 H* D (3.6-5.0) mmol/L Carbon Dioxide (22-30) mmol/L BUN (9-20) mg/dL Creatinine (0.8-1.3) mg/dL Glucose (75-100) mg/dL POC Glucose 446 H 480 H (70-105) mg/dL Calcium (8.4-10.2) mg/dL AST (5-40) units/L ALT (7-56) units/L Total Protein (6.3-8.2) g/dL Albumin (3.9-5) g/dL 12/30/19 12/30/19 12/30/19 Range/Units 13:23 14:23 14:35 WBC (4.5-11.0) K/mm3 RBC (3.65-5.03) M/mm3 Hgb (11.8-15.2) gm/dl Hct (35.5-45.6) % MCV (84-94) fl MCH (28-32) pg Plt Count (140-440) K/mm3 Seg Neuts % (Manual) (40.0-70.0) % Lymphocytes % (Manual) (13.4-35.0) % Nucleated RBC % (0.0-0.9) % Seg Neutrophils # Man (1.8-7.7) K/mm3 Lymphocytes # (Manual) (1.2-5.4) K/mm3 Heparin Anti-Xa Level (0.3-0.7) U.I./ml ABG pH (7.350-7.450) pH Units ABG pO2 (80.0-90.0) mm Hg ABG HCO3 (20.0-26.0) mmol/L ABG O2 Saturation (95.0-99.0) % ABG Base Excess (-2.0-3.0) mmol/L ABG Hemoglobin (14.0-18.0) gm/dl Oxyhemoglobin (95.0-99.0) % Sodium 133 L (137-145) mmol/L Potassium 6.6 H* D (3.6-5.0) mmol/L Carbon Dioxide (22-30) mmol/L BUN 79 H (9-20) mg/dL Creatinine 4.9 H (0.8-1.3) mg/dL Glucose 687 H* (75-100) mg/dL POC Glucose > 500 H > 500 H (70-105) mg/dL Calcium 6.6 L D (8.4-10.2) mg/dL AST (5-40) units/L ALT (7-56) units/L Total Protein (6.3-8.2) g/dL Albumin (3.9-5) g/dL 12/30/19 12/30/19 12/30/19 Range/Units 15:09 16:29 17:17 WBC (4.5-11.0) K/mm3 RBC (3.65-5.03) M/mm3 Hgb (11.8-15.2) gm/dl Hct (35.5-45.6) % MCV (84-94) fl MCH (28-32) pg Plt Count (140-440) K/mm3 Seg Neuts % (Manual) (40.0-70.0) % Lymphocytes % (Manual) (13.4-35.0) % Nucleated RBC % (0.0-0.9) % Seg Neutrophils # Man (1.8-7.7) K/mm3 Lymphocytes # (Manual) (1.2-5.4) K/mm3 Heparin Anti-Xa Level (0.3-0.7) U.I./ml ABG pH (7.350-7.450) pH Units ABG pO2 (80.0-90.0) mm Hg ABG HCO3 (20.0-26.0) mmol/L ABG O2 Saturation (95.0-99.0) % ABG Base Excess (-2.0-3.0) mmol/L ABG Hemoglobin (14.0-18.0) gm/dl Oxyhemoglobin (95.0-99.0) % Sodium (137-145) mmol/L Potassium (3.6-5.0) mmol/L Carbon Dioxide (22-30) mmol/L BUN (9-20) mg/dL Creatinine (0.8-1.3) mg/dL Glucose (75-100) mg/dL POC Glucose 473 H 448 H 416 H (70-105) mg/dL Calcium (8.4-10.2) mg/dL AST (5-40) units/L ALT (7-56) units/L Total Protein (6.3-8.2) g/dL Albumin (3.9-5) g/dL 12/30/19 12/30/19 12/30/19 Range/Units 18:22 19:09 20:21 WBC (4.5-11.0) K/mm3 RBC (3.65-5.03) M/mm3 Hgb (11.8-15.2) gm/dl Hct (35.5-45.6) % MCV (84-94) fl MCH (28-32) pg Plt Count (140-440) K/mm3 Seg Neuts % (Manual) (40.0-70.0) % Lymphocytes % (Manual) (13.4-35.0) % Nucleated RBC % (0.0-0.9) % Seg Neutrophils # Man (1.8-7.7) K/mm3 Lymphocytes # (Manual) (1.2-5.4) K/mm3 Heparin Anti-Xa Level (0.3-0.7) U.I./ml ABG pH (7.350-7.450) pH Units ABG pO2 (80.0-90.0) mm Hg ABG HCO3 (20.0-26.0) mmol/L ABG O2 Saturation (95.0-99.0) % ABG Base Excess (-2.0-3.0) mmol/L ABG Hemoglobin (14.0-18.0) gm/dl Oxyhemoglobin (95.0-99.0) % Sodium (137-145) mmol/L Potassium (3.6-5.0) mmol/L Carbon Dioxide (22-30) mmol/L BUN (9-20) mg/dL Creatinine (0.8-1.3) mg/dL Glucose (75-100) mg/dL POC Glucose 380 H 337 H 346 H (70-105) mg/dL Calcium (8.4-10.2) mg/dL AST (5-40) units/L ALT (7-56) units/L Total Protein (6.3-8.2) g/dL Albumin (3.9-5) g/dL 12/30/19 12/30/19 12/30/19 Range/Units 21:23 21:55 22:19 WBC (4.5-11.0) K/mm3 RBC (3.65-5.03) M/mm3 Hgb (11.8-15.2) gm/dl Hct (35.5-45.6) % MCV (84-94) fl MCH (28-32) pg Plt Count (140-440) K/mm3 Seg Neuts % (Manual) (40.0-70.0) % Lymphocytes % (Manual) (13.4-35.0) % Nucleated RBC % (0.0-0.9) % Seg Neutrophils # Man (1.8-7.7) K/mm3 Lymphocytes # (Manual) (1.2-5.4) K/mm3 Heparin Anti-Xa Level (0.3-0.7) U.I./ml ABG pH 7.308 L (7.350-7.450) pH Units ABG pO2 61.8 L (80.0-90.0) mm Hg ABG HCO3 17.6 L (20.0-26.0) mmol/L ABG O2 Saturation 90.0 L (95.0-99.0) % ABG Base Excess -8.0 L (-2.0-3.0) mmol/L ABG Hemoglobin 11.4 L (14.0-18.0) gm/dl Oxyhemoglobin 88.0 L (95.0-99.0) % Sodium (137-145) mmol/L Potassium (3.6-5.0) mmol/L Carbon Dioxide (22-30) mmol/L BUN (9-20) mg/dL Creatinine (0.8-1.3) mg/dL Glucose (75-100) mg/dL POC Glucose 324 H 360 H (70-105) mg/dL Calcium (8.4-10.2) mg/dL AST (5-40) units/L ALT (7-56) units/L Total Protein (6.3-8.2) g/dL Albumin (3.9-5) g/dL 12/30/19 12/31/19 12/31/19 Range/Units 23:47 00:16 01:18 WBC (4.5-11.0) K/mm3 RBC (3.65-5.03) M/mm3 Hgb (11.8-15.2) gm/dl Hct (35.5-45.6) % MCV (84-94) fl MCH (28-32) pg Plt Count (140-440) K/mm3 Seg Neuts % (Manual) (40.0-70.0) % Lymphocytes % (Manual) (13.4-35.0) % Nucleated RBC % (0.0-0.9) % Seg Neutrophils # Man (1.8-7.7) K/mm3 Lymphocytes # (Manual) (1.2-5.4) K/mm3 Heparin Anti-Xa Level (0.3-0.7) U.I./ml ABG pH (7.350-7.450) pH Units ABG pO2 (80.0-90.0) mm Hg ABG HCO3 (20.0-26.0) mmol/L ABG O2 Saturation (95.0-99.0) % ABG Base Excess (-2.0-3.0) mmol/L ABG Hemoglobin (14.0-18.0) gm/dl Oxyhemoglobin (95.0-99.0) % Sodium (137-145) mmol/L Potassium (3.6-5.0) mmol/L Carbon Dioxide (22-30) mmol/L BUN (9-20) mg/dL Creatinine (0.8-1.3) mg/dL Glucose (75-100) mg/dL POC Glucose 338 H 259 H 270 H (70-105) mg/dL Calcium (8.4-10.2) mg/dL AST (5-40) units/L ALT (7-56) units/L Total Protein (6.3-8.2) g/dL Albumin (3.9-5) g/dL 12/31/19 12/31/19 12/31/19 Range/Units 02:15 03:34 04:24 WBC (4.5-11.0) K/mm3 RBC (3.65-5.03) M/mm3 Hgb (11.8-15.2) gm/dl Hct (35.5-45.6) % MCV (84-94) fl MCH (28-32) pg Plt Count (140-440) K/mm3 Seg Neuts % (Manual) (40.0-70.0) % Lymphocytes % (Manual) (13.4-35.0) % Nucleated RBC % (0.0-0.9) % Seg Neutrophils # Man (1.8-7.7) K/mm3 Lymphocytes # (Manual) (1.2-5.4) K/mm3 Heparin Anti-Xa Level (0.3-0.7) U.I./ml ABG pH (7.350-7.450) pH Units ABG pO2 (80.0-90.0) mm Hg ABG HCO3 (20.0-26.0) mmol/L ABG O2 Saturation (95.0-99.0) % ABG Base Excess (-2.0-3.0) mmol/L ABG Hemoglobin (14.0-18.0) gm/dl Oxyhemoglobin (95.0-99.0) % Sodium (137-145) mmol/L Potassium (3.6-5.0) mmol/L Carbon Dioxide (22-30) mmol/L BUN (9-20) mg/dL Creatinine (0.8-1.3) mg/dL Glucose (75-100) mg/dL POC Glucose 274 H 240 H 219 H (70-105) mg/dL Calcium (8.4-10.2) mg/dL AST (5-40) units/L ALT (7-56) units/L Total Protein (6.3-8.2) g/dL Albumin (3.9-5) g/dL 12/31/19 12/31/19 12/31/19 Range/Units 06:13 07:15 08:50 WBC (4.5-11.0) K/mm3 RBC (3.65-5.03) M/mm3 Hgb (11.8-15.2) gm/dl Hct (35.5-45.6) % MCV (84-94) fl MCH (28-32) pg Plt Count (140-440) K/mm3 Seg Neuts % (Manual) (40.0-70.0) % Lymphocytes % (Manual) (13.4-35.0) % Nucleated RBC % (0.0-0.9) % Seg Neutrophils # Man (1.8-7.7) K/mm3 Lymphocytes # (Manual) (1.2-5.4) K/mm3 Heparin Anti-Xa Level (0.3-0.7) U.I./ml ABG pH (7.350-7.450) pH Units ABG pO2 (80.0-90.0) mm Hg ABG HCO3 (20.0-26.0) mmol/L ABG O2 Saturation (95.0-99.0) % ABG Base Excess (-2.0-3.0) mmol/L ABG Hemoglobin (14.0-18.0) gm/dl Oxyhemoglobin (95.0-99.0) % Sodium (137-145) mmol/L Potassium (3.6-5.0) mmol/L Carbon Dioxide 20 L (22-30) mmol/L BUN 82 H (9-20) mg/dL Creatinine 5.6 H (0.8-1.3) mg/dL Glucose 260 H (75-100) mg/dL POC Glucose 201 H 167 H (70-105) mg/dL Calcium 6.8 L (8.4-10.2) mg/dL AST 226 H (5-40) units/L ALT 191 H (7-56) units/L Total Protein 4.7 L D (6.3-8.2) g/dL Albumin 2.6 L (3.9-5) g/dL 12/31/19 12/31/19 Range/Units 08:50 08:50 WBC 21.7 H (4.5-11.0) K/mm3 RBC 2.96 L (3.65-5.03) M/mm3 Hgb 9.7 L (11.8-15.2) gm/dl Hct 28.9 L D (35.5-45.6) % MCV 98 H (84-94) fl MCH 33 H (28-32) pg Plt Count 41 L D (140-440) K/mm3 Seg Neuts % (Manual) (40.0-70.0) % Lymphocytes % (Manual) (13.4-35.0) % Nucleated RBC % (0.0-0.9) % Seg Neutrophils # Man (1.8-7.7) K/mm3 Lymphocytes # (Manual) (1.2-5.4) K/mm3 Heparin Anti-Xa Level < 0.10 L (0.3-0.7) U.I./ml ABG pH (7.350-7.450) pH Units ABG pO2 (80.0-90.0) mm Hg ABG HCO3 (20.0-26.0) mmol/L ABG O2 Saturation (95.0-99.0) % ABG Base Excess (-2.0-3.0) mmol/L ABG Hemoglobin (14.0-18.0) gm/dl Oxyhemoglobin (95.0-99.0) % Sodium (137-145) mmol/L Potassium (3.6-5.0) mmol/L Carbon Dioxide (22-30) mmol/L BUN (9-20) mg/dL Creatinine (0.8-1.3) mg/dL Glucose (75-100) mg/dL POC Glucose (70-105) mg/dL Calcium (8.4-10.2) mg/dL AST (5-40) units/L ALT (7-56) units/L Total Protein (6.3-8.2) g/dL Albumin (3.9-5) g/dL - Imaging and cardiology Chest x-ray: report reviewed, image reviewed (no pneumonia)
--- NOTE | 2019-12-31 11:29 | Progress Note ---
Assessment and Plan Dilated Cardiomyopathy, uncertain duration LVEF 20-25% by echo this presentation Transient SVT Sepsis Acute hypoxic respiratory failure Acute encephalopathy Bilateral pneumonia COVID 19 test was negative Out of hospital cardiopulmonary arrest Acute kidney disease Severe Thrombocytopenia IV heparin now discontinued Recommend: Initiate guideline directed medical therapy when tolerated for left ventricular failure. Continue supportive management. Subjective Date of service: 12/31/19 Principal diagnosis: Acute hypoxemic & hypercapnic resp failure; ARDS; PUI COVID-19; PNA Interval history: Remains intubated, unresponsive without sedation and on multiple pressors for support. No cardiac events reported overnight. Objective Vital Signs Temp Pulse Pulse Resp Resp BP Pulse Ox 12/31/19 10:00 109 H 30 H 113/61 91 12/31/19 09:45 109 H 27 H 110/66 90 12/31/19 09:30 109 H 30 H 108/55 89 12/31/19 09:15 110 H 27 H 124/65 90 12/31/19 09:00 110 H 25 H 120/60 91 12/31/19 08:45 112 H 30 H 131/84 92 12/31/19 08:30 107 H 29 H 109/69 91 12/31/19 08:15 111 H 21 141/78 91 12/31/19 08:00 97.9 F 111 H 30 H 134/78 91 12/31/19 07:55 114 H 30 H 12/31/19 07:45 113 H 26 H 134/79 92 12/31/19 07:30 112 H 35 H 128/77 92 12/31/19 07:15 111 H 21 132/75 92 12/31/19 07:00 112 H 29 H 123/73 92 12/31/19 06:45 112 H 20 129/74 92 12/31/19 06:30 112 H 18 128/72 92 12/31/19 06:15 111 H 25 H 123/69 92 12/31/19 06:10 112 H 21 131/67 92 12/31/19 06:00 112 H 26 H 127/72 92 12/31/19 05:50 112 H 27 H 128/70 91 12/31/19 05:40 112 H 22 123/67 91 12/31/19 05:30 112 H 21 117/69 90 12/31/19 05:20 98.8 F 113 H 22 116/62 89 12/31/19 05:15 113 H 16 118/64 90 12/31/19 05:07 98.8 F 113 H 29 H 112/60 90 12/31/19 05:00 113 H 22 112/61 90 12/31/19 04:56 113 H 117/56 90 12/31/19 04:45 113 H 22 115/62 91 12/31/19 04:30 113 H 29 H 110/63 89 12/31/19 04:15 116 H 18 109/71 12/31/19 04:00 97.7 F 113 H 28 H 115/63 90 12/31/19 03:45 115 H 37 H 129/67 90 12/31/19 03:30 118 H 28 H 130/83 92 12/31/19 03:15 118 H 39 H 132/82 92 12/31/19 03:00 119 H 21 139/76 92 12/31/19 02:45 119 H 30 H 133/72 92 12/31/19 02:39 82 30 H 12/31/19 02:30 118 H 30 H 131/72 93 12/31/19 02:15 119 H 23 123/73 93 12/31/19 02:00 118 H 30 H 126/66 93 12/31/19 01:45 118 H 31 H 124/71 92 12/31/19 01:30 117 H 41 H 127/74 91 12/31/19 01:15 116 H 33 H 118/78 92 12/31/19 01:00 117 H 23 120/77 92 12/31/19 00:45 116 H 26 H 119/76 92 12/31/19 00:30 117 H 33 H 120/74 93 12/31/19 00:15 117 H 25 H 131/72 93 12/31/19 00:00 98.8 F 117 H 29 H 125/72 93 12/30/19 23:53 117 H 122/74 92 12/30/19 23:45 118 H 28 H 120/72 92 12/30/19 23:30 117 H 27 H 121/74 92 12/30/19 23:15 117 H 23 127/76 92 12/30/19 23:00 118 H 36 H 119/76 93 12/30/19 22:45 118 H 35 H 120/79 92 12/30/19 22:36 118 H 29 H 116/74 91 12/30/19 22:30 118 H 34 H 117/75 92 12/30/19 22:15 118 H 22 113/72 92 12/30/19 22:00 118 H 25 H 119/70 91 12/30/19 21:45 118 H 32 H 109/69 90 12/30/19 21:30 118 H 17 120/73 90 12/30/19 21:16 118 H 27 H 120/73 89 12/30/19 21:00 119 H 24 120/73 92 12/30/19 20:45 119 H 33 H 128/72 90 12/30/19 20:36 120 H 30 H 12/30/19 20:30 119 H 25 H 122/71 91 12/30/19 20:28 119 H 122/71 90 12/30/19 20:15 119 H 21 127/68 91 12/30/19 20:00 98.8 F 120 H 22 122/70 93 12/30/19 19:45 120 H 20 119/65 93 12/30/19 19:30 120 H 25 H 117/69 93 12/30/19 19:15 119 H 31 H 112/69 93 12/30/19 19:00 118 H 26 H 116/64 92 12/30/19 18:45 120 H 30 H 134/107 91 12/30/19 18:30 121 H 14 99/43 90 12/30/19 18:15 121 H 29 H 122/68 89 12/30/19 18:00 122 H 29 H 126/72 89 12/30/19 17:45 122 H 31 H 130/73 89 12/30/19 17:30 122 H 28 H 131/76 89 12/30/19 17:15 122 H 41 H 130/72 89 12/30/19 17:00 123 H 36 H 145/91 90 12/30/19 16:45 119 H 28 H 120/54 85 12/30/19 16:30 123 H 34 H 126/69 88 12/30/19 16:15 123 H 40 H 129/73 89 12/30/19 16:00 123 H 44 H 128/71 89 12/30/19 15:52 118 H 115/67 91 12/30/19 15:45 124 H 23 137/78 91 12/30/19 15:30 122 H 21 123/68 88 12/30/19 15:15 122 H 35 H 122/64 90 12/30/19 15:00 122 H 25 H 121/62 91 12/30/19 14:45 120 H 21 124/55 90 12/30/19 14:30 122 H 31 H 121/67 93 12/30/19 14:15 123 H 34 H 116/64 91 12/30/19 14:00 123 H 35 H 119/69 92 12/30/19 13:45 121 H 30 H 102/63 89 12/30/19 13:30 119 H 25 H 110/73 89 12/30/19 13:15 118 H 19 115/67 91 12/30/19 13:08 119 H 30 H 12/30/19 13:00 120 H 25 H 109/68 89 12/30/19 12:45 111 H 25 H 89/62 82 L 12/30/19 12:30 119 H 20 102/56 87 12/30/19 12:15 119 H 22 111/62 89 12/30/19 12:00 119 H 25 H 101/59 87 12/30/19 11:45 119 H 14 110/70 89 12/30/19 11:40 126 H 96/62 91 12/30/19 11:30 119 H 16 108/63 87 - Physical Examination General: Other (unresponsive on the vent) Cardiac: Positive: Reg Rate and Rhythm - Labs and Meds Cardiac Enzymes 12/31/19 Range/Units 08:50 AST 226 H (5-40) units/L CBC 12/31/19 Range/Units 08:50 WBC 21.7 H (4.5-11.0) K/mm3 RBC 2.96 L (3.65-5.03) M/mm3 Hgb 9.7 L (11.8-15.2) gm/dl Hct 28.9 L D (35.5-45.6) % Plt Count 41 L D (140-440) K/mm3 Comprehensive Metabolic Panel 12/30/19 12/30/19 12/31/19 Range/Units 12:40 14:35 08:50 Sodium 133 L 139 (137-145) mmol/L Potassium > 9.0 H* D 6.6 H* D 3.7 D (3.6-5.0) mmol/L Chloride 100.1 103.8 (98-107) mmol/L Carbon Dioxide 24 D 20 L (22-30) mmol/L BUN 79 H 82 H (9-20) mg/dL Creatinine 4.9 H 5.6 H (0.8-1.3) mg/dL Glucose 687 H* 260 H (75-100) mg/dL Calcium 6.6 L D 6.8 L (8.4-10.2) mg/dL AST 226 H (5-40) units/L ALT 191 H (7-56) units/L Alkaline Phosphatase 50 (35-129) units/L Total Protein 4.7 L D (6.3-8.2) g/dL Albumin 2.6 L (3.9-5) g/dL - Allied health notes Allied health notes reviewed: nursing
[2019-12-31] MEDS: DOBUTamine/D5W 500 MG/250 ML 500 MG/250 ML BAG IV SCH (11:42)
[2019-12-31 12:59] LABS: Band Neutrophils # (Manual) 0.4 K/mm3; Basophils % (Manual) 0 % (0.0-1.8); Eosinophils % (Manual) 0 % (0.0-4.3); Schistocytes Few; Total Cells Counted 100
[2019-12-31 13:00] LABS: Burr Cells 1+; Platelet Estimate Consistent w Auto; Target Cells Few
--- NOTE | 2019-12-31 13:35 | Progress Note ---
Assessment and Plan Acute hypoxemic & hypercapnic respiratory failure on MVS ARDS PUI COVID-19 infection. Bilateral pneumonia. Acute encephalopathy, possibly anoxic. DM II IVAN Morbid obesity. Leukocytosis. Lactic acidosis. Elevated inflammatory markers to include ferritin and D-dimer levels. Elevated serum transaminases. Oropharyngeal dysphagia. History of a groin abscess recently. - discussed care plan at length with his mother yesterday - discussed with Vascular team and they will place Vascath today - too unstable for transfer to CRRT center but he should tolerate regular dialysis with vasopressor support - tube feeds on hold whil;e on IV insulin therapy - IV insulin drip down to 11 units/hr - continue to wean vasopressors for target MAP > 65 mmHg (on vasopressin and levophed) - platelet count up to 41K - follow HIT assay - continue care as below otherwise; - tapered systemic steroids - IV heparin stopped - EEG with slowing - too unstable to transfer for CT brain or MRI - continue to hyperventilate acutely re: severe metabolic acidosis - continue inotropic support at 5 mics/kg/min fixed dose Dobutamine - volume resuscitation per physician office secretary - neurology evaluation ongoing - prognosis guarded in particular for neurologic recovery - cardiology evaluation ongoing - Azotemia per nephrology - 2D ECHO shows HFrEF of 20-25% - continue empiric Keppra - neurology consultation - continue to wean supplemental oxygen for target O2 sat's > 92% acutely - keep set rate at 30 for now - repeat ABG in am and address MV - Daily SAT's and SBT assessment as tolerated - VAP bundle addressed - continue lung protective strategies - continue bronchodilators with pulmonary hygiene per RT - wean per pulmonary driven protocols otherwise - continue accuchecks with glycemic control per SSI (While critically ill target blood glucose of 140-180 mg/dL; avoid hypoglycemia) - sedation prn for target RASS 0 to -1 - avoid nephrotoxins, renally dose all medications - continue to avoid benzodiazepine's, reduce the possibility of delirium - continue COVID-19 isolation - follow repeat COVID-19 test result - continue antiinfective's per ID rec's - prn analgesia per CPOT score - Maintenance of sleep-wake cycle, avoid delirium - enteral nutritional support at goal rate as tolerated - G.I. & VTE prophylaxis - PT/OT/ROM exercises - continue mobility protocols for pressure ulcer prophylaxis - Monitor hemodynamics closely - continue other care per attending / other consultants - discharge planning ongoing concurrently .... Re-evaluate in am & prn CONDITION: CRITICAL PROGNOSIS: GUARDED CODE STATUS: FULL CODE The high probability of a clinically significant, sudden or life-threatening deterioration of the [respiratory, cardiovascular & neurologic] system(s) required my full and direct attention, intervention and personal management. The aggregate critical care time was [33] minutes without overlap. Time includes spent on; [x] Data Review and interpretation [x] Patient assessment and monitoring of vital signs [x] Documentation [x] Medication orders and management Subjective Date of service: 12/31/19 Principal diagnosis: Acute hypoxemic & hypercapnic resp failure; ARDS; PUI COVID-19; PNA Interval history: Patient is seen today for: Acute hypoxemic & hypercapnic respiratory failure; ARDS; PUI COVID-19 infection; Bilateral pneumonia; Acute encephalopathy, possibly anoxic; DM II; IVAN; Morbid obesity; Lactic acidosis. Seen and examined at bedside; 24hour events reviewed; nursing and respiratory care staff consulted; no adverse overnight events reported to me; resting peacefully in bed; remains on MVS; less hemodynamic instability today; no emesis or overt aspiration; awaiting vascath placement then for [employer]; FiO2 remains at 100% but pO2 improving Objective Vital Signs - 12hr 12/31/19 12/31/19 12/31/19 01:30 01:45 02:00 Temperature Pulse Rate 117 H 118 H 118 H Pulse Rate [ Anterior Bilateral Throughout] Respiratory 41 H 31 H 30 H Rate Respiratory Rate [Anterior Bilateral Throughout] Blood Pressure 127/74 124/71 126/66 O2 Sat by Pulse 91 92 93 Oximetry 12/31/19 12/31/19 12/31/19 02:15 02:30 02:39 Temperature Pulse Rate 119 H 118 H Pulse Rate [ 82 Anterior Bilateral Throughout] Respiratory 23 30 H Rate Respiratory 30 H Rate [Anterior Bilateral Throughout] Blood Pressure 123/73 131/72 O2 Sat by Pulse 93 93 Oximetry 12/31/19 12/31/19 12/31/19 02:45 03:00 03:15 Temperature Pulse Rate 119 H 119 H 118 H Pulse Rate [ Anterior Bilateral Throughout] Respiratory 30 H 21 39 H Rate Respiratory Rate [Anterior Bilateral Throughout] Blood Pressure 133/72 139/76 132/82 O2 Sat by Pulse 92 92 92 Oximetry 12/31/19 12/31/19 12/31/19 03:30 03:45 04:00 Temperature 97.7 F Pulse Rate 118 H 115 H 113 H Pulse Rate [ Anterior Bilateral Throughout] Respiratory 28 H 37 H 28 H Rate Respiratory Rate [Anterior Bilateral Throughout] Blood Pressure 130/83 129/67 115/63 O2 Sat by Pulse 92 90 90 Oximetry 12/31/19 12/31/19 12/31/19 04:15 04:30 04:45 Temperature Pulse Rate 116 H 113 H 113 H Pulse Rate [ Anterior Bilateral Throughout] Respiratory 18 29 H 22 Rate Respiratory Rate [Anterior Bilateral Throughout] Blood Pressure 109/71 110/63 115/62 O2 Sat by Pulse 89 91 Oximetry 12/31/19 12/31/19 12/31/19 04:56 05:00 05:07 Temperature 98.8 F Pulse Rate 113 H 113 H 113 H Pulse Rate [ Anterior Bilateral Throughout] Respiratory 22 29 H Rate Respiratory Rate [Anterior Bilateral Throughout] Blood Pressure 117/56 112/61 112/60 O2 Sat by Pulse 90 90 90 Oximetry 12/31/19 12/31/19 12/31/19 05:15 05:20 05:30 Temperature 98.8 F Pulse Rate 113 H 113 H 112 H Pulse Rate [ Anterior Bilateral Throughout] Respiratory 16 22 21 Rate Respiratory Rate [Anterior Bilateral Throughout] Blood Pressure 118/64 116/62 117/69 O2 Sat by Pulse 90 89 90 Oximetry 12/31/19 12/31/19 12/31/19 05:40 05:50 06:00 Temperature Pulse Rate 112 H 112 H 112 H Pulse Rate [ Anterior Bilateral Throughout] Respiratory 22 27 H 26 H Rate Respiratory Rate [Anterior Bilateral Throughout] Blood Pressure 123/67 128/70 127/72 O2 Sat by Pulse 91 91 92 Oximetry 12/31/19 12/31/19 12/31/19 06:10 06:15 06:30 Temperature Pulse Rate 112 H 111 H 112 H Pulse Rate [ Anterior Bilateral Throughout] Respiratory 21 25 H 18 Rate Respiratory Rate [Anterior Bilateral Throughout] Blood Pressure 131/67 123/69 128/72 O2 Sat by Pulse 92 92 92 Oximetry 12/31/19 12/31/19 12/31/19 06:45 07:00 07:15 Temperature Pulse Rate 112 H 112 H 111 H Pulse Rate [ Anterior Bilateral Throughout] Respiratory 20 29 H 21 Rate Respiratory Rate [Anterior Bilateral Throughout] Blood Pressure 129/74 123/73 132/75 O2 Sat by Pulse 92 92 92 Oximetry 12/31/19 12/31/19 12/31/19 07:30 07:45 07:55 Temperature Pulse Rate 112 H 113 H Pulse Rate [ 114 H Anterior Bilateral Throughout] Respiratory 35 H 26 H Rate Respiratory 30 H Rate [Anterior Bilateral Throughout] Blood Pressure 128/77 134/79 O2 Sat by Pulse 92 92 Oximetry 12/31/19 12/31/19 12/31/19 08:00 08:15 08:30 Temperature 97.9 F Pulse Rate 111 H 111 H 107 H Pulse Rate [ Anterior Bilateral Throughout] Respiratory 30 H 21 29 H Rate Respiratory Rate [Anterior Bilateral Throughout] Blood Pressure 134/78 141/78 109/69 O2 Sat by Pulse 91 91 91 Oximetry 12/31/19 12/31/19 12/31/19 08:45 09:00 09:15 Temperature Pulse Rate 112 H 110 H 110 H Pulse Rate [ Anterior Bilateral Throughout] Respiratory 30 H 25 H 27 H Rate Respiratory Rate [Anterior Bilateral Throughout] Blood Pressure 131/84 120/60 124/65 O2 Sat by Pulse 92 91 90 Oximetry 12/31/19 12/31/19 12/31/19 09:30 09:45 10:00 Temperature Pulse Rate 109 H 109 H 109 H Pulse Rate [ Anterior Bilateral Throughout] Respiratory 30 H 27 H 30 H Rate Respiratory Rate [Anterior Bilateral Throughout] Blood Pressure 108/55 110/66 113/61 O2 Sat by Pulse 89 90 91 Oximetry 12/31/19 12/31/19 12/31/19 10:15 10:30 10:45 Temperature Pulse Rate 110 H 108 H 108 H Pulse Rate [ Anterior Bilateral Throughout] Respiratory 30 H 30 H 30 H Rate Respiratory Rate [Anterior Bilateral Throughout] Blood Pressure 122/57 112/53 109/52 O2 Sat by Pulse 91 90 91 Oximetry 12/31/19 12/31/19 12/31/19 11:00 11:15 11:30 Temperature Pulse Rate 109 H 109 H 111 H Pulse Rate [ Anterior Bilateral Throughout] Respiratory 30 H 30 H 30 H Rate Respiratory Rate [Anterior Bilateral Throughout] Blood Pressure 103/56 113/49 110/53 O2 Sat by Pulse 91 92 90 Oximetry 12/31/19 12/31/19 12/31/19 11:38 11:45 12:00 Temperature Pulse Rate 109 H 108 H 111 H Pulse Rate [ Anterior Bilateral Throughout] Respiratory 30 H 30 H Rate Respiratory Rate [Anterior Bilateral Throughout] Blood Pressure 113/61 111/45 118/65 O2 Sat by Pulse 91 90 92 Oximetry 12/31/19 12/31/19 12/31/19 12:15 12:30 12:45 Temperature Pulse Rate 111 H 111 H 112 H Pulse Rate [ Anterior Bilateral Throughout] Respiratory 31 H 30 H 23 Rate Respiratory Rate [Anterior Bilateral Throughout] Blood Pressure 113/59 117/57 109/55 O2 Sat by Pulse 91 90 91 Oximetry 12/31/19 12/31/19 13:00 13:07 Temperature Pulse Rate 112 H Pulse Rate [ 109 H Anterior Bilateral Throughout] Respiratory 30 H Rate Respiratory 30 H Rate [Anterior Bilateral Throughout] Blood Pressure 110/58 O2 Sat by Pulse 91 Oximetry Constitutional: no acute distress, other (young obese male with normal respiratory effort at rest on MVS ) Eyes: non-icteric ENT: oropharynx moist, other (ETT 24 cm JOHAN) Neck: supple, no lymphadenopathy, no JVD, other (large neck circumference) Effort: normal Ascultation: Bilateral: diminished breath sounds, rhonchi (scant) Percussion: Bilateral: not dull Cardiovascular: regular rate and rhythm Gastrointestinal: normoactive bowel sounds, soft, non-tender, non-distended (protuberant) Integumentary: rash (stasis dermatitis) Extremities: no cyanosis, no edema, no ischemia or petechiae, anasarca (mild) Neurologic: pupils equal and round (5-6 mm and non reactive), unable to assess, other (sedated) Psychiatric: other (sedated) CBC and BMP: 12/31/19 08:50 12/31/19 08:50 ABG, PT/INR, D-dimer: ABG ABG pH 7.308 pH Units (7.350-7.450) L 12/30/19 21:23 POC ABG pCO2 31.8 mmHg (32.0-48.0) L 12/30/19 04:15 ABG pCO2 35.9 mm Hg 12/30/19 21:23 POC ABG pO2 69.2 mmHg (83-108) L 12/30/19 04:15 ABG pO2 61.8 mm Hg (80.0-90.0) L 12/30/19 21: POC ABG HCO3 13.6 12/30/19 04:15 ABG O2 Saturation 90.0 % (95.0-99.0) L 12/30/19 21:23 PT/INR, D-dimer PT 14.1 Sec. (12.2-14.9) 12/26/19 18:31 INR 1.08 (0.87-1.13) 12/26/19 18:31 D-Dimer 6498.49 ng/mlDDU (0-234) H 12/26/19 16:50 Abnormal lab findings: Abnormal Labs 12/26/19 12/26/19 12/26/19 15:57 16:13 16:13 WBC 23.7 H RBC Hgb Hct 45.7 H MCV 102 H MCH 34 H RDW Plt Count Lymph % (Auto) Lymph # (Auto) Seg Neuts % (Manual) 80.0 H Lymphocytes % (Manual) Nucleated RBC % Seg Neutrophils # Seg Neutrophils # Man 19.0 H Lymphocytes # (Manual) Eosinophils # (Manual) 0.5 H D-Dimer 5221.01 H Heparin Anti-Xa Level ABG pH 7.109 L* POC ABG pCO2 POC ABG pO2 ABG pO2 101.4 H ABG HCO3 16.3 L ABG O2 Saturation ABG Base Excess -13.4 L ABG Hemoglobin ABG Oxyhemoglobin ABG Sodium ABG Chloride ABG Glucose Oxyhemoglobin 93.3 L Sodium Potassium Chloride Carbon Dioxide BUN Creatinine Glucose POC Glucose Lactic Acid Calcium Magnesium Ferritin AST ALT Lactate Dehydrogenase Total Creatine Kinase NT-Pro-B Natriuret Pep Total Protein Albumin Arterial Blood Glucose Arterial Blood Ionized Calcium Urine WBC (Auto) Urine Creatinine Urine Total Protein 12/26/19 12/26/19 12/26/19 16:13 16:13 16:13 WBC RBC Hgb Hct MCV MCH RDW Plt Count Lymph % (Auto) Lymph # (Auto) Seg Neuts % (Manual) Lymphocytes % (Manual) Nucleated RBC % Seg Neutrophils # Seg Neutrophils # Man Lymphocytes # (Manual) Eosinophils # (Manual) D-Dimer Heparin Anti-Xa Level ABG pH POC ABG pCO2 POC ABG pO2 ABG pO2 ABG HCO3 ABG O2 Saturation ABG Base Excess ABG Hemoglobin ABG Oxyhemoglobin ABG Sodium ABG Chloride ABG Glucose Oxyhemoglobin Sodium Potassium Chloride Carbon Dioxide 15 L BUN Creatinine Glucose 268 H POC Glucose Lactic Acid Calcium Magnesium 2.60 H Ferritin AST 177 H ALT 108 H Lactate Dehydrogenase Total Creatine Kinase 191 H NT-Pro-B Natriuret Pep 1766 H Total Protein Albumin Arterial Blood Glucose Arterial Blood Ionized Calcium Urine WBC (Auto) Urine Creatinine Urine Total Protein 12/26/19 12/26/19 12/26/19 16:13 16:50 16:50 WBC RBC Hgb Hct MCV MCH RDW Plt Count Lymph % (Auto) Lymph # (Auto) Seg Neuts % (Manual) Lymphocytes % (Manual) Nucleated RBC % Seg Neutrophils # Seg Neutrophils # Man Lymphocytes # (Manual) Eosinophils # (Manual) D-Dimer Heparin Anti-Xa Level ABG pH POC ABG pCO2 POC ABG pO2 ABG pO2 ABG HCO3 ABG O2 Saturation ABG Base Excess ABG Hemoglobin ABG Oxyhemoglobin ABG Sodium ABG Chloride ABG Glucose Oxyhemoglobin Sodium Potassium Chloride Carbon Dioxide BUN Creatinine Glucose 273 H POC Glucose Lactic Acid 7.70 H* Calcium Magnesium Ferritin 1248.0 H AST ALT Lactate Dehydrogenase 443 H Total Creatine Kinase NT-Pro-B Natriuret Pep Total Protein Albumin Arterial Blood Glucose Arterial Blood Ionized Calcium Urine WBC (Auto) Urine Creatinine Urine Total Protein 12/26/19 12/26/19 12/26/19 16:50 17:02 18:42 WBC RBC Hgb Hct MCV MCH RDW Plt Count Lymph % (Auto) Lymph # (Auto) Seg Neuts % (Manual) Lymphocytes % (Manual) Nucleated RBC % Seg Neutrophils # Seg Neutrophils # Man Lymphocytes # (Manual) Eosinophils # (Manual) D-Dimer 6498.49 H Heparin Anti-Xa Level ABG pH 7.136 L* POC ABG pCO2 POC ABG pO2 ABG pO2 63.9 L ABG HCO3 ABG O2 Saturation 81.8 L ABG Base Excess -9.6 L ABG Hemoglobin ABG Oxyhemoglobin ABG Sodium ABG Chloride ABG Glucose Oxyhemoglobin 79.8 L Sodium Potassium Chloride Carbon Dioxide BUN Creatinine Glucose POC Glucose Lactic Acid 3.20 H* Calcium Magnesium Ferritin AST ALT Lactate Dehydrogenase Total Creatine Kinase NT-Pro-B Natriuret Pep Total Protein Albumin Arterial Blood Glucose Arterial Blood Ionized Calcium Urine WBC (Auto) Urine Creatinine Urine Total Protein 12/26/19 12/26/19 12/26/19 19:56 20:40 21:29 WBC RBC Hgb Hct MCV MCH RDW Plt Count Lymph % (Auto) Lymph # (Auto) Seg Neuts % (Manual) Lymphocytes % (Manual) Nucleated RBC % Seg Neutrophils # Seg Neutrophils # Man Lymphocytes # (Manual) Eosinophils # (Manual) D-Dimer Heparin Anti-Xa Level ABG pH 7.259 L POC ABG pCO2 POC ABG pO2 ABG pO2 70.4 L ABG HCO3 ABG O2 Saturation 92.3 L ABG Base Excess -6.7 L ABG Hemoglobin ABG Oxyhemoglobin ABG Sodium ABG Chloride ABG Glucose Oxyhemoglobin 90.2 L Sodium Potassium Chloride Carbon Dioxide BUN Creatinine Glucose POC Glucose Lactic Acid 3.40 H* 4.40 H* Calcium Magnesium Ferritin AST ALT Lactate Dehydrogenase Total Creatine Kinase NT-Pro-B Natriuret Pep Total Protein Albumin Arterial Blood Glucose Arterial Blood Ionized Calcium Urine WBC (Auto) Urine Creatinine Urine Total Protein 12/26/19 12/26/19 12/27/19 23:00 Unknown 01:52 WBC RBC Hgb Hct MCV MCH RDW Plt Count Lymph % (Auto) Lymph # (Auto) Seg Neuts % (Manual) Lymphocytes % (Manual) Nucleated RBC % Seg Neutrophils # Seg Neutrophils # Man Lymphocytes # (Manual) Eosinophils # (Manual) D-Dimer Heparin Anti-Xa Level ABG pH POC ABG pCO2 POC ABG pO2 ABG pO2 ABG HCO3 ABG O2 Saturation ABG Base Excess ABG Hemoglobin ABG Oxyhemoglobin ABG Sodium ABG Chloride ABG Glucose Oxyhemoglobin Sodium Potassium Chloride Carbon Dioxide BUN Creatinine Glucose POC Glucose Lactic Acid 3.60 H* 4.20 H* Calcium Magnesium Ferritin AST ALT Lactate Dehydrogenase Total Creatine Kinase NT-Pro-B Natriuret Pep Total Protein Albumin Arterial Blood Glucose Arterial Blood Ionized Calcium Urine WBC (Auto) 146.0 H Urine Creatinine Urine Total Protein 12/27/19 12/27/19 12/27/19 03:45 04:49 04:49 WBC RBC Hgb Hct MCV MCH RDW Plt Count Lymph % (Auto) Lymph # (Auto) Seg Neuts % (Manual) Lymphocytes % (Manual) Nucleated RBC % Seg Neutrophils # Seg Neutrophils # Man Lymphocytes # (Manual) Eosinophils # (Manual) D-Dimer Heparin Anti-Xa Level 0.23 L ABG pH POC ABG pCO2 POC ABG pO2 ABG pO2 ABG HCO3 18.7 L ABG O2 Saturation ABG Base Excess -5.8 L ABG Hemoglobin ABG Oxyhemoglobin ABG Sodium ABG Chloride ABG Glucose Oxyhemoglobin Sodium Potassium Chloride Carbon Dioxide BUN Creatinine Glucose POC Glucose Lactic Acid 2.20 H* Calcium Magnesium Ferritin AST ALT Lactate Dehydrogenase Total Creatine Kinase NT-Pro-B Natriuret Pep Total Protein Albumin Arterial Blood Glucose Arterial Blood Ionized Calcium Urine WBC (Auto) Urine Creatinine Urine Total Protein 12/28/19 12/28/19 12/28/19 05:05 09:58 14:30 WBC RBC Hgb Hct MCV MCH RDW Plt Count Lymph % (Auto) Lymph # (Auto) Seg Neuts % (Manual) Lymphocytes % (Manual) Nucleated RBC % Seg Neutrophils # Seg Neutrophils # Man Lymphocytes # (Manual) Eosinophils # (Manual) D-Dimer Heparin Anti-Xa Level ABG pH POC ABG pCO2 POC ABG pO2 ABG pO2 113.7 H ABG HCO3 18.6 L ABG O2 Saturation ABG Base Excess -5.6 L ABG Hemoglobin ABG Oxyhemoglobin ABG Sodium ABG Chloride ABG Glucose Oxyhemoglobin Sodium Potassium Chloride 108.4 H Carbon Dioxide 16 L BUN 39 H Creatinine 2.3 H D Glucose 380 H POC Glucose 268 H Lactic Acid Calcium Magnesium Ferritin AST ALT Lactate Dehydrogenase Total Creatine Kinase NT-Pro-B Natriuret Pep Total Protein Albumin Arterial Blood Glucose Arterial Blood Ionized Calcium Urine WBC (Auto) Urine Creatinine Urine Total Protein 12/29/19 12/29/19 12/29/19 03:41 11:01 11:31 WBC RBC Hgb Hct MCV MCH RDW Plt Count Lymph % (Auto) Lymph # (Auto) Seg Neuts % (Manual) Lymphocytes % (Manual) Nucleated RBC % Seg Neutrophils # Seg Neutrophils # Man Lymphocytes # (Manual) Eosinophils # (Manual) D-Dimer Heparin Anti-Xa Level ABG pH 7.198 L* 7.147 L POC ABG pCO2 POC ABG pO2 48.9 L ABG pO2 64.4 L ABG HCO3 13.4 L ABG O2 Saturation 89.7 L ABG Base Excess -13.6 L ABG Hemoglobin 13.8 L ABG Oxyhemoglobin 78.4 L ABG Sodium ABG Chloride 108.0 H ABG Glucose 544 H Oxyhemoglobin 87.5 L Sodium Potassium Chloride Carbon Dioxide BUN Creatinine Glucose POC Glucose 433 H Lactic Acid Calcium Magnesium Ferritin AST ALT Lactate Dehydrogenase Total Creatine Kinase NT-Pro-B Natriuret Pep Total Protein Albumin Arterial Blood Glucose 544 H Arterial Blood Ionized Calcium Urine WBC (Auto) Urine Creatinine Urine Total Protein 12/29/19 12/29/19 12/29/19 12:25 16:14 16:14 WBC RBC Hgb Hct MCV MCH RDW Plt Count Lymph % (Auto) Lymph # (Auto) Seg Neuts % (Manual) Lymphocytes % (Manual) Nucleated RBC % Seg Neutrophils # Seg Neutrophils # Man Lymphocytes # (Manual) Eosinophils # (Manual) D-Dimer Heparin Anti-Xa Level 1.37 H ABG pH POC ABG pCO2 POC ABG pO2 ABG pO2 ABG HCO3 ABG O2 Saturation ABG Base Excess ABG Hemoglobin ABG Oxyhemoglobin ABG Sodium ABG Chloride ABG Glucose Oxyhemoglobin Sodium Potassium 3.3 L D Chloride Carbon Dioxide 17 L BUN 69 H Creatinine 4.2 H D Glucose 527 H* POC Glucose 426 H Lactic Acid Calcium 7.7 L Magnesium Ferritin AST ALT Lactate Dehydrogenase Total Creatine Kinase NT-Pro-B Natriuret Pep Total Protein Albumin Arterial Blood Glucose Arterial Blood Ionized Calcium Urine WBC (Auto) Urine Creatinine Urine Total Protein 12/29/19 12/29/19 12/29/19 18:41 20:17 22:15 WBC RBC Hgb Hct MCV MCH RDW Plt Count Lymph % (Auto) Lymph # (Auto) Seg Neuts % (Manual) Lymphocytes % (Manual) Nucleated RBC % Seg Neutrophils # Seg Neutrophils # Man Lymphocytes # (Manual) Eosinophils # (Manual) D-Dimer Heparin Anti-Xa Level ABG pH 7.246 L POC ABG pCO2 30.5 L POC ABG pO2 73.6 L ABG pO2 ABG HCO3 ABG O2 Saturation ABG Base Excess ABG Hemoglobin ABG Oxyhemoglobin 93.0 L ABG Sodium 135.8 L ABG Chloride ABG Glucose 534 H Oxyhemoglobin Sodium Potassium Chloride Carbon Dioxide BUN Creatinine Glucose POC Glucose 449 H 422 H Lactic Acid Calcium Magnesium Ferritin AST ALT Lactate Dehydrogenase Total Creatine Kinase NT-Pro-B Natriuret Pep Total Protein Albumin Arterial Blood Glucose 534 H Arterial Blood Ionized Calcium Urine WBC (Auto) Urine Creatinine Urine Total Protein 12/29/19 12/29/19 12/29/19 23:40 Unknown Unknown WBC RBC Hgb Hct MCV MCH RDW Plt Count Lymph % (Auto) Lymph # (Auto) Seg Neuts % (Manual) Lymphocytes % (Manual) Nucleated RBC % Seg Neutrophils # Seg Neutrophils # Man Lymphocytes # (Manual) Eosinophils # (Manual) D-Dimer Heparin Anti-Xa Level ABG pH POC ABG pCO2 POC ABG pO2 ABG pO2 ABG HCO3 ABG O2 Saturation ABG Base Excess ABG Hemoglobin ABG Oxyhemoglobin ABG Sodium ABG Chloride ABG Glucose Oxyhemoglobin Sodium Potassium Chloride Carbon Dioxide BUN Creatinine Glucose POC Glucose 486 H Lactic Acid Calcium Magnesium Ferritin AST ALT Lactate Dehydrogenase Total Creatine Kinase NT-Pro-B Natriuret Pep Total Protein Albumin Arterial Blood Glucose Arterial Blood Ionized Calcium Urine WBC (Auto) 16.0 H Urine Creatinine 164.0 H Urine Total Protein 232 H 12/30/19 12/30/19 12/30/19 03:45 04:15 07:28 WBC RBC Hgb Hct MCV MCH RDW Plt Count Lymph % (Auto) Lymph # (Auto) Seg Neuts % (Manual) Lymphocytes % (Manual) Nucleated RBC % Seg Neutrophils # Seg Neutrophils # Man Lymphocytes # (Manual) Eosinophils # (Manual) D-Dimer Heparin Anti-Xa Level ABG pH 7.249 L POC ABG pCO2 31.8 L POC ABG pO2 69.2 L ABG pO2 ABG HCO3 ABG O2 Saturation ABG Base Excess ABG Hemoglobin ABG Oxyhemoglobin ABG Sodium 134.7 L ABG Chloride ABG Glucose 603 H Oxyhemoglobin Sodium 129 L D Potassium 2.9 L* Chloride 90.9 L Carbon Dioxide 31 H D BUN 66 H Creatinine 3.8 H Glucose 1120 H* POC Glucose 443 H Lactic Acid Calcium 5.2 L* D Magnesium Ferritin AST 125 H ALT 119 H Lactate Dehydrogenase Total Creatine Kinase NT-Pro-B Natriuret Pep Total Protein 3.4 L D Albumin 1.9 L Arterial Blood Glucose 603 H Arterial Blood Ionized Calcium 4.4 L Urine WBC (Auto) Urine Creatinine Urine Total Protein 12/30/19 12/30/19 12/30/19 07:28 08:04 10:30 WBC 20.2 H RBC 3.43 L Hgb 11.2 L Hct 35.0 L MCV 102 H MCH 33 H RDW 16.1 H Plt Count 5 L* Lymph % (Auto) Lymph # (Auto) Seg Neuts % (Manual) 97.0 H Lymphocytes % (Manual) 1.0 L Nucleated RBC % 3.0 H Seg Neutrophils # Seg Neutrophils # Man 19.6 H Lymphocytes # (Manual) 0.2 L Eosinophils # (Manual) D-Dimer Heparin Anti-Xa Level ABG pH POC ABG pCO2 POC ABG pO2 ABG pO2 ABG HCO3 ABG O2 Saturation ABG Base Excess ABG Hemoglobin ABG Oxyhemoglobin ABG Sodium ABG Chloride ABG Glucose Oxyhemoglobin Sodium Potassium Chloride Carbon Dioxide BUN Creatinine Glucose POC Glucose 418 H 462 H Lactic Acid Calcium Magnesium Ferritin AST ALT Lactate Dehydrogenase Total Creatine Kinase NT-Pro-B Natriuret Pep Total Protein Albumin Arterial Blood Glucose Arterial Blood Ionized Calcium Urine WBC (Auto) Urine Creatinine Urine Total Protein 12/30/19 12/30/19 12/30/19 10:38 11:23 12:19 WBC RBC Hgb Hct MCV MCH RDW Plt Count Lymph % (Auto) Lymph # (Auto) Seg Neuts % (Manual) Lymphocytes % (Manual) Nucleated RBC % Seg Neutrophils # Seg Neutrophils # Man Lymphocytes # (Manual) Eosinophils # (Manual) D-Dimer Heparin Anti-Xa Level ABG pH POC ABG pCO2 POC ABG pO2 ABG pO2 ABG HCO3 ABG O2 Saturation ABG Base Excess ABG Hemoglobin ABG Oxyhemoglobin ABG Sodium ABG Chloride ABG Glucose Oxyhemoglobin Sodium Potassium Chloride Carbon Dioxide BUN Creatinine Glucose POC Glucose > 500 H 454 H 446 H Lactic Acid Calcium Magnesium Ferritin AST ALT Lactate Dehydrogenase Total Creatine Kinase NT-Pro-B Natriuret Pep Total Protein Albumin Arterial Blood Glucose Arterial Blood Ionized Calcium Urine WBC (Auto) Urine Creatinine Urine Total Protein 12/30/19 12/30/19 12/30/19 12:40 13:20 13:23 WBC RBC Hgb Hct MCV MCH RDW Plt Count Lymph % (Auto) Lymph # (Auto) Seg Neuts % (Manual) Lymphocytes % (Manual) Nucleated RBC % Seg Neutrophils # Seg Neutrophils # Man Lymphocytes # (Manual) Eosinophils # (Manual) D-Dimer Heparin Anti-Xa Level ABG pH POC ABG pCO2 POC ABG pO2 ABG pO2 ABG HCO3 ABG O2 Saturation ABG Base Excess ABG Hemoglobin ABG Oxyhemoglobin ABG Sodium ABG Chloride ABG Glucose Oxyhemoglobin Sodium Potassium > 9.0 H* D Chloride Carbon Dioxide BUN Creatinine Glucose POC Glucose 480 H > 500 H Lactic Acid Calcium Magnesium Ferritin AST ALT Lactate Dehydrogenase Total Creatine Kinase NT-Pro-B Natriuret Pep Total Protein Albumin Arterial Blood Glucose Arterial Blood Ionized Calcium Urine WBC (Auto) Urine Creatinine Urine Total Protein 12/30/19 12/30/19 12/30/19 14:23 14:35 15:09 WBC RBC Hgb Hct MCV MCH RDW Plt Count Lymph % (Auto) Lymph # (Auto) Seg Neuts % (Manual) Lymphocytes % (Manual) Nucleated RBC % Seg Neutrophils # Seg Neutrophils # Man Lymphocytes # (Manual) Eosinophils # (Manual) D-Dimer Heparin Anti-Xa Level ABG pH POC ABG pCO2 POC ABG pO2 ABG pO2 ABG HCO3 ABG O2 Saturation ABG Base Excess ABG Hemoglobin ABG Oxyhemoglobin ABG Sodium ABG Chloride ABG Glucose Oxyhemoglobin Sodium 133 L Potassium 6.6 H* D Chloride Carbon Dioxide BUN 79 H Creatinine 4.9 H Glucose 687 H* POC Glucose > 500 H 473 H Lactic Acid Calcium 6.6 L D Magnesium Ferritin AST ALT Lactate Dehydrogenase Total Creatine Kinase NT-Pro-B Natriuret Pep Total Protein Albumin Arterial Blood Glucose Arterial Blood Ionized Calcium Urine WBC (Auto) Urine Creatinine Urine Total Protein 12/30/19 12/30/19 12/30/19 16:29 17:17 18:22 WBC RBC Hgb Hct MCV MCH RDW Plt Count Lymph % (Auto) Lymph # (Auto) Seg Neuts % (Manual) Lymphocytes % (Manual) Nucleated RBC % Seg Neutrophils # Seg Neutrophils # Man Lymphocytes # (Manual) Eosinophils # (Manual) D-Dimer Heparin Anti-Xa Level ABG pH POC ABG pCO2 POC ABG pO2 ABG pO2 ABG HCO3 ABG O2 Saturation ABG Base Excess ABG Hemoglobin ABG Oxyhemoglobin ABG Sodium ABG Chloride ABG Glucose Oxyhemoglobin Sodium Potassium Chloride Carbon Dioxide BUN Creatinine Glucose POC Glucose 448 H 416 H 380 H Lactic Acid Calcium Magnesium Ferritin AST ALT Lactate Dehydrogenase Total Creatine Kinase NT-Pro-B Natriuret Pep Total Protein Albumin Arterial Blood Glucose Arterial Blood Ionized Calcium Urine WBC (Auto) Urine Creatinine Urine Total Protein 12/30/19 12/30/19 12/30/19 19:09 20:21 21:23 WBC RBC Hgb Hct MCV MCH RDW Plt Count Lymph % (Auto) Lymph # (Auto) Seg Neuts % (Manual) Lymphocytes % (Manual) Nucleated RBC % Seg Neutrophils # Seg Neutrophils # Man Lymphocytes # (Manual) Eosinophils # (Manual) D-Dimer Heparin Anti-Xa Level ABG pH 7.308 L POC ABG pCO2 POC ABG pO2 ABG pO2 61.8 L ABG HCO3 17.6 L ABG O2 Saturation 90.0 L ABG Base Excess -8.0 L ABG Hemoglobin 11.4 L ABG Oxyhemoglobin ABG Sodium ABG Chloride ABG Glucose Oxyhemoglobin 88.0 L Sodium Potassium Chloride Carbon Dioxide BUN Creatinine Glucose POC Glucose 337 H 346 H Lactic Acid Calcium Magnesium Ferritin AST ALT Lactate Dehydrogenase Total Creatine Kinase NT-Pro-B Natriuret Pep Total Protein Albumin Arterial Blood Glucose Arterial Blood Ionized Calcium Urine WBC (Auto) Urine Creatinine Urine Total Protein 12/30/19 12/30/19 12/30/19 21:55 22:19 23:47 WBC RBC Hgb Hct MCV MCH RDW Plt Count Lymph % (Auto) Lymph # (Auto) Seg Neuts % (Manual) Lymphocytes % (Manual) Nucleated RBC % Seg Neutrophils # Seg Neutrophils # Man Lymphocytes # (Manual) Eosinophils # (Manual) D-Dimer Heparin Anti-Xa Level ABG pH POC ABG pCO2 POC ABG pO2 ABG pO2 ABG HCO3 ABG O2 Saturation ABG Base Excess ABG Hemoglobin ABG Oxyhemoglobin ABG Sodium ABG Chloride ABG Glucose Oxyhemoglobin Sodium Potassium Chloride Carbon Dioxide BUN Creatinine Glucose POC Glucose 324 H 360 H 338 H Lactic Acid Calcium Magnesium Ferritin AST ALT Lactate Dehydrogenase Total Creatine Kinase NT-Pro-B Natriuret Pep Total Protein Albumin Arterial Blood Glucose Arterial Blood Ionized Calcium Urine WBC (Auto) Urine Creatinine Urine Total Protein 12/30/19 12/30/19 12/31/19 Unknown Unknown 00:16 WBC 20.6 H RBC 3.61 L Hgb Hct MCV 101 H MCH 33 H RDW 16.1 H Plt Count 8 L* Lymph % (Auto) 2.0 L Lymph # (Auto) 0.4 L Seg Neuts % (Manual) Lymphocytes % (Manual) Nucleated RBC % Seg Neutrophils # 19.5 H Seg Neutrophils # Man Lymphocytes # (Manual) Eosinophils # (Manual) D-Dimer Heparin Anti-Xa Level ABG pH POC ABG pCO2 POC ABG pO2 ABG pO2 ABG HCO3 ABG O2 Saturation ABG Base Excess ABG Hemoglobin ABG Oxyhemoglobin ABG Sodium ABG Chloride ABG Glucose Oxyhemoglobin Sodium 136 L Potassium 3.2 L Chloride Carbon Dioxide 14 L BUN 75 H Creatinine 4.3 H Glucose 625 H* POC Glucose 259 H Lactic Acid Calcium 6.9 L Magnesium Ferritin AST 129 H ALT 150 H Lactate Dehydrogenase Total Creatine Kinase NT-Pro-B Natriuret Pep Total Protein 4.5 L D Albumin 2.4 L Arterial Blood Glucose Arterial Blood Ionized Calcium Urine WBC (Auto) Urine Creatinine Urine Total Protein 12/31/19 12/31/19 12/31/19 01:18 02:15 03:34 WBC RBC Hgb Hct MCV MCH RDW Plt Count Lymph % (Auto) Lymph # (Auto) Seg Neuts % (Manual) Lymphocytes % (Manual) Nucleated RBC % Seg Neutrophils # Seg Neutrophils # Man Lymphocytes # (Manual) Eosinophils # (Manual) D-Dimer Heparin Anti-Xa Level ABG pH POC ABG pCO2 POC ABG pO2 ABG pO2 ABG HCO3 ABG O2 Saturation ABG Base Excess ABG Hemoglobin ABG Oxyhemoglobin ABG Sodium ABG Chloride ABG Glucose Oxyhemoglobin Sodium Potassium Chloride Carbon Dioxide BUN Creatinine Glucose POC Glucose 270 H 274 H 240 H Lactic Acid Calcium Magnesium Ferritin AST ALT Lactate Dehydrogenase Total Creatine Kinase NT-Pro-B Natriuret Pep Total Protein Albumin Arterial Blood Glucose Arterial Blood Ionized Calcium Urine WBC (Auto) Urine Creatinine Urine Total Protein 12/31/19 12/31/19 12/31/19 04:24 06:13 07:15 WBC RBC Hgb Hct MCV MCH RDW Plt Count Lymph % (Auto) Lymph # (Auto) Seg Neuts % (Manual) Lymphocytes % (Manual) Nucleated RBC % Seg Neutrophils # Seg Neutrophils # Man Lymphocytes # (Manual) Eosinophils # (Manual) D-Dimer Heparin Anti-Xa Level ABG pH POC ABG pCO2 POC ABG pO2 ABG pO2 ABG HCO3 ABG O2 Saturation ABG Base Excess ABG Hemoglobin ABG Oxyhemoglobin ABG Sodium ABG Chloride ABG Glucose Oxyhemoglobin Sodium Potassium Chloride Carbon Dioxide BUN Creatinine Glucose POC Glucose 219 H 201 H 167 H Lactic Acid Calcium Magnesium Ferritin AST ALT Lactate Dehydrogenase Total Creatine Kinase NT-Pro-B Natriuret Pep Total Protein Albumin Arterial Blood Glucose Arterial Blood Ionized Calcium Urine WBC (Auto) Urine Creatinine Urine Total Protein 12/31/19 12/31/19 12/31/19 08:23 08:50 08:50 WBC RBC Hgb Hct MCV MCH RDW Plt Count Lymph % (Auto) Lymph # (Auto) Seg Neuts % (Manual) Lymphocytes % (Manual) Nucleated RBC % Seg Neutrophils # Seg Neutrophils # Man Lymphocytes # (Manual) Eosinophils # (Manual) D-Dimer Heparin Anti-Xa Level < 0.10 L ABG pH POC ABG pCO2 POC ABG pO2 ABG pO2 ABG HCO3 ABG O2 Saturation ABG Base Excess ABG Hemoglobin ABG Oxyhemoglobin ABG Sodium ABG Chloride ABG Glucose Oxyhemoglobin Sodium Potassium Chloride Carbon Dioxide 20 L BUN 82 H Creatinine 5.6 H Glucose 260 H POC Glucose 160 H Lactic Acid Calcium 6.8 L Magnesium Ferritin AST 226 H ALT 191 H Lactate Dehydrogenase Total Creatine Kinase NT-Pro-B Natriuret Pep Total Protein 4.7 L D Albumin 2.6 L Arterial Blood Glucose Arterial Blood Ionized Calcium Urine WBC (Auto) Urine Creatinine Urine Total Protein 12/31/19 12/31/19 12/31/19 08:50 09:31 10:28 WBC 21.7 H RBC 2.96 L Hgb 9.7 L Hct 28.9 L D MCV 98 H MCH 33 H RDW Plt Count 41 L D Lymph % (Auto) Lymph # (Auto) Seg Neuts % (Manual) 95.0 H Lymphocytes % (Manual) 1.0 L Nucleated RBC % Seg Neutrophils # Seg Neutrophils # Man 20.6 H Lymphocytes # (Manual) 0.2 L Eosinophils # (Manual) D-Dimer Heparin Anti-Xa Level ABG pH POC ABG pCO2 POC ABG pO2 ABG pO2 ABG HCO3 ABG O2 Saturation ABG Base Excess ABG Hemoglobin ABG Oxyhemoglobin ABG Sodium ABG Chloride ABG Glucose Oxyhemoglobin Sodium Potassium Chloride Carbon Dioxide BUN Creatinine Glucose POC Glucose 162 H 176 H Lactic Acid Calcium Magnesium Ferritin AST ALT Lactate Dehydrogenase Total Creatine Kinase NT-Pro-B Natriuret Pep Total Protein Albumin Arterial Blood Glucose Arterial Blood Ionized Calcium Urine WBC (Auto) Urine Creatinine Urine Total Protein 12/31/19 12/31/19 11:22 12:23 WBC RBC Hgb Hct MCV MCH RDW Plt Count Lymph % (Auto) Lymph # (Auto) Seg Neuts % (Manual) Lymphocytes % (Manual) Nucleated RBC % Seg Neutrophils # Seg Neutrophils # Man Lymphocytes # (Manual) Eosinophils # (Manual) D-Dimer Heparin Anti-Xa Level ABG pH POC ABG pCO2 POC ABG pO2 ABG pO2 ABG HCO3 ABG O2 Saturation ABG Base Excess ABG Hemoglobin ABG Oxyhemoglobin ABG Sodium ABG Chloride ABG Glucose Oxyhemoglobin Sodium Potassium Chloride Carbon Dioxide BUN Creatinine Glucose POC Glucose 179 H 154 H Lactic Acid Calcium Magnesium Ferritin AST ALT Lactate Dehydrogenase Total Creatine Kinase NT-Pro-B Natriuret Pep Total Protein Albumin Arterial Blood Glucose Arterial Blood Ionized Calcium Urine WBC (Auto) Urine Creatinine Urine Total Protein Chest x-ray: image reviewed (improving L>R pulmonary infiltrates) Allied health notes reviewed: nursing
--- NOTE | 2019-12-31 16:02 | Progress Note ---
Assessment and Plan The high probability of a clinically significant, sudden or life threatening deterioration of the [neuro, cardiac, pulmonary, renal, infectious disease] system(s) required my full and direct attention, intervention and personal management. The aggregate critical care time was [40] minutes. This time is in addition to time spent performing reported procedures but includes the following: [x] Data Review and interpretation [x] Patient assessment and monitoring of vital signs [x] Documentation [x] Medication orders and management -- Sepsis Current Visit: Yes Status: Acute Qualifiers: Severe sepsis acute organ dysfunction type: acute respiratory failure Plan to address problem: Sepsis protocol: Admit to ICU, CBC, CMP, chest x-ray, urinalysis, blood cultures, IV antibiotic therapy, IV fluid resuscitation therapy, serial lactic acid levels, monitor urine output every shift, monitor fluid balance, maintain mean arterial pressure greater than or equal to 65. --Acute hypoxemic respiratory failure Current Visit: Yes Status: Acute Plan to address problem: Patient intubated and on ventilatory support at time of my evaluation. Wean vent as tolerated, daily spontaneous breathing trial, sedation holiday, arterial blood gas, Pneumonia Current Visit: Yes Status: Acute Plan to address problem: Pneumonia protocol: Chest x-ray, CBC, CMP, IV antibiotic therapy, pulse oximetry, blood cultures. (4) Suspected 2019 novel coronavirus infection Current Visit: Yes Status: Acute Plan to address problem: Coronavirus protocol: Contact precautions, isolation precautions, IV antibiotic therapy, IV steroid therapy, prone positioning while in bed as per nursing staff. (5) Toxic metabolic encephalopathy Current Visit: Yes Status: Acute Plan to address problem: CBC, CMP, treat sepsis, serial lactic acid level. (6) Cardiopulmonary arrest with successful resuscitation Current Visit: Yes Status: Acute Plan to address problem: Patient treated in accordance with ACLS protocol with eventual return of perfusing cardiac rhythm. Therapeutic anticoagulation as per critical care team. (7) Metabolic acidosis Current Visit: Yes Status: Acute Plan to address problem: IV bicarbonate therapy, BMP, repeat BMP in a.m., serial lactic acid levels. (8) Cardiomyopathy Current Visit: Yes Status: Acute Qualifiers: Cardiomyopathy type: unspecified Qualified Code(s): I42.9 - Cardiomyopathy, unspecified Plan to address problem: BNP, D-dimer, echocardiogram ordered and is pending at time of admission. (9) DVT prophylaxis Current Visit: Yes Status: Acute Plan to address problem: SCD to bilateral lower extremities evaluate bed, continue therapeutic anticoagulation Subjective Date of service: 12/31/19 Principal diagnosis: Acute hypoxemic & hypercapnic resp failure; ARDS; PUI COVID-19; PNA Interval history: 34 YO Male with Obesity Hypoventilation Syndrome, DM presents to ED for evaluation. Patient is intubated and on ventilatory support at the time of my evaluation and is unable to provide history. Patient history taken from EMS staff, ED staff, as well as the patient's family who is available by phone to discuss patient history. EMS was notified after the patient was found unresponsive in his vehicle in the parking lot of a local motel. EMS was notified and upon arrival the patient was found to be in respiratory distress with a pulse oximetry of 70%. Patient was treated with IV steroid therapy nebulizer therapy and transported to [facility] for further care and evaluation. Shortly after being placed in the EMS transport vehicle the patient became bradycardic and experienced cardiopulmonary arrest. The patient was treated with ACLS protocol with return of perfusing cardiac rhythm and was subsequently intubated in the field. Patient subsequently transported to [facility] for further car e and evaluation of the aforementioned symptoms. Patient seen and evaluated in the emergency department. All lab and imaging studies reviewed. Patient found to have sepsis, acute hypoxemic respiratory failure, metabolic acidosis, toxic metabolic encephalopathy, bilateral pneumonia, as well as symptoms suggestive of coronavirus infection. Patient initiated on sepsis protocol and admitted to ICU. Coronavirus protocol initiated in the emergency department prior to my evaluation. No further history is obtainable. No prior admission for review. No medication listed at time of admission for reconciliation. Objective - Constitutional Vitals: Vital Signs - 12hr 12/31/19 12/31/19 12/31/19 04:15 04:30 04:45 Temperature Pulse Rate 116 H 113 H 113 H Pulse Rate [ Anterior Bilateral Throughout] Respiratory 18 29 H 22 Rate Respiratory Rate [Anterior Bilateral Throughout] Blood Pressure 109/71 110/63 115/62 O2 Sat by Pulse 89 91 Oximetry 12/31/19 12/31/19 12/31/19 04:56 05:00 05:07 Temperature 98.8 F Pulse Rate 113 H 113 H 113 H Pulse Rate [ Anterior Bilateral Throughout] Respiratory 22 29 H Rate Respiratory Rate [Anterior Bilateral Throughout] Blood Pressure 117/56 112/61 112/60 O2 Sat by Pulse 90 90 90 Oximetry 12/31/19 12/31/19 12/31/19 05:15 05:20 05:30 Temperature 98.8 F Pulse Rate 113 H 113 H 112 H Pulse Rate [ Anterior Bilateral Throughout] Respiratory 16 22 21 Rate Respiratory Rate [Anterior Bilateral Throughout] Blood Pressure 118/64 116/62 117/69 O2 Sat by Pulse 90 89 90 Oximetry 12/31/19 12/31/19 12/31/19 05:40 05:50 06:00 Temperature Pulse Rate 112 H 112 H 112 H Pulse Rate [ Anterior Bilateral Throughout] Respiratory 22 27 H 26 H Rate Respiratory Rate [Anterior Bilateral Throughout] Blood Pressure 123/67 128/70 127/72 O2 Sat by Pulse 91 91 92 Oximetry 12/31/19 12/31/19 12/31/19 06:10 06:15 06:30 Temperature Pulse Rate 112 H 111 H 112 H Pulse Rate [ Anterior Bilateral Throughout] Respiratory 21 25 H 18 Rate Respiratory Rate [Anterior Bilateral Throughout] Blood Pressure 131/67 123/69 128/72 O2 Sat by Pulse 92 92 92 Oximetry 12/31/19 12/31/19 12/31/19 06:45 07:00 07:15 Temperature Pulse Rate 112 H 112 H 111 H Pulse Rate [ Anterior Bilateral Throughout] Respiratory 20 29 H 21 Rate Respiratory Rate [Anterior Bilateral Throughout] Blood Pressure 129/74 123/73 132/75 O2 Sat by Pulse 92 92 92 Oximetry 12/31/19 12/31/19 12/31/19 07:30 07:45 07:55 Temperature Pulse Rate 112 H 113 H Pulse Rate [ 114 H Anterior Bilateral Throughout] Respiratory 35 H 26 H Rate Respiratory 30 H Rate [Anterior Bilateral Throughout] Blood Pressure 128/77 134/79 O2 Sat by Pulse 92 92 Oximetry 12/31/19 12/31/19 12/31/19 08:00 08:15 08:30 Temperature 97.9 F Pulse Rate 111 H 111 H 107 H Pulse Rate [ Anterior Bilateral Throughout] Respiratory 30 H 21 29 H Rate Respiratory Rate [Anterior Bilateral Throughout] Blood Pressure 134/78 141/78 109/69 O2 Sat by Pulse 91 91 91 Oximetry 12/31/19 12/31/19 12/31/19 08:45 09:00 09:15 Temperature Pulse Rate 112 H 110 H 110 H Pulse Rate [ Anterior Bilateral Throughout] Respiratory 30 H 25 H 27 H Rate Respiratory Rate [Anterior Bilateral Throughout] Blood Pressure 131/84 120/60 124/65 O2 Sat by Pulse 92 91 90 Oximetry 12/31/19 12/31/19 12/31/19 09:30 09:45 10:00 Temperature Pulse Rate 109 H 109 H 109 H Pulse Rate [ Anterior Bilateral Throughout] Respiratory 30 H 27 H 30 H Rate Respiratory Rate [Anterior Bilateral Throughout] Blood Pressure 108/55 110/66 113/61 O2 Sat by Pulse 89 90 91 Oximetry 12/31/19 12/31/19 12/31/19 10:15 10:30 10:45 Temperature Pulse Rate 110 H 108 H 108 H Pulse Rate [ Anterior Bilateral Throughout] Respiratory 30 H 30 H 30 H Rate Respiratory Rate [Anterior Bilateral Throughout] Blood Pressure 122/57 112/53 109/52 O2 Sat by Pulse 91 90 91 Oximetry 12/31/19 12/31/19 12/31/19 11:00 11:15 11:30 Temperature Pulse Rate 109 H 109 H 111 H Pulse Rate [ Anterior Bilateral Throughout] Respiratory 30 H 30 H 30 H Rate Respiratory Rate [Anterior Bilateral Throughout] Blood Pressure 103/56 113/49 110/53 O2 Sat by Pulse 91 92 90 Oximetry 12/31/19 12/31/19 12/31/19 11:38 11:45 12:00 Temperature Pulse Rate 109 H 108 H 111 H Pulse Rate [ Anterior Bilateral Throughout] Respiratory 30 H 30 H Rate Respiratory Rate [Anterior Bilateral Throughout] Blood Pressure 113/61 111/45 118/65 O2 Sat by Pulse 91 90 92 Oximetry 12/31/19 12/31/19 12/31/19 12:15 12:30 12:45 Temperature Pulse Rate 111 H 111 H 112 H Pulse Rate [ Anterior Bilateral Throughout] Respiratory 31 H 30 H 23 Rate Respiratory Rate [Anterior Bilateral Throughout] Blood Pressure 113/59 117/57 109/55 O2 Sat by Pulse 91 90 91 Oximetry 12/31/19 12/31/19 12/31/19 13:00 13:07 13:15 Temperature Pulse Rate 112 H 113 H Pulse Rate [ 109 H Anterior Bilateral Throughout] Respiratory 30 H 30 H Rate Respiratory 30 H Rate [Anterior Bilateral Throughout] Blood Pressure 110/58 105/64 O2 Sat by Pulse 91 90 Oximetry 12/31/19 12/31/19 12/31/19 13:30 13:45 13:58 Temperature Pulse Rate 113 H 113 H 112 H Pulse Rate [ Anterior Bilateral Throughout] Respiratory 30 H 30 H Rate Respiratory Rate [Anterior Bilateral Throughout] Blood Pressure 103/59 110/66 110/58 O2 Sat by Pulse 91 90 91 Oximetry 12/31/19 12/31/19 12/31/19 14:00 14:15 14:30 Temperature Pulse Rate 113 H 118 H 120 H Pulse Rate [ Anterior Bilateral Throughout] Respiratory 24 25 H 26 H Rate Respiratory Rate [Anterior Bilateral Throughout] Blood Pressure 102/49 105/58 110/58 O2 Sat by Pulse 95 86 90 Oximetry 12/31/19 12/31/19 12/31/19 14:45 15:00 15:14 Temperature Pulse Rate 119 H 119 H 120 H Pulse Rate [ Anterior Bilateral Throughout] Respiratory 25 H 25 H Rate Respiratory Rate [Anterior Bilateral Throughout] Blood Pressure 104/47 110/44 110/58 O2 Sat by Pulse 85 87 90 Oximetry 12/31/19 12/31/19 15:15 15:30 Temperature Pulse Rate 118 H 117 H Pulse Rate [ Anterior Bilateral Throughout] Respiratory 26 H 25 H Rate Respiratory Rate [Anterior Bilateral Throughout] Blood Pressure 96/49 98/46 O2 Sat by Pulse 85 83 L Oximetry General appearance: Present: no acute distress, well-nourished - EENT Eyes: PERRL, EOM intact ENT: hearing intact, clear oral mucosa Ears: bilateral: normal - Neck Neck: supple, normal ROM - Respiratory Respiratory effort: normal Respiratory: bilateral: CTA - Breasts Breasts: normal - Cardiovascular Rhythm: regular Heart Sounds: Present: S1 & S2. Absent: gallop, rub Extremities: pulses intact, No edema, normal color, Full ROM - Gastrointestinal General gastrointestinal: Present: soft, non-tender, non-distended, normal bowel sounds - Genitourinary Male genitourinary: normal - Integumentary Integumentary: clear, warm, dry - Musculoskeletal Musculoskeletal: 1, strength equal bilaterally - Neurologic Neurologic: moves all extremities - Psychiatric Psychiatric: memory intact, appropriate mood/affect, intact judgment & insight - Labs CBC & Chem 7: 12/31/19 08:50 12/31/19 08:50 Labs: Abnormal lab results 12/30/19 12/30/19 12/30/19 Range/Units 16:29 17:17 18:22 WBC (4.5-11.0) K/mm3 RBC (3.65-5.03) M/mm3 Hgb (11.8-15.2) gm/dl Hct (35.5-45.6) % MCV (84-94) fl MCH (28-32) pg Plt Count (140-440) K/mm3 Seg Neuts % (Manual) (40.0-70.0) % Lymphocytes % (Manual) (13.4-35.0) % Seg Neutrophils # Man (1.8-7.7) K/mm3 Lymphocytes # (Manual) (1.2-5.4) K/mm3 Heparin Anti-Xa Level (0.3-0.7) U.I./ml ABG pH (7.350-7.450) pH Units POC ABG pCO2 (32.0-48.0) mmHg POC ABG pO2 (83-108) mmHg ABG pO2 (80.0-90.0) mm Hg ABG HCO3 (20.0-26.0) mmol/L ABG O2 Saturation (95.0-99.0) % ABG Base Excess (-2.0-3.0) mmol/L ABG Hemoglobin (14.0-18.0) gm/dl ABG Sodium (136.0-145.0) mmol/L ABG Glucose (65-95) mg/dL Oxyhemoglobin (95.0-99.0) % Carbon Dioxide (22-30) mmol/L BUN (9-20) mg/dL Creatinine (0.8-1.3) mg/dL Glucose (75-100) mg/dL POC Glucose 448 H 416 H 380 H (70-105) mg/dL Calcium (8.4-10.2) mg/dL AST (5-40) units/L ALT (7-56) units/L Total Protein (6.3-8.2) g/dL Albumin (3.9-5) g/dL Arterial Blood Glucose (65-95) mg/dL Arterial Blood Ionized Calcium (4.6-5.3) mg/dL 12/30/19 12/30/19 12/30/19 Range/Units 19:09 20:21 21:23 WBC (4.5-11.0) K/mm3 RBC (3.65-5.03) M/mm3 Hgb (11.8-15.2) gm/dl Hct (35.5-45.6) % MCV (84-94) fl MCH (28-32) pg Plt Count (140-440) K/mm3 Seg Neuts % (Manual) (40.0-70.0) % Lymphocytes % (Manual) (13.4-35.0) % Seg Neutrophils # Man (1.8-7.7) K/mm3 Lymphocytes # (Manual) (1.2-5.4) K/mm3 Heparin Anti-Xa Level (0.3-0.7) U.I./ml ABG pH 7.308 L (7.350-7.450) pH Units POC ABG pCO2 (32.0-48.0) mmHg POC ABG pO2 (83-108) mmHg ABG pO2 61.8 L (80.0-90.0) mm Hg ABG HCO3 17.6 L (20.0-26.0) mmol/L ABG O2 Saturation 90.0 L (95.0-99.0) % ABG Base Excess -8.0 L (-2.0-3.0) mmol/L ABG Hemoglobin 11.4 L (14.0-18.0) gm/dl ABG Sodium (136.0-145.0) mmol/L ABG Glucose (65-95) mg/dL Oxyhemoglobin 88.0 L (95.0-99.0) % Carbon Dioxide (22-30) mmol/L BUN (9-20) mg/dL Creatinine (0.8-1.3) mg/dL Glucose (75-100) mg/dL POC Glucose 337 H 346 H (70-105) mg/dL Calcium (8.4-10.2) mg/dL AST (5-40) units/L ALT (7-56) units/L Total Protein (6.3-8.2) g/dL Albumin (3.9-5) g/dL Arterial Blood Glucose (65-95) mg/dL Arterial Blood Ionized Calcium (4.6-5.3) mg/dL 12/30/19 12/30/19 12/30/19 Range/Units 21:55 22:19 23:47 WBC (4.5-11.0) K/mm3 RBC (3.65-5.03) M/mm3 Hgb (11.8-15.2) gm/dl Hct (35.5-45.6) % MCV (84-94) fl MCH (28-32) pg Plt Count (140-440) K/mm3 Seg Neuts % (Manual) (40.0-70.0) % Lymphocytes % (Manual) (13.4-35.0) % Seg Neutrophils # Man (1.8-7.7) K/mm3 Lymphocytes # (Manual) (1.2-5.4) K/mm3 Heparin Anti-Xa Level (0.3-0.7) U.I./ml ABG pH (7.350-7.450) pH Units POC ABG pCO2 (32.0-48.0) mmHg POC ABG pO2 (83-108) mmHg ABG pO2 (80.0-90.0) mm Hg ABG HCO3 (20.0-26.0) mmol/L ABG O2 Saturation (95.0-99.0) % ABG Base Excess (-2.0-3.0) mmol/L ABG Hemoglobin (14.0-18.0) gm/dl ABG Sodium (136.0-145.0) mmol/L ABG Glucose (65-95) mg/dL Oxyhemoglobin (95.0-99.0) % Carbon Dioxide (22-30) mmol/L BUN (9-20) mg/dL Creatinine (0.8-1.3) mg/dL Glucose (75-100) mg/dL POC Glucose 324 H 360 H 338 H (70-105) mg/dL Calcium (8.4-10.2) mg/dL AST (5-40) units/L ALT (7-56) units/L Total Protein (6.3-8.2) g/dL Albumin (3.9-5) g/dL Arterial Blood Glucose (65-95) mg/dL Arterial Blood Ionized Calcium (4.6-5.3) mg/dL 12/31/19 12/31/19 12/31/19 Range/Units 00:16 01:18 02:15 WBC (4.5-11.0) K/mm3 RBC (3.65-5.03) M/mm3 Hgb (11.8-15.2) gm/dl Hct (35.5-45.6) % MCV (84-94) fl MCH (28-32) pg Plt Count (140-440) K/mm3 Seg Neuts % (Manual) (40.0-70.0) % Lymphocytes % (Manual) (13.4-35.0) % Seg Neutrophils # Man (1.8-7.7) K/mm3 Lymphocytes # (Manual) (1.2-5.4) K/mm3 Heparin Anti-Xa Level (0.3-0.7) U.I./ml ABG pH (7.350-7.450) pH Units POC ABG pCO2 (32.0-48.0) mmHg POC ABG pO2 (83-108) mmHg ABG pO2 (80.0-90.0) mm Hg ABG HCO3 (20.0-26.0) mmol/L ABG O2 Saturation (95.0-99.0) % ABG Base Excess (-2.0-3.0) mmol/L ABG Hemoglobin (14.0-18.0) gm/dl ABG Sodium (136.0-145.0) mmol/L ABG Glucose (65-95) mg/dL Oxyhemoglobin (95.0-99.0) % Carbon Dioxide (22-30) mmol/L BUN (9-20) mg/dL Creatinine (0.8-1.3) mg/dL Glucose (75-100) mg/dL POC Glucose 259 H 270 H 274 H (70-105) mg/dL Calcium (8.4-10.2) mg/dL AST (5-40) units/L ALT (7-56) units/L Total Protein (6.3-8.2) g/dL Albumin (3.9-5) g/dL Arterial Blood Glucose (65-95) mg/dL Arterial Blood Ionized Calcium (4.6-5.3) mg/dL 12/31/19 12/31/19 12/31/19 Range/Units 03:34 04:24 06:13 WBC (4.5-11.0) K/mm3 RBC (3.65-5.03) M/mm3 Hgb (11.8-15.2) gm/dl Hct (35.5-45.6) % MCV (84-94) fl MCH (28-32) pg Plt Count (140-440) K/mm3 Seg Neuts % (Manual) (40.0-70.0) % Lymphocytes % (Manual) (13.4-35.0) % Seg Neutrophils # Man (1.8-7.7) K/mm3 Lymphocytes # (Manual) (1.2-5.4) K/mm3 Heparin Anti-Xa Level (0.3-0.7) U.I./ml ABG pH (7.350-7.450) pH Units POC ABG pCO2 (32.0-48.0) mmHg POC ABG pO2 (83-108) mmHg ABG pO2 (80.0-90.0) mm Hg ABG HCO3 (20.0-26.0) mmol/L ABG O2 Saturation (95.0-99.0) % ABG Base Excess (-2.0-3.0) mmol/L ABG Hemoglobin (14.0-18.0) gm/dl ABG Sodium (136.0-145.0) mmol/L ABG Glucose (65-95) mg/dL Oxyhemoglobin (95.0-99.0) % Carbon Dioxide (22-30) mmol/L BUN (9-20) mg/dL Creatinine (0.8-1.3) mg/dL Glucose (75-100) mg/dL POC Glucose 240 H 219 H 201 H (70-105) mg/dL Calcium (8.4-10.2) mg/dL AST (5-40) units/L ALT (7-56) units/L Total Protein (6.3-8.2) g/dL Albumin (3.9-5) g/dL Arterial Blood Glucose (65-95) mg/dL Arterial Blood Ionized Calcium (4.6-5.3) mg/dL 12/31/19 12/31/19 12/31/19 Range/Units 07:15 08:23 08:50 WBC (4.5-11.0) K/mm3 RBC (3.65-5.03) M/mm3 Hgb (11.8-15.2) gm/dl Hct (35.5-45.6) % MCV (84-94) fl MCH (28-32) pg Plt Count (140-440) K/mm3 Seg Neuts % (Manual) (40.0-70.0) % Lymphocytes % (Manual) (13.4-35.0) % Seg Neutrophils # Man (1.8-7.7) K/mm3 Lymphocytes # (Manual) (1.2-5.4) K/mm3 Heparin Anti-Xa Level (0.3-0.7) U.I./ml ABG pH (7.350-7.450) pH Units POC ABG pCO2 (32.0-48.0) mmHg POC ABG pO2 (83-108) mmHg ABG pO2 (80.0-90.0) mm Hg ABG HCO3 (20.0-26.0) mmol/L ABG O2 Saturation (95.0-99.0) % ABG Base Excess (-2.0-3.0) mmol/L ABG Hemoglobin (14.0-18.0) gm/dl ABG Sodium (136.0-145.0) mmol/L ABG Glucose (65-95) mg/dL Oxyhemoglobin (95.0-99.0) % Carbon Dioxide 20 L (22-30) mmol/L BUN 82 H (9-20) mg/dL Creatinine 5.6 H (0.8-1.3) mg/dL Glucose 260 H (75-100) mg/dL POC Glucose 167 H 160 H (70-105) mg/dL Calcium 6.8 L (8.4-10.2) mg/dL AST 226 H (5-40) units/L ALT 191 H (7-56) units/L Total Protein 4.7 L D (6.3-8.2) g/dL Albumin 2.6 L (3.9-5) g/dL Arterial Blood Glucose (65-95) mg/dL Arterial Blood Ionized Calcium (4.6-5.3) mg/dL 12/31/19 12/31/19 12/31/19 Range/Units 08:50 08:50 09:31 WBC 21.7 H (4.5-11.0) K/mm3 RBC 2.96 L (3.65-5.03) M/mm3 Hgb 9.7 L (11.8-15.2) gm/dl Hct 28.9 L D (35.5-45.6) % MCV 98 H (84-94) fl MCH 33 H (28-32) pg Plt Count 41 L D (140-440) K/mm3 Seg Neuts % (Manual) 95.0 H (40.0-70.0) % Lymphocytes % (Manual) 1.0 L (13.4-35.0) % Seg Neutrophils # Man 20.6 H (1.8-7.7) K/mm3 Lymphocytes # (Manual) 0.2 L (1.2-5.4) K/mm3 Heparin Anti-Xa Level < 0.10 L (0.3-0.7) U.I./ml ABG pH (7.350-7.450) pH Units POC ABG pCO2 (32.0-48.0) mmHg POC ABG pO2 (83-108) mmHg ABG pO2 (80.0-90.0) mm Hg ABG HCO3 (20.0-26.0) mmol/L ABG O2 Saturation (95.0-99.0) % ABG Base Excess (-2.0-3.0) mmol/L ABG Hemoglobin (14.0-18.0) gm/dl ABG Sodium (136.0-145.0) mmol/L ABG Glucose (65-95) mg/dL Oxyhemoglobin (95.0-99.0) % Carbon Dioxide (22-30) mmol/L BUN (9-20) mg/dL Creatinine (0.8-1.3) mg/dL Glucose (75-100) mg/dL POC Glucose 162 H (70-105) mg/dL Calcium (8.4-10.2) mg/dL AST (5-40) units/L ALT (7-56) units/L Total Protein (6.3-8.2) g/dL Albumin (3.9-5) g/dL Arterial Blood Glucose (65-95) mg/dL Arterial Blood Ionized Calcium (4.6-5.3) mg/dL 12/31/19 12/31/19 12/31/19 Range/Units 10:28 11:22 12:23 WBC (4.5-11.0) K/mm3 RBC (3.65-5.03) M/mm3 Hgb (11.8-15.2) gm/dl Hct (35.5-45.6) % MCV (84-94) fl MCH (28-32) pg Plt Count (140-440) K/mm3 Seg Neuts % (Manual) (40.0-70.0) % Lymphocytes % (Manual) (13.4-35.0) % Seg Neutrophils # Man (1.8-7.7) K/mm3 Lymphocytes # (Manual) (1.2-5.4) K/mm3 Heparin Anti-Xa Level (0.3-0.7) U.I./ml ABG pH (7.350-7.450) pH Units POC ABG pCO2 (32.0-48.0) mmHg POC ABG pO2 (83-108) mmHg ABG pO2 (80.0-90.0) mm Hg ABG HCO3 (20.0-26.0) mmol/L ABG O2 Saturation (95.0-99.0) % ABG Base Excess (-2.0-3.0) mmol/L ABG Hemoglobin (14.0-18.0) gm/dl ABG Sodium (136.0-145.0) mmol/L ABG Glucose (65-95) mg/dL Oxyhemoglobin (95.0-99.0) % Carbon Dioxide (22-30) mmol/L BUN (9-20) mg/dL Creatinine (0.8-1.3) mg/dL Glucose (75-100) mg/dL POC Glucose 176 H 179 H 154 H (70-105) mg/dL Calcium (8.4-10.2) mg/dL AST (5-40) units/L ALT (7-56) units/L Total Protein (6.3-8.2) g/dL Albumin (3.9-5) g/dL Arterial Blood Glucose (65-95) mg/dL Arterial Blood Ionized Calcium (4.6-5.3) mg/dL 12/31/19 Range/Units 13:52 WBC (4.5-11.0) K/mm3 RBC (3.65-5.03) M/mm3 Hgb (11.8-15.2) gm/dl Hct (35.5-45.6) % MCV (84-94) fl MCH (28-32) pg Plt Count (140-440) K/mm3 Seg Neuts % (Manual) (40.0-70.0) % Lymphocytes % (Manual) (13.4-35.0) % Seg Neutrophils # Man (1.8-7.7) K/mm3 Lymphocytes # (Manual) (1.2-5.4) K/mm3 Heparin Anti-Xa Level (0.3-0.7) U.I./ml ABG pH (7.350-7.450) pH Units POC ABG pCO2 30.2 L (32.0-48.0) mmHg POC ABG pO2 60.3 L (83-108) mmHg ABG pO2 (80.0-90.0) mm Hg ABG HCO3 (20.0-26.0) mmol/L ABG O2 Saturation (95.0-99.0) % ABG Base Excess (-2.0-3.0) mmol/L ABG Hemoglobin 10.9 L (14.0-18.0) gm/dl ABG Sodium 135.3 L (136.0-145.0) mmol/L ABG Glucose 134 H (65-95) mg/dL Oxyhemoglobin (95.0-99.0) % Carbon Dioxide (22-30) mmol/L BUN (9-20) mg/dL Creatinine (0.8-1.3) mg/dL Glucose (75-100) mg/dL POC Glucose (70-105) mg/dL Calcium (8.4-10.2) mg/dL AST (5-40) units/L ALT (7-56) units/L Total Protein (6.3-8.2) g/dL Albumin (3.9-5) g/dL Arterial Blood Glucose 134 H (65-95) mg/dL Arterial Blood Ionized Calcium 4.1 L (4.6-5.3) mg/dL HEART Score - HEART Score Troponin: Troponin T 0.021 ng/mL (0.00-0.029) 12/26/19 21:29
--- NOTE | 2019-12-31 16:54 | Consultation ---
History of Present Illness - Reason for Consult Consult date: 01/01/20 Vas-Cath Insertion Requesting physician: SASHA COLLINS - History of Present Illness The patient is a 34-year-old male who presented to the emergency department after cardiac arrest. By report the patient had a recent cough and was complaining of shortness of breath when EMS was called. Upon entering the EMS vehicle he went into cardiac arrest and was transported to the hospital where he was admitted to the ICU with a likely diagnosis of pneumonia. He has since developed acute renal failure and is in need of a Vas-Cath for urgent dialysis. He was unable to have the dialysis catheter placed yesterday secondary to thrombocytopenia however he had a platelet transfusion and now has adequate platelet count for the procedure. Past History Past Medical History: diabetes Past Surgical History: Other (Testicular surgery) Social history: single. denies: smoking, alcohol abuse, prescription drug abuse Family history: diabetes, hypertension Medications and Allergies Allergies Allergy/AdvReac Type Severity Reaction Status Date / Time No Known Allergies Allergy Unverified 12/26/19 15:29 Active Meds: Active Medications Acetaminophen (Tylenol) 650 mg PO Q6H PRN PRN Reason: Pain, Mild (1-3) Last Admin: 12/29/19 00:21 Dose: 650 mg Documented by: Acetaminophen (Tylenol) 650 mg CA Q6H PRN PRN Reason: Pain, Mild (1-3) Last Admin: 12/28/19 18:00 Dose: 650 mg Documented by: Albumin Human (Alburx 25% (Albumin)) 25 gm IV LYNN PRN PRN Reason: Hypotension Albuterol (Proventil) 2.5 mg IH Q3HRT PRN PRN Reason: Shortness Of Breath Albuterol (Proventil) 2.5 mg IH Q6HRT [facility] Last Admin: 12/31/19 13:07 Dose: 2.5 mg Documented by: Lipase/Protease/Amylase (Pancremahendra Quinteros 10,500 Unit) 1 each FEEDTUBE PRN PRN PRN Reason: For Clogged Feeding Tube Dexamethasone (Decadron) 4 mg IV Q12HR [facility] Last Admin: 12/31/19 09:19 Dose: 4 mg Documented by: Dextrose (D50w (25gm) Syringe) 50 ml IV Q30MIN PRN; Protocol PRN Reason: Hypoglycemia Epoetin Malick (Procrit) 10,000 unit IV LYNN PRN PRN Reason: hemodialysis Fentanyl (Sublimaze) 50 mcg IV Q10MIN PRN PRN Reason: ANALGESIA Last Admin: 12/27/19 14:20 Dose: 50 mcg Documented by: Hydrophilic Ointment (Vaseline Lip Therapy) 1 applic TP Q2HR PRN PRN Reason: Dry Lips Propofol (Diprivan 10 Mg/Ml) 1,000 mg in 100 mls @ 3.945 mls/hr IV TITR ANGELA; Protocol Last Titration: 12/26/19 17:30 Dose: Infused Documented by: Fentanyl Citrate (Fentanyl Drip Premix) 2,000 mcg in 100 mls @ 6.575 mls/hr IV TITR ANGELA; Protocol Last Titration: 12/29/19 05:52 Dose: 0 mcg/kg/hr, 0 mls/hr Documented by: Midazolam HCl 100 mg/ Sodium (Chloride) 100 mls @ 2 mls/hr IV TITR ANGELA; Protocol Last Titration: 12/28/19 21:17 Dose: 0 mg/hr, 0 mls/hr Documented by: Heparin Sodium/Sodium Chloride (Heparin/ 0.45% Nacl-25,000 Unit/500 Ml) 25,000 unit in 500 mls @ 30 mls/hr IV TITR ANGELA; Protocol Last Titration: 12/30/19 05:00 Dose: 0 units/hr, 0 mls/hr Documented by: Levetiracetam 500 mg/ Dextrose 105 mls @ 400 mls/hr IV Q12H ANGELA Last Admin: 12/31/19 09:18 Dose: 400 mls/hr Documented by: Vasopressin 20 unit/ Sodium (Chloride) 101 mls @ 9.09 mls/hr IV TITR ANGELA; Protocol Last Admin: 12/31/19 12:43 Dose: 0.03 units/min, 9.09 mls/hr Documented by: Norepinephrine 8 mg/ Sodium (Chloride) 250 mls @ 3.75 mls/hr IV TITR ANGELA; Pr otocol Last Titration: 12/31/19 15:54 Dose: 12 mcg/min, 22.5 mls/hr Documented by: Dobutamine HCl/Dextrose (Dobutrex Drip 500mg/D5w 250ml) 500 mg in 250 mls @ 9.863 mls/hr IV DIRECT ANGELA; Protocol Last Admin: 12/31/19 11:42 Dose: 5 mcg/kg/min, 19.725 mls/hr Documented by: Ceftriaxone Sodium (Rocephin/Ns 2 Gm/100 Ml) 2 gm in 100 mls @ 200 mls/hr IV Q12HR ANGELA; Protocol Last Admin: 12/31/19 09:18 Dose: 200 mls/hr Documented by: Acyclovir 660 mg/ Sodium (Chloride) 113.2 mls @ 100 mls/hr IV Q12H ANGELA; Protocol Last Admin: 12/31/19 13:42 Dose: 100 mls/hr Documented by: Phenylephrine HCl 100 mg/ (Sodium Chloride) 100 mls @ 3 mls/hr IV TITR ANGELA; Protocol Insulin Human Regular 100 (units/ Sodium Chloride) 100 mls @ 1 mls/hr IV TITR ANGELA; Protocol Last Admin: 12/31/19 16:00 Dose: 9.5 units/hr, 9.5 mls/hr Documented by: Sodium Chloride (Nacl 0.9%) 100 mls @ 999 mls/hr IV LYNN PRN PRN Reason: Hypotension Sodium Bicarbonate 150 meq/ (Dextrose) 1,150 mls @ 100 mls/hr IV DIRECT ANGELA Last Admin: 12/31/19 14:59 Dose: 100 mls/hr Documented by: Metoprolol Tartrate (Metoprolol) 5 mg IV Q6HR PRN PRN Reason: tachycardia Last Admin: 12/28/19 13:23 Dose: 5 mg Documented by: Midazolam HCl (Versed) 2 mg IV Q10MIN PRN PRN Reason: Sedation Multi-Ingred Cream/Lotion/Oil/Oint (Artificial Tears Ophth Oint) 1 applic OU Q4HR PRN PRN Reason: Dry Eye(s) Pantoprazole Sodium (Protonix) 40 mg IV Q12H ANGELA Last Admin: 12/31/19 08:00 Dose: 40 mg Documented by: Simple Syrup (Simple Syrup) 15 ml FEEDTUBE PRN PRN PRN Reason: Hypoglycemia Simple Syrup (Simple Syrup) 30 ml FEEDTUBE PRN PRN PRN Reason: Hypoglycemia Sodium Bicarbonate (Sodium Bicarbonate) 325 mg FEEDTUBE PRN PRN PRN Reason: For Clogged Feeding Tube Sodium Chloride (Sodium Chloride Flush Syringe 10 Ml) 10 ml IV BID ANGELA Last Admin: 11/18/20 09:19 Dose: 10 ml Documented by: Sodium Chloride (Sodium Chloride Flush Syringe 10 Ml) 10 ml IV PRN PRN PRN Reason: LINE FLUSH Sodium Chloride (Nacl 0.9% 250ml) 250 ml IV DIRECT ANGELA Last Admin: 12/29/19 07:13 Dose: 250 ml Documented by: Review of Systems ROS unobtainable: due to endotracheal tube, due to mental status Exam - Constitutional Vitals: Temp Pulse Resp BP Pulse Ox 97.9 F 121 H 30 H 100/56 94 12/31/19 08:00 12/31/19 16:00 12/31/19 16:00 12/31/19 16:00 12/31/19 16:00 General appearance: Present: other (Intubated) - EENT Eyes: Absent: PERRL - Neck Neck: Present: supple - Respiratory Respiratory effort: other (Ventilator dependent) - Cardiovascular Heart rate: 122 Rhythm: regular - Extremities Extremities: no ischemia Extremity abnormal: edema (Bilateral lower extremities) - Abdominal General gastrointestinal: Present: soft Male genitourinary: Present: deferred Results - Labs CBC & Chem 7: 12/31/19 08:50 12/31/19 08:50 Labs: Abnormal lab results 12/30/19 12/30/19 12/30/19 Range/Units 17:17 18:22 19:09 WBC (4.5-11.0) K/mm3 RBC (3.65-5.03) M/mm3 Hgb (11.8-15.2) gm/dl Hct (35.5-45.6) % MCV (84-94) fl MCH (28-32) pg Plt Count (140-440) K/mm3 Seg Neuts % (Manual) (40.0-70.0) % Lymphocytes % (Manual) (13.4-35.0) % Seg Neutrophils # Man (1.8-7.7) K/mm3 Lymphocytes # (Manual) (1.2-5.4) K/mm3 Heparin Anti-Xa Level (0.3-0.7) U.I./ml ABG pH (7.350-7.450) pH Units POC ABG pCO2 (32.0-48.0) mmHg POC ABG pO2 (83-108) mmHg ABG pO2 (80.0-90.0) mm Hg ABG HCO3 (20.0-26.0) mmol/L ABG O2 Saturation (95.0-99.0) % ABG Base Excess (-2.0-3.0) mmol/L ABG Hemoglobin (14.0-18.0) gm/dl ABG Sodium (136.0-145.0) mmol/L ABG Glucose (65-95) mg/dL Oxyhemoglobin (95.0-99.0) % Carbon Dioxide (22-30) mmol/L BUN (9-20) mg/dL Creatinine (0.8-1.3) mg/dL Glucose (75-100) mg/dL POC Glucose 416 H 380 H 337 H (70-105) mg/dL Calcium (8.4-10.2) mg/dL AST (5-40) units/L ALT (7-56) units/L Total Protein (6.3-8.2) g/dL Albumin (3.9-5) g/dL Arterial Blood Glucose (65-95) mg/dL Arterial Blood Ionized Calcium (4.6-5.3) mg/dL 12/30/19 12/30/19 12/30/19 Range/Units 20:21 21:23 21:55 WBC (4.5-11.0) K/mm3 RBC (3.65-5.03) M/mm3 Hgb (11.8-15.2) gm/dl Hct (35.5-45.6) % MCV (84-94) fl MCH (28-32) pg Plt Count (140-440) K/mm3 Seg Neuts % (Manual) (40.0-70.0) % Lymphocytes % (Manual) (13.4-35.0) % Seg Neutrophils # Man (1.8-7.7) K/mm3 Lymphocytes # (Manual) (1.2-5.4) K/mm3 Heparin Anti-Xa Level (0.3-0.7) U.I./ml ABG pH 7.308 L (7.350-7.450) pH Units POC ABG pCO2 (32.0-48.0) mmHg POC ABG pO2 (83-108) mmHg ABG pO2 61.8 L (80.0-90.0) mm Hg ABG HCO3 17.6 L (20.0-26.0) mmol/L ABG O2 Saturation 90.0 L (95.0-99.0) % ABG Base Excess -8.0 L (-2.0-3.0) mmol/L ABG Hemoglobin 11.4 L (14.0-18.0) gm/dl ABG Sodium (136.0-145.0) mmol/L ABG Glucose (65-95) mg/dL Oxyhemoglobin 88.0 L (95.0-99.0) % Carbon Dioxide (22-30) mmol/L BUN (9-20) mg/dL Creatinine (0.8-1.3) mg/dL Glucose (75-100) mg/dL POC Glucose 346 H 324 H (70-105) mg/dL Calcium (8.4-10.2) mg/dL AST (5-40) units/L ALT (7-56) units/L Total Protein (6.3-8.2) g/dL Albumin (3.9-5) g/dL Arterial Blood Glucose (65-95) mg/dL Arterial Blood Ionized Calcium (4.6-5.3) mg/dL 12/30/19 12/30/19 12/31/19 Range/Units 22:19 23:47 00:16 WBC (4.5-11.0) K/mm3 RBC (3.65-5.03) M/mm3 Hgb (11.8-15.2) gm/dl Hct (35.5-45.6) % MCV (84-94) fl MCH (28-32) pg Plt Count (140-440) K/mm3 Seg Neuts % (Manual) (40.0-70.0) % Lymphocytes % (Manual) (13.4-35.0) % Seg Neutrophils # Man (1.8-7.7) K/mm3 Lymphocytes # (Manual) (1.2-5.4) K/mm3 Heparin Anti-Xa Level (0.3-0.7) U.I./ml ABG pH (7.350-7.450) pH Units POC ABG pCO2 (32.0-48.0) mmHg POC ABG pO2 (83-108) mmHg ABG pO2 (80.0-90.0) mm Hg ABG HCO3 (20.0-26.0) mmol/L ABG O2 Saturation (95.0-99.0) % ABG Base Excess (-2.0-3.0) mmol/L ABG Hemoglobin (14.0-18.0) gm/dl ABG Sodium (136.0-145.0) mmol/L ABG Glucose (65-95) mg/dL Oxyhemoglobin (95.0-99.0) % Carbon Dioxide (22-30) mmol/L BUN (9-20) mg/dL Creatinine (0.8-1.3) mg/dL Glucose (75-100) mg/dL POC Glucose 360 H 338 H 259 H (70-105) mg/dL Calcium (8.4-10.2) mg/dL AST (5-40) units/L ALT (7-56) units/L Total Protein (6.3-8.2) g/dL Albumin (3.9-5) g/dL Arterial Blood Glucose (65-95) mg/dL Arterial Blood Ionized Calcium (4.6-5.3) mg/dL 12/31/19 12/31/19 12/31/19 Range/Units 01:18 02:15 03:34 WBC (4.5-11.0) K/mm3 RBC (3.65-5.03) M/mm3 Hgb (11.8-15.2) gm/dl Hct (35.5-45.6) % MCV (84-94) fl MCH (28-32) pg Plt Count (140-440) K/mm3 Seg Neuts % (Manual) (40.0-70.0) % Lymphocytes % (Manual) (13.4-35.0) % Seg Neutrophils # Man (1.8-7.7) K/mm3 Lymphocytes # (Manual) (1.2-5.4) K/mm3 Heparin Anti-Xa Level (0.3-0.7) U.I./ml ABG pH (7.350-7.450) pH Units POC ABG pCO2 (32.0-48.0) mmHg POC ABG pO2 (83-108) mmHg ABG pO2 (80.0-90.0) mm Hg ABG HCO3 (20.0-26.0) mmol/L ABG O2 Saturation (95.0-99.0) % ABG Base Excess (-2.0-3.0) mmol/L ABG Hemoglobin (14.0-18.0) gm/dl ABG Sodium (136.0-145.0) mmol/L ABG Glucose (65-95) mg/dL Oxyhemoglobin (95.0-99.0) % Carbon Dioxide (22-30) mmol/L BUN (9-20) mg/dL Creatinine (0.8-1.3) mg/dL Glucose (75-100) mg/dL POC Glucose 270 H 274 H 240 H (70-105) mg/dL Calcium (8.4-10.2) mg/dL AST (5-40) units/L ALT (7-56) units/L Total Protein (6.3-8.2) g/dL Albumin (3.9-5) g/dL Arterial Blood Glucose (65-95) mg/dL Arterial Blood Ionized Calcium (4.6-5.3) mg/dL 12/31/19 12/31/19 12/31/19 Range/Units 04:24 06:13 07:15 WBC (4.5-11.0) K/mm3 RBC (3.65-5.03) M/mm3 Hgb (11.8-15.2) gm/dl Hct (35.5-45.6) % MCV (84-94) fl MCH (28-32) pg Plt Count (140-440) K/mm3 Seg Neuts % (Manual) (40.0-70.0) % Lymphocytes % (Manual) (13.4-35.0) % Seg Neutrophils # Man (1.8-7.7) K/mm3 Lymphocytes # (Manual) (1.2-5.4) K/mm3 Heparin Anti-Xa Level (0.3-0.7) U.I./ml ABG pH (7.350-7.450) pH Units POC ABG pCO2 (32.0-48.0) mmHg POC ABG pO2 (83-108) mmHg ABG pO2 (80.0-90.0) mm Hg ABG HCO3 (20.0-26.0) mmol/L ABG O2 Saturation (95.0-99.0) % ABG Base Excess (-2.0-3.0) mmol/L ABG Hemoglobin (14.0-18.0) gm/dl ABG Sodium (136.0-145.0) mmol/L ABG Glucose (65-95) mg/dL Oxyhemoglobin (95.0-99.0) % Carbon Dioxide (22-30) mmol/L BUN (9-20) mg/dL Creatinine (0.8-1.3) mg/dL Glucose (75-100) mg/dL POC Glucose 219 H 201 H 167 H (70-105) mg/dL Calcium (8.4-10.2) mg/dL AST (5-40) units/L ALT (7-56) units/L Total Protein (6.3-8.2) g/dL Albumin (3.9-5) g/dL Arterial Blood Glucose (65-95) mg/dL Arterial Blood Ionized Calcium (4.6-5.3) mg/dL 12/31/19 12/31/19 12/31/19 Range/Units 08:23 08:50 08:50 WBC (4.5-11.0) K/mm3 RBC (3.65-5.03) M/mm3 Hgb (11.8-15.2) gm/dl Hct (35.5-45.6) % MCV (84-94) fl MCH (28-32) pg Plt Count (140-440) K/mm3 Seg Neuts % (Manual) (40.0-70.0) % Lymphocytes % (Manual) (13.4-35.0) % Seg Neutrophils # Man (1.8-7.7) K/mm3 Lymphocytes # (Manual) (1.2-5.4) K/mm3 Heparin Anti-Xa Level < 0.10 L (0.3-0.7) U.I./ml ABG pH (7.350-7.450) pH Units POC ABG pCO2 (32.0-48.0) mmHg POC ABG pO2 (83-108) mmHg ABG pO2 (80.0-90.0) mm Hg ABG HCO3 (20.0-26.0) mmol/L ABG O2 Saturation (95.0-99.0) % ABG Base Excess (-2.0-3.0) mmol/L ABG Hemoglobin (14.0-18.0) gm/dl ABG Sodium (136.0-145.0) mmol/L ABG Glucose (65-95) mg/dL Oxyhemoglobin (95.0-99.0) % Carbon Dioxide 20 L (22-30) mmol/L BUN 82 H (9-20) mg/dL Creatinine 5.6 H (0.8-1.3) mg/dL Glucose 260 H (75-100) mg/dL POC Glucose 160 H (70-105) mg/dL Calcium 6.8 L (8.4-10.2) mg/dL AST 226 H (5-40) units/L ALT 191 H (7-56) units/L Total Protein 4.7 L D (6.3-8.2) g/dL Albumin 2.6 L (3.9-5) g/dL Arterial Blood Glucose (65-95) mg/dL Arterial Blood Ionized Calcium (4.6-5.3) mg/dL 12/31/19 12/31/19 12/31/19 Range/Units 08:50 09:31 10:28 WBC 21.7 H (4.5-11.0) K/mm3 RBC 2.96 L (3.65-5.03) M/mm3 Hgb 9.7 L (11.8-15.2) gm/dl Hct 28.9 L D (35.5-45.6) % MCV 98 H (84-94) fl MCH 33 H (28-32) pg Plt Count 41 L D (140-440) K/mm3 Seg Neuts % (Manual) 95.0 H (40.0-70.0) % Lymphocytes % (Manual) 1.0 L (13.4-35.0) % Seg Neutrophils # Man 20.6 H (1.8-7.7) K/mm3 Lymphocytes # (Manual) 0.2 L (1.2-5.4) K/mm3 Heparin Anti-Xa Level (0.3-0.7) U.I./ml ABG pH (7.350-7.450) pH Units POC ABG pCO2 (32.0-48.0) mmHg POC ABG pO2 (83-108) mmHg ABG pO2 (80.0-90.0) mm Hg ABG HCO3 (20.0-26.0) mmol/L ABG O2 Saturation (95.0-99.0) % ABG Base Excess (-2.0-3.0) mmol/L ABG Hemoglobin (14.0-18.0) gm/dl ABG Sodium (136.0-145.0) mmol/L ABG Glucose (65-95) mg/dL Oxyhemoglobin (95.0-99.0) % Carbon Dioxide (22-30) mmol/L BUN (9-20) mg/dL Creatinine (0.8-1.3) mg/dL Glucose (75-100) mg/dL POC Glucose 162 H 176 H (70-105) mg/dL Calcium (8.4-10.2) mg/dL AST (5-40) units/L ALT (7-56) units/L Total Protein (6.3-8.2) g/dL Albumin (3.9-5) g/dL Arterial Blood Glucose (65-95) mg/dL Arterial Blood Ionized Calcium (4.6-5.3) mg/dL 12/31/19 12/31/19 12/31/19 Range/Units 11:22 12:23 13:52 WBC (4.5-11.0) K/mm3 RBC (3.65-5.03) M/mm3 Hgb (11.8-15.2) gm/dl Hct (35.5-45.6) % MCV (84-94) fl MCH (28-32) pg Plt Count (140-440) K/mm3 Seg Neuts % (Manual) (40.0-70.0) % Lymphocytes % (Manual) (13.4-35.0) % Seg Neutrophils # Man (1.8-7.7) K/mm3 Lymphocytes # (Manual) (1.2-5.4) K/mm3 Heparin Anti-Xa Level (0.3-0.7) U.I./ml ABG pH (7.350-7.450) pH Units POC ABG pCO2 30.2 L (32.0-48.0) mmHg POC ABG pO2 60.3 L (83-108) mmHg ABG pO2 (80.0-90.0) mm Hg ABG HCO3 (20.0-26.0) mmol/L ABG O2 Saturation (95.0-99.0) % ABG Base Excess (-2.0-3.0) mmol/L ABG Hemoglobin 10.9 L (14.0-18.0) gm/dl ABG Sodium 135.3 L (136.0-145.0) mmol/L ABG Glucose 134 H (65-95) mg/dL Oxyhemoglobin (95.0-99.0) % Carbon Dioxide (22-30) mmol/L BUN (9-20) mg/dL Creatinine (0.8-1.3) mg/dL Glucose (75-100) mg/dL POC Glucose 179 H 154 H (70-105) mg/dL Calcium (8.4-10.2) mg/dL AST (5-40) units/L ALT (7-56) units/L Total Protein (6.3-8.2) g/dL Albumin (3.9-5) g/dL Arterial Blood Glucose 134 H (65-95) mg/dL Arterial Blood Ionized Calcium 4.1 L (4.6-5.3) mg/dL Assessment and Plan The patient is a 34-year-old male in need of a Vas-Cath for urgent dialysis. He initially had thrombocytopenia however he received a platelet transfusion this morning. His mother was given the risk, benefits, and alternative procedures and consented to the procedure.
--- NOTE | 2019-12-31 16:54 | Operative Report ---
Operative Report Operative Report: Date of Procedure: 12/31/2019 Pre-operative Diagnosis: Acute Renal Failure Post-operative Diagnosis: Same Procedure(s): 1. Ultrasound-Guided Access Right Internal Jugular Vein 2. Placement of 15 Cm Trialysis Vas-Cath Surgeon: Asim Ibanez M.D. Mold Puller: Kiera Anesthesia: 2% Lidocaine EBL: Minimal Counts: Correct Complications: None Condition: Critical but Stable Findings: All ports easily aspirated and flushed. Specimen: None Indication: The patient is a 34-year-old male with a history of cardiac arrest and likely pneumonia who has acute renal failure and is in need of urgent dialysis. He is in need of a Vas-Cath for dialysis access. His mother was given the risk, benefits, and alternative procedures and consented to the procedure. Description of Procedure: The procedure was performed at the patient's bedside in the ICU. After informed consent ultrasound was used to identify the right internal jugular vein and confirm patency. Once patency was confirmed the patient's right neck and chest were prepped and draped in normal sterile fashion. 2% lidocaine was used to a nesthetize the skin overlying soft tissue and an 18-gauge access needle was used with ultrasound guidance into the right internal jugular vein. An 11 blade was used to make a small stab incision and then a 0.035 J-wire was advanced into the central venous system. The needle was removed and a track was serially dilated and then the 15 cm Trialysis Vas-Cath was placed by Seldinger technique. All ports easily aspirated and flushed and then were primed with appropriate amount heparin. The catheter was then secured in position with 3-0 nylon and then dressed with a sterile dressing. The patient tolerated the procedure well and remained in the intensive care unit in critical but stable condition. A portable chest x-ray is pending.
--- NOTE | 2019-12-31 17:48 | XRay Report ---
CHEST 1 VIEW 5:19 PM INDICATION / CLINICAL INFORMATION: Status post Right IJ Vas-Cath Placement. COMPARISON: Earlier today at 8:14 AM. FINDINGS: SUPPORT DEVICES: There is a new right jugular CVL with the tip overlying the proximal SVC. The positi on of the right PICC has not changed with a loop of catheter extending into the inferior right jugula r vein. The tip of the right PICC overlies the mid SVC. The positions of the endotracheal and nasogas tric tubes have not changed. HEART / MEDIASTINUM: Unchanged. LUNGS / PLEURA: Patchy parenchymal disease in both lungs has shown minimal change. There may be mild improvement on the right. No pneumothorax. ADDITIONAL FINDINGS: No significant additional findings. IMPRESSION: New right jugular CVL without complication. Signer Name: Leo Burch MD Signed: 12/31/2019 5:47 PM Workstation Name: [id number]
[2019-12-31] MEDS ORDERED: EPINEPHrine 1 MG/10 ML SYRINGE ONE (19:55)
[2019-12-31] MEDS ORDERED: EPINEPHrine 30 MG/30 ML INJ IV ONE (19:55)
[2019-12-31] MEDS ORDERED: ATROPINE 0.1% (1 MG/10 ML) CARDIAC SYRINGE ONE (19:55)
[2019-12-31] MEDS ORDERED: SODIUM BICARB 8.4% 50 MEQ/50 ML SYRINGE IV ONE (19:55)
[2019-12-31 20:52] VITALS: BP 70/34
--- NOTE | 2019-12-31 21:42 | Progress Note ---
Assessment and Plan Assessment and Plan The high probability of a clinically significant, sudden or life threatening deterioration of the [neuro, cardiac, pulmonary, renal, infectious disease] system(s) required my full and direct attention, intervention and personal management. The aggregate critical care time was [35] minutes. This time is in addition to time spent performing reported procedures but includes the following: [x] Data Review and interpretation [x] Patient assessment and monitoring of vital signs [x] Documentation [x] Medication orders and management -- Sepsis Current Visit: Yes Status: Acute Qualifiers: Severe sepsis acute organ dysfunction type: acute respiratory failure Plan to address problem: IV antibiotics and IV fluids Poor prognosis --Acute hypoxemic respiratory failure Current Visit: Yes Status: Acute Plan to address problem: Continue vent support. Unable to wean Acute kidney injury secondary to ATN Needs emergent hemodialysis Patient has thrombocytopenia with platelet count of 5000 Transfuse platelets Hyperkalemia treated with sodium bicarbonate drip and calcium gluconate Hyperosmolar nonketotic state Patient on IV insulin Pneumonia Current Visit: Yes Status: Acute Plan to address problem: Pneumonia protocol: Chest x-ray, CBC, CMP, IV antibiotic therapy, pulse oximetry, blood cultures. -- Toxic metabolic encephalopathy Current Visit: Yes Status: Acute Plan to address problem: CBC, CMP, treat sepsis, serial lactic acid level. --Cardiopulmonary arrest with successful resuscitation Current Visit: Yes Status: Acute Plan to address problem: Patient treated in accordance with ACLS protocol with eventual return of perfusing cardiac rhythm. Therapeutic anticoagulation as per critical care team. (7) Metabolic acidosis Current Visit: Yes Status: Acute Plan to address problem: IV bicarbonate therapy, BMP, repeat BMP in a.m., serial lactic acid levels. --Cardiomyopathy Current Visit: Yes Status: Acute Qualifiers: Cardiomyopathy type: unspecified Qualified Code(s): I42.9 - Cardiomyopathy, unspecified Plan to address problem: Ejection fraction of 20 to 25%, cardiomyopathy with diastolic dysfunction (9) DVT prophylaxis Current Visit: Yes Status: Acute Plan to address problem: SCD to bilateral lower extremities evaluate bed, continue therapeutic anticoagulation Discussed with mother at [phone] and [id number] about the prognosis Explained to mother about anoxic encephalopathy renal failure sepsis, cardiomyopathy and cardiac arrest at the time of admission Subjective Date of service: 12/31/19 Principal diagnosis: Acute hypoxemic & hypercapnic resp failure; ARDS; PUI COVID-19; PNA Interval history: 34 YO Male with Obesity Hypoventilation Syndrome, DM presents to ED for evaluation. Patient is intubated and on ventilatory support at the time of my evaluation and is unable to provide history. Patient history taken from EMS staff, ED staff, as well as the patient's family who is available by phone to discuss patient history. EMS was notified after the patient was found unresponsive in his vehicle in the parking lot of a local motel. EMS was notified and upon arrival the patient was found to be in respiratory distress with a pulse oximetry of 70%. Patient was treated with IV steroid therapy nebulizer therapy and transported to [facility] for further care and evaluation. Shortly after being placed in the EMS transport vehicle the patient became bradycardic and experienced cardiopulmonary arrest. The patient was treated w [facility] ACLS protocol with return of perfusing cardiac rhythm and was subsequently intubated in the field. Patient subsequently transported to [facility] for further care and evaluation of the aforementioned symptoms. Patient seen and evaluated in the emergency department. All lab and imaging studies reviewed. Patient found to have sepsis, acute hypoxemic respiratory failure, metabolic acidosis, toxic metabolic encephalopathy, bilateral pneumonia, as well as symptoms suggestive of coronavirus infection. Patient initiated on sepsis protocol and admitted to ICU. Coronavirus protocol initiated in the emergency department prior to my evaluation. No further history is obtainable. No prior admission for review. No medication listed at time of admission for reconciliation. 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[employer] in [place] and return back to [place] Was apparently doing well until he was found unresponsive in his own vehicle As per mother there is no significant past medical history except for obesity hypoventilation syndrome 12/28/2019 Same condition No improvement Vent dependent Anoxic encephalopathy 12/29/2019 Same condition No improvement Vent dependent Decerebrate posturing 12/30/2019 Worsening condition High blood glucose levels High potassium level Worsening kidney function which may need dialysis Low platelet count 08/30/2019 Patient to get Vas-Cath today followed by dialysis Poor prognosis Blood glucose levels under control Objective - Constitutional Vitals: Vital Signs - 12hr 12/31/19 12/31/19 12/31/19 09:45 10:00 10:15 Temperature Pulse Rate 109 H 109 H 110 H Pulse Rate [ Anterior Bilateral Throughout] Respiratory 27 H 30 H 30 H Rate Respiratory Rate [Anterior Bilateral Throughout] Blood Pressure 110/66 113/61 122/57 O2 Sat by Pulse 90 91 91 Oximetry 12/31/19 12/31/19 12/31/19 10:30 10:45 11:00 Temperature Pulse Rate 108 H 108 H 109 H Pulse Rate [ Anterior Bilateral Throughout] Respiratory 30 H 30 H 30 H Rate Respiratory Rate [Anterior Bilateral Throughout] Blood Pressure 112/53 109/52 103/56 O2 Sat by Pulse 90 91 91 Oximetry 12/31/19 12/31/19 12/31/19 11:15 11:30 11:38 Temperature Pulse Rate 109 H 111 H 109 H Pulse Rate [ Anterior Bilateral Throughout] Respiratory 30 H 30 H Rate Respiratory Rate [Anterior Bilateral Throughout] Blood Pressure 113/49 110/53 113/61 O2 Sat by Pulse 92 90 91 Oximetry 12/31/19 12/31/19 12/31/19 11:45 12:00 12:15 Temperature Pulse Rate 108 H 111 H 111 H Pulse Rate [ Anterior Bilateral Throughout] Respiratory 30 H 30 H 31 H Rate Respiratory Rate [Anterior Bilateral Throughout] Blood Pressure 111/45 118/65 113/59 O2 Sat by Pulse 90 92 91 Oximetry 12/31/19 12/31/19 12/31/19 12:30 12:45 13:00 Temperature Pulse Rate 111 H 112 H 112 H Pulse Rate [ Anterior Bilateral Throughout] Respiratory 30 H 23 30 H Rate Respiratory Rate [Anterior Bilateral Throughout] Blood Pressure 117/57 109/55 110/58 O2 Sat by Pulse 90 91 91 Oximetry 12/31/19 12/31/19 12/31/19 13:07 13:15 13:30 Temperature Pulse Rate 113 H 113 H Pulse Rate [ 109 H Anterior Bilateral Throughout] Respiratory 30 H 30 H Rate Respiratory 30 H Rate [Anterior Bilateral Throughout] Blood Pressure 105/64 103/59 O2 Sat by Pulse 90 91 Oximetry 12/31/19 12/31/19 12/31/19 13:45 13:58 14:00 Temperature Pulse Rate 113 H 112 H 113 H Pulse Rate [ Anterior Bilateral Throughout] Respiratory 30 H 24 Rate Respiratory Rate [Anterior Bilateral Throughout] Blood Pressure 110/66 110/58 102/49 O2 Sat by Pulse 90 91 95 Oximetry 12/31/19 12/31/19 12/31/19 14:15 14:30 14:45 Temperature Pulse Rate 118 H 120 H 119 H Pulse Rate [ Anterior Bilateral Throughout] Respiratory 25 H 26 H 25 H Rate Respiratory Rate [Anterior Bilateral Throughout] Blood Pressure 105/58 110/58 104/47 O2 Sat by Pulse 86 90 85 Oximetry 12/31/19 12/31/19 12/31/19 15:00 15:14 15:15 Temperature Pulse Rate 119 H 120 H 118 H Pulse Rate [ Anterior Bilateral Throughout] Respiratory 25 H 26 H Rate Respiratory Rate [Anterior Bilateral Throughout] Blood Pressure 110/44 110/58 96/49 O2 Sat by Pulse 87 90 85 Oximetry 12/31/19 12/31/19 12/31/19 15:30 15:45 16:00 Temperature Pulse Rate 117 H 117 H 121 H Pulse Rate [ Anterior Bilateral Throughout] Respiratory 25 H 25 H 25 H Rate Respiratory Rate [Anterior Bilateral Throughout] Blood Pressure 98/46 97/48 100/56 O2 Sat by Pulse 83 L 83 L 90 Oximetry 12/31/19 12/31/19 12/31/19 16:15 16:30 16:45 Temperature Pulse Rate 121 H 118 H 120 H Pulse Rate [ Anterior Bilateral Throughout] Respiratory 30 H 30 H 23 Rate Respiratory Rate [Anterior Bilateral Throughout] Blood Pressure 112/59 107/60 103/67 O2 Sat by Pulse 95 94 93 Oximetry 12/31/19 12/31/19 12/31/19 17:00 17:15 17:30 Temperature Pulse Rate 122 H 121 H 119 H Pulse Rate [ Anterior Bilateral Throughout] Respiratory 30 H 22 20 Rate Respiratory Rate [Anterior Bilateral Throughout] Blood Pressure 114/64 117/98 95/56 O2 Sat by Pulse 94 92 93 Oximetry 12/31/19 12/31/19 12/31/19 17:45 18:00 19:00 Temperature Pulse Rate 121 H 119 H 125 H Pulse Rate [ Anterior Bilateral Throughout] Respiratory 30 H 30 H 35 H Rate Respiratory Rate [Anterior Bilateral Throughout] Blood Pressure 110/66 93/48 96/50 O2 Sat by Pulse 94 90 81 L Oximetry 12/31/19 12/31/19 12/31/19 19:15 19:30 19:45 Temperature Pulse Rate 126 H 127 H 127 H Pulse Rate [ Anterior Bilateral Throughout] Respiratory 35 H 35 H 30 H Rate Respiratory Rate [Anterior Bilateral Throughout] Blood Pressure 99/57 108/55 100/53 O2 Sat by Pulse 77 L 70 L 62 L Oximetry 12/31/19 12/31/19 12/31/19 20:00 20:16 20:30 Temperature 98.9 F Pulse Rate 105 H 110 H 55 L Pulse Rate [ Anterior Bilateral Throughout] Respiratory 15 30 H 16 Rate Respiratory Rate [Anterior Bilateral Throughout] Blood Pressure 46/20 70/34 O2 Sat by Pulse 46 L 48 L Oximetry 12/31/19 20:46 Temperature Pulse Rate Pulse Rate [ Anterior Bilateral Throughout] Respiratory 0 L Rate Respiratory Rate [Anterior Bilateral Throughout] Blood Pressure O2 Sat by Pulse Oximetry General appearance: Present: well-nourished, obese, other (Intubated) - EENT Eyes: miosis Ears: bilateral: normal - Respiratory Respiratory effort: normal Respiratory: bilateral: CTA - Breasts Breasts: normal - Cardiovascular Heart rate: 98 Rhythm: regular Heart Sounds: Present: S1 & S2. Absent: gallop, rub Extremities: pulses intact, No edema, normal color - Gastrointestinal General gastrointestinal: Present: soft, non-tender, non-distended, normal bowel sounds - Genitourinary Male genitourinary: normal - Integumentary Integumentary: clear, warm, dry - Musculoskeletal Musculoskeletal: generalized weakness, other (Patient unresponsive and intubated) - Neurologic Neurologic: other (Patient unresponsive and intubated) - Psychiatric Psychiatric: other (Patient unresponsive and intubated) - Allied health notes Allied health notes reviewed: nursing, case management - Labs CBC & Chem 7: 12/31/19 08:50 12/31/19 08:50 Labs: Abnormal lab results 12/30/19 12/30/19 12/30/19 Range/Units 21:55 22:19 23:47 WBC (4.5-11.0) K/mm3 RBC (3.65-5.03) M/mm3 Hgb (11.8-15.2) gm/dl Hct (35.5-45.6) % MCV (84-94) fl MCH (28-32) pg Plt Count (140-440) K/mm3 Seg Neuts % (Manual) (40.0-70.0) % Lymphocytes % (Manual) (13.4-35.0) % Seg Neutrophils # Man (1.8-7.7) K/mm3 Lymphocytes # (Manual) (1.2-5.4) K/mm3 Heparin Anti-Xa Level (0.3-0.7) U.I./ml POC ABG pCO2 (32.0-48.0) mmHg POC ABG pO2 (83-108) mmHg ABG Hemoglobin (12.0-17.5) ABG Oxyhemoglobin (94-98) ABG Sodium (136.0-145.0) mmol/L ABG Potassium (3.40-4.50) mmol/L ABG Glucose (65-95) mg/dL Carboxyhemoglobin (0.5-1.5) Carbon Dioxide (22-30) mmol/L BUN (9-20) mg/dL Creatinine (0.8-1.3) mg/dL Glucose (75-100) mg/dL POC Glucose 324 H 360 H 338 H (70-105) mg/dL Calcium (8.4-10.2) mg/dL AST (5-40) units/L ALT (7-56) units/L Total Protein (6.3-8.2) g/dL Albumin (3.9-5) g/dL Arterial Blood Glucose (65-95) mg/dL Arterial Blood Ionized Calcium (4.6-5.3) mg/dL 12/31/19 12/31/19 12/31/19 Range/Units 00:16 01:18 02:15 WBC (4.5-11.0) K/mm3 RBC (3.65-5.03) M/mm3 Hgb (11.8-15.2) gm/dl Hct (35.5-45.6) % MCV (84-94) fl MCH (28-32) pg Plt Count (140-440) K/mm3 Seg Neuts % (Manual) (40.0-70.0) % Lymphocytes % (Manual) (13.4-35.0) % Seg Neutrophils # Man (1.8-7.7) K/mm3 Lymphocytes # (Manual) (1.2-5.4) K/mm3 Heparin Anti-Xa Level (0.3-0.7) U.I./ml POC ABG pCO2 (32.0-48.0) mmHg POC ABG pO2 (83-108) mmHg ABG Hemoglobin (12.0-17.5) ABG Oxyhemoglobin (94-98) ABG Sodium (136.0-145.0) mmol/L ABG Potassium (3.40-4.50) mmol/L ABG Glucose (65-95) mg/dL Carboxyhemoglobin (0.5-1.5) Carbon Dioxide (22-30) mmol/L BUN (9-20) mg/dL Creatinine (0.8-1.3) mg/dL Glucose (75-100) mg/dL POC Glucose 259 H 270 H 274 H (70-105) mg/dL Calcium (8.4-10.2) mg/dL AST (5-40) units/L ALT (7-56) units/L Total Protein (6.3-8.2) g/dL Albumin (3.9-5) g/dL Arterial Blood Glucose (65-95) mg/dL Arterial Blood Ionized Calcium (4.6-5.3) mg/dL 12/31/19 12/31/19 12/31/19 Range/Units 03:34 04:24 06:13 WBC (4.5-11.0) K/mm3 RBC (3.65-5.03) M/mm3 Hgb (11.8-15.2) gm/dl Hct (35.5-45.6) % MCV (84-94) fl MCH (28-32) pg Plt Count (140-440) K/mm3 Seg Neuts % (Manual) (40.0-70.0) % Lymphocytes % (Manual) (13.4-35.0) % Seg Neutrophils # Man (1.8-7.7) K/mm3 Lymphocytes # (Manual) (1.2-5.4) K/mm3 Heparin Anti-Xa Level (0.3-0.7) U.I./ml POC ABG pCO2 (32.0-48.0) mmHg POC ABG pO2 (83-108) mmHg ABG Hemoglobin (12.0-17.5) ABG Oxyhemoglobin (94-98) ABG Sodium (136.0-145.0) mmol/L ABG Potassium (3.40-4.50) mmol/L ABG Glucose (65-95) mg/dL Carboxyhemoglobin (0.5-1.5) Carbon Dioxide (22-30) mmol/L BUN (9-20) mg/dL Creatinine (0.8-1.3) mg/dL Glucose (75-100) mg/dL POC Glucose 240 H 219 H 201 H (70-105) mg/dL Calcium (8.4-10.2) mg/dL AST (5-40) units/L ALT (7-56) units/L Total Protein (6.3-8.2) g/dL Albumin (3.9-5) g/dL Arterial Blood Glucose (65-95) mg/dL Arterial Blood Ionized Calcium (4.6-5.3) mg/dL 12/31/19 12/31/19 12/31/19 Range/Units 07:15 08:23 08:50 WBC (4.5-11.0) K/mm3 RBC (3.65-5.03) M/mm3 Hgb (11.8-15.2) gm/dl Hct (35.5-45.6) % MCV (84-94) fl MCH (28-32) pg Plt Count (140-440) K/mm3 Seg Neuts % (Manual) (40.0-70.0) % Lymphocytes % (Manual) (13.4-35.0) % Seg Neutrophils # Man (1.8-7.7) K/mm3 Lymphocytes # (Manual) (1.2-5.4) K/mm3 Heparin Anti-Xa Level (0.3-0.7) U.I./ml POC ABG pCO2 (32.0-48.0) mmHg POC ABG pO2 (83-108) mmHg ABG Hemoglobin (12.0-17.5) ABG Oxyhemoglobin (94-98) ABG Sodium (136.0-145.0) mmol/L ABG Potassium (3.40-4.50) mmol/L ABG Glucose (65-95) mg/dL Carboxyhemoglobin (0.5-1.5) Carbon Dioxide 20 L (22-30) mmol/L BUN 82 H (9-20) mg/dL Creatinine 5.6 H (0.8-1.3) mg/dL Glucose 260 H (75-100) mg/dL POC Glucose 167 H 160 H (70-105) mg/dL Calcium 6.8 L (8.4-10.2) mg/dL AST 226 H (5-40) units/L ALT 191 H (7-56) units/L Total Protein 4.7 L D (6.3-8.2) g/dL Albumin 2.6 L (3.9-5) g/dL Arterial Blood Glucose (65-95) mg/dL Arterial Blood Ionized Calcium (4.6-5.3) mg/dL 12/31/19 12/31/19 12/31/19 Range/Units 08:50 08:50 09:31 WBC 21.7 H (4.5-11.0) K/mm3 RBC 2.96 L (3.65-5.03) M/mm3 Hgb 9.7 L (11.8-15.2) gm/dl Hct 28.9 L D (35.5-45.6) % MCV 98 H (84-94) fl MCH 33 H (28-32) pg Plt Count 41 L D (140-440) K/mm3 Seg Neuts % (Manual) 95.0 H (40.0-70.0) % Lymphocytes % (Manual) 1.0 L (13.4-35.0) % Seg Neutrophils # Man 20.6 H (1.8-7.7) K/mm3 Lymphocytes # (Manual) 0.2 L (1.2-5.4) K/mm3 Heparin Anti-Xa Level < 0.10 L (0.3-0.7) U.I./ml POC ABG pCO2 (32.0-48.0) mmHg POC ABG pO2 (83-108) mmHg ABG Hemoglobin (12.0-17.5) ABG Oxyhemoglobin (94-98) ABG Sodium (136.0-145.0) mmol/L ABG Potassium (3.40-4.50) mmol/L ABG Glucose (65-95) mg/dL Carboxyhemoglobin (0.5-1.5) Carbon Dioxide (22-30) mmol/L BUN (9-20) mg/dL Creatinine (0.8-1.3) mg/dL Glucose (75-100) mg/dL POC Glucose 162 H (70-105) mg/dL Calcium (8.4-10.2) mg/dL AST (5-40) units/L ALT (7-56) units/L Total Protein (6.3-8.2) g/dL Albumin (3.9-5) g/dL Arterial Blood Glucose (65-95) mg/dL Arterial Blood Ionized Calcium (4.6-5.3) mg/dL 12/31/19 12/31/19 12/31/19 Range/Units 10:28 11:22 12:23 WBC (4.5-11.0) K/mm3 RBC (3.65-5.03) M/mm3 Hgb (11.8-15.2) gm/dl Hct (35.5-45.6) % MCV (84-94) fl MCH (28-32) pg Plt Count (140-440) K/mm3 Seg Neuts % (Manual) (40.0-70.0) % Lymphocytes % (Manual) (13.4-35.0) % Seg Neutrophils # Man (1.8-7.7) K/mm3 Lymphocytes # (Manual) (1.2-5.4) K/mm3 Heparin Anti-Xa Level (0.3-0.7) U.I./ml POC ABG pCO2 (32.0-48.0) mmHg POC ABG pO2 (83-108) mmHg ABG Hemoglobin (12.0-17.5) ABG Oxyhemoglobin (94-98) ABG Sodium (136.0-145.0) mmol/L ABG Potassium (3.40-4.50) mmol/L ABG Glucose (65-95) mg/dL Carboxyhemoglobin (0.5-1.5) Carbon Dioxide (22-30) mmol/L BUN (9-20) mg/dL Creatinine (0.8-1.3) mg/dL Glucose (75-100) mg/dL POC Glucose 176 H 179 H 154 H (70-105) mg/dL Calcium (8.4-10.2) mg/dL AST (5-40) units/L ALT (7-56) units/L Total Protein (6.3-8.2) g/dL Albumin (3.9-5) g/dL Arterial Blood Glucose (65-95) mg/dL Arterial Blood Ionized Calcium (4.6-5.3) mg/dL 12/31/19 12/31/19 12/31/19 Range/Units 13:41 13:52 14:17 WBC (4.5-11.0) K/mm3 RBC (3.65-5.03) M/mm3 Hgb (11.8-15.2) gm/dl Hct (35.5-45.6) % MCV (84-94) fl MCH (28-32) pg Plt Count (140-440) K/mm3 Seg Neuts % (Manual) (40.0-70.0) % Lymphocytes % (Manual) (13.4-35.0) % Seg Neutrophils # Man (1.8-7.7) K/mm3 Lymphocytes # (Manual) (1.2-5.4) K/mm3 Heparin Anti-Xa Level (0.3-0.7) U.I./ml POC ABG pCO2 30.2 L (32.0-48.0) mmHg POC ABG pO2 60.3 L (83-108) mmHg ABG Hemoglobin 10.9 L (12.0-17.5) ABG Oxyhemoglobin (94-98) ABG Sodium 135.3 L (136.0-145.0) mmol/L ABG Potassium (3.40-4.50) mmol/L ABG Glucose 134 H (65-95) mg/dL Carboxyhemoglobin (0.5-1.5) Carbon Dioxide (22-30) mmol/L BUN (9-20) mg/dL Creatinine (0.8-1.3) mg/dL Glucose (75-100) mg/dL POC Glucose 153 H 148 H (70-105) mg/dL Calcium (8.4-10.2) mg/dL AST (5-40) units/L ALT (7-56) units/L Total Protein (6.3-8.2) g/dL Albumin (3.9-5) g/dL Arterial Blood Glucose 134 H (65-95) mg/dL Arterial Blood Ionized Calcium 4.1 L (4.6-5.3) mg/dL 12/31/19 12/31/19 12/31/19 Range/Units 15:10 16:24 18:14 WBC (4.5-11.0) K/mm3 RBC (3.65-5.03) M/mm3 Hgb (11.8-15.2) gm/dl Hct (35.5-45.6) % MCV (84-94) fl MCH (28-32) pg Plt Count (140-440) K/mm3 Seg Neuts % (Manual) (40.0-70.0) % Lymphocytes % (Manual) (13.4-35.0) % Seg Neutrophils # Man (1.8-7.7) K/mm3 Lymphocytes # (Manual) (1.2-5.4) K/mm3 Heparin Anti-Xa Level (0.3-0.7) U.I./ml POC ABG pCO2 (32.0-48.0) mmHg POC ABG pO2 (83-108) mmHg ABG Hemoglobin (12.0-17.5) ABG Oxyhemoglobin (94-98) ABG Sodium (136.0-145.0) mmol/L ABG Potassium (3.40-4.50) mmol/L ABG Glucose (65-95) mg/dL Carboxyhemoglobin (0.5-1.5) Carbon Dioxide (22-30) mmol/L BUN (9-20) mg/dL Creatinine (0.8-1.3) mg/dL Glucose (75-100) mg/dL POC Glucose 149 H 140 H 140 H (70-105) mg/dL Calcium (8.4-10.2) mg/dL AST (5-40) units/L ALT (7-56) units/L Total Protein (6.3-8.2) g/dL Albumin (3.9-5) g/dL Arterial Blood Glucose (65-95) mg/dL Arterial Blood Ionized Calcium (4.6-5.3) mg/dL 12/31/19 12/31/19 12/31/19 Range/Units 19:04 19:09 19:24 WBC (4.5-11.0) K/mm3 RBC (3.65-5.03) M/mm3 Hgb (11.8-15.2) gm/dl Hct (35.5-45.6) % MCV (84-94) fl MCH (28-32) pg Plt Count (140-440) K/mm3 Seg Neuts % (Manual) (40.0-70.0) % Lymphocytes % (Manual) (13.4-35.0) % Seg Neutrophils # Man (1.8-7.7) K/mm3 Lymphocytes # (Manual) (1.2-5.4) K/mm3 Heparin Anti-Xa Level (0.3-0.7) U.I./ml POC ABG pCO2 29.3 L (32.0-48.0) mmHg POC ABG pO2 44.8 L (83-108) mmHg ABG Hemoglobin 10.5 L (12.0-17.5) ABG Oxyhemoglobin 78.9 L (94-98) ABG Sodium 134.1 L (136.0-145.0) mmol/L ABG Potassium 4.9 H (3.40-4.50) mmol/L ABG Glucose 122 H (65-95) mg/dL Carboxyhemoglobin 0.4 L (0.5-1.5) Carbon Dioxide (22-30) mmol/L BUN (9-20) mg/dL Creatinine (0.8-1.3) mg/dL Glucose (75-100) mg/dL POC Glucose 136 H 127 H (70-105) mg/dL Calcium (8.4-10.2) mg/dL AST (5-40) units/L ALT (7-56) units/L Total Protein (6.3-8.2) g/dL Albumin (3.9-5) g/dL Arterial Blood Glucose 122 H (65-95) mg/dL Arterial Blood Ionized Calcium 4.0 L (4.6-5.3) mg/dL 18/20 Range/Units 20:16 WBC (4.5-11.0) K/mm3 RBC (3.65-5.03) M/mm3 Hgb (11.8-15.2) gm/dl Hct (35.5-45.6) % MCV (84-94) fl MCH (28-32) pg Plt Count (140-440) K/mm3 Seg Neuts % (Manual) (40.0-70.0) % Lymphocytes % (Manual) (13.4-35.0) % Seg Neutrophils # Man (1.8-7.7) K/mm3 Lymphocytes # (Manual) (1.2-5.4) K/mm3 Heparin Anti-Xa Level (0.3-0.7) U.I./ml POC ABG pCO2 (32.0-48.0) mmHg POC ABG pO2 (83-108) mmHg ABG Hemoglobin (12.0-17.5) ABG Oxyhemoglobin (94-98) ABG Sodium (136.0-145.0) mmol/L ABG Potassium (3.40-4.50) mmol/L ABG Glucose (65-95) mg/dL Carboxyhemoglobin (0.5-1.5) Carbon Dioxide (22-30) mmol/L BUN (9-20) mg/dL Creatinine (0.8-1.3) mg/dL Glucose (75-100) mg/dL POC Glucose 161 H (70-105) mg/dL Calcium (8.4-10.2) mg/dL AST (5-40) units/L ALT (7-56) units/L Total Protein (6.3-8.2) g/dL Albumin (3.9-5) g/dL Arterial Blood Glucose (65-95) mg/dL Arterial Blood Ionized Calcium (4.6-5.3) mg/dL HEART Score - HEART Score Troponin: Troponin T 0.021 ng/mL (0.00-0.029) 12/26/19 21:29
--- NOTE | 2019-12-31 21:48 | Event Note ---
Date: 12/31/19 CODE KAREN was called twice ACLS protocol initiated See code sheet Patient required first time CODE KAREN was again called around 2019 hrs. Patient could not be revived second time in spite of epinephrine cardiac compressions and IV bicarbonate Patient was pronounced at 8:31 PM which is 2030 hrs. Discussed with mother about patient's condition and his time of expiration at 8:31 PM. Cause of Cardiorespiratory failure Sepsis Anoxic encephalopathy Acute renal failure Pneumonia
--- NOTE | 2019-12-31 21:53 | Discharge Summary ---
Providers - Providers Date of Admission: 12/26/19 18:28 Date of discharge: 12/31/19 Attending physician: BULMARO FUNG 12/26/19 15:26 Consult to Dietitian/Nutrition [CONS] Routine Physician Instructions: Reason For Exam: Reason for Consult: Evaluate nutritional intake 12/26/19 17:18 Consult to Physician [CONS] Urgent Comment: Consulting Provider: TORI RIVERA Physician Instructions: Reason For Exam: s/p arrest, hypoxia 12/26/19 18:25 Consult to Dietitian/Nutrition [CONS] Routine Physician Instructions: Reason For Exam: Reason for Consult: Write/Manage Tube Feeding 12/26/19 18:54 Consult to Physician [CONS] Urgent Comment: Consulting Provider: RENU DAVEY Physician Instructions: Reason For Exam: b/l pneumonia, r/o covid, post arrest 12/27/19 19:22 Consult to Physician [CONS] Routine Comment: Consulting Provider: RUTH ANN WALLER Physician Instructions: Reason For Exam: Acute Encephalopathy; S/P Cardiac Arrest 12/28/19 13:30 Consult to Physician [CONS] Routine Comment: Consulting Provider: JESSICA GUSMAN Physician Instructions: Reason For Exam: svt 12/28/19 16:49 Consult to Physician [CONS] Routine Comment: Consulting Provider: SUSAN HUTCHINSON Physician Instructions: Reason For Exam: KAVITHA 12/29/19 10:16 PICC Line Placement [Consult to PICC Line RN] [CONS] Stat Reason For Exam: Pressors Type Line:: PICC 12/30/19 10:08 Consult to Physician [CONS] Routine Comment: Consulting Provider: ADEN BELTRAN Physician Instructions: Reason For Exam: vasc cath placement Primary care physician: PET FOOD DEBONER Hospitalization Condition: Stable Hospital course: Subjective Date of service: 12/31/19 Principal diagnosis: Acute hypoxemic & hypercapnic resp failure; ARDS; PUI COVID-19; PNA Interval history: 34 YO Male with Obesity Hypoventilation Syndrome, DM presents to ED for evaluation. Patient is intubated and on ventilatory support at the time of my evaluation and is unable to provide history. Patient history taken from EMS staff, ED staff, as well as the patient's family who is available by phone to discuss patient history. EMS was notified after the patient was found unresponsive in his vehicle in the parking lot of a local motel. EMS was notified and upon arrival the patient was found to be in respiratory distress with a pulse oximetry of 70%. Patient was treated with IV steroid therapy nebulizer therapy and transported to [facility] for further care and evaluation. Shortly after being placed in the EMS transport vehicle the patient became bradycardic and experienced cardiopulmonary arrest. The patient was treated with ACLS protocol with return of perfusing cardiac rhythm and was subsequently intubated in the field. Patient subsequently transported to [facility] for further care and evaluation of the aforementioned symptoms. Patient seen and evaluated in the emergency department. All lab and imaging studies reviewed. Patient found to have sepsis, acute hypoxemic respiratory failure, metabolic acidosis, toxic metabolic encephalopathy, bilateral pneumonia, as well as symptoms suggestive of coronavirus infection. Patient initiated on sepsis protocol and admitted to ICU. Coronavirus protocol initiated in the emergency department prior to my evaluation. No further history is obtainable. No prior admission for review. No medication listed at time of admission for reconciliation. 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 Worsening condition High blood glucose levels High potassium level Worsening kidney function which may need dialysis Low platelet count 08/30/2019 Patient to get Vas-Cath today followed by dialysis Poor prognosis Blood glucose levels under control -- Sepsis Current Visit: Yes Status: Acute Qualifiers: Severe sepsis acute organ dysfunction type: acute respiratory failure Plan to address problem: Patient could not be revived --Acute hypoxemic respiratory failure Current Visit: Yes Status: Acute Plan to address problem: Patient could not be revived acute kidney injury Patient is about to get dialysis when recorded Hyperkalemia treated with sodium bicarbonate drip and calcium gluconate Hyperosmolar nonketotic state Patient on IV insulin Pneumonia Current Visit: Yes Status: Acute Plan to address problem: Pneumonia protocol: Chest x-ray, CBC, CMP, IV antibiotic therapy, pulse oximetry, blood cultures. -- Toxic metabolic encephalopathy Current Visit: Yes Status: Acute Plan to address problem: CBC, CMP, treat sepsis, serial lactic acid level. --Cardiopulmonary arrest with successful resuscitation Current Visit: Yes Status: Acute Plan to address problem: Patient treated in accordance with ACLS protocol with eventual return of perfusing cardiac rhythm. Therapeutic anticoagulation as per critical care team. (7) Metabolic acidosis Current Visit: Yes Status: Acute Plan to address problem: IV bicarbonate therapy, BMP, repeat BMP in a.m., serial lactic acid levels. --Cardiomyopathy Current Visit: Yes Status: Acute Qualifiers: Cardiomyopathy type: unspecified Qualified Code(s): I42.9 - Cardiomyopathy, unspecified Plan to address problem: Ejection fraction of 20 to 25%, cardiomyopathy with diastolic dysfunction Patient went into cardiac arrest around 20 00 hours . ACLS protocol was initiated and was revived. Patient went into cardiac arrest again around 2019 hrs. and patient could not be revived in spite of multiple epinephrines and sodium bicarbonate. Patient was pronounced at 2031 hrs. Patient's mother Stephanie Balderrama is at [phone] was informed and given a detailed assessment from the day of admission to now. Mother was also updated before on 12/26 and 12/29/2019 also Disposition: DC-20 Time spent for discharge: 45 minutes - Discharge Diagnoses (1) Acute hypoxemic respiratory failure Status: Acute (2) Bilateral pulmonary infiltrates on chest x-ray Status: Acute (3) Cardiopulmonary arrest with successful resuscitation Status: Acute (4) Lactic acidosis Status: Acute (5) Metabolic acidosis Status: Acute (6) Pneumonia Status: Acute (7) Respiratory failure Status: Acute (8) Toxic metabolic encephalopathy Status: Acute (9) UTI (urinary tract infection) Status: Acute (10) Hyperkalemia Status: Acute (11) ATN (acute tubular necrosis) Status: Acute (12) Hyperosmolar non-ketotic state due to type 2 diabetes mellitus Status: Acute Core Measure Documentation - Palliative Care Palliative Care/ Comfort Measures: Not Applicable - Core Measures Any of the following diagnoses?: none Exam - Constitutional Vitals: Temp Pulse Resp BP Pulse Ox 98.9 F 55 L 0 L 70/34 48 L 12/31/19 20:00 12/31/19 20:30 12/31/19 20:46 12/31/19 20:16 12/31/19 20:16 Plan Follow up with: RADHA LOZOYA MD [Primary Care Provider] - 3-5 Days
[2019-12-31] MEDS ORDERED: HEPARIN 10,000 UNIT/1 ML VIAL ONE (22:07)
== END 2019-12-31 20:31 | DRG 870 ==
LOC: ED 14:40 → CC1 18:28
PROVIDERS: ADMIT Internal Medicine; ATTEND Internal Medicine
PROC: 0BH17EZ Insertion of Endotracheal Airway into Trachea, Via Natural or Artificial Opening (ICD-10-PCS; principal; 2019-12-26)
PROC: 5A1955Z Respiratory Ventilation, Greater than 96 Consecutive Hours (ICD-10-PCS; 2019-12-26)
PROC: 4A033R1 Measurement of Arterial Saturation, Peripheral, Percutaneous Approach (ICD-10-PCS; 2019-12-29)
PROC: 30233R1 Transfusion of Nonautologous Platelets into Peripheral Vein, Percutaneous Approach (ICD-10-PCS; 2019-12-31)
PROC: 05HM33Z Insertion of Infusion Device into Right Internal Jugular Vein, Percutaneous Approach (ICD-10-PCS; 2019-12-31)
PROC: B543ZZA Ultrasonography of Right Jugular Veins, Guidance (ICD-10-PCS; 2019-12-31)
DX: A41.9 Sepsis, unspecified organism (principal); G92 Toxic encephalopathy; J18.9 Pneumonia, unspecified organism; J96.01 Acute respiratory failure with hypoxia; J96.02 Acute respiratory failure with hypercapnia; E11.00 Type 2 diabetes mellitus with hyperosmolarity without nonketotic hyperglycemic-hyperosmolar coma (NKHHC); E87.2 Acidosis; N39.0 Urinary tract infection, site not specified; N17.9 Acute kidney failure, unspecified; Z68.42 Body mass index [BMI] 45.0-49.9, adult; I42.0 Dilated cardiomyopathy; E66.2 Morbid (severe) obesity with alveolar hypoventilation; I46.9 Cardiac arrest, cause unspecified; D72.829 Elevated white blood cell count, unspecified; R13.12 Dysphagia, oropharyngeal phase; E87.5 Hyperkalemia; Z20.828 Contact with and (suspected) exposure to other viral communicable diseases; Z79.899 Other long term (current) drug therapy; Z79.891 Long term (current) use of opiate analgesic; Z79.01 Long term (current) use of anticoagulants; Z79.2 Long term (current) use of antibiotics; Z83.3 Family history of diabetes mellitus; Z82.49 Family history of ischemic heart disease and other diseases of the circulatory system
CPT/HCPCS: 36415; 36600; 71045; 76705; 80048; 80053; 80074; 80202; 80307; 81001; 82140; 82550; 82570; 82728; 82803; 82805; 82947; 82962; 83615; 83735; 83880; 84132; 84145; 84156; 84300; 84484; 85007; 85014; 85018; 85025; 85049; 85379; 85520; 85610; 85730; 86022; 86140; 86900; 86901; 87040; 87070; 87086; 87205; 92950; 93005; 93306; 94002; 94003; 94640; 94644; 95819; 96365; 96375; 96376; G0378; C9113; J0133; J0171; J0456; J0461; J0610; J0692; J0696; J1100; J1170; J1250; J1644; J1815; J1953; J1956; J2001; J2250; J2704; J2920; J2930; J3010; J3370; J3480; J7030; J7040; J7050; J7070; P9035; U0003